=== PATIENT | male | born 1965 | race Hispanic/Latino ===

== ENCOUNTER 2017-08-16 12:53 | Outpatient (CLI) | payer MEDICARE | END 2017-08-16 12:54 | disposition home or self-care (01) | LOC: DTY/OP 12:53 | PROVIDERS: ATTEND Surgery | DX: E66.01 Morbid (severe) obesity due to excess calories (principal) | CPT/HCPCS: 97802 ==

== ENCOUNTER 2018-02-24 22:02 | Inpatient (IN) | payer MEDICARE ==
[2018-02-24 22:57] LABS: #Eosinphils 0.2 thou/uL (0.0-0.7); #Lymphocytes 1.3 thou/uL (1.20-3.40); #Monocytes 0.4 thou/uL (0.11-0.59); #Neutrophils 4.4 thou/uL (1.40-6.50); %Basophils 0.1 % (0.0-1.0); %Eosinophils 2.5 % (0.0-10.0); %Lymphocytes 20.5 % (21.0-51.0); %Monocytes 6.8 % (0.0-10.0); Hemoglobin 10.1 g/dL (14.0-18.0); Mean Corpuscular HGB CONC 32.7 g/dL (32.0-36.0); Mean Corpuscular Hemoglobin 29.2 pg (27.0-31.0); Mean Corpuscular Volume 89.3 fl (80.0-94.0); Mean Platelet Volume 8.5 fL (7.4-10.4); Platelet Count 141 thou/uL (130-400); RBC Distribution Width 14.4 % (11.5-14.5); Red Blood Cell (RBC) Count 3.45 mill/uL (4.70-6.10); White Blood Cell (WBC) Count 6.3 thou/uL (4.8-10.8)
--- NOTE | 2018-02-24 23:15 | RAD ---
CHEST ONE VIEW: 02/24/18 HISTORY: 52-year-old male with history of chest pain and bilateral leg swelling, status post coronary artery b ypass graft. Minimal cardiomegaly. Status post midline sternotomy. No confluent pneumonia, overt edema, or pleural effusion. IMPRESSION: Mild cardiomegaly. Postop midline sternotomy. No acute intrathoracic disease. POS: GLADIS
[2018-02-24 23:24] LABS: ALT (SGPT) 25 U/L (8-55); AST (SGOT) 24 U/L (5-34); Albumin 2.8 g/dL (3.5-5.0); Alkaline Phosphatase 149 U/L (40-150); Anion Gap 10 mmol/L (10-20); BUN (Urea Nitrogen) 40 mg/dL (8.4-25.7); Bilirubin, Total 0.2 mg/dL (0.2-1.2); Calc. Creatinine Clearance 0 mL/min (70-130); Calcium 8.3 mg/dL (7.8-10.44); Carbon Dioxide 27 mmol/L (22-29); Chloride 112 mmol/L (98-107); Estimated GFR-MDRD 25; Glucose 195 mg/dL (70-105); Potassium 4.6 mmol/L (3.5-5.1); Protein, Total 5.8 g/dL (6.0-8.3); Sodium 144 mmol/L (136-145)
[2018-02-24] MEDS ORDERED: Morphine 4 MG/ML VIAL ONE (23:25)
[2018-02-24 23:30] LABS: CKMB 5.1 ng/mL (0-6.6); Troponin I 0.015 ng/mL (< 0.028)
[2018-02-25] MEDS ORDERED: Furosemide 40 MG/4 ML VIAL ONE (00:23)
[2018-02-25] MEDS ORDERED: HumaLOG 300 UNITS/3 ML VIAL SC PRN (01:35)
[2018-02-25] MEDS ORDERED: Dextrose 5% in Water 1,000 ML IV PRN (01:35)
[2018-02-25] MEDS ORDERED: Dextrose 50% Abboject 50 ML SYRINGE SLOW IVP PRN (01:35)
[2018-02-25] MEDS ORDERED: Ondansetron HCl/PF 4 MG/2 ML Vial IVP PRN (01:36)
[2018-02-25] MEDS ORDERED: Ondansetron ODT 4 MG TAB PO PRN (01:36)
[2018-02-25] MEDS ORDERED: Milk Of Magnesia 30 ML UDCUP PO PRN (01:36)
[2018-02-25] MEDS ORDERED: hydrALAZINE 20 MG/ML VIAL SLOW IVP PRN (01:51)
[2018-02-25 02:04] VITALS: BMI 42.5
--- NOTE | 2018-02-25 02:25 | HP ---
PRIMARY CARE PHYSICIAN: Dr. Lazaro Beebe. PRESENTING COMPLAINT: Lower extremity swelling. HISTORY OF PRESENT ILLNESS: Mr. Venkata Sierra is a 52-year-old male, who has a past medical history o f CAD, status post CABG; diabetes mellitus; hypertension; CKD; and is legally blind; who presented to the emergency room with progressively worsening lower extremity edema for the past 3 weeks associate d with weakness. He denies chest pain, shortness of breath, palpitations, PND, orthopnea. He sleeps with 2 pillows and this has not changed. He had no fevers, no chills. There is no nausea, vomiting , diarrhea, or constipation. He has no urinary or abdominal symptoms. He was admitted at an outside hospital in January for? CHF. He reports that after his CABG, which was done on 12/07/2017, he starte d having worse lower extremity edema and then he was admitted in January, and about 40 pounds was taken off him from fluid removal, but he reports not getting an echocardiogram while in the hospital. He also states he was discharged on furosemide 80 mg daily, but this is not on his home medications. PAST MEDICAL HISTORY: As stated above in the HPI. PAST SURGICAL HISTORY: CABG, eye surgery. FAMILY HISTORY: Reviewed and noncontributory. SOCIAL HISTORY: Does not drink alcohol, smoke cigarettes, or use illicit drugs. ALLERGIES: None. HOME MEDICATIONS: Aspirin 325 mg daily, carvedilol 3.125 mg b.i.d., insulin glargine 32 units at bed time subcutaneously, insulin lispro 15 units a.c., levothyroxine sodium 25 mcg daily. REVIEW OF SYSTEMS: A 12-point review of systems conducted, but negative except as stated in HPI. PHYSICAL EXAMINATION: VITAL SIGNS: Blood pressure 188/77, oxygen saturation 95% on room air, heart rate 60, respiratory ra te 20. GENERAL: Not in acute distress, lying comfortably in bed. HEENT: Normocephalic, atraumatic. Not pale, anicteric. Moist mucous membranes. NECK: Supple. Positive JVD. Full range of movement. RESPIRATORY: Reduced breath sounds bilaterally, but no marked crackles, rales, or rhonchi. CARDIOVASCULAR: S1 and S2, only regular rate and rhythm. No murmurs, rubs, or gallops. Positive lo wer extremity edema up to the knees bilaterally and JVD. ABDOMEN: Soft, nontender, nondistended. Bowel sounds are normoactive. No hepatosplenomegaly. NEUROLOGIC: Alert and well oriented to time, place, and person. No focal deficits. SKIN: Warm, dry, well perfused. No rashes or lesions. MUSCULOSKELETAL: Full range of movement bilaterally. PSYCHIATRIC: Normal mood and affect. PSYCHIATRIC: Alert and well oriented to time, place, and person. No focal deficits. LABORATORY DATA: CMP significant for elevated BUN and creatinine of 40/2.74, glucose was 195. BNP w as about 1100. Initial troponin 0.015. Chest x-ray showed mild cardiomegaly with postop midline ryanne rnotomy and no intrathoracic disease found acutely. EKG, no signs of acute ischemia. ASSESSMENT AND PLAN: 1. Acute congestive heart failure exacerbation: The patient has anasarca with elevated BNP and he w ill be admitted to telemetry, started on IV furosemide 40 mg q.12 hours, daily weights, and his ins a nd outs to be monitored. Cardiology will be consulted and an echocardiogram will be ordered. Unclea r if this is a new onset heart failure, so we will get a TSH and obtain A1c as well. 2. Heart failure, type cannot be specified now until we get results of his echocardiogram. 3. Acute kidney injury on chronic kidney disease: This is likely from cardiorenal syndrome. His cr eatinine has trended up slightly from past admission. We will avoid nephrotoxic medications. Renal function should improve with diuresis. 3. Coronary artery disease, status post coronary artery bypass grafting. Patient is chest pain free . We will resume home medications once confirmed. 4. Diabetes mellitus: The patient is clinically uncontrolled. We will start on sliding scale insul in, fingerstick glucose before meals and at bedtime. Hypoglycemia protocol and also obtain hemoglobi n A1c. 5. Hypertension: Blood pressure is above goal. We will start on home regimen and place on IV hydra lazine p.r.n. The patient will need to be discharged on a beta chad. He will also require spironolactone and AC E inhibitor if he has systolic dysfunction. Deep venous thrombosis prophylaxis, subcutaneous heparin . CODE STATUS: FULL CODE. Levothyroxine: Patient takes 25 mcg daily. We will restart and check TSH.
[2018-02-25 05:04] LABS: #Eosinphils 0.2 thou/uL (0.0-0.7); #Lymphocytes 1.5 thou/uL (1.20-3.40); #Monocytes 0.5 thou/uL (0.11-0.59); #Neutrophils 4.9 thou/uL (1.40-6.50); %Basophils 0.2 % (0.0-1.0); %Eosinophils 2.2 % (0.0-10.0); %Lymphocytes 20.8 % (21.0-51.0); %Monocytes 7.1 % (0.0-10.0); %Neutrophils 69.7 % (42.0-75.0); Hemoglobin 9.5 g/dL (14.0-18.0); Mean Corpuscular HGB CONC 32.9 g/dL (32.0-36.0); Mean Corpuscular Hemoglobin 29.5 pg (27.0-31.0); Mean Corpuscular Volume 89.7 fl (80.0-94.0); Mean Platelet Volume 8.5 fL (7.4-10.4); Platelet Count 135 thou/uL (130-400); RBC Distribution Width 14.6 % (11.5-14.5); Red Blood Cell (RBC) Count 3.22 mill/uL (4.70-6.10)
[2018-02-25 05:13] LABS: Hemoglobin A1c 6.3 % (4.0-6.0)
[2018-02-25 05:18] LABS: Anion Gap 8 mmol/L (10-20); BUN (Urea Nitrogen) 41 mg/dL (8.4-25.7); Calc. Creatinine Clearance 65 mL/min (70-130); Calcium 8.2 mg/dL (7.8-10.44); Carbon Dioxide 27 mmol/L (22-29); Chloride 110 mmol/L (98-107); Estimated GFR-MDRD 27; Glucose 135 mg/dL (70-105); Potassium 4.3 mmol/L (3.5-5.1); Sodium 141 mmol/L (136-145)
[2018-02-25 05:31] LABS: Troponin I 0.048 ng/mL (< 0.028)
[2018-02-25] MEDS: Furosemide 40 MG/4 ML VIAL SLOW IVP SCH ×2 (05:50→13:26)
[2018-02-25] MEDS: Levothyroxine Sodium 125 MCG TAB PO SCH (06:05)
[2018-02-25] MEDS: traMADol HCl 50 MG TAB PO PRN ×3 (06:06→22:13)
[2018-02-25] MEDS: Heparin 5,000 UNITS/ML VIAL SC SCH ×3 (08:43→22:03)
[2018-02-25] MEDS: glipiZIDE 10 MG TAB PO SCH (08:44)
[2018-02-25] MEDS: Losartan 25 MG TAB PO SCH (08:45)
[2018-02-25] MEDS: Carvedilol 3.125 MG TAB PO SCH ×2 (08:45→23:23)
[2018-02-25] MEDS: Ferrous Sulfate 325 MG TAB PO SCH ×2 (08:45→22:03)
[2018-02-25] MEDS: Docusate 100 MG CAP PO SCH ×2 (08:45→22:02)
[2018-02-25] MEDS ORDERED: Amlodipine 5 MG TAB PO SCH (09:00)
[2018-02-25 10:44] LABS: Troponin I 0.013 ng/mL (< 0.028)
[2018-02-25] MEDS: HumaLOG 300 UNITS/3 ML VIAL SC PRN (11:47)
--- NOTE | 2018-02-25 13:14 | PDOC.PN ---
- Subjective Encounter Start Date: 02/25/18 Encounter Start Time: 13:12 Subjective: feels better.denies any CP/SOB.still has significant swelling all over - Objective Resuscitation Status: Resuscitation Status FULL:Full Resuscitation MAR Reviewed: Yes Vital Signs & Weight: Vital Signs (12 hours) Temp Pulse Resp BP Pulse Ox 02/25/18 11:45 97.9 F 58 L 16 145/70 H 97 02/25/18 07:30 97.9 F 60 16 151/72 H 97 02/25/18 05:46 98.1 F 59 L 16 173/80 H 96 02/25/18 01:50 97.9 F 61 18 180/81 H 97 Weight Weight 296 lb 1 oz I&O: 02/24/18 02/25/18 02/26/18 06:59 06:59 06:59 Intake Total 150 Output Total 1250 Balance -1100 Result Diagrams: 02/25/18 04:32 02/25/18 04:32 Additional Labs: Accuchecks 02/25/18 02/25/18 02/25/18 10:31 05:50 02:16 POC Glucose 243 H 158 H 138 H Laboratory Tests 11/03/17 12/30/17 01/13/18 10:25 14:31 14:03 Creatinine 1.74 H 2.06 H 2.36 H Troponin I B-Natriuretic Peptide [facility] 3rd Generation 02/24/18 02/24/18 02/24/18 22:45 22:45 22:45 Creatinine 2.74 H Troponin I 0.015 B-Natriuretic Peptide 1127.[address] [facility] 3rd Generation 02/25/18 02/25/18 02/25/18 01:08 04:32 04:32 Creatinine 2.54 H Troponin I 0.020 0.048 H B-Natriuretic Peptide [facility] 3rd Generation 02/25/18 04:32 Creatinine Troponin I B-Natriuretic Peptide [facility] 3rd Generation 4.2347 Phys Exam - Physical Examination Constitutional: NAD legally blind HEENT: PERRLA, moist MMs, sclera anicteric, 2+ tonsils Neck: no nodes, no JVD, supple, full ROM Respiratory: no wheezing, no rales, no rhonchi, clear to auscultation bilateral Cardiovascular: RRR, no significant murmur Gastrointestinal: soft, non-tender, no distention, positive bowel sounds Musculoskeletal: pulses present, edema present (anasarca) Neurological: non-focal, normal sensation, moves all 4 limbs Psychiatric: normal affect, A&O x 3 Deviation from normal: scatching dodson legs and abdomen Dx/Plan (1) Anasarca Code(s): R60.1 - GENERALIZED EDEMA Status: Acute (2) Acute CHF Code(s): I50.9 - HEART FAILURE, UNSPECIFIED Status: Acute Qualifiers: Heart failure type: unspecified Qualified Code(s): I50.9 - Heart failure, unspecified (3) CKD (chronic kidney disease) Code(s): N18.9 - CHRONIC KIDNEY DISEASE, UNSPECIFIED Status: Chronic Qualifiers: Chronic kidney disease stage: stage 3 (moderate) Qualified Code(s): N18.3 - Chronic kidney disease, stage 3 (moderate) (4) CAD (coronary artery disease), autologous vein bypass graft Code(s): I25.810 - ATHEROSCLEROSIS OF CABG W/O ANGINA PECTORIS Status: Chronic Comment: Cont ASA, BB, ARB,statin (5) DM2 (diabetes mellitus, type 2) Status: Chronic Plan: on Glipizide (6) Hypertension Code(s): I10 - ESSENTIAL (PRIMARY) HYPERTENSION Status: Chronic (7) Chronic disease anemia Code(s): D63.8 - ANEMIA IN OTHER CHRONIC DISEASES CLASSIFIED ELSEWHERE Status : Chronic - Plan PT/OT, out of bed/ambulate, DVT proph w/SCDs cont diuresis .monitor strict I/os.fluid restriction. -: unspecified cardiac status.will check ECHO.[facility] will obtain records.Pt wants to change cardiology to [facility].will consult -: restart home meds.BP higher .cont prn as well & monitor -: cont ISS,Accuchecks. AM labs * .consult nephrology per Pt request. no NATANAEL on CKD at this time.monitor with diuresis Review of Systems - Review of Systems Constitutional: weakness. negative: fever, chills, sweats, malaise, other ENT: negative: Ear Pain, Ear Discharge, Nose Pain, Nose Discharge, Nose Congestion, Mouth Pain, Mouth Swelling, Throat Pain, Throat Swelling, Other Respiratory: negative: Cough, Dry, Shortness of Breath, Hemoptysis, SOB with Excertion, Pleuritic Pain, Sputum, Wheezing Cardiovascular: edema. negative: chest pain, palpitations, orthopnea, paroxysmal nocturnal dyspnea, light headedness, other Gastrointestinal: negative: Nausea, Vomiting, Abdominal Pain, Diarrhea, Constipation, Melena, Hematochezia, Other Genitourinary: negative: Dysuria, Frequency, Incontinence, Hematuria, Retention , Other Musculoskeletal: negative: Neck Pain, Shoulder Pain, Arm Pain, Back Pain, Hand Pain, Leg Pain, Foot Pain, Other Skin: negative: Rash, Lesions, Steve, Bruising, Other Neurological: negative: Weakness, Numbness, Incoordination, Change in Speech, Confusion, Seizures, Other - Medications/Allergies Allergies/Adverse Reactions: Allergies Allergy/AdvReac Type Severity Reaction Status Date / Time No Known Drug Allergies Allergy Verified 05/04/14 02:40 Medications: Current Medications Acetaminophen (Tylenol) 650 mg PO Q4H PRN PRN Reason: Headache/Fever or Pain Amlodipine Besylate (Norvasc) 5 mg PO DAILY [facility] Last Admin: 02/25/18 08:44 Dose: 5 mg Aspirin (Aspirin Chewable) 81 mg PO DAILY [facility] Last Admin: 02/25/18 08:45 Dose: 81 mg Atorvastatin Calcium (Lipitor) 40 mg PO [facility] Carvedilol (Coreg) 6.25 mg PO BID [facility] Last Admin: 02/25/18 08:45 Dose: 6.25 mg Dextrose/Water (Dextrose 50%) 25 gm SLOW IVP PRN PRN PRN Reason: Hypoglycemia Docusate Sodium (Colace) 100 mg PO BID [facility] Last Admin: 02/25/18 08:45 Dose: 100 mg Ferrous Sulfate (Feosol) 325 mg PO BID [facility] Last Admin: 02/25/18 08:45 Dose: 325 mg Furosemide (Lasix) 40 mg SLOW IVP 0600,1400 [facility] Last Admin: 02/25/18 05:50 Dose: 40 mg Glipizide (Glucotrol) 10 mg PO DAILY-AC [facility] Last Admin: 02/25/18 08:44 Dose: 10 mg Glucagon (Glucagon) 1 mg IM PRN PRN PRN Reason: Hypoglycemia Heparin Sodium (Porcine) (Heparin) 5,000 units SC TID [facility] Last Admin: 02/25/18 08:43 Dose: 5,000 units Hydralazine HCl (Apresoline) 10 mg SLOW IVP Q4H PRN PRN Reason: Blood Pressure Dextrose/Water (D5w) 1,000 mls @ 0 mls/hr IV .Q0M PRN; As Directed PRN Reason: Hypoglycemia Insulin Human Lispro (Humalog) 0 units SC .MODERATE SLIDING SC PRN PRN Reason: Moderate Correctional Scale Last Admin: 02/25/18 11:47 Dose: 4 unit Insulin Human Lispro (Humalog) 0 units SC .BEDTIME SLIDING SC PRN PRN Reason: Bedtime Correctional Scale Lactulose (Lactulose) 20 gm PO DAILYPRN PRN PRN Reason: Constipation Levothyroxine Sodium (Synthroid) 250 mcg PO 0600 [facility] Last Admin: 02/25/18 06:05 Dose: 250 mcg Losartan Potassium (Cozaar) 25 mg PO DAILY [facility] Last Admin: 02/25/18 08:45 Dose: 25 mg Magnesium Hydroxide (Milk Of Magnesium) 30 ml PO DAILYPRN PRN PRN Reason: Constipation Ondansetron HCl (Zofran Odt) 4 mg PO Q6H PRN PRN Reason: Nausea/Vomiting Ondansetron HCl (Zofran) 4 mg IVP Q6H PRN PRN Reason: Nausea/Vomiting Sodium Chloride (Flush - Normal Saline) 10 ml IVF Q12HR [facility] Last Admin: 02/25/18 08:46 Dose: 10 ml Sodium Chloride (Flush - Normal Saline) 10 ml IVF PRN PRN PRN Reason: Saline Flush Tramadol HCl (Ultram) 50 mg PO Q4H PRN PRN Reason: Pain Last Admin: 02/25/18 06:06 Dose: 50 mg
[2018-02-25] MEDS: Acetaminophen 325 MG TAB PO PRN (15:41)
--- NOTE | 2018-02-25 17:43 | CON ---
DATE OF CONSULTATION: 02/25/2018 REASON FOR CONSULTATION: Lower extremity edema. HISTORY OF PRESENT ILLNESS: Mr. Sierra is a very pleasant 52-year-old gentleman who comes to the hospital for lower extremity edema. He was recently in November of this year had a bypass surger y done at [facility] by Dr. Mcdaniel. He had noticed that since then he has had increased lower extremity edema. He had to be readmitted to the hospital sometime in January secondary to this. He was diuresed and took about 40 pounds off. Since discharge, he continued to regain the fluid back slowly to the point where he decided to come in again for evaluation. He denies any chest pain, tightness, pressur e, no shortness of breath. There is lower extremity edema as well as abdominal swelling. PAST MEDICAL HISTORY: 1. Type 2 diabetes. 2. Hypertension. 3. Chronic kidney disease. 4. Multivessel coronary artery disease status post bypass surgery in 12/07/2017. PAST SURGICAL HISTORY: 1. CABG x3. 2. Eye surgery. FAMILY HISTORY: Noncontributory. SOCIAL HISTORY: No alcohol, tobacco or drugs. OUTPATIENT MEDICATIONS: Include: 1. Tramadol p.r.n. 2. Glipizide 10 mg a day. 3. Losartan 25 mg a day. 4. Levothyroxine 250 mcg a day. 5. Insulin Lantus. 6. Lasix 80 mg a day. 7. Ferrous sulfate 325 mg b.i.d. 8. Carvedilol 6.25 mg b.i.d. 9. Atorvastatin 40 mg at bedtime. 10. Aspirin 81 daily. 11. Amlodipine 5 mg b.i.d. 12. Acarbose 25 mg p.o. t.i.d. ALLERGIES: No known drug allergies. REVIEW OF SYSTEMS: A 12 point review of systems was done and it is negative unless stated in history of present illness. PHYSICAL EXAMINATION: VITAL SIGNS: Temperature 97.8, pulse 55, respiratory rate 16, satting 99% on room air, blood pressur e 138/63. GENERAL: Awake, alert, oriented x3, in no distress. HEENT: Normocephalic, atraumatic. NECK: Supple. LUNGS: Clear. CARDIOVASCULAR: S1, S2, no S3 or S4, no murmurs. ABDOMEN: Soft, positive bowel sounds. EXTREMITIES: 3+ edema. SKIN: Warm. LABORATORY DATA AND IMAGING DATA: Laboratory work was reviewed. CBC with white count of 6.3, hemogl obin 10.1 down to 9.5, hematocrit 28, and platelet count 135. Chemistries were reviewed. Sodium 141 , potassium 4.3, chloride of 110, anion gap of 8, BUN 41, creatinine 2.54. His baseline in October this year was 1.7, GFR of 27, glucose of 135, hemoglobin A1c of 6.3. Troponin has been 0.01, 0.02, 0.04 and 0.01. TSH was on the high end of normal at 4.2. He has been as high as 10.5 just two litzy hs ago. Albumin is low at 2.8. BNP was 1127, trending up albumin has been low, it is normal back in 2011, bu t late as 2013 it was 3.2, last year was 3.0 and has been less than 2 in 2018. EKG was reviewed. Chest x-ray was reviewed, showed mild cardiomegaly, midline sternotomy. No acute intrathoracic disea se. ASSESSMENT AND PLAN: 1. Bilateral lower extremity edema. 2. Coronary artery disease, status post bypass. 3. Hypertension. 4. Hyperlipidemia. 5. Type 2 diabetes. PLAN: 1. Differential diagnosis as far as lower extremity edema includes edema related to amlodipine, so w magen will plan on stopping amlodipine today. 2. Other differential includes congestive heart failure. We will get an echocardiogram to assess LV function and valvular structures. 3. Other considerations would include haptoglobin anemia. He does have low albumin. Consider hepat ic dysfunction, although this could be related to cardiac cirrhosis just or cardiac congestion. He h ad a CT of the abdomen back in May of last year and his liver was not mentioned to be nodular or a nything. 4. Continue IV Lasix for now, try to diurese him better. 5. We will follow. Thank you for letting us to participate in the care of your patient. We will follow.
[2018-02-25] MEDS: Atorvastatin Calcium 40 MG TAB PO SCH (22:02)
[2018-02-25] MEDS: Insulin Detemir 100 UNITS/ML 10 UNITS in Pre-Filled Syringe SC SCH (22:17)
[2018-02-25] MEDS: diphenhydrAMINE 25 MG CAP PO PRN (23:49)
[2018-02-26] MEDS: Levothyroxine Sodium 125 MCG TAB PO SCH (06:33)
[2018-02-26] MEDS: Furosemide 40 MG/4 ML VIAL SLOW IVP SCH ×2 (06:33→14:17)
[2018-02-26] MEDS: Ferrous Sulfate 325 MG TAB PO SCH ×2 (08:46→21:25)
[2018-02-26] MEDS: Docusate 100 MG CAP PO SCH ×2 (08:46→21:26)
[2018-02-26] MEDS: Losartan 25 MG TAB PO SCH (08:47)
[2018-02-26] MEDS: Heparin 5,000 UNITS/ML VIAL SC SCH ×3 (08:47→21:26)
[2018-02-26] MEDS: glipiZIDE 10 MG TAB PO SCH (08:47)
[2018-02-26] MEDS: Carvedilol 3.125 MG TAB PO SCH ×2 (08:47→21:24)
[2018-02-26 09:54] LABS: Anion Gap 8 mmol/L (10-20); BUN (Urea Nitrogen) 39 mg/dL (8.4-25.7); Calc. Creatinine Clearance 79 mL/min (70-130); Calcium 8.2 mg/dL (7.8-10.44); Carbon Dioxide 28 mmol/L (22-29); Chloride 109 mmol/L (98-107); Estimated GFR-MDRD 35; Glucose 176 mg/dL (70-105); Potassium 4.1 mmol/L (3.5-5.1); Sodium 141 mmol/L (136-145)
[2018-02-26] MEDS: traMADol HCl 50 MG TAB PO PRN ×2 (10:31→21:25)
[2018-02-26] MEDS: diphenhydrAMINE 25 MG CAP PO PRN ×2 (10:32→21:25)
--- NOTE | 2018-02-26 14:01 | PDOC.PN ---
- Subjective Encounter Start Date: 02/26/18 Encounter Start Time: 14:00 Subjective: still has LE swelling but little better than yesterday -: care discussed with at bedside -: no new complaints - Objective Resuscitation Status: Resuscitation Status FULL:Full Resuscitation MAR Reviewed: Yes Vital Signs & Weight: Vital Signs (12 hours) Temp Pulse Resp BP BP Pulse Ox 02/26/18 12:05 98.6 F 57 L 16 173/79 H 98 02/26/18 08:50 59 L 179/77 H 02/26/18 07:18 97.6 F 60 16 182/78 H 98 02/26/18 04:00 98.2 F 57 L 18 162/70 H Weight Weight 291 lb 1.6 oz I&O: 02/25/18 02/26/18 02/27/18 06:59 06:59 06:59 Intake Total 150 934 Output Total 1250 4150 Balance -1100 3216 Result Diagrams: 02/25/18 04:32 02/26/18 09:23 Additional Labs: Accuchecks 02/26/18 02/26/18 02/25/18 10:59 06:04 21:32 POC Glucose 157 H 132 H 191 H 02/25/18 16:39 POC Glucose 136 H Laboratory Tests 02/24/18 02/25/18 02/25/18 22:45 01:08 04:32 Hemoglobin A1c Troponin I 0.015 0.020 0.048 H 02/25/18 02/25/18 04:32 10:03 Hemoglobin A1c 6.3 H Troponin I 0.013 Radiology Reviewed by me: Yes (ECHO-3/3 diastolic dysfunction.EF NL.TR) Phys Exam - Physical Examination Constitutional: NAD legally blind HEENT: PERRLA, moist MMs, sclera anicteric, oral pharynx no lesions Neck: no nodes, no JVD, supple, full ROM Respiratory: no wheezing, no rales, no rhonchi, clear to auscultation bilateral Cardiovascular: RRR, no significant murmur, no rub, gallop Gastrointestinal: soft, non-tender, no distention, positive bowel sounds Musculoskeletal: pulses present, edema present Neurological: non-focal, normal sensation, moves all 4 limbs Psychiatric: normal affect, A&O x 3 Skin: no rash Dx/Plan (1) Anasarca Code(s): R60.1 - GENERALIZED EDEMA Status: Acute Comment: due to CHF (2) Acute CHF Code(s): I50.9 - HEART FAILURE, UNSPECIFIED Status: Acute Qualifiers: Heart failure type: diastolic Qualified Code(s): I50.31 - Acute diastolic ( congestive) heart failure (3) CKD (chronic kidney disease) Code(s): N18.9 - CHRONIC KIDNEY DISEASE, UNSPECIFIED Status: Chronic Qualifiers: Chronic kidney disease stage: stage 3 (moderate) Qualified Code(s): N18.3 - Chronic kidney disease, stage 3 (moderate) Comment: Stable.avoid any nephrotoxic meds.Nephrology consulted (4) CAD (coronary artery disease), autologous vein bypass graft Code(s): I25.810 - ATHEROSCLEROSIS OF CABG W/O ANGINA PECTORIS Status: Chronic Comment: Cont ASA, BB, ARB,statin.Multivessel CABG in 11/2017 (5) DM2 (diabetes mellitus, type 2) Status: Chronic (6) Hypertension Code(s): I10 - ESSENTIAL (PRIMARY) HYPERTENSION Status: Chronic (7) Chronic disease anemia Code(s): D63.8 - ANEMIA IN OTHER CHRONIC DISEASES CLASSIFIED ELSEWHERE Status : Chronic - Plan out of bed/ambulate, DVT proph w/SCDs cont diuresis.monitor I/os.Lost 5 lbs i 24 hours.monitor renal function -: cardiology following-appreciate input.Amlodipine stopped d/t anasarca -: pt & family educated about HF clinic referral on DC -: they want to establish cardiology care w [facility].will refer as an OP too -: home meds as below. Accuchecks achs.am labs * .BP higher. will increase ARB.avoid increasing BB as HR on lower side Review of Systems - Review of Systems Constitutional: negative: fever, chills, sweats, weakness, malaise, other ENT: negative: Ear Pain, Ear Discharge, Nose Pain, Nose Discharge, Nose Congestion, Mouth Pain, Mouth Swelling, Throat Pain, Throat Swelling, Other Respiratory: SOB with Excertion. negative: Cough, Dry, Shortness of Breath, Hemoptysis, Pleuritic Pain, Sputum, Wheezing Cardiovascular: edema. negative: chest pain, palpitations, orthopnea, paroxysmal nocturnal dyspnea, light headedness, other Gastrointestinal: negative: Nausea, Vomiting, Abdominal Pain, Diarrhea, Constipation, Melena, Hematochezia, Other Genitourinary: negative: Dysuria, Frequency, Incontinence, Hematuria, Retention , Other Musculoskeletal: negative: Neck Pain, Shoulder Pain, Arm Pain, Back Pain, Hand Pain, Leg Pain, Foot Pain, Other Skin: negative: Rash, Lesions, Steve, Bruising, Other Neurological: negative: Weakness, Numbness, Incoordination, Change in Speech, Confusion, Seizures, Other - Medications/Allergies Allergies/Adverse Reactions: Allergies Allergy/AdvReac Type Severity Reaction Status Date / Time No Known Drug Allergies Allergy Verified 05/04/14 02:40 Medications: Current Medications Acetaminophen (Tylenol) 650 mg PO Q4H PRN PRN Reason: Headache/Fever or Pain Last Admin: 02/25/18 15:41 Dose: 650 mg Aspirin (Aspirin Chewable) 81 mg PO DAILY [facility] 234 BEDS AT [facility] Last Admin: 02/26/18 08:47 Dose: 81 mg Atorvastatin Calcium (Lipitor) 40 mg PO HS [facility]S INCLUDE 234 BEDS AT [facility] Last Admin: 02/25/18 22:02 Dose: 40 mg Carvedilol (Coreg) 6.25 mg PO BID [facility]CLUDE 234 BEDS AT [facility] Last Admin: 02/26/18 08:47 Dose: 6.25 mg Dextrose/Water (Dextrose 50%) 25 gm SLOW IVP PRN PRN PRN Reason: Hypoglycemia Diphenhydramine HCl (Benadryl) 25 mg PO Q6H PRN PRN Reason: Itching Last Admin: 02/26/18 10:32 Dose: 25 mg Docusate Sodium (Colace) 100 mg PO BID [facility] 234 BEDS AT [facility] Last Admin: 02/26/18 08:46 Dose: 100 mg Ferrous Sulfate (Feosol) 325 mg PO BID [facility]CLUDE 234 BEDS AT [facility] Last Admin: 02/26/18 08:46 Dose: 325 mg Furosemide (Lasix) 40 mg SLOW IVP 0600,1400 [facility]S [facility]CLUDE 234 BEDS AT [facility] Last Admin: 02/26/18 06:33 Dose: 40 mg Glipizide (Glucotrol) 10 mg PO DAILY-AC [facility]CLUDE 234 BEDS AT [facility] Last Admin: 02/26/18 08:47 Dose: 10 mg Glucagon (Glucagon) 1 mg IM PRN PRN PRN Reason: Hypoglycemia Heparin Sodium (Porcine) (Heparin) 5,000 units SC TID [facility] 234 BEDS AT [facility] Last Admin: 02/26/18 08:47 Dose: 5,000 units Hydralazine HCl (Apresoline) 10 mg SLOW IVP Q4H PRN PRN Reason: Blood Pressure Dextrose/Water (D5w) 1,000 mls @ 0 mls/hr IV .Q0M PRN; As Directed PRN Reason: Hypoglycemia Insulin Detemir 10 units/ (Miscellaneous Medication) 0.1 mls @ 0 mls/hr SC [facility] Last Admin: 02/25/18 22:17 Dose: 0.1 mls Insulin Human Lispro (Humalog) 0 units SC .MODERATE SLIDING SC PRN PRN Reason: Moderate Correctional Scale Last Admin: 02/25/18 11:47 Dose: 4 unit Insulin Human Lispro (Humalog) 0 units SC .BEDTIME SLIDING SC PRN PRN Reason: Bedtime Correctional Scale Lactulose (Lactulose) 20 gm PO DAILYPRN PRN PRN Reason: Constipation Levothyroxine Sodium (Synthroid) 250 mcg PO 0600 [facility] 234 BEDS AT [facility] Last Admin: 02/26/18 06:33 Dose: 250 mcg Losartan Potassium (Cozaar) 25 mg PO DAILY [facility]CLUDE 234 BEDS AT [facility] Last Admin: 02/26/18 08:47 Dose: 25 mg Magnesium Hydroxide (Milk Of Magnesium) 30 ml PO DAILYPRN PRN PRN Reason: Constipation Ondansetron HCl (Zofran Odt) 4 mg PO Q6H PRN PRN Reason: Nausea/Vomiting Ondansetron HCl (Zofran) 4 mg IVP Q6H PRN PRN Reason: Nausea/Vomiting Sodium Chloride (Flush - Normal Saline) 10 ml IVF Q12HR [facility]S INCLUDE 234 BEDS AT [facility] Last Admin: 02/26/18 08:47 Dose: 10 ml Sodium Chloride (Flush - Normal Saline) 10 ml IVF PRN PRN PRN Reason: Saline Flush Tramadol HCl (Ultram) 50 mg PO Q4H PRN PRN Reason: Pain Last Admin: 02/25/18 15:41 Dose: 50 mg Tramadol HCl (Ultram) 100 mg PO Q4H PRN PRN Reason: Pain 2ND LINE Last Admin: 02/26/18 10:31 Dose: 100 mg
[2018-02-26] MEDS ORDERED: Losartan 25 MG TAB PO SCH ×2 (14:06→14:15)
--- NOTE | 2018-02-26 16:32 | PDOC.CTH ---
Cardiology Progress Note - Subjective He is doing better. He continues to diurese well and swelling improving. - Objective Vital Signs Temp Pulse Resp BP BP Pulse Ox 02/26/18 14:28 55 L 170/77 H 02/26/18 12:05 98.6 F 57 L 16 173/79 H 98 02/26/18 08:50 59 L 179/77 H 02/26/18 07:18 97.6 F 60 16 182/78 H 98 Weight 291 lb 1.6 oz 02/25/18 02/26/18 02/27/18 06:59 06:59 06:59 Intake Total 150 934 Output Total 1250 4150 Balance -1100 -3216 - Physical Examination General/Neuro: alert & oriented x3, NAD Neck: no JVD present Lungs: CTA, unlabored respirations Heart: RRR Abdomen: NT/ND Extremities: + edema B (2+) - Telemetry Telemetry Rhythm: S delores - Labs Result Diagrams: 02/25/18 04:32 02/26/18 09:23 Troponin/CKMB CK-MB (CK-2) 5.1 ng/mL (0-6.6) 02/24/18 22:45 Troponin I 0.013 ng/mL (< 0.028) 02/25/18 10:03 - Assessment/Plan 1. Acute on chronic diastolic heart failure 2. Grade 3/3 Diastolic dysfunction. 3. Hypoalbuminemia 4. CAD s/p CABG in Nov 2017 5. Legally blind 6. NATANAEL on CKD improving with diuresis. 7. HTN 8. DMT2 PLAN: - Continue IV diuresis. - Will get liver US to start assessment for low albumin - Likely edema from severe diastolic dysfunction. - Continue to be off amlodipine due to concern for LE edema. - Will follow.
[2018-02-26] MEDS: HumaLOG 300 UNITS/3 ML VIAL SC PRN (16:38)
[2018-02-26] MEDS: Atorvastatin Calcium 40 MG TAB PO SCH (21:25)
[2018-02-26] MEDS: Insulin Detemir 100 UNITS/ML 10 UNITS in Pre-Filled Syringe SC SCH (21:27)
[2018-02-27 05:23] LABS: Anion Gap 9 mmol/L (10-20); BUN (Urea Nitrogen) 39 mg/dL (8.4-25.7); Calc. Creatinine Clearance 81 mL/min (70-130); Calcium 8.2 mg/dL (7.8-10.44); Carbon Dioxide 26 mmol/L (22-29); Chloride 110 mmol/L (98-107); Estimated GFR-MDRD 35; Glucose 145 mg/dL (70-105); Potassium 4.2 mmol/L (3.5-5.1); Sodium 141 mmol/L (136-145)
[2018-02-27] MEDS: Levothyroxine Sodium 125 MCG TAB PO SCH (06:11)
[2018-02-27] MEDS: Furosemide 40 MG/4 ML VIAL SLOW IVP SCH ×2 (06:11→16:04)
[2018-02-27] MEDS ORDERED: Losartan 25 MG TAB PO SCH (09:00)
[2018-02-27] MEDS: Docusate 100 MG CAP PO SCH ×2 (09:58→20:59)
[2018-02-27] MEDS: diphenhydrAMINE 25 MG CAP PO PRN ×2 (09:58→21:08)
[2018-02-27] MEDS: traMADol HCl 50 MG TAB PO PRN ×2 (09:58→21:07)
[2018-02-27] MEDS: glipiZIDE 10 MG TAB PO SCH (09:59)
[2018-02-27] MEDS: Ferrous Sulfate 325 MG TAB PO SCH ×2 (09:59→20:59)
[2018-02-27] MEDS: Carvedilol 3.125 MG TAB PO SCH ×2 (09:59→20:58)
[2018-02-27] MEDS: Acetaminophen 325 MG TAB PO PRN (10:00)
[2018-02-27] MEDS: Heparin 5,000 UNITS/ML VIAL SC SCH ×3 (10:04→20:59)
--- NOTE | 2018-02-27 10:31 | ULT ---
RIGHT UPPER QUADRANT HEPATIC ULTRASOUND: Date: 02/27/18 COMPARISON: None. HISTORY: Low albumin. TECHNIQUE: Multiplanar Tolentino scale and color Doppler images were obtained in a right upper quadrant abdominal ult rasound. Spectral analysis of the Doppler waveforms of the hepatic and splenic muscles performed. FINDINGS: The liver demonstrates increased echogenicity without focal lesions or intrahepatic ductal dilatation . The gallbladder is normal, without stones, sludge, gallbladder wall thickening, or pericholecystic fluid. The common bile duct is normal measuring 4.0 mm. Normal directional flow is seen within the hepatic and splenic vessels, which also have normal wavefo wilber. The spleen is normal in echogenicity, without focal lesions, and is enlarged measuring 14.3 cm i n length. The pancreas cannot be visualized. The kidneys were not visualized on this exam. IMPRESSION: 1. Fatty liver. 2. Splenomegaly. POS: [facility]
--- NOTE | 2018-02-27 12:42 | PDOC.PN ---
- Subjective Encounter Start Date: 02/27/18 Encounter Start Time: 12:40 Subjective: feels better. feels that swelling is going down but slowly -: no chest pain/SOB .walked all around & outside the hospital w/o difficulty - Objective Resuscitation Status: Resuscitation Status FULL:Full Resuscitation MAR Reviewed: Yes Vital Signs & Weight: Vital Signs (12 hours) Temp Pulse Pulse Pulse Resp BP BP 02/27/18 12:00 96.6 F L 57 L 16 02/27/18 10:16 55 L 66 174/84 H 164/68 H 02/27/18 08:45 96.3 F L 57 L 16 02/27/18 08:00 98.6 F 58 L 17 02/27/18 04:00 98.6 F 58 L 17 BP Pulse Ox Pulse Ox Pulse Ox 02/27/18 12:00 160/76 H 98 02/27/18 10:16 97 98 02/27/18 08:45 188/67 H 97 02/27/18 08:00 02/27/18 04:00 161/72 H 94 L Weight Weight 282 lb 8 oz I&O: 02/26/18 02/27/18 02/28/18 06:59 06:59 06:59 Intake Total 934 1094 Output Total 4159 3578 1757 [facility] -3216 -3281 -1750 Result Diagrams: 02/25/18 04:32 02/27/18 04:57 Additional Labs: Accuchecks 02/27/18 02/27/18 02/26/18 11:20 05:46 21:04 POC Glucose 168 H 143 H 157 H 02/26/18 16:36 POC Glucose 165 H Laboratory Tests 02/24/18 02/25/18 02/26/18 22:45 04:32 09:23 Creatinine 2.74 H 2.54 H 2.03 H 02/27/18 04:57 Creatinine 2.00 H Radiology Reviewed by me: Yes Phys Exam - Physical Examination Constitutional: NAD HEENT: PERRLA, moist MMs, sclera anicteric, oral pharynx no lesions Neck: no nodes, no JVD, supple, full ROM Respiratory: no wheezing, no rales, no rhonchi, clear to auscultation bilateral Cardiovascular: RRR, no significant murmur, no rub Gastrointestinal: soft, non-tender, no distention, positive bowel sounds mild abd walll edema Musculoskeletal: pulses present, edema present (improving) Neurological: non-focal, normal sensation, moves all 4 limbs Psychiatric: normal affect, A&O x 3 Skin: no rash Dx/Plan (1) Anasarca Code(s): R60.1 - GENERALIZED EDEMA Status: Acute Comment: due to CHF (2) Acute CHF Code(s): I50.9 - HEART FAILURE, UNSPECIFIED Status: Acute Qualifiers: Heart failure type: diastolic Qualified Code(s): I50.31 - Acute diastolic ( congestive) heart failure (3) CKD (chronic kidney disease) Code(s): N18.9 - CHRONIC KIDNEY DISEASE, UNSPECIFIED Status: Chronic Qualifiers: Chronic kidney disease stage: stage 3 (moderate) Qualified Code(s): N18.3 - Chronic kidney disease, stage 3 (moderate) Comment: Stable.avoid any nephrotoxic meds.Nephrology consulted (4) CAD (coronary artery disease), autologous vein bypass graft Code(s): I25.810 - ATHEROSCLEROSIS OF CABG W/O ANGINA PECTORIS Status: Chronic Comment: Cont ASA, BB, ARB,statin.Multivessel CABG in 11/2017 (5) DM2 (diabetes mellitus, type 2) Status: Chronic (6) Hypertension Code(s): I10 - ESSENTIAL (PRIMARY) HYPERTENSION Status: Chronic (7) Chronic disease anemia Code(s): D63.8 - ANEMIA IN OTHER CHRONIC DISEASES CLASSIFIED ELSEWHERE Status : Chronic - Plan PT/OT, respiratory therapy, out of bed/ambulate, DVT proph w/SCDs consult HF clinic. -: cont diuresis w strict I/O monitoring .14 lbs fluid weight loss -: change to PO lasix from tomorrow. -: cardiology recs appreciated -: Outpt cardiac rehab.juan david DOMINGUEZ in next 24-48 hrs. * . Review of Systems - Review of Systems Constitutional: negative: fever, chills, sweats, weakness, malaise, other ENT: negative: Ear Pain, Ear Discharge, Nose Pain, Nose Discharge, Nose Congestion, Mouth Pain, Mouth Swelling, Throat Pain, Throat Swelling, Other Respiratory: negative: Cough, Dry, Shortness of Breath, Hemoptysis, SOB with Excertion, Pleuritic Pain, Sputum, Wheezing Cardiovascular: edema. negative: chest pain, palpitations, orthopnea, paroxysmal nocturnal dyspnea, light headedness, other Gastrointestinal: negative: Nausea, Vomiting, Abdominal Pain, Diarrhea, Constipation, Melena, Hematochezia, Other Genitourinary: negative: Dysuria, Frequency, Incontinence, Hematuria, Retention , Other Musculoskeletal: negative: Neck Pain, Shoulder Pain, Arm Pain, Back Pain, Hand Pain, Leg Pain, Foot Pain, Other Skin: negative: Rash, Lesions, Steve, Bruising, Other Neurological: negative: Weakness, Numbness, Incoordination, Change in Speech, Confusion, Seizures, Other - Medications/Allergies Allergies/Adverse Reactions: Allergies Allergy/AdvReac Type Severity Reaction Status Date / Time No Known Drug Allergies Allergy Verified 05/04/14 02:40 Medications: Current Medications Acetaminophen (Tylenol) 650 mg PO Q4H PRN PRN Reason: Headache/Fever or Pain Last Admin: 02/27/18 10:00 Dose: 650 mg Aspirin (Aspirin Chewable) 81 mg PO DAILY [facility] Last Admin: 02/27/18 09:59 Dose: 81 mg Atorvastatin Calcium (Lipitor) 40 mg PO HS [facility] Last Admin: 02/26/18 21:25 Dose: 40 mg Carvedilol (Coreg) 6.25 mg PO BID [facility] Last Admin: 02/27/18 09:59 Dose: 6.25 mg Dextrose/Water (Dextrose 50%) 25 gm SLOW IVP PRN PRN PRN Reason: Hypoglycemia Diphenhydramine HCl (Benadryl) 25 mg PO Q6H PRN PRN Reason: Itching Last Admin: 02/27/18 09:58 Dose: 25 mg Docusate Sodium (Colace) 100 mg PO BID [facility] Last Admin: 02/27/18 09:58 Dose: Not Given Ferrous Sulfate (Feosol) 325 mg PO BID [facility] Last Admin: 02/27/18 09:59 Dose: 325 mg Furosemide (Lasix) 40 mg SLOW IVP 0600,1400 [facility] Last Admin: 02/27/18 06:11 Dose: 40 mg Glipizide (Glucotrol) 10 mg PO DAILY-AC [facility] Last Admin: 02/27/18 09:59 Dose: 10 mg Glucagon (Glucagon) 1 mg IM PRN PRN PRN Reason: Hypoglycemia Heparin Sodium (Porcine) (Heparin) 5,000 units SC TID [facility] Last Admin: 02/27/18 10:04 Dose: 5,000 units Hydralazine HCl (Apresoline) 10 mg SLOW IVP Q4H PRN PRN Reason: Blood Pressure Dextrose/Water (D5w) 1,000 mls @ 0 mls/hr IV .Q0M PRN; As Directed PRN Reason: Hypoglycemia Insulin Detemir 10 units/ (Miscellaneous Medication) 0.1 mls @ 0 mls/hr SC [facility] Last Admin: 02/26/18 21:27 Dose: 0.1 mls Insulin Human Lispro (Humalog) 0 units SC .MODERATE SLIDING SC PRN PRN Reason: Moderate Correctional Scale Last Admin: 02/26/18 16:38 Dose: 2 unit Insulin Human Lispro (Humalog) 0 units SC .BEDTIME SLIDING SC PRN PRN Reason: Bedtime Correctional Scale Lactulose (Lactulose) 20 gm PO DAILYPRN PRN PRN Reason: Constipation Levothyroxine Sodium (Synthroid) 250 mcg PO 0600 [facility] Last Admin: 02/27/18 06:11 Dose: 250 mcg Losartan Potassium (Cozaar) 50 mg PO DAILY [facility] Last Admin: 02/27/18 09:59 Dose: 50 mg Magnesium Hydroxide (Milk Of Magnesium) 30 ml PO DAILYPRN PRN PRN Reason: Constipation Ondansetron HCl (Zofran Odt) 4 mg PO Q6H PRN PRN Reason: Nausea/Vomiting Ondansetron HCl (Zofran) 4 mg IVP Q6H PRN PRN Reason: Nausea/Vomiting Sodium Chloride (Flush - Normal Saline) 10 ml IVF Q12HR [facility] Last Admin: 02/26/18 21:27 Dose: 10 ml Sodium Chloride (Flush - Normal Saline) 10 ml IVF PRN PRN PRN Reason: Saline Flush Tramadol HCl (Ultram) 50 mg PO Q4H PRN PRN Reason: Pain Last Admin: 02/25/18 15:41 Dose: 50 mg Tramadol HCl (Ultram) 100 mg PO Q4H PRN PRN Reason: Pain 2ND LINE Last Admin: 02/27/18 09:58 Dose: 100 mg
--- NOTE | 2018-02-27 14:31 | PDOC.CTH ---
Cardiology Progress Note - Subjective He is continues to diurese. - Objective Vital Signs Temp Pulse Pulse Pulse Resp BP BP 02/27/18 12:00 96.6 F L 57 L 16 02/27/18 10:16 55 L 66 174/84 H 164/68 H 02/27/18 08:45 96.3 F L 57 L 16 02/27/18 08:00 98.6 F 58 L 17 02/27/18 04:00 98.6 F 58 L 17 BP Pulse Ox Pulse Ox Pulse Ox 02/27/18 12:00 160/76 H 98 02/27/18 10:16 97 98 02/27/18 08:45 188/67 H 97 02/27/18 08:00 02/27/18 04:00 161/72 H 94 L Weight 282 lb 8 oz 02/26/18 02/27/18 02/28/18 06:59 06:59 06:59 Intake Total 934 1094 Output Total 4150 8100 3669 Balance -9690 -9774 -1747 - Physical Examination General/Neuro: alert & oriented x3, NAD Neck: no JVD present Lungs: CTA, unlabored respirations Heart: RRR Abdomen: NT/ND Extremities: + edema B (1+) - Telemetry Telemetry Rhythm: NSR - Labs Result Diagrams: 02/25/18 04:32 02/27/18 04:57 Troponin/CKMB CK-MB (CK-2) 5.1 ng/mL (0-6.6) 02/24/18 22:45 Troponin I 0.013 ng/mL (< 0.028) 02/25/18 10:03 - Assessment/Plan 1. Acute on chronic diastolic heart failure 2. Grade 3/3 Diastolic dysfunction. 3. Hypoalbuminemia 4. CAD s/p CABG in Nov 2017 5. Legally blind 6. NATANAEL on CKD improving with diuresis. 7. HTN 8. DMT2 9. Fatty liver PLAN: - Continue IV diuresis. - Likely edema from severe diastolic dysfunction. - Continue to be off amlodipine due to concern for LE edema. - BP control needs to be strict. Will add Hydralazine and will increase his Losartan to 100 mg daily. - Continue to stay away from Amlodipine due to leg edema. - Will follow.
[2018-02-27] MEDS: hydrALAZINE 25 MG TAB PO SCH ×2 (16:04→20:59)
[2018-02-27] MEDS: Atorvastatin Calcium 40 MG TAB PO SCH (20:57)
[2018-02-27] MEDS: Insulin Detemir 100 UNITS/ML 10 UNITS in Pre-Filled Syringe SC SCH (21:00)
[2018-02-28 05:16] LABS: Anion Gap 9 mmol/L (10-20); BUN (Urea Nitrogen) 41 mg/dL (8.4-25.7); Calc. Creatinine Clearance 74 mL/min (70-130); Calcium 8.2 mg/dL (7.8-10.44); Carbon Dioxide 27 mmol/L (22-29); Chloride 110 mmol/L (98-107); Estimated GFR-MDRD 33; Glucose 184 mg/dL (70-105); Potassium 4.1 mmol/L (3.5-5.1); Sodium 142 mmol/L (136-145)
[2018-02-28] MEDS: Levothyroxine Sodium 125 MCG TAB PO SCH (06:09)
[2018-02-28] MEDS: Furosemide 40 MG/4 ML VIAL SLOW IVP SCH (06:10)
[2018-02-28] MEDS: glipiZIDE 10 MG TAB PO SCH (08:27)
[2018-02-28] MEDS: Ferrous Sulfate 325 MG TAB PO SCH ×2 (08:28→21:56)
[2018-02-28] MEDS: hydrALAZINE 25 MG TAB PO SCH ×3 (08:28→21:54)
[2018-02-28] MEDS: Losartan 25 MG TAB PO SCH (08:28)
[2018-02-28] MEDS: Carvedilol 3.125 MG TAB PO SCH ×2 (08:29→21:56)
[2018-02-28] MEDS: Heparin 5,000 UNITS/ML VIAL SC SCH ×3 (08:29→21:56)
[2018-02-28] MEDS: Docusate 100 MG CAP PO SCH ×2 (08:30→21:55)
[2018-02-28] MEDS: traMADol HCl 50 MG TAB PO PRN ×2 (08:37→21:54)
[2018-02-28] MEDS: diphenhydrAMINE 25 MG CAP PO PRN ×2 (08:37→21:55)
[2018-02-28] MEDS ORDERED: Metolazone 5 MG TAB PO SCH (11:30)
[2018-02-28] MEDS: HumaLOG 300 UNITS/3 ML VIAL SC PRN (11:37)
--- NOTE | 2018-02-28 14:02 | PDOC.PN ---
- Subjective Encounter Start Date: 02/28/18 Encounter Start Time: 13:55 Subjective: feels that fluid is coming off but c/o swelling behing knees b/l -: c/o swelling to the side of abdomen -: c/o difficulty urinating - Objective Resuscitation Status: Resuscitation Status FULL:Full Resuscitation MAR Reviewed: Yes Vital Signs & Weight: Vital Signs (12 hours) Temp Pulse Resp BP BP BP Pulse Ox 02/28/18 11:53 97.0 F L 65 18 144/70 H 97 02/28/18 08:28 65 140/82 02/28/18 08:00 98.1 F 65 20 140/82 98 02/28/18 04:00 98.1 F 59 L 20 151/70 H 95 Weight Weight 270 lb 3.2 oz I&O: 02/27/18 02/28/18 03/01/18 06:59 06:59 06:59 Intake Total 1094 100 Output Total 4375 3725 Balance -0944 -6410 Result Diagrams: 02/25/18 04:32 02/28/18 04:29 Additional Labs: Accuchecks 02/28/18 02/28/18 02/27/18 10:55 05:59 20:33 POC Glucose 192 H 183 H 160 H 02/27/18 16:23 POC Glucose 172 H labs reviewed Phys Exam - Physical Examination Constitutional: NAD HEENT: PERRLA, moist MMs, sclera anicteric, oral pharynx no lesions Neck: no nodes, no JVD, supple, full ROM Respiratory: no wheezing, no rales, no rhonchi, clear to auscultation bilateral Cardiovascular: RRR, no significant murmur, no rub Gastrointestinal: soft, non-tender, no distention, positive bowel sounds Musculoskeletal: pulses present, edema present (improved ) cystic swelling behing both knees w scar tissue Neurological: non-focal, normal sensation, moves all 4 limbs Psychiatric: normal affect, A&O x 3 Skin: no rash Dx/Plan (1) Acute CHF Code(s): I50.9 - HEART FAILURE, UNSPECIFIED Status: Acute Qualifiers: Heart failure type: diastolic Qualified Code(s): I50.31 - Acute diastolic ( congestive) heart failure (2) Anasarca Code(s): R60.1 - GENERALIZED EDEMA Status: Acute Comment: due to CHF (3) CKD (chronic kidney disease) Code(s): N18.9 - CHRONIC KIDNEY DISEASE, UNSPECIFIED Status: Chronic Qualifiers: Chronic kidney disease stage: stage 3 (moderate) Qualified Code(s): N18.3 - Chronic kidney disease, stage 3 (moderate) Comment: Stable.avoid any nephrotoxic meds.Nephrology consulted (4) CAD (coronary artery disease), autologous vein bypass graft Code(s): I25.810 - ATHEROSCLEROSIS OF CABG W/O ANGINA PECTORIS Status: Chronic Comment: Cont ASA, BB, ARB,statin.Multivessel CABG in 11/2017 (5) DM2 (diabetes mellitus, type 2) Status: Chronic (6) Hypertension Code(s): I10 - ESSENTIAL (PRIMARY) HYPERTENSION Status: Chronic (7) Chronic disease anemia Code(s): D63.8 - ANEMIA IN OTHER CHRONIC DISEASES CLASSIFIED ELSEWHERE Status : Chronic - Plan PT/OT, DVT proph w/SCDs will check soft tissue US to check for popliteal fossa swelling -: cont lasix.reduce dose.1 dose zaroxolyn per pt request -: 28 lbs weight loss so far.monitor renal fx.worse today -: cardiology following -: cont home meds as below. * .add Flomax for symptoms of urinary hesitancy * BP better control with adding hydralazine and increase of Losartan * Review of Systems - Review of Systems Constitutional: negative: fever, chills, sweats, weakness, malaise, other Respiratory: negative: Cough, Dry, Shortness of Breath, Hemoptysis, SOB with Excertion, Pleuritic Pain, Sputum, Wheezing Cardiovascular: negative: chest pain, palpitations, orthopnea, paroxysmal nocturnal dyspnea, edema, light headedness, other Gastrointestinal: negative: Nausea, Vomiting, Abdominal Pain, Diarrhea, Constipation, Melena, Hematochezia, Other Genitourinary: negative: Dysuria, Frequency, Incontinence, Hematuria, Retention , Other Musculoskeletal: negative: Neck Pain, Shoulder Pain, Arm Pain, Back Pain, Hand Pain, Leg Pain, Foot Pain, Other Skin: negative: Rash, Lesions, Steve, Bruising, Other Neurological: negative: Weakness, Numbness, Incoordination, Change in Speech, Confusion, Seizures, Other - Medications/Allergies Allergies/Adverse Reactions: Allergies Allergy/AdvReac Type Severity Reaction Status Date / Time No Known Drug Allergies Allergy Verified 05/04/14 02:40 Medications: Current Medications Acetaminophen (Tylenol) 650 mg PO Q4H PRN PRN Reason: Headache/Fever or Pain Last Admin: 02/27/18 10:00 Dose: 650 mg Aspirin (Aspirin Chewable) 81 mg PO DAILY [facility] Last Admin: 02/28/18 08:30 Dose: 81 mg Atorvastatin Calcium (Lipitor) 40 mg PO [facility] Last Admin: 02/27/18 20:57 Dose: 40 mg Carvedilol (Coreg) 6.25 mg PO BID [facility] Last Admin: 02/28/18 08:29 Dose: 6.25 mg Dextrose/Water (Dextrose 50%) 25 gm SLOW IVP PRN PRN PRN Reason: Hypoglycemia Diphenhydramine HCl (Benadryl) 25 mg PO Q6H PRN PRN Reason: Itching Last Admin: 02/28/18 08:37 Dose: 25 mg Docusate Sodium (Colace) 100 mg PO BID [facility] Last Admin: 02/28/18 08:30 Dose: 100 mg Ferrous Sulfate (Feosol) 325 mg PO BID [facility] Last Admin: 02/28/18 08:28 Dose: 325 mg Furosemide (Lasix) 80 mg PO DAILY [facility] Glipizide (Glucotrol) 10 mg PO DAILY[facility] Last Admin: 02/28/18 08:27 Dose: 10 mg Glucagon (Glucagon) 1 mg IM PRN PRN PRN Reason: Hypoglycemia Heparin Sodium (Porcine) (Heparin) 5,000 units SC TID [facility] Last Admin: 02/28/18 08:29 Dose: 5,000 units Hydralazine HCl (Apresoline) 10 mg SLOW IVP Q4H PRN PRN Reason: Blood Pressure Hydralazine HCl (Apresoline) 25 mg PO TID [facility] Last Admin: 02/28/18 08:28 Dose: 25 mg Dextrose/Water (D5w) 1,000 mls @ 0 mls/hr IV .Q0M PRN; As Directed PRN Reason: Hypoglycemia Insulin Detemir 10 units/ (Miscellaneous Medication) 0.1 mls @ 0 mls/hr SC [facility] Last Admin: 02/27/18 21:00 Dose: 0.1 mls Insulin Human Lispro (Humalog) 0 units SC .MODERATE SLIDING SC PRN PRN Reason: Moderate Correctional Scale Last Admin: 02/28/18 11:37 Dose: 2 unit Insulin Human Lispro (Humalog) 0 units SC .BEDTIME SLIDING SC PRN PRN Reason: Bedtime Correctional Scale Lactulose (Lactulose) 20 gm PO DAILYPRN PRN PRN Reason: Constipation Levothyroxine Sodium (Synthroid) 250 mcg PO 0600 [facility] Last Admin: 02/28/18 06:09 Dose: 250 mcg Losartan Potassium (Cozaar) 100 mg PO DAILY [facility] Last Admin: 02/28/18 08:28 Dose: 100 mg Magnesium Hydroxide (Milk Of Magnesium) 30 ml PO DAILYPRN PRN PRN Reason: Constipation Ondansetron HCl (Zofran Odt) 4 mg PO Q6H PRN PRN Reason: Nausea/Vomiting Ondansetron HCl (Zofran) 4 mg IVP Q6H PRN PRN Reason: Nausea/Vomiting Sodium Chloride (Flush - Normal Saline) 10 ml IVF Q12HR [facility] Last Admin: 02/28/18 08:42 Dose: 10 ml Sodium Chloride (Flush - Normal Saline) 10 ml IVF PRN PRN PRN Reason: Saline Flush Tramadol HCl (Ultram) 50 mg PO Q4H PRN PRN Reason: Pain Last Admin: 02/25/18 15:41 Dose: 50 mg Tramadol HCl (Ultram) 100 mg PO Q4H PRN PRN Reason: Pain 2ND LINE Last Admin: 02/28/18 08:37 Dose: 100 mg
--- NOTE | 2018-02-28 14:39 | ULT ---
BILATERAL LOWER EXTREMITY SOFT TISSUE ULTRASOUND: COMPARISON: None. HISTORY: Feeling lumps in the hamstring regions bilaterally after fluid overload. TECHNIQUE: Multiplanar, bustos scale and color Doppler images were obtained in the bilateral lower extremity soft tissue ultrasound. FINDINGS: There are edematous soft tissues in both thighs. Posterior to the knees, there is no fluid collectio n or Singleton's cyst identified. A normal-appearing lymph node is seen in the right thigh measuring 1.7 cm in greatest dimension. IMPRESSION: Soft tissue edema without focal mass or Singleton's cyst. POS: [facility]
--- NOTE | 2018-02-28 18:23 | PDOC.CTH ---
Cardiology Progress Note - Subjective He is doing well. Swelling continues to improve. - Objective Vital Signs Temp Pulse Pulse Pulse Resp BP BP 02/28/18 14:41 154/62 H 02/28/18 14:18 61 61 154/62 H 02/28/18 11:53 97.0 F L 65 18 02/28/18 08:28 65 140/82 02/28/18 08:00 98.1 F 65 20 BP BP Pulse Ox Pulse Ox Pulse Ox 02/28/18 14:41 02/28/18 14:18 164/62 H 98 95 02/28/18 11:53 144/70 H 97 02/28/18 08:28 02/28/18 08:00 140/82 98 Weight 270 lb 3.2 oz 02/27/18 02/28/18 03/01/18 06:59 06:59 06:59 Intake Total 1094 100 Output Total 4375 3725 Balance -2807 -3101 - Physical Examination General/Neuro: alert & oriented x3, NAD Neck: no JVD present Lungs: CTA, unlabored respirations Heart: RRR Abdomen: NT/ND Extremities: + edema B (1+) - Telemetry Telemetry Rhythm: NSR - Labs Result Diagrams: 02/25/18 04:32 02/28/18 04:29 Troponin/CKMB CK-MB (CK-2) 5.1 ng/mL (0-6.6) 02/24/18 22:45 Troponin I 0.013 ng/mL (< 0.028) 02/25/18 10:03 - Assessment/Plan 1. Acute on chronic diastolic heart failure 2. Grade 3/3 Diastolic dysfunction. 3. Hypoalbuminemia 4. CAD s/p CABG in Nov 2017 5. Legally blind 6. NATANAEL on CKD, creatinine starting to creep up now. 7. HTN 8. DMT2 9. Fatty liver PLAN: - Will switch to PO lasix. - Likely edema from severe diastolic dysfunction. - BP control. Will increase Hydralazine. - Continue to stay away from Amlodipine due to leg edema. - Will follow
[2018-02-28] MEDS ORDERED: Tamsulosin HCl 0.4 MG CAP PO SCH (21:00)
[2018-02-28] MEDS ORDERED: Insulin Glargine 10 UNITS in Pre-Filled Syringe 1 EACH SC SCH (21:00)
[2018-02-28] MEDS: Atorvastatin Calcium 40 MG TAB PO SCH (21:55)
[2018-03-01] MEDS: Levothyroxine Sodium 125 MCG TAB PO SCH (05:40)
[2018-03-01 05:46] LABS: Anion Gap 9 mmol/L (10-20); BUN (Urea Nitrogen) 42 mg/dL (8.4-25.7); Calc. Creatinine Clearance 67 mL/min (70-130); Calcium 8.1 mg/dL (7.8-10.44); Carbon Dioxide 26 mmol/L (22-29); Chloride 109 mmol/L (98-107); Estimated GFR-MDRD 31; Glucose 170 mg/dL (70-105); Potassium 4.1 mmol/L (3.5-5.1); Sodium 140 mmol/L (136-145)
[2018-03-01] MEDS: Heparin 5,000 UNITS/ML VIAL SC SCH (08:39)
[2018-03-01] MEDS: Ferrous Sulfate 325 MG TAB PO SCH (08:40)
[2018-03-01] MEDS: Docusate 100 MG CAP PO SCH (08:40)
[2018-03-01] MEDS: Losartan 25 MG TAB PO SCH (08:40)
[2018-03-01] MEDS: glipiZIDE 10 MG TAB PO SCH (08:41)
[2018-03-01] MEDS: Carvedilol 3.125 MG TAB PO SCH (08:41)
[2018-03-01] MEDS: hydrALAZINE 25 MG TAB PO SCH (08:41)
[2018-03-01] MEDS ORDERED: Furosemide 80 MG TAB PO SCH ×2 (09:00)
[2018-03-01] MEDS: traMADol HCl 50 MG TAB PO PRN (10:10)
[2018-03-01] MEDS: diphenhydrAMINE 25 MG CAP PO PRN (10:11)
[2018-03-01] MEDS: HumaLOG 300 UNITS/3 ML VIAL SC PRN (11:45)
--- NOTE | 2018-03-01 12:41 | PDOC.CTH ---
Cardiology Progress Note - Subjective he is doing well. - Objective Vital Signs Temp Pulse Resp BP BP Pulse Ox 03/01/18 08:41 62 144/66 H 03/01/18 04:00 98.0 F 57 L 20 137/65 95 Weight 269 lb 02/28/18 03/01/18 03/02/18 06:59 06:59 06:59 Intake Total 100 480 Output Total 3725 1250 Balance -3625 -770 - Physical Examination General/Neuro: alert & oriented x3, NAD Neck: no JVD present Lungs: CTA, unlabored respirations Heart: RRR Abdomen: NT/ND Extremities: + edema B (1+) - Telemetry Telemetry Rhythm: NSR - Labs Result Diagrams: 02/25/18 04:32 03/01/18 04:32 Troponin/CKMB CK-MB (CK-2) 5.1 ng/mL (0-6.6) 02/24/18 22:45 Troponin I 0.013 ng/mL (< 0.028) 02/25/18 10:03 - Assessment/Plan 1. Acute on chronic diastolic heart failure 2. Grade 3/3 Diastolic dysfunction. 3. Hypoalbuminemia 4. CAD s/p CABG in Nov 2017 5. Legally blind 6. NATANAEL on CKD, creatinine starting to creep up now. 7. HTN 8. DMT2 9. Fatty liver PLAN: - Creatinine bumped a little, will cut back on lasix to 80 mg in AM and 40 mg in PM. - Likely edema from severe diastolic dysfunction. - BP better controlled. - Continue to stay away from Amlodipine due to leg edema. - May discharge home. Will follow up in 2 weeks.
[2018-03-01 12:49] VITALS: BP 123/60; TEMP 98.3
--- NOTE | 2018-03-01 17:58 | DIS ---
DATE OF ADMISSION: 02/25/2018 DATE OF DISCHARGE: 03/01/2018 PRIMARY CARE PHYSICIAN: Lazaro Beebe MD. DISCHARGE DIAGNOSES: 1. Acute on chronic diastolic congestive heart failure. 2. Anasarca secondary to acute on chronic diastolic congestive heart failure. 3. Chronic kidney disease stage 3. 4. Coronary artery disease, status post coronary artery bypass graft in 11/2017. 5. Diabetes mellitus 2 with hyperglycemia. 6. Hypertension. 7. Anemia of chronic kidney disease. 8. Morbid obesity with a BMI of 38.6. 9. Chronic kidney disease. He follows up with Dr. Olea. DISCHARGE MEDICATIONS: Lasix dose has been changed from 80 mg in the morning to 80 mg in the morning along with 40 mg in the evening, Cozaar has been increased from 50 mg daily to 100 mg daily, hydrala zine has been added at 50 mg p.o. t.i.d., Flomax has been added at 0.4 mg at bedtime. DISCONTINUED MEDICATIONS: Amlodipine. Resume home medications as follows: Glipizide 10 mg daily, levothyroxine 250 mcg daily, Lantus 32 un its at bedtime, ferrous sulfate 325 mg p.o. b.i.d., Coreg 6.25 mg p.o. b.i.d., Lipitor 40 mg daily, a spirin 81 mg a day, acarbose 25 mg p.o. t.i.d. INHOUSE CONSULTATIONS: Cardiology, Dr. Graf. PROCEDURES DONE IN THE HOSPITAL: Include, 1. Transthoracic echocardiogram, which shows grade III/III diastolic dysfunction and EF of 55%-60%. 2. Abdominal ultrasound, which shows evidence of fatty infiltration of liver and some splenomegaly. 3. Soft tissue ultrasound of the hamstring muscles, which showed soft tissue edema without focal mas s or Singleton's cyst. HISTORY OF PRESENTING ILLNESS: Mr. Sierra is a very pleasant 52-year-old male with past medical histor y of coronary artery disease and with recent CABG in 11/2017 who presented to the ER with complaints of worsening swelling all over his body. His surgery was done over at the [facility] by Dr. Mcdaniel. Since then, he was admitted over at [facility] in January because of the similar symptoms and was diure sed and about 40 pounds of water weight was taken off. He came back to our emergency room when he no ticed that the fluid has started to come back again. Upon presentation, he was otherwise hemodynamically stable, albeit a little bit hypertensive with a b lood pressure of 188/77. He was found to have diffuse anasarca. Chest x-ray did not show any acute changes and EKG was negative for any acute ischemia. BNP was about 1100. He was admitted with a pre sumptive diagnosis of acute CHF exacerbation. He was started on IV diuretics and Cardiology was cons ulted and echo was ordered. Please see admission history and physical for further details. HOSPITAL COURSE: The patient underwent evaluation with echocardiogram and was found to have diastoli c dysfunction. Cardiology saw the patient and Dr. Graf followed him along. He was diuresed with v nina good response of about 28-pound weight loss. He was found to be hypertensive, so his Coreg dose was increased and hydralazine was added, which was later increased as well. It was thought that some of his swelling can be secondary to amlodipine, which was discontinued. By the time of discharge, the patient is back to himself and is eager to go home. He is on room air and his blood pressure is under much better control. He is desirous to follow up with Dr. Graf in the Cardiology Clinic for his further cardiology followups. Referral was made for him. He reported some difficulty with urination and reported that he has seen Urology in the past, but was not sure which urologist. He was started on Flomax given his history of some sort of urethral stric ture as per him. He is instructed to follow up with Urology in the outpatient setting with regards t o this as well. He was set up with Heart Failure Clinic and cardiac rehabilitation. He was seen and examined prior to discharge. Because of the patient's chronic kidney disease and him being on the diuretics, his renal function di d somewhat worsen. It was 2.74 on presentation and improved to 2.00 and then jumped up to 2.23. His delphi programmer, Dr. Olea was consulted, but unfortunately he did not see the patient during this hos pitalization for some reason. The patient complained of some sort of swelling in the back of his thigh, near his popliteal fossa an d an ultrasound was obtained, which showed just the soft tissue with edema. He does have some sort o f scar tissue there from his childhood and seems like all the fluid from his congestive heart failure and the swelling seems to be like a cyst because of the scar tissue. Otherwise, nothing is acute. This did improve with diuresis. PHYSICAL EXAMINATION: VITAL SIGNS: This morning, temperature 98.3, heart rate 58-62, respirations 16, saturating 98% on ro om air, blood pressure 123/60. GENERAL: No acute distress, awake, alert, oriented x3. CHEST: Clear to auscultation without any wheezing, rales or rhonchi. Rate and rhythm are regular wi thout any murmur, rubs or gallops. ABDOMEN: Mild edema in the anterior abdominal vein still remains. EXTREMITIES: Lower extremities, still some trace pitting edema bilaterally, but much better since hi s presentation. LABORATORY DATA: His creatinine is 2.23, BUN is 42. Total time spent in the discharge of this patient is 35 minutes including [id number] interaction an d discussion with the specialists involved. He has been cleared for discharge by Dr. Lesia sumner who has also seen and evaluated the patient.
== END 2018-03-01 14:35 | disposition home or self-care (01) | DRG 291 ==
LOC: ERS 22:02 → 2NO 02-25 00:46
PROVIDERS: ADMIT Internal Medicine; ATTEND Internal Medicine
DX: I13.0 Hypertensive heart and chronic kidney disease with heart failure and stage 1 through stage 4 chronic kidney disease, or unspecified chronic kidney disease (principal); I50.33 Acute on chronic diastolic (congestive) heart failure; N17.9 Acute kidney failure, unspecified; I25.10 Atherosclerotic heart disease of native coronary artery without angina pectoris; H54.8 Legal blindness, as defined in USA; E11.22 Type 2 diabetes mellitus with diabetic chronic kidney disease; R60.1 Generalized edema; N18.3 Chronic kidney disease, stage 3 (moderate); E11.65 Type 2 diabetes mellitus with hyperglycemia; D63.1 Anemia in chronic kidney disease; E66.01 Morbid (severe) obesity due to excess calories; Z68.38 Body mass index [BMI] 38.0-38.9, adult; E87.5 Hyperkalemia; K76.0 Fatty (change of) liver, not elsewhere classified; E88.09 Other disorders of plasma-protein metabolism, not elsewhere classified; Z95.1 Presence of aortocoronary bypass graft; Z79.82 Long term (current) use of aspirin; Z79.899 Other long term (current) drug therapy
CPT/HCPCS: 36415; 36416; 71045; 76705; 76999; 80048; 80053; 82553; 83036; 83735; 83880; 84443; 84484; 85025; 93306; 93798; 96374; 96375; A4216; J1644; J1815; J1940; J2270

== ENCOUNTER 2018-09-28 09:31 | Inpatient (IN) | payer MEDICARE ==
[2018-09-28 10:16] LABS: #Eosinphils 0.1 thou/uL (0.0-0.7); #Monocytes 0.5 thou/uL (0.11-0.59); #Neutrophils 6.5 thou/uL (1.40-6.50); %Basophils 0.2 % (0.0-1.0); %Eosinophils 1.3 % (0.0-10.0); %Lymphocytes 12.3 % (21.0-51.0); %Monocytes 6.2 % (0.0-10.0); %Neutrophils 80.1 % (42.0-75.0); Hemoglobin 11.6 g/dL (14.0-18.0); Mean Corpuscular HGB CONC 33.7 g/dL (32.0-36.0); Mean Corpuscular Volume 91.9 fL (78.0-98.0); Mean Platelet Volume 8.8 fL (7.4-10.4); Platelet Count 149 thou/uL (130-400); RBC Distribution Width 12.1 % (11.5-14.5); Red Blood Cell (RBC) Count 3.75 mill/uL (4.70-6.10); White Blood Cell (WBC) Count 8.1 thou/uL (4.8-10.8)
[2018-09-28] MEDS ORDERED: Morphine 2 MG/ML SYRINGE ONE ×2 (10:31→15:53)
[2018-09-28] MEDS ORDERED: Furosemide 40 MG/4 ML VIAL ONE (10:31)
[2018-09-28 10:44] LABS: ALT (SGPT) 18 U/L (8-55); AST (SGOT) 23 U/L (5-34); Albumin 2.4 g/dL (3.5-5.0); Alkaline Phosphatase 122 U/L (40-150); Anion Gap 13 mmol/L (10-20); BUN (Urea Nitrogen) 47 mg/dL (8.4-25.7); Bilirubin, Total 0.2 mg/dL (0.2-1.2); Calc. Creatinine Clearance 0 mL/min (70-130); Calcium 8.3 mg/dL (7.8-10.44); Carbon Dioxide 21 mmol/L (22-29); Chloride 109 mmol/L (98-107); Estimated GFR-MDRD 19; Glucose 223 mg/dL (70-105); Potassium 3.9 mmol/L (3.5-5.1); Protein, Total 5.4 g/dL (6.0-8.3); Sodium 139 mmol/L (136-145)
--- NOTE | 2018-09-28 11:07 | RAD ---
FRONTAL VIEW CHEST: Comparison: 02-24-18 Indication: Shortness of breath. FINDINGS: Cardiac silhouette is accentuated. There is no lobar consolidation, effusion, or discrete pneumothora x. Mild perihilar vascular prominence is seen. Evidence of prior sternotomy. Leads overlie the chest limiting detail. IMPRESSION: Mild perihilar vasculature prominence. This could relate to accentuation by hypoinflated lungs versus a mild degree of edema. Correlate clinically. As necessary, imaging follow up may be obtained with a two view chest. POS: [facility]
[2018-09-28 11:12] LABS: CKMB 7.1 ng/mL (0-6.6)
[2018-09-28] MEDS ORDERED: Acetaminophen 325 MG TAB ONE (15:35)
[2018-09-28] MEDS ORDERED: Ondansetron PF 4 MG/2 ML Vial IVP PRN ×2 (19:06→19:14)
[2018-09-28] MEDS ORDERED: Ondansetron ODT 4 MG TAB SL PRN (19:06)
[2018-09-28] MEDS ORDERED: Acetaminophen 325 MG TAB PO PRN (19:06)
[2018-09-28] MEDS ORDERED: Dextrose 5% in Water 1,000 ML IV PRN (19:14)
[2018-09-28] MEDS ORDERED: Acetaminophen 500 MG TAB PO PRN (19:14)
[2018-09-28] MEDS ORDERED: hydrALAZINE 20 MG/ML VIAL SLOW IVP PRN (19:14)
[2018-09-28] MEDS ORDERED: HumaLOG 300 UNITS/3 ML VIAL SC PRN ×2 (19:14)
[2018-09-28] MEDS ORDERED: Ondansetron ODT 4 MG TAB PO PRN (19:14)
[2018-09-28] MEDS ORDERED: Dextrose 50% Abboject 50 ML SYRINGE SLOW IVP PRN (19:14)
--- NOTE | 2018-09-28 19:38 | CON ---
DATE OF CONSULTATION: 09/28/2018 TYPE OF CONSULTATION: Cardiology. REASON FOR CONSULTATION: Heart failure. HISTORY OF PRESENT ILLNESS: Mr. Sierra is a pleasant 53-year-old gentleman who comes to the hospital for increased swelling and shortness of breath. He is very well known to myself. He has a history of an ischemic cardiomyopathy. His last EF recorded here in the hospital was in February of this year, EF was about 55% to 60%. He underwent CABG in November of 2017 at the [facility] by Dr. Mcdaniel. He was admitted here in February for increased lower extremity edema, had gained about 40 pounds worth of fluid. He had IV diuresis with Lasix and actually did very well. He was sent home and had stayed at home all this time. He had been going to the heart failure clinic as well as my office. He stopped going to the heart failure clinic a few months ago as he was having problems with his eye. He had a lot of pain on the back of his eyes secondary to neovascularization due to the diabetes to the point where he had to have the eye removed. He had this done a few days back and has been dealing with lot pain from this. He eyelids are shut and he is scheduled to go back to see the winder tender in the next few weeks to put a prosthetic eye. He came to see me 2 days ago as he was having continued severe pain and noticed worsening of his lower extremity edema. He was doubled up on his Lasix and given a prescription for metolazone which he never got. Eventually, worsening of his shortness of breath and his edema, so he decided to come in. PAST MEDICAL HISTORY: 1. Type 2 diabetes. 2. Hypertension. 3. Chronic kidney disease. 4. Multivessel coronary artery disease, status post bypass in November of 2017. PAST SURGICAL HISTORY: 1. CABG x3. 2. Eye surgery and removal more recently. FAMILY HISTORY: Noncontributory. SOCIAL HISTORY: No alcohol, tobacco, or drugs. OUTPATIENT MEDICATIONS: 1. Torsemide 200 mg 2 tablets twice a day. 2. Hydralazine 50 mg 3 times a day. 3. Carvedilol 6.25 b.i.d. 4. Glipizide 10 mg a day. 5. Metolazone 5 mg a day, which he never took. 6. Losartan 100 mg a day. 7. Levothyroxine 137 mcg a day. 8. Atorvastatin 40 mg at bedtime. 9. Aspirin 81 mg a day. 10. Tamsulosin. 11. Vitamin C. 12. Multivitamins. 13. [place]-3 fish oil. 14. Iron pills. ALLERGIES: NO KNOWN DRUGS ALLERGIES. REVIEW OF SYSTEMS: A 12-point review of systems was done and was found to be negative other than stated in the history of present illness. PHYSICAL EXAMINATION: VITAL SIGNS: Temperature 98.2, pulse 78, respiratory rate 16, saturating 98% on 2 L nasal cannula, blood pressure 138/62. GENERAL: Awake, alert, and oriented x3, in no distress. HEENT: Normocephalic and atraumatic. His left eye is sutured shut. NECK: Supple. LUNGS: Have very mild crackles at the bilateral bases. CARDIOVASCULAR: S1 and S2. No S3 or S4. No murmur. ABDOMEN: Soft. Positive bowel sounds. EXTREMITIES: 3+ edema. SKIN: Warm and dry. LABORATORY DATA: Reviewed. CBC and chemistries were reviewed. Troponin 0.03 and CK-MB was 7.1. BNP was 670. Creatinine was up to 3.4 with a BUN of 47. Creatine as above has baseline of about 2.0 to 2.5. Chest x-ray was reviewed. ASSESSMENT AND PLAN: 1. [id number] diastolic heart failure. 2. Right ventricle dysfunction. 3. Coronary artery disease, stable. PLAN: 1. IV diuresis for now. 2. We will do IV Lasix, add 80 mg twice a day for the next few days. 3. We will repeat echocardiogram and make sure his LV function is unchanged. 4. Continue to trend troponin. 5. He will probably be in the hospital about a total of 4 to 5 days, which is how long it took to get him diuresed last time. Thank you for letting me to participate in the care of your patient. We will follow. Job ID: [id number]
[2018-09-28] MEDS: Ferrous Sulfate 325 MG TAB PO SCH (20:15)
[2018-09-28] MEDS: hydrALAZINE 25 MG TAB PO SCH (20:15)
[2018-09-28] MEDS: Famotidine 20 MG TAB PO SCH (20:16)
[2018-09-28] MEDS: Tamsulosin HCl 0.4 MG CAP PO SCH (20:16)
[2018-09-28] MEDS: Morphine 2 MG/ML SYRINGE SLOW IVP PRN (20:16)
[2018-09-28] MEDS: Carvedilol 6.25 MG TAB PO SCH (20:16)
[2018-09-28] MEDS: Heparin 5,000 UNITS/ML VIAL SC SCH (20:16)
[2018-09-28] MEDS: Atorvastatin Calcium 40 MG TAB PO SCH (20:16)
[2018-09-28] MEDS: Insulin Glargine 32 UNITS in Pre-Filled Syringe 1 EACH SC SCH (21:41)
[2018-09-28 23:30] VITALS: BMI 43.2
[2018-09-29] MEDS: Morphine 2 MG/ML SYRINGE SLOW IVP PRN (00:35)
--- NOTE | 2018-09-29 03:38 | HP ---
PRIMARY CARE PROVIDER: Lazaro Beebe MD PRIMARY EMPLOYEE DEVELOPMENT DIRECTOR: José Graf MD PRIMARY EXPEDITIONARY FORCE COMBAT SKILLS: Christian Olea MD CHIEF COMPLAINT: Shortness of breath and swelling. HISTORY OF PRESENT ILLNESS: This is a 53-year-old male, who presents to [facility] Emergency Department complaining of persistent swelling of the lower extremities into the abdomen over the last several weeks with associated increased shortness of breath. The patient's history is significant for diastolic congestive heart failure with last 2D transthoracic echocardiogram in February 2018 showing an ejection fraction of 55% to 60%, however, was noted with grade 3/3 diastolic dysfunction. The patient states he was recently transitioned from furosemide to torsemide and metolazone, but had not picked up his prescription for the metolazone. The patient also relates a recent eye surgery, at which point, the patient's left eye was removed due to hemorrhage and sudden loss of vision in the eye. The patient states he has had difficulty with pain issues after the surgery as well as difficulty ambulating due to decreased vision in the right eye and states he is legally blind. The patient denies any fevers, chills, or productive cough. The patient denies any sick contact exposure. The patient does admit that he has been followed in the past by Dr. Olea for his chronic kidney disease, but is unaware of the worsening nature of his kidney function currently. In the emergency room, the patient underwent general evaluation with chest imaging showing a mild prominent vasculature and degree of edema. The patient was noted on exam with anasarca and received Lasix 40 mg x1 dose intravenously in addition to morphine sulfate and Tylenol. PAST MEDICAL HISTORY: 1. Chronic kidney disease, stage 3 to 4. 2. Diabetes mellitus type 2, insulin requiring, with retinopathy and chronic kidney disease. 3. Right eye blindness. 4. Hypothyroidism. 5. Morbid obesity. 6. Hypertension. 7. Diastolic congestive heart failure with ejection fraction of 50% to 55%. PAST SURGICAL HISTORY: 1. Status post coronary artery bypass grafting x4 vessels. 2. Status post multiple laser therapy to the bilateral eyes. 3. Status post left eye removal in 09/2018. CURRENT MEDICATIONS: 1. Acarbose 25 mg p.o. t.i.d. 2. Aspirin 81 mg p.o. daily. 3. Lipitor 40 mg p.o. at bedtime. 4. Coreg 6.25 mg p.o. b.i.d. 5. Ferrous sulfate 325 mg p.o. b.i.d. 6. Glipizide 10 mg p.o. daily. 7. Levothyroxine 250 mcg p.o. daily. 8. Hydralazine 50 mg p.o. t.i.d. 9. Lantus 32 units subcutaneously at bedtime. 10. Losartan 100 mg p.o. daily. 11. Flomax 0.4 mg p.o. at bedtime. ALLERGIES: NO KNOWN DRUG ALLERGIES. FAMILY HISTORY: Positive for hypertension and diabetes mellitus. SOCIAL HISTORY: The patient resides in [place], [place]. . No current alcohol, tobacco, or illicit drug use. REVIEW OF SYSTEMS: CONSTITUTIONAL: Negative for weight loss or gain, ability to conduct usual activities. SKIN: Negative for rash, itching. EYES: Negative for double vision, pain. ENT/MOUTH: Negative for nose bleeding, neck stiffness, pain, tenderness. CARDIOVASCULAR: Negative for palpitations, dyspnea on exertion, orthopnea. RESPIRATORY: Negative for shortness of breath, wheezing, cough, hemoptysis, fever or night sweats. GASTROINTESTINAL: Negative for poor appetite, abdominal pain, heartburn, nausea, vomiting, constipation, or diarrhea. GENITOURINARY: Negative for urgency, frequency, dysuria, nocturia. MUSCULOSKELETAL: Negative for pain, swelling. NEUROLOGIC/PSYCHIATRIC: Negative for anxiety, depression. ALLERGY/IMMUNOLOGIC: Negative for skin rash, bleeding tendency. Otherwise, negative except as stated per HPI. PHYSICAL EXAMINATION: VITAL SIGNS: On admission, blood pressure 182/79, pulse 67, respiratory rate 24, temperature 98.1 degrees Fahrenheit, O2 saturation 100% on room air. GENERAL APPEARANCE: This is a 53-year-old male, alert and oriented x3, pleasant, responsive, in no acute distress. HEENT: Right eye tracks to finger, pupillary response intact. Left globe surgically removed with left eyelids approximated and sutured close. Mild periorbital edema noted. Nares patent. OP is clear. Teeth in fair repair. NECK: Supple. No cervical adenopathy. No thyromegaly. No carotid bruits. No JVD appreciated. Cervical spine with full active and passive range of motion. No meningeal signs appreciated. CHEST: Diminished breath sounds in the bases bilaterally. CARDIOVASCULAR: S1 and S2 with 1 to 2 over 6 systolic ejection murmur at the apex. ABDOMEN: Obese. Pitting edema noted in the mid abdomen. No palpable mass. Landmarks are difficult to palpate due to the patient's body habitus. No rebound or guarding noted. EXTREMITIES: Pitting edema of the entire extremity. Pulses are palpable distally at the dorsalis pedis, posterior tibial, and popliteal arteries bilaterally. Capillary refill less than 2 seconds. NEUROLOGIC: Cranial nerves 2 through 12 are grossly intact. No focal or lateralizing signs appreciated other than blindness of bilateral eyes. PERTINENT LABORATORY AND X-RAY FINDINGS: Sodium 139, potassium 3.9, chloride 109, CO2 of 21, BUN 47, creatinine 3.46, estimated GFR of 19, glucose 223. LFTs within normal limits. Troponin I 0.033. BNP 670, previously noted 1127 on 02/24/2018. CBC showed a white blood cell count 8.1, hemoglobin 12, hematocrit 35, platelet count 149 with 80% neutrophils. Portable chest x-ray dated 09/28/2018 showed mild perihilar vascular prominence and mild edema. EKG dated 09/28/2018 by my interpretation shows sinus mechanism with heart rates in the 70s. Normal R-wave progression noted in the precordial leads. Normal axis. No acute ST-T wave changes appreciated. ASSESSMENT AND PLAN: 1. Acute kidney injury on chronic kidney disease stage 3 to 4. The patient with anasarca as stated previously under history. We will consult nephrology service for further recommendations. Avoid nephrotoxic agents and limit contrast exposure. Hold oral hypoglycemics. Hold losartan. Monitor renal function closely given the need for diuretic therapy. Repeat creatinine in the a.m. 2. Anasarca. See #1 above. We will initiate diuretic therapy and monitor clinical response. 3. Acute on chronic diastolic heart failure. We will continue Lasix 40 mg IV b.i.d. Monitor daily weight. Consult cardiology service for further recommendations. Check 2D transthoracic echocardiogram. Last ejection fraction 50% to 55% in February 2018. 4. Diabetes mellitus type 2, insulin requiring. Resume home insulin regimen and add additional insulin sliding scale for reflexive coverage. Accu-Cheks before meals and at bedtime. ADA diet. 5. Status post left eye removal. We will continue pain control with morphine sulfate 2 mg IV q.4 hours p.r.n. [place] 5/325 mg p.o. q.6 hours p.r.n. 6. Hypothyroidism. Continue levothyroxine 250 mcg p.o. daily. Check TSH level. 7. Prophylaxis. Hold SCDs due to marked lower extremity edema. Heparin 5000 units subcutaneously t.i.d. Pepcid 20 mg p.o. b.i.d. 8. Code status is full. Surrogate medical decision maker is the patient's spouse. Job ID: [id number]
[2018-09-29] MEDS: Furosemide 40 MG/4 ML VIAL SLOW IVP SCH ×2 (04:44→13:35)
[2018-09-29] MEDS: Morphine 4 MG/ML VIAL SLOW IVP PRN ×4 (04:44→20:47)
[2018-09-29] MEDS: Loratadine 10 MG TAB PO PRN (04:44)
[2018-09-29] MEDS: Levothyroxine Sodium 125 MCG TAB PO SCH (04:45)
[2018-09-29] MEDS ORDERED: Furosemide 100 MG/10 ML VIAL SLOW IVP SCH (06:00)
[2018-09-29 06:15] LABS: Anion Gap 11 mmol/L (10-20); BUN (Urea Nitrogen) 41 mg/dL (8.4-25.7); Calc. Creatinine Clearance 54 mL/min (70-130); Carbon Dioxide 21 mmol/L (22-29); Chloride 111 mmol/L (98-107); Estimated GFR-MDRD 22; Glucose 152 mg/dL (70-105); Magnesium 1.6 mg/dL (1.6-2.6); Potassium 3.7 mmol/L (3.5-5.1); Sodium 139 mmol/L (136-145)
[2018-09-29 06:26] LABS: Band 3 % (5-11); Eosinophils 2 % (0-10); Hemoglobin 11.1 g/dL (14.0-18.0); Lymphocytes 16 % (21-51); MDiff Complete? YES; Mean Corpuscular HGB CONC 32.6 g/dL (32.0-36.0); Mean Corpuscular Hemoglobin 30.1 pg (27.0-31.0); Mean Corpuscular Volume 92.3 fL (78.0-98.0); Mean Platelet Volume 9.3 fL (7.4-10.4); Monocytes 7 % (0-10); Neutrophil 72 % (42-75); Platelet Count 129 thou/uL (130-400); Red Blood Cell (RBC) Count 3.69 mill/uL (4.70-6.10); White Blood Cell (WBC) Count 7.4 thou/uL (4.8-10.8)
[2018-09-29] MEDS: hydrALAZINE 25 MG TAB PO SCH ×3 (08:30→20:52)
[2018-09-29] MEDS: Famotidine 20 MG TAB PO SCH ×2 (08:30→20:52)
[2018-09-29] MEDS: Carvedilol 6.25 MG TAB PO SCH ×2 (08:31→20:52)
[2018-09-29] MEDS: Ferrous Sulfate 325 MG TAB PO SCH ×2 (08:31→20:52)
[2018-09-29] MEDS: Heparin 5,000 UNITS/ML VIAL SC SCH ×3 (08:31→20:53)
--- NOTE | 2018-09-29 15:38 | PDOC.CTH ---
Cardiology Progress Note - Subjective Doing better. His fluid status is still elevated with significant LE edema. - Objective Vital Signs Temp Pulse Resp BP BP Pulse Ox 09/29/18 15:02 57 L 180/79 H 09/29/18 15:01 98.2 F 57 L 16 180/79 H 96 09/29/18 11:23 98.5 F 60 16 141/69 H 96 09/29/18 08:31 180/79 H 09/29/18 08:30 61 97 09/29/18 08:24 98.2 F 61 16 180/79 H 97 09/29/18 04:51 171/79 H 09/29/18 04:00 99.9 F H 58 L 16 190/81 H 98 Weight 300 lb 1.6 oz 09/28/18 09/29/18 09/30/18 06:59 06:59 06:59 Intake Total 480 Output Total 1775 Balance -1295 - Physical Examination General/Neuro: alert & oriented x3, NAD Neck: no JVD present Lungs: CTA, unlabored respirations Heart: RRR Abdomen: NT/ND Extremities: + edema B (3+) - Telemetry Telemetry Rhythm: NSR - Labs Result Diagrams: 09/29/18 05:25 09/29/18 05:25 Troponin/CKMB CK-MB (CK-2) 7.1 ng/mL (0-6.6) H* 09/28/18 10:04 Troponin I 0.033 ng/mL (< 0.028) H 09/28/18 10:04 - Assessment/Plan 1. Acute on chronic diastolic heart failure. 2. RV dysfunction likely, not well seen on echo. 3. Fluid overload. 4. CAD, stable 5. S/P CABG earlier this year 6. Legally blind 7. Recent removal of left eye. 8. Acute on chronic kidney injury, likely cardiorenal. PLAN: - Continue IV lasix. - Continue home meds. - No ACEI/ARB due to renal dysfunction.
--- NOTE | 2018-09-29 15:41 | PDOC.PN ---
- Subjective Encounter Start Date: 09/29/18 Encounter Start Time: 15:40 Subjective: f/u for acute/chronic diastolic CHF and volume overload. States breathing -: improved. No new complaints. - Objective Resuscitation Status - Order Detail: 09/28/18 19:07 Resuscitation Status Routine Resuscitation Status: FULL: Full Resuscitation MAR Reviewed: Yes Vital Signs & Weight: Vital Signs (12 hours) Temp Pulse Resp BP BP Pulse Ox 09/29/18 15:02 57 L 180/79 H 09/29/18 15:01 98.2 F 57 L 16 180/79 H 96 09/29/18 11:23 98.5 F 60 16 141/69 H 96 09/29/18 08:31 180/79 H 09/29/18 08:30 61 97 09/29/18 08:24 98.2 F 61 16 180/79 H 97 09/29/18 04:51 171/79 H 09/29/18 04:00 99.9 F H 58 L 16 190/81 H 98 Weight Weight 300 lb 1.6 oz I&O: 09/28/18 09/29/18 09/30/18 06:59 06:59 06:59 Intake Total 480 Output Total 1775 Balance -1295 Result Diagrams: 09/29/18 05:25 09/29/18 05:25 Additional Labs: Accuchecks 09/29/18 09/28/18 05:26 19:46 POC Glucose 163 H 257 H Laboratory Tests 02/24/18 09/28/18 09/28/18 22:45 10:02 10:04 Hgb 11.6 L BUN Creatinine B-Natriuretic Peptide 1127.3 H 670.3 H 09/28/18 09/29/18 10:04 05:25 Hgb BUN 47 H Creatinine 3.46 H B-Natriuretic Peptide 592.7 H Radiology Reviewed by me: Yes (2D echo - pending) EKG Reviewed by me: Yes (Tele - SR) Phys Exam - Physical Examination Constitutional: NAD L eyelid edema, sutures in place HEENT: oral pharynx no lesions Neck: no nodes, no JVD, supple, full ROM diminished in bases Respiratory: no wheezing, no rales S1, S2 Cardiovascular: RRR, no significant murmur, no rub, gallop obese Gastrointestinal: soft, non-tender, no distention, positive bowel sounds Musculoskeletal: pulses present, edema present Neurological: normal sensation, moves all 4 limbs Psychiatric: A&O x 3 Skin: normal turgor, cap refill <2 seconds Dx/Plan (1) Acute on chronic diastolic (congestive) heart failure Code(s): I50.33 - ACUTE ON CHRONIC DIASTOLIC (CONGESTIVE) HEART FAILURE Status : Acute Comment: Continue Lasix 60mg IV BID, serial weights, I/O's, 2D echo pending (2) Acute kidney injury Code(s): N17.9 - ACUTE KIDNEY FAILURE, UNSPECIFIED Status: Acute Comment: Avoid nephrotoxic meds and limit contrast exposure, serial monitoring (3) Anasarca Code(s): R60.1 - GENERALIZED EDEMA Status: Acute Comment: Likely multifactorial given diastolic CHF and [place]/CKD (4) Hypothyroidism Code(s): E03.9 - HYPOTHYROIDISM, UNSPECIFIED Status: Chronic Comment: Continue Levothyroxine 250mcg daily (5) DM2 (diabetes mellitus, type 2) Status: Chronic Comment: Continue Lantus 32u HS, ISS, ADA (6) Hypertension Code(s): I10 - ESSENTIAL (PRIMARY) HYPERTENSION Status: Chronic Qualifiers: Hypertension type: essential hypertension Qualified Code(s): I10 - Essential (primary) hypertension Comment: Labile, continue current BP regimen, anticipate improvement with volume removal - Plan 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
[2018-09-29] MEDS ORDERED: Furosemide 40 MG/4 ML VIAL SLOW IVP SCH (16:00)
[2018-09-29] MEDS: HYDROcodone/Acetaminophen 5/325 mg Tablet PO PRN (16:45)
[2018-09-29] MEDS ORDERED: Cortisporin 1% Opth Oint 3.5 GM TUBE L EYE PRN (17:12)
[2018-09-29] MEDS: Atorvastatin Calcium 40 MG TAB PO SCH (20:51)
[2018-09-29] MEDS: Insulin Glargine 32 UNITS in Pre-Filled Syringe 1 EACH SC SCH (20:51)
[2018-09-29] MEDS: Tamsulosin HCl 0.4 MG CAP PO SCH (20:52)
[2018-09-29] MEDS: Maxitrol 0.1% Opth Oint 3.5 GM TUBE L EYE SCH (20:53)
[2018-09-30] MEDS: HYDROcodone/Acetaminophen 5/325 mg Tablet PO PRN ×2 (00:06→08:27)
[2018-09-30] MEDS: Maxitrol 0.1% Opth Oint 3.5 GM TUBE L EYE SCH ×7 (00:11→23:13)
[2018-09-30] MEDS: Morphine 4 MG/ML VIAL SLOW IVP PRN ×3 (01:12→11:38)
[2018-09-30] MEDS: Levothyroxine Sodium 125 MCG TAB PO SCH (05:46)
[2018-09-30] MEDS: Furosemide 40 MG/4 ML VIAL SLOW IVP SCH ×2 (05:47→13:22)
[2018-09-30] MEDS: Loratadine 10 MG TAB PO PRN ×2 (05:58→21:45)
[2018-09-30 06:39] LABS: Anion Gap 10 mmol/L (10-20); BUN (Urea Nitrogen) 38 mg/dL (8.4-25.7); Calc. Creatinine Clearance 54 mL/min (70-130); Carbon Dioxide 24 mmol/L (22-29); Chloride 111 mmol/L (98-107); Estimated GFR-MDRD 22; Glucose 96 mg/dL (70-105); Potassium 3.5 mmol/L (3.5-5.1); Sodium 141 mmol/L (136-145)
[2018-09-30] MEDS: hydrALAZINE 25 MG TAB PO SCH ×3 (08:27→21:36)
[2018-09-30] MEDS: Ferrous Sulfate 325 MG TAB PO SCH ×2 (08:27→21:36)
[2018-09-30] MEDS: Heparin 5,000 UNITS/ML VIAL SC SCH ×3 (08:27→21:37)
[2018-09-30] MEDS: Carvedilol 6.25 MG TAB PO SCH ×2 (08:28→21:36)
[2018-09-30] MEDS: Famotidine 20 MG TAB PO SCH ×2 (08:28→21:36)
--- NOTE | 2018-09-30 11:04 | PDOC.PN ---
- Subjective Encounter Start Date: 09/30/18 Encounter Start Time: 10:45 Subjective: f/u for acute/chronic diastolic CHF tx with IV Lasix. Feels better and -: less SOB. Weight down 5lbs since admit. - Objective Resuscitation Status - Order Detail: 09/28/18 19:07 Resuscitation Status Routine Resuscitation Status: FULL: Full Resuscitation MAR Reviewed: Yes Vital Signs & Weight: Vital Signs (12 hours) Temp Pulse Resp BP BP Pulse Ox 09/30/18 08:30 96 09/30/18 08:28 184/86 H 09/30/18 08:27 67 186/84 H 09/30/18 08:22 98.3 F 67 16 186/84 H 96 09/30/18 04:00 99.2 F 63 18 159/74 H 95 09/30/18 00:06 57 L 184/86 H 09/30/18 00:00 98.9 F 76 19 180/77 H 97 Weight Weight 296 lb 6 oz I&O: 09/29/18 09/30/18 10/01/18 06:59 06:59 06:59 Intake Total 480 1460 Output Total 1775 3150 Balance -1295 -1690 Result Diagrams: 09/29/18 05:25 09/30/18 05:34 Additional Labs: Accuchecks 09/30/18 09/29/18 05:54 16:28 POC Glucose 95 177 H Laboratory Tests 02/24/18 09/28/18 09/28/18 22:45 10:02 10:04 Hgb 11.6 L BUN Creatinine B-Natriuretic Peptide 1127.3 H 670.3 H 09/28/18 09/29/18 10:04 05:25 Hgb BUN 47 H Creatinine 3.46 H B-Natriuretic Peptide 592.7 H Radiology Reviewed by me: Yes (2D echo - EF 55-60%, mod LAE, mod TR) EKG Reviewed by me: Yes (Tele - SR) Phys Exam - Physical Examination Constitutional: NAD HEENT: sclera anicteric, oral pharynx no lesions Neck: no nodes, no JVD, supple, full ROM Respiratory: no wheezing, no rales, no rhonchi, clear to auscultation bilateral S1, S2 Cardiovascular: RRR, no significant murmur, no rub, gallop Gastrointestinal: soft, non-tender, no distention, positive bowel sounds decreased edema in LE's Musculoskeletal: pulses present, edema present Neurological: normal sensation, moves all 4 limbs Psychiatric: A&O x 3 Skin: normal turgor, cap refill <2 seconds Dx/Plan (1) Acute on chronic diastolic (congestive) heart failure Code(s): I50.33 - ACUTE ON CHRONIC DIASTOLIC (CONGESTIVE) HEART FAILURE Status : Acute Comment: Continue Lasix 60mg IV BID, serial weights, I/O's, EF 55-60% , mod TR (2) Acute kidney injury Code(s): N17.9 - ACUTE KIDNEY FAILURE, UNSPECIFIED Status: Acute Comment: Avoid nephrotoxic meds and limit contrast exposure, serial monitoring (3) Anasarca Code(s): R60.1 - GENERALIZED EDEMA Status: Acute Comment: Likely multifactorial given diastolic CHF and NATANAEL/CKD, improved, continue IV Lasix (4) Hypothyroidism Code(s): E03.9 - HYPOTHYROIDISM, UNSPECIFIED Status: Chronic Comment: Continue Levothyroxine 250mcg daily (5) DM2 (diabetes mellitus, type 2) Status: Chronic Comment: Continue Lantus 32u HS, ISS, ADA (6) Hypertension Code(s): I10 - ESSENTIAL (PRIMARY) HYPERTENSION Status: Chronic Qualifiers: Hypertension type: essential hypertension Qualified Code(s): I10 - Essential (primary) hypertension Comment: Labile, continue current BP regimen, anticipate improvement with volume removal, resume home Norvasc 10mg daily - Plan out of bed/ambulate Stable currently -: Continue Lasix 60mg IV BID -: OOB/ambulate -: Continue ASA/Coreg -: Resume Norvasc 10mg daily * AM lab: BMP
[2018-09-30] MEDS: HYDROcodone/Acetaminophen 7.5/325 mg Tablet PO PRN ×3 (13:28→21:35)
--- NOTE | 2018-09-30 14:34 | PDOC.CTH ---
<Jonelle Bustamante - Last Filed: 09/30/18 14:34> Cardiology Progress Note - Subjective The pt seen and examined. No overnight events. No cardiac complaints. He walked with PT today with no cardiac complaints. - Objective Vital Signs Temp Pulse Pulse Pulse Resp BP BP 09/30/18 12:10 69 65 152/65 H 09/30/18 11:11 98.2 F 63 16 09/30/18 08:30 09/30/18 08:28 184/86 H 09/30/18 08:27 67 186/84 H 09/30/18 08:22 98.3 F 67 16 09/30/18 04:00 99.2 F 63 18 BP BP Pulse Ox Pulse Ox 09/30/18 12:10 141/65 H 97 09/30/18 11:11 152/65 H 97 09/30/18 08:30 96 09/30/18 08:28 09/30/18 08:27 09/30/18 08:22 186/84 H 96 09/30/18 04:00 159/74 H 95 Weight 296 lb 6 oz 09/29/18 09/30/18 10/01/18 06:59 06:59 06:59 Intake Total 480 1460 Output Total 1775 3150 Balance -1295 -1690 - Physical Examination General/Neuro: alert & oriented x3 Neck: no JVD present Lungs: other: (diminished at bases) Heart: RRR Abdomen: soft Extremities: other: (2-3+pitting BLE edema) - Telemetry Telemetry Rhythm: SR 80s - Labs Result Diagrams: 09/29/18 05:25 09/30/18 05:34 Troponin/CKMB CK-MB (CK-2) 7.1 ng/mL (0-6.6) H* 09/28/18 10:04 Troponin I 0.033 ng/mL (< 0.028) H 09/28/18 10:04 - Assessment/Plan 1. Acute on chronic diastolic HF - stable with Lasix 60mg IV BID and Bblocker; not on RASHI/ARB 2/2 hx of CKD 2. CAD with s/p CABG in 2018 - stable; on BBlocker, ASA, and Statin. 3. NATANAEL on CKD - no changed. 4. HTN - Norvasc 10mg qd was resumed from this AM. 5. DM type 2 - managed by PCP 6. Hypothyroidism - managed by PCP 7. 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 MAR reviewed Review of Systems - Review of Systems Constitutional: reports: no symptoms reported EENTM: reports: no symptoms reported Respiratory: reports: no symptoms reported Cardiac (ROS): reports: no symptoms reported ABD/GI: reports: no symptoms reported : reports: no symptoms reported <Wendy Herndon - Last Filed: 09/30/18 17:52> Cardiology Progress Note - Objective Vital Signs Temp Pulse Pulse Pulse Resp BP BP 09/30/18 15:07 59 L 169/78 H 09/30/18 15:03 98.4 F 59 L 16 09/30/18 12:10 69 65 152/65 H 09/30/18 11:11 98.2 F 63 16 09/30/18 08:30 09/30/18 08:28 184/86 H 09/30/18 08:27 67 186/84 H 09/30/18 08:22 98.3 F 67 16 BP BP Pulse Ox Pulse Ox 09/30/18 15:07 09/30/18 15:03 169/78 H 97 09/30/18 12:10 141/65 H 97 09/30/18 11:11 152/65 H 97 09/30/18 08:30 96 09/30/18 08:28 09/30/18 08:27 09/30/18 08:22 186/84 H 96 Weight 296 lb 6 oz 09/29/18 09/30/18 10/01/18 06:59 06:59 06:59 Intake Total 480 1460 1040 Output Total 2475 3150 2024 Balance -1295 -1690 -985 - Labs Result Diagrams: 09/29/18 05:25 09/30/18 05:34 Troponin/CKMB CK-MB (CK-2) 7.1 ng/mL (0-6.6) H* 09/28/18 10:04 Troponin I 0.033 ng/mL (< 0.028) H 09/28/18 10:04 - Assessment/Plan Pt. seen and eval. by me. I agree with the A/P by the DATA ENTRY ASSOCIATE. We have discussed the pt as well as the A/PO. Chest clear. RRR
--- NOTE | 2018-09-30 14:38 | EKG ---
Test Reason : SOB Blood Pressure : / mmHG Vent. Rate : 071 BPM Atrial Rate : 071 BPM P-R Int : 204 ms QRS Dur : 088 ms QT Int : 412 ms P-R-T Axes : 030 -11 070 degrees QTc Int : 447 ms Normal sinus rhythm Normal ECG Confirmed by ARACELI GOMEZ D.O. ([id number]), clinical editor CYNDY EVANGELISTA ([id number]) on 09/30/2018 2:37:54 PM Referred By: Confirmed By:ARACELI GOMEZ D.O.
[2018-09-30] MEDS: Insulin Glargine 32 UNITS in Pre-Filled Syringe 1 EACH SC SCH (21:35)
[2018-09-30] MEDS: Tamsulosin HCl 0.4 MG CAP PO SCH (21:36)
[2018-09-30] MEDS: Atorvastatin Calcium 40 MG TAB PO SCH (21:36)
[2018-10-01] MEDS: HYDROcodone/Acetaminophen 7.5/325 mg Tablet PO PRN ×5 (01:33→20:37)
[2018-10-01] MEDS: Maxitrol 0.1% Opth Oint 3.5 GM TUBE L EYE SCH ×6 (02:53→22:34)
[2018-10-01] MEDS: Levothyroxine Sodium 125 MCG TAB PO SCH (05:26)
[2018-10-01] MEDS: Furosemide 40 MG/4 ML VIAL SLOW IVP SCH (05:27)
[2018-10-01 06:18] LABS: Anion Gap 8 mmol/L (10-20); BUN (Urea Nitrogen) 43 mg/dL (8.4-25.7); Calc. Creatinine Clearance 49 mL/min (70-130); Calcium 7.8 mg/dL (7.8-10.44); Carbon Dioxide 25 mmol/L (22-29); Chloride 110 mmol/L (98-107); Estimated GFR-MDRD 20; Glucose 127 mg/dL (70-105); Potassium 3.6 mmol/L (3.5-5.1); Sodium 139 mmol/L (136-145)
[2018-10-01] MEDS: Heparin 5,000 UNITS/ML VIAL SC SCH ×3 (08:05→20:38)
[2018-10-01] MEDS: hydrALAZINE 25 MG TAB PO SCH ×3 (08:05→20:38)
[2018-10-01] MEDS: Famotidine 20 MG TAB PO SCH ×2 (08:05→20:38)
[2018-10-01] MEDS: Docusate 100 MG CAP PO PRN ×2 (08:06→20:56)
[2018-10-01] MEDS: Carvedilol 6.25 MG TAB PO SCH ×2 (08:06→17:36)
[2018-10-01] MEDS: Ferrous Sulfate 325 MG TAB PO SCH ×2 (08:06→20:38)
[2018-10-01] MEDS: Amlodipine 5 MG TAB PO SCH (08:06)
--- NOTE | 2018-10-01 13:05 | PDOC.CTH ---
<Jonelle Bustamante - Last Filed: 10/01/18 13:06> Cardiology Progress Note - Subjective The pt seen and examined. No overnight events. No cardiac complaints. The pt stated he can breath better today. - Objective Vital Signs Temp Pulse Pulse Pulse Resp BP BP 10/01/18 12:51 63 60 146/65 H 10/01/18 10:53 98.4 F 60 16 10/01/18 08:06 60 186/83 H 10/01/18 08:05 60 186/83 H 10/01/18 08:00 98.2 F 60 16 10/01/18 04:00 97.0 F L 60 20 BP BP Pulse Ox 10/01/18 12:51 123/64 10/01/18 10:53 137/71 97 10/01/18 08:06 10/01/18 08:05 10/01/18 08:00 186/83 H 97 10/01/18 04:00 130/62 96 Weight 190 lb 9 oz 09/30/18 10/01/18 10/02/18 06:59 06:59 06:59 Intake Total 1460 1540 Output Total 3150 3850 Balance -1690 -2310 - Physical Examination General/Neuro: alert & oriented x3 Neck: no JVD present Lungs: CTA Heart: RRR Abdomen: soft Extremities: other: (2+ pitting BLE edema) - Telemetry Telemetry Rhythm: [id number] - Labs Result Diagrams: 09/29/18 05:25 10/01/18 05:07 Troponin/CKMB CK-MB (CK-2) 7.1 ng/mL (0-6.6) H* 09/28/18 10:04 Troponin I 0.033 ng/mL (< 0.028) H 09/28/18 10:04 - Assessment/Plan 1. Acute on chronic diastolic HF - stable with Bblocker and Lasix 60mg IV BID, which changed to 40mg BID; not on RASHI/ARB 2/2 hx of CKD 2. CAD with s/p CABG in 2018 - stable; on BBlocker, ASA, and Statin. 3. NATANAEL on CKD - no changed. 4. HTN - Increase Coreg to 12.5mg from this PM. 5. DM type 2 - managed by PCP 6. Hypothyroidism - managed by PCP 7. 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 MAR reviewed Review of Systems - Review of Systems Constitutional: reports: no symptoms reported EENTM: reports: no symptoms reported Respiratory: reports: no symptoms reported Cardiac (ROS): reports: no symptoms reported ABD/GI: reports: no symptoms reported : reports: no symptoms reported Musculoskeletal: reports: no symptoms reported <Wendy Herndon - Last Filed: 10/01/18 22:05> Cardiology Progress Note - Objective Vital Signs Temp Pulse Pulse Pulse Resp BP BP 10/01/18 20:38 174/81 H 10/01/18 17:36 174/81 H 10/01/18 17:34 60 10/01/18 15:09 57 L 10/01/18 15:00 98 F 57 L 20 10/01/18 12:51 63 60 146/65 H 10/01/18 10:53 98.4 F 60 16 BP BP Pulse Ox 10/01/18 20:38 10/01/18 17:36 10/01/18 17:34 174/81 H 10/01/18 15:09 10/01/18 15:00 180/80 H 94 L 10/01/18 12:51 123/64 10/01/18 10:53 137/71 97 Weight 190 lb 9 oz 09/30/18 10/01/18 10/02/18 06:59 06:59 06:59 Intake Total 1460 1540 800 Output Total 3150 3850 1575 Balance -0890 -2310 -775 - Labs Result Diagrams: 09/29/18 05:25 10/01/18 05:07 Troponin/CKMB CK-MB (CK-2) 7.1 ng/mL (0-6.6) H* 09/28/18 10:04 Troponin I 0.033 ng/mL (< 0.028) H 09/28/18 10:04 - Assessment/Plan Pt. seen and eval. by me. I agree with the A/P by the ELECTRICAL SOLDERER. No new complaints. Still diuresing. Chest clear. RRR.
[2018-10-01] MEDS: Furosemide 40 MG TAB PO SCH (15:09)
--- NOTE | 2018-10-01 15:11 | PDOC.PN ---
- Subjective Encounter Start Date: 10/01/18 Encounter Start Time: 15:05 Subjective: f/u for acute/chronic diast CHF with approx 11lb weight loss since admit. -: Feels better overall with decreased swelling of LE's and resolution -: of dyspnea. - Objective Resuscitation Status - Order Detail: 09/28/18 19:07 Resuscitation Status Routine Resuscitation Status: FULL: Full Resuscitation MAR Reviewed: Yes Vital Signs & Weight: Vital Signs (12 hours) Temp Pulse Pulse Pulse Resp BP BP 10/01/18 12:51 63 60 146/65 H 10/01/18 10:53 98.4 F 60 16 10/01/18 08:06 60 186/83 H 10/01/18 08:05 60 186/83 H 10/01/18 08:00 98.2 F 60 16 10/01/18 04:00 97.0 F L 60 20 BP BP Pulse Ox 10/01/18 12:51 123/64 10/01/18 10:53 137/71 97 10/01/18 08:06 10/01/18 08:05 10/01/18 08:00 186/83 H 97 10/01/18 04:00 130/62 96 Weight Weight 190 lb 9 oz I&O: 09/30/18 10/01/18 10/02/18 06:59 06:59 06:59 Intake Total 1460 1540 Output Total 3150 3850 Balance -1690 -2310 Result Diagrams: 09/29/18 05:25 10/01/18 05:07 Additional Labs: Accuchecks 10/01/18 10/01/18 09/30/18 11:07 05:36 20:06 POC Glucose 90 124 H 176 H 09/30/18 16:51 POC Glucose 114 H Laboratory Tests 02/24/18 09/28/18 09/28/18 22:45 10:02 10:04 Hgb 11.6 L BUN Creatinine B-Natriuretic Peptide 1127.3 H 670.3 H 09/28/18 09/29/18 10:04 05:25 Hgb BUN 47 H Creatinine 3.46 H B-Natriuretic Peptide 592.7 H EKG Reviewed by me: Yes (Tele - SR) Phys Exam - Physical Examination Constitutional: NAD HEENT: sclera anicteric, oral pharynx no lesions Neck: no nodes, no JVD, supple, full ROM Respiratory: no wheezing, no rales, no rhonchi, clear to auscultation bilateral S1, S2 Cardiovascular: RRR, no significant murmur, no rub, gallop Gastrointestinal: soft, non-tender, no distention, positive bowel sounds decreased edema of LE's Musculoskeletal: pulses present Neurological: normal sensation, moves all 4 limbs Psychiatric: A&O x 3 Skin: normal turgor, cap refill <2 seconds Dx/Plan (1) Acute on chronic diastolic (congestive) heart failure Code(s): I50.33 - ACUTE ON CHRONIC DIASTOLIC (CONGESTIVE) HEART FAILURE Status : Acute Comment: Continue Lasix 40mg po BID, serial weights, I/O's, EF 55-60% , mod TR (2) Acute kidney injury Code(s): N17.9 - ACUTE KIDNEY FAILURE, UNSPECIFIED Status: Acute Comment: Avoid nephrotoxic meds and limit contrast exposure, serial monitoring (3) Anasarca Code(s): R60.1 - GENERALIZED EDEMA Status: Acute Comment: Likely multifactorial given diastolic CHF and NATANAEL/CKD, improved, continue Lasix, weight down approx 11lbs since admit (4) Hypothyroidism Code(s): E03.9 - HYPOTHYROIDISM, UNSPECIFIED Status: Chronic Comment: Continue Levothyroxine 250mcg daily (5) DM2 (diabetes mellitus, type 2) Status: Chronic Comment: Continue Lantus 32u HS, ISS, ADA (6) Hypertension Code(s): I10 - ESSENTIAL (PRIMARY) HYPERTENSION Status: Chronic Qualifiers: Hypertension type: essential hypertension Qualified Code(s): I10 - Essential (primary) hypertension Comment: Labile, continue current BP regimen, anticipate improvement with volume removal, resume home Norvasc 10mg daily - Plan plan discussed w/ family, out of bed/ambulate Stable currently -: Continue Lasix 40mg po BID -: Watch renal function closely -: Continue ASA/Coreg/Amlodipine -: AM lab: BMP * Likely home in am
[2018-10-01] MEDS: Insulin Glargine 32 UNITS in Pre-Filled Syringe 1 EACH SC SCH (20:36)
[2018-10-01] MEDS: Tamsulosin HCl 0.4 MG CAP PO SCH (20:38)
[2018-10-01] MEDS: Atorvastatin Calcium 40 MG TAB PO SCH (20:39)
[2018-10-02] MEDS: HYDROcodone/Acetaminophen 7.5/325 mg Tablet PO PRN ×3 (00:28→08:20)
[2018-10-02] MEDS: Maxitrol 0.1% Opth Oint 3.5 GM TUBE L EYE SCH ×3 (03:09→10:18)
[2018-10-02] MEDS: Levothyroxine Sodium 125 MCG TAB PO SCH (04:27)
[2018-10-02 06:17] LABS: Anion Gap 9 mmol/L (10-20); BUN (Urea Nitrogen) 46 mg/dL (8.4-25.7); Calc. Creatinine Clearance 48 mL/min (70-130); Calcium 7.9 mg/dL (7.8-10.44); Carbon Dioxide 25 mmol/L (22-29); Chloride 109 mmol/L (98-107); Estimated GFR-MDRD 20; Glucose 69 mg/dL (70-105); Potassium 3.7 mmol/L (3.5-5.1); Sodium 139 mmol/L (136-145)
[2018-10-02 07:49] VITALS: TEMP 98.1
[2018-10-02] MEDS: Famotidine 20 MG TAB PO SCH (08:18)
[2018-10-02] MEDS: Docusate 100 MG CAP PO PRN (08:18)
[2018-10-02] MEDS: Ferrous Sulfate 325 MG TAB PO SCH (08:19)
[2018-10-02] MEDS: Amlodipine 5 MG TAB PO SCH (08:20)
[2018-10-02] MEDS: Carvedilol 6.25 MG TAB PO SCH (08:20)
[2018-10-02] MEDS: hydrALAZINE 25 MG TAB PO SCH (08:21)
[2018-10-02] MEDS: Furosemide 40 MG TAB PO SCH (08:21)
[2018-10-02] MEDS: Heparin 5,000 UNITS/ML VIAL SC SCH (08:21)
[2018-10-02 11:46] VITALS: BP 149/69
--- NOTE | 2018-10-02 13:20 | DIS ---
DATE OF ADMISSION: 09/28/2018 DATE OF DISCHARGE: 10/02/2018 DISCHARGE DIAGNOSES: 1. Acute on chronic diastolic congestive heart failure with preserved ejection fraction of 55% to 60%. 2. Acute kidney injury on chronic kidney disease, stage 3 to 4. 3. Anasarca, multifactorial, improved. 4. Hypothyroidism. 5. Morbid obesity. 6. Diabetes mellitus type 2, insulin requiring. 7. Hypertension, labile. CONSULTATIONS: 1. Dr. Herndon with Cardiology Service. 2. Dr. Christian Olea with Nephrology Service. PERTINENT LAB AND X-RAY FINDINGS: Creatinine ranged between 3.04 to 3.46. Estimated GFR ranged between 19 to 22. BNP ranged between 593 to 670. Magnesium level 1.6. CBC showed a hemoglobin ranging between 11.1 to 11.6. Portable chest x-ray, dated 09/28/2018, showed mild perihilar vascular prominence. 2D transthoracic echocardiogram, dated 09/29/2018, showed ejection fraction of 55% to 60%. Moderate left atrial enlargement. Moderate tricuspid valve regurgitation. HOSPITAL COURSE: The patient was initially admitted to the telemetry unit after presenting with increased shortness of breath and generalized edema. The patient with known history of chronic kidney disease stage 3 to 4, presenting with worsening renal function in addition to volume overload and anasarca. The patient underwent general evaluation with chest imaging showing evidence of central pulmonary edema. The patient was placed on IV Lasix with excellent diuresis during the hospital course. The patient's weight decreased approximately 13 pounds during the hospital course, and overall, anasarca had improved by the time of discharge. The patient's renal function remained clinically stable overall given increased diuretic therapy. The patient was monitored by the Nephrology Service without recommendations for any further intervention or dialysis. Telemetry monitoring showed sinus mechanism without evidence of acute arrhythmia or dysrhythmia. The patient overall remained clinically stable, tolerating regular oral intake with stable vital signs. I have examined the patient at the time of discharge and discussed followup instructions. The patient verbalized understanding and in agreement, and ready for discharge on 10/02/2018. DISCHARGE MEDICATIONS: 1. Norvasc 10 mg p.o. daily. 2. Aspirin 81 mg p.o. daily. 3. Lipitor 40 mg p.o. at bedtime. 4. Bacitracin/polymyxin B one application to the left eye q.i.d. p.r.n. 5. Coreg 6.25 mg p.o. b.i.d. 6. Ferrous sulfate 325 mg p.o. b.i.d. 7. Lasix 40 mg p.o. b.i.d. 8. Glipizide 10 mg p.o. b.i.d. 9. Caro 7.5/325 mg 1 tablet p.o. q.4 to 6 hours p.r.n. 10. Levothyroxine 150 mcg p.o. daily. 11. Hydralazine 50 mg p.o. t.i.d. 12. Lantus 32 units subcutaneously at bedtime. 13. Flomax 0.4 mg p.o. at bedtime. FOLLOWUP: The patient may follow up with his primary care provider, Dr. Lazaro Beebe within 7 days of discharge. The patient may follow up with Dr. Graf with [facility] and to call his office for appointment time and date. The patient may follow up with Dr. Christian Olea with Nephrology Service. CONDITION ON DISCHARGE: Stable. ACTIVITY: Ad willow. DIET: Heart healthy/ADA. CODE STATUS: Full. DISPOSITION: Home on 10/02/2018. TIME SPENT: Total time preparing and coordinating discharge is 35 minutes. Job ID: [id number]
== END 2018-10-02 11:20 | disposition home or self-care (01) | DRG 291 ==
LOC: ERS 09:31 → ERHOLD 13:10 → 2NO 18:55
PROVIDERS: ADMIT Family Medicine; ATTEND Family Medicine
DX: I13.0 Hypertensive heart and chronic kidney disease with heart failure and stage 1 through stage 4 chronic kidney disease, or unspecified chronic kidney disease (principal); I50.33 Acute on chronic diastolic (congestive) heart failure; N18.4 Chronic kidney disease, stage 4 (severe); N17.9 Acute kidney failure, unspecified; Z68.41 Body mass index [BMI] 40.0-44.9, adult; E11.22 Type 2 diabetes mellitus with diabetic chronic kidney disease; E11.319 Type 2 diabetes mellitus with unspecified diabetic retinopathy without macular edema; E03.9 Hypothyroidism, unspecified; E66.01 Morbid (severe) obesity due to excess calories; I25.10 Atherosclerotic heart disease of native coronary artery without angina pectoris; H54.8 Legal blindness, as defined in USA; Z79.82 Long term (current) use of aspirin; Z79.4 Long term (current) use of insulin; Z79.899 Other long term (current) drug therapy; Z95.1 Presence of aortocoronary bypass graft; Z90.01 Acquired absence of eye
CPT/HCPCS: 36415; 36416; 71045; 80048; 80053; 82553; 83735; 83880; 84484; 85007; 85025; 85027; 93005; 93306; 93798; 96374; 96375; 96376; 99214; G0463; J0360; J1644; J1940; J2270

== ENCOUNTER 2019-01-25 07:34 | Inpatient (IN) | payer MEDICARE ==
[2019-01-25] MEDS ORDERED: Ondansetron PF 4 MG/2 ML Vial ONE ×2 (07:51→08:19)
[2019-01-25 08:06] LABS: #Lymphocytes 1.2 thou/uL (1.20-3.40); #Monocytes 0.4 thou/uL (0.11-0.59); #Neutrophils 8.6 thou/uL (1.40-6.50); %Basophils 0.4 % (0.0-1.0); %Eosinophils 0.1 % (0.0-10.0); %Lymphocytes 11.8 % (21.0-51.0); %Monocytes 3.7 % (0.0-10.0); %Neutrophils 84.1 % (42.0-75.0); Hemoglobin 13.1 g/dL (14.0-18.0); Mean Corpuscular HGB CONC 33.8 g/dL (32.0-36.0); Mean Corpuscular Hemoglobin 29.4 pg (27.0-31.0); Mean Corpuscular Volume 86.8 fL (78.0-98.0); Mean Platelet Volume 9.6 fL (7.4-10.4); Platelet Count 143 thou/uL (130-400); RBC Distribution Width 12.4 % (11.5-14.5); Red Blood Cell (RBC) Count 4.46 mill/uL (4.70-6.10); White Blood Cell (WBC) Count 10.2 thou/uL (4.8-10.8)
--- NOTE | 2019-01-25 08:12 | RAD ---
FExam: Chest one view HISTORY:Vomiting x2 days Comparison: 09/28/2018 FINDINGS: Cardiac silhouette:Normal Calcified AP window lymph node sternotomy wires are noted Pulmonary vessels: Normal Costophrenic angles: Clear LUNGS: No masses or consolidation. Pneumothorax: None Osseous abnormalities: None IMPRESSION: No acute cardiopulmonary process.
[2019-01-25 08:27] LABS: ALT (SGPT) 27 U/L (8-55); AST (SGOT) 31 U/L (5-34); Albumin 3.2 g/dL (3.5-5.0); Alkaline Phosphatase 168 U/L (40-150); Anion Gap 17 mmol/L (10-20); BUN (Urea Nitrogen) 58 mg/dL (8.4-25.7); Bilirubin, Total 0.5 mg/dL (0.2-1.2); Calc. Creatinine Clearance 0 mL/min (70-130); Calcium 8.6 mg/dL (7.8-10.44); Carbon Dioxide 22 mmol/L (22-29); Chloride 102 mmol/L (98-107); Estimated GFR-MDRD 17; Glucose 249 mg/dL (70-105); Lipase 249 U/L (8-78); Potassium 3.3 mmol/L (3.5-5.1); Protein, Total 6.2 g/dL (6.0-8.3); Sodium 138 mmol/L (136-145)
[2019-01-25] MEDS ORDERED: Promethazine HCl 25 MG/ML VIAL ONE ×2 (09:18→11:50)
[2019-01-25 09:32] LABS: CKMB 9.8 ng/mL (0-6.6)
[2019-01-25] MEDS ORDERED: Aspirin Chewable 81 MG TAB ONE (09:55)
[2019-01-25] MEDS ORDERED: Lidocaine Viscous Sol 2% 15 ml UD Cup ONE (09:57)
[2019-01-25] MEDS ORDERED: Mag-Al 1200 mg/1200 mg/30 ML UDCUP ONE (09:57)
[2019-01-25] MEDS ORDERED: HumaLOG 300 UNITS/3 ML VIAL SC PRN (11:03)
[2019-01-25] MEDS ORDERED: Dextrose 50% Abboject 50 ML SYRINGE SLOW IVP PRN ×2 (11:03→12:06)
[2019-01-25] MEDS ORDERED: Dextrose 5% in Water 1,000 ML IV PRN ×2 (11:03→12:06)
[2019-01-25] MEDS ORDERED: hydrALAZINE 20 MG/ML VIAL SLOW IVP PRN (11:31)
[2019-01-25] MEDS ORDERED: Ondansetron PF 4 MG/2 ML Vial IVP PRN (11:34)
[2019-01-25] MEDS ORDERED: Promethazine HCl 25 MG/ML VIAL IM/IV PRN (11:34)
[2019-01-25] MEDS ORDERED: Morphine 4 MG/ML VIAL SLOW IVP PRN (11:34)
[2019-01-25] MEDS ORDERED: Sodium Chloride 0.9% 500 ML IV SCH ×2 (11:45)
[2019-01-25] MEDS ORDERED: Sodium Chloride 0.9% 1,000 ML IV SCH ×2 (11:45)
--- NOTE | 2019-01-25 11:56 | CT ---
FEXAM:CT of abdomen and pelvis performed without contrast HISTORY: Abdominal pain nausea and vomiting. COMPARISON: 06/17/2017 exam. FINDINGS:The lung bases are clear of any infiltrative process. The liver, spleen, pancreas and gallbladder regions appear unremarkable. Right and left adrenal glands and right and left kidneys are normal in size. There are vascular calci fications noted. There is no significant periaortic or mesenteric adenopathy. No signs of obstruction . 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 CT of pelvis performed without contrast enhancement: The appendix is unremarkable. No pelvic lymphade nopathy or mass. The wall of the rectosigmoid colon is slightly prominent but similar to the previous exam. Vascular calcifications raise the possibility of diabetes. A small fat-containing paraumbilica l hernia is seen. Prostate calcifications are noted. There are arthritic changes of the spine and hips. IMPRESSION:No acute abnormalities the abdomen or pelvis. Vascular calcifications. Other incidental findings as noted above.
[2019-01-25 11:58] LABS: Bilirubin Negative (Negative); Blood, Urine Moderate (Negative); Clarity CLEAR (Clear); Glucose, Urine (Dipstick) 500 mg/dL (Negative); Leukocyte Negative (Negative); Nitrite Negative (Negative); Protein, Urine (Dipstick) > or equal to 300 mg/dL (Neg-Trace); Urobilinogen 0.2 mg/dL (0.2-1.0); pH, Urine 6.5 (5.0-9.0)
[2019-01-25 12:01] LABS: Bacteria/HPF None Seen HPF (None Seen); Hyaline Casts/LPF 4-6 HYALINE CAST LPF (0-3 Hyaline); Squamous Epithelial 0-3 HPF (0-3); WBC/HPF 0-3 HPF (0-3)
[2019-01-25 12:11] VITALS: BMI 38.7
[2019-01-25 12:17] LABS: CKMB 8.6 ng/mL (0-6.6); Critical Call CKMB DECREASED
[2019-01-25] MEDS: Heparin 5,000 UNITS/ML VIAL SC SCH ×2 (13:42→22:33)
[2019-01-25] MEDS: Ondansetron PF 4 MG/2 ML Vial IVP PRN ×2 (13:42→20:45)
[2019-01-25] MEDS: Morphine 4 MG/ML VIAL SLOW IVP PRN ×3 (13:43→22:41)
[2019-01-25] MEDS ORDERED: hydrALAZINE 25 MG TAB PO SCH (15:00)
[2019-01-25] MEDS ORDERED: Heparin 5,000 UNITS/ML VIAL SC SCH (15:00)
--- NOTE | 2019-01-25 16:05 | HP ---
CHIEF COMPLAINT: Nausea, vomiting, and abdominal pain. HISTORY OF PRESENT ILLNESS: The patient is a 53-year-old male with history of CAD status post CABG, diabetes, hypertension, hyperlipidemia, and diastolic heart failure currently compensated, who presents to the hospital with abdominal pain, nausea and vomiting going on for the past 2 or 3 days. The patient stated that he initially had bought a burger from [employer] for his , however, his did not end up eating it. The patient stated that she brought the burger back home, where he then ate the burger. The patient stated that a few hours after he ate the burger, he started having abdominal pain followed by nausea and vomiting. The patient stated that he has been throwing up nonstop for the past 2 or 3 days. He has been unable to keep anything down. He stated that he did have some chills, however, no fevers and also stated that he has had diarrhea x2. The patient currently complains of abdominal pain, epigastric in the left upper quadrant, so he presented to the ER for further evaluation. PAST MEDICAL HISTORY: 1. Hypothyroidism. 2. Hypertension. 3. Hyperlipidemia. 4. Diastolic heart failure. 5. Coronary artery disease. PAST SURGICAL HISTORY: He has had CABG and eye surgery. FAMILY HISTORY: History of diabetes and heart disease. SOCIAL HISTORY: He does not smoke, drink, or use any illicit drugs. He is a full code. Lives with his . ALLERGIES: HE HAS NO KNOWN DRUG ALLERGIES. MEDICATIONS: 1. Aspirin 81 mg daily. 2. Carvedilol 3.125 mg b.i.d. 3. Insulin 32 units at bedtime. 4. Levothyroxine 25 mcg daily. REVIEW OF SYSTEMS: All negative except for the ones mentioned above in the HPI. PHYSICAL EXAMINATION: VITAL SIGNS: Are as of the following; temperature 98.5, 20, 191/85, 67, pulse rate 100% on room air. GENERAL: He is awake, alert, and oriented x3, appears dehydrated, appears to be in no distress. Complains of abdominal pain. CV: S1 and S2 present. No murmurs, rubs or gallops. HEENT: Normocephalic, atraumatic. Patient does have very dry mucous membranes. Pupils are equal and reactive to light. LUNGS: Clear to auscultation. No rhonchi or wheezes noted. ABDOMEN: Obese. Bowel sounds are present x2. Significant pain upon palpation to epigastric area and left upper quadrant. However, he does have generalized abdominal pain on palpation. NEUROVASCULAR: No focal deficits noted. The patient is able to move all 4 extremities. SKIN: No cuts, lesions, or bruises noted. LABORATORY RESULTS: As of the following; WBCs of 10.2, hemoglobin of 13.1, hematocrit of 38.7, platelets of 143. Chemistry; sodium of 137, potassium of 3.3, BUN of 65, creatinine of 3.83, his glucose is 249. His lipase is mildly elevated at 249. BNP of 781. Troponin is mildly elevated at 0.129. Chest x-ray did not indicate any acute abnormalities. CT abdomen and pelvis ordered is pending. ASSESSMENT AND PLAN: The patient is a very pleasant 53-year-old male, who presents to the hospital with complaints of nausea, vomiting, and abdominal pain. 1. Abdominal pain/nausea and vomiting, most likely secondary to either food poisoning or viral gastroenteritis versus gastroparesis versus possible pancreatitis. We will start the patient on some gentle hydration. We will have to be careful given his history of chronic kidney disease. We will keep the patient n.p.o. We will start the patient on some IV pain medications and antiemetics. The patient does have a gallbladder, however, his previous ultrasound did not indicate any gallstones. We will see what the CT of abdomen and pelvis indicates. I believe this is just gastroenteritis from eating bad food. 2. Dehydration. We will start the patient on some gentle fluids. 3. Hypokalemia. We will replace his electrolytes. 4. History of chronic kidney disease. We will continue to monitor. 5. Diabetes. We will continue his insulin and Accu-Cheks before meals and at bedtime. 6. History of coronary artery disease. We will continue his home medications. 7. Mild elevated troponins. He did not indicate any acute abnormalities. We will continue to trend the troponins. The patient denies any chest pain, unlikely to be cardiac in nature. This could just be from his underlying nausea, vomiting, and abdominal pain. 8. Deep venous thrombosis prophylaxis. We will put the patient on SCDs or heparin. 9. Hypertension, uncontrolled. Since he has not taken his medications for the past couple of days, I will start him on some IV hydralazine. Job ID: [id number]
[2019-01-25] MEDS: Promethazine HCl 25 MG/ML VIAL IM/IV PRN ×2 (16:10→23:12)
[2019-01-25] MEDS: hydrALAZINE 20 MG/ML VIAL SLOW IVP PRN (20:46)
[2019-01-25] MEDS ORDERED: Carvedilol 3.125 MG TAB PO SCH (21:00)
[2019-01-25] MEDS ORDERED: Tamsulosin HCl 0.4 MG CAP PO SCH (21:00)
[2019-01-25] MEDS: Carvedilol 6.25 MG TAB PO SCH (22:38)
[2019-01-25] MEDS: Tamsulosin HCl 0.4 MG CAP PO SCH (22:39)
[2019-01-25] MEDS: Insulin Glargine 8 UNITS in Pre-Filled Syringe SC SCH (22:39)
[2019-01-25 23:20] LABS: CKMB 7.6 ng/mL (0-6.6); Critical Call CKMB RESULT DECREASING
[2019-01-26] MEDS: Morphine 4 MG/ML VIAL SLOW IVP PRN ×4 (02:46→19:58)
[2019-01-26] MEDS: Ondansetron PF 4 MG/2 ML Vial IVP PRN ×4 (02:47→20:50)
[2019-01-26] MEDS: Promethazine HCl 25 MG/ML VIAL IM/IV PRN ×3 (05:00→17:02)
[2019-01-26] MEDS: Levothyroxine 150 MCG TAB PO SCH (05:01)
[2019-01-26] MEDS: hydrALAZINE 20 MG/ML VIAL SLOW IVP PRN (05:12)
[2019-01-26] MEDS: Famotidine/PF 20 mg/2ml Vial SLOW IVP SCH (08:48)
[2019-01-26] MEDS: Carvedilol 6.25 MG TAB PO SCH ×2 (08:48→20:04)
[2019-01-26] MEDS: Heparin 5,000 UNITS/ML VIAL SC SCH ×3 (08:49→20:04)
[2019-01-26] MEDS ORDERED: Famotidine/PF 20 mg/2ml Vial SLOW IVP SCH (09:00)
[2019-01-26] MEDS ORDERED: Levothyroxine Sodium 125 MCG TAB PO SCH (09:00)
[2019-01-26] MEDS: HumaLOG 300 UNITS/3 ML VIAL SC PRN ×2 (11:24→17:06)
[2019-01-26] MEDS: Sodium Chloride 0.9% 1,000 ML IV SCH (11:52)
--- NOTE | 2019-01-26 16:29 | ULT ---
US Abdomina CLINICAL HISTORY: Pancreatitis. COMPARISON: None. CORRELATION: Abdomen and pelvic CT 01/25/2019 . FINDINGS: Pancreas: Poorly visualized due to overlying bowel gas. IVC: Poorly visualized due to bowel gas. Aorta: Poorly visualized due to bowel gas. Visualized aorta has a normal caliber. Liver:Diffusely heterogeneous which may be due to hepatocellular disease or technical limitations. Ri ght hepatic lobe measures 19.1 cm. Gallbladder: No sonographic evidence of cholelithiasis, gallbladder wall thickening or pericholecysti c fluid. Negative Deshpande's sign. Main portal vein is patent. Appropriate directional flow. Deshpande's sign:Negative. CBD: 0.4 cm. Right kidney: No hydronephrosis Right kidney measuring 10.55 x 6.0 Centimeters in length. Left kidney: No hydronephrosis, left kidney measuring 4.4 x 4.6x 9.8 cm in length. Spleen: Limited evaluation. Maximum dimension 9.8 cm. IMPRESSION: 1. Markedly limited evaluation the pancreas. 2. Increased echogenicity of liver which may be due to hepatocellular disease. There does not appear to be hepatic steatosis on recent CT. Technical limitations may also result in heterogeneous echogeni city of the liver. 3. No sonographic evidence of cholelithiasis or cholecystitis. Transcribed Date/Time: 01/27/2019 8:03 AM
--- NOTE | 2019-01-26 19:17 | PDOC.PN ---
- Subjective Encounter Start Date: 01/26/19 Encounter Start Time: 07:20 Pt seen for followup re: nausea and vomiting. Has ongoing nausea and vomiting. - Objective Resuscitation Status - Order Detail: 01/25/19 11:02 Resuscitation Status Routine Resuscitation Status: FULL: Full Resuscitation Vital Signs & Weight: Vital Signs (12 hours) Temp Pulse Resp BP BP Pulse Ox 01/26/19 16:00 98.0 F 63 20 175/85 H 98 01/26/19 14:18 97 01/26/19 14:17 98.1 F 77 20 164/88 H 97 01/26/19 11:44 98.2 F 62 16 183/79 H 94 L 01/26/19 08:48 198/78 H 01/26/19 08:00 98.4 F 71 14 199/87 H 95 Weight Weight 269 lb 9 oz I&O: 01/25/19 01/26/19 01/27/19 06:59 06:59 06:59 Intake Total 1002 350 Output Total 2600 1000 Balance -9751 -015 Result Diagrams: 01/25/19 07:50 01/25/19 07:50 Additional Labs: Accuchecks 01/26/19 01/26/19 01/26/19 16:22 10:46 06:08 POC Glucose 173 H 230 H 208 H 01/25/19 21:28 POC Glucose 212 H Labs reviewed by me EKG Reviewed by me: Yes (Tele: NSR) Phys Exam - Physical Examination Obese HEENT: moist MMs, sclera anicteric, oral pharynx no lesions, 2+ tonsils Neck: no nodes, no JVD, supple, full ROM Respiratory: clear to auscultation bilateral Cardiovascular: RRR, no rub S1, S2 Gastrointestinal: soft, positive bowel sounds distended, mild LUQ tenderness, no guarding or rigidity Neurological: moves all 4 limbs Psychiatric: normal affect, A&O x 3 Dx/Plan (1) Nausea and vomiting Code(s): R11.2 - NAUSEA WITH VOMITING, UNSPECIFIED Status: Acute Comment: Likely secondary to gastroenteritis. Continue IV fluids and anti-emetics (2) Chronic diastolic CHF (congestive heart failure), NYHA class 2 Code(s): I50.32 - CHRONIC DIASTOLIC (CONGESTIVE) HEART FAILURE Status: Chronic Comment: stable (3) Hyperlipidemia Code(s): E78.5 - HYPERLIPIDEMIA, UNSPECIFIED Status: Chronic Comment: continue atorvastatin (4) CAD (coronary artery disease), autologous vein bypass graft Code(s): I25.810 - ATHEROSCLEROSIS OF CABG W/O ANGINA PECTORIS Status: Chronic Comment: stable (5) DM2 (diabetes mellitus, type 2) Status: Chronic Comment: continue accuchecks, insulin sliding scale (6) Hypertension Code(s): I10 - ESSENTIAL (PRIMARY) HYPERTENSION Status: Chronic Qualifiers: Hypertension type: essential hypertension Qualified Code(s): I10 - Essential (primary) hypertension Comment: monitor vital signs and titrate antihypertensives as needed (7) Hypothyroidism Code(s): E03.9 - HYPOTHYROIDISM, UNSPECIFIED Status: Chronic Comment: Continue Levothyroxine - Plan plan discussed w/ family, out of bed/ambulate * . Review of Systems - Review of Systems Constitutional: negative: fever, chills, sweats, weakness, malaise Cardiovascular: negative: chest pain, palpitations, orthopnea, paroxysmal nocturnal dyspnea, edema, light headedness Gastrointestinal: Nausea, Vomiting, Abdominal Pain. negative: Diarrhea, Constipation, Melena, Hematochezia Genitourinary: negative: Dysuria, Frequency, Incontinence, Hematuria, Retention Skin: negative: Rash, Lesions, Steve, Bruising - Medications/Allergies Allergies/Adverse Reactions: Allergies Allergy/AdvReac Type Severity Reaction Status Date / Time No Known Drug Allergies Allergy Verified 09/28/18 19:50 Medications: Current Medications Carvedilol (Coreg) 6.25 mg PO BID [facility] Last Admin: 01/26/19 08:48 Dose: 6.25 mg Dextrose/Water (Dextrose 50%) 25 gm SLOW IVP PRN PRN PRN Reason: Hypoglycemia Famotidine (Pepcid) 20 mg SLOW IVP DAILY [facility] Last Admin: 01/26/19 08:48 Dose: 20 mg Glucagon (Glucagon) 1 mg IM PRN PRN PRN Reason: Hypoglycemia Heparin Sodium (Porcine) (Heparin) 5,000 units SC TID [facility] Last Admin: 01/26/19 14:59 Dose: 5,000 units Hydralazine HCl (Apresoline) 5 mg SLOW IVP Q4H PRN PRN Reason: SBP Greater Than 180 Last Admin: 01/26/19 05:12 Dose: 5 mg Dextrose/Water (D5w) 1,000 mls @ 0 mls/hr IV .Q0M PRN PRN Reason: Hypoglycemia Insulin Glargine 8 units/ (Miscellaneous Medication) 0.08 mls @ 0 mls/hr SC [facility] Last Admin: 01/25/19 22:39 Dose: Not Given Sodium Chloride (Normal Saline 0.9%) 1,000 mls @ 50 mls/hr IV .Q20H [facility] Last Admin: 01/26/19 11:52 Dose: 1,000 mls Insulin Human Lispro (Humalog) 0 units SC .MILD SLIDING SCALE PRN PRN Reason: Mild Correctional Scale Last Admin: 01/26/19 17:06 Dose: 2 unit Levothyroxine Sodium (Synthroid) 150 mcg PO 0600 [facility] Last Admin: 01/26/19 05:01 Dose: Not Given Morphine Sulfate (Morphine) 4 mg SLOW IVP Q4H PRN PRN Reason: Moderate Pain (4-6) Last Admin: 01/26/19 14:55 Dose: 4 mg Ondansetron HCl (Zofran) 4 mg IVP Q6H PRN PRN Reason: Nausea/Vomiting Last Admin: 01/26/19 15:01 Dose: 4 mg Promethazine HCl (Phenergan) 12.5 mg IM/IV Q6H PRN PRN Reason: Nausea/Vomiting Last Admin: 01/26/19 17:02 Dose: 12.5 mg Tamsulosin HCl (Flomax) 0.4 mg PO [facility] Last Admin: 01/25/19 22:39 Dose: Not Given
[2019-01-26] MEDS: Insulin Glargine 8 UNITS in Pre-Filled Syringe SC SCH (20:00)
[2019-01-26] MEDS: Tamsulosin HCl 0.4 MG CAP PO SCH (20:04)
--- NOTE | 2019-01-26 21:17 | CON ---
DATE OF CONSULTATION: 01/26/2019 REASON FOR CONSULTATION: Nausea, vomiting, and abdominal pain. HISTORY OF PRESENT ILLNESS: Venkata Sierra is a 53-year-old man with a history of obesity and coronary artery disease, status post CABG. He also has diabetes and diastolic heart failure. Interestingly, he reports that he had an episode of pancreatitis about 20 years ago, none since. He does not have any chronic gastrointestinal symptoms. About 3 days ago, he ate an old burger that had been sitting on the floorboard of his car for a while. Pretty soon afterward, he started having significant nausea and episodes of vomiting. He has developed a burning pain in the epigastrium/left upper quadrant. This is a fairly constant pain. He has been unable to really tolerate any food or liquid over the past 3 days and this prompted his presentation. Laboratory studies are essentially benign, but he does have some evidence of dehydration with some worsening of his chronic kidney disease with creatinine up to 3.83. Also labs are significant for a lipase elevation to 249, which is just over 3 times the upper limit of normal. LFTs are essentially normal with alkaline phosphatase 168. He had a CT of the abdomen and pelvis, which was essentially negative. Note that an ultrasound last February 2018 was normal. No evidence of gallbladder sludge or common bile duct dilation. As far as bowel movements, he had one loose stool yesterday, but had no bowel movements today. REVIEW OF SYSTEMS: Full review of systems including constitutional, head, eyes, ears, nose, throat, GI, , cardiovascular, respiratory, musculoskeletal, neurologic systems is negative except as noted in the HPI. PAST MEDICAL HISTORY: Coronary artery disease, status post CABG; diabetes; hypertension; hyperlipidemia; diastolic CHF; hypothyroidism; pancreatitis 20 years ago. ALLERGIES: NO KNOWN DRUG ALLERGIES. OUTPATIENT MEDICATIONS: 1. Aspirin 81 mg daily. 2. Coreg. 3. Insulin. 4. Synthroid. SOCIAL HISTORY: No smoking, alcohol, or drug use. FAMILY HISTORY: Noncontributory. PHYSICAL EXAMINATION: VITAL SIGNS: Temperature 98.2, pulse 62, blood pressure 183/79, and 94% oxygen saturation on room air. GENERAL: Obese 53-year-old man, lying in bed, in mild distress from abdominal pain and nausea. MENTAL: Alert, fully oriented, pleasant, conversational. SKIN: No jaundice. No rashes were palpable. HEENT: Eyes; no scleral icterus. Extraocular movements intact. ENT; mucous membranes moist. No oral lesions. LYMPH: No submandibular or supraclavicular lymphadenopathy. THYROID: Nontender to palpation. HEART: Regular rate and rhythm. LUNGS: Clear to auscultation bilaterally. ABDOMEN: Obese. Bowel sounds are present. Soft. Tender to palpation in the epigastrium and left upper quadrant with no guarding, but some mild rebound tenderness. No masses or organomegaly appreciated. EXTREMITIES: No peripheral edema. VESSELS: Radial pulses 2+ bilaterally. NEUROLOGIC: Cranial nerves 2 through 12 intact bilaterally. No focal deficits. LABORATORY STUDIES: WBC 10.2, hemoglobin 13.1, platelets 143. Sodium 138, potassium 3.3, BUN 58, creatinine 3.83, alkaline phosphatase 168, AST 31, ALT 27, total bilirubin 0.5, albumin 3.2, lipase is elevated to 249. BNP elevated at 781. Troponin 0.14. IMAGING STUDIES: Chest x-ray showed no acute processes. CT of the abdomen and pelvis demonstrated normal appearing liver, spleen, pancreas, and gallbladder area. There is slight prominence of the rectosigmoid wall, but this is stable from a CT two years ago. There is a small fat containing paraumbilical hernia. Abdominal ultrasound from February 2018 was reviewed and demonstrated normal appearing gallbladder and common bile duct with some fatty changes to the liver. ASSESSMENT AND PLAN: 1. Nausea and vomiting. 2. Epigastric/left upper quadrant abdominal pain for the past 3 days. The patient's presentation is all acute over the past 3 days. I do note the lipase elevation greater than 3 times the upper limit of normal and so pancreatitis is certainly a possibility. Note he did have a remote episode of pancreatitis many years ago. The biliary system appears normal on CT imaging, but I would like to go ahead and get an abdominal ultrasound just to rule out current common bile duct dilation or any biliary sludge that may have developed. The other possibility would be an acute viral gastroenteritis or food poisoning. I discussed these possibilities with the patient. Regardless, treatment is supportive at this time. I would keep him n.p.o. except for ice chips, continue with IV fluids and analgesics and antiemetics as needed. Expect symptomatic improvement within the next couple of days. Trend LFTs and lipase. No plan for any endoscopic investigation at this time, but if there is no good symptomatic improvement over the next couple of days, we could consider this. Thank you for the consultation. Please call anytime with questions or concerns. Job ID: [id number]
[2019-01-27] MEDS: Morphine 4 MG/ML VIAL SLOW IVP PRN ×6 (00:03→21:21)
[2019-01-27] MEDS: Promethazine HCl 25 MG/ML VIAL IM/IV PRN ×2 (00:04→05:58)
[2019-01-27] MEDS: Ondansetron PF 4 MG/2 ML Vial IVP PRN ×3 (02:54→21:25)
[2019-01-27] MEDS: Sodium Chloride 0.9% 1,000 ML IV SCH (05:58)
[2019-01-27] MEDS: Levothyroxine 150 MCG TAB PO SCH (05:59)
[2019-01-27 07:36] LABS: ALT (SGPT) 26 U/L (8-55); AST (SGOT) 32 U/L (5-34); Albumin 2.4 g/dL (3.5-5.0); Alkaline Phosphatase 131 U/L (40-150); Anion Gap 12 mmol/L (10-20); BUN (Urea Nitrogen) 53 mg/dL (8.4-25.7); Bilirubin, Total 0.5 mg/dL (0.2-1.2); Calc. Creatinine Clearance 42 mL/min (70-130); Calcium 7.8 mg/dL (7.8-10.44); Carbon Dioxide 22 mmol/L (22-29); Chloride 105 mmol/L (98-107); Estimated GFR-MDRD 18; Globulin 2.3 g/dL (2.4-3.5); Glucose 164 mg/dL (70-105); Lipase 18 U/L (8-78); Potassium 3.4 mmol/L (3.5-5.1); Protein, Total 4.7 g/dL (6.0-8.3); Sodium 136 mmol/L (136-145)
[2019-01-27] MEDS: Heparin 5,000 UNITS/ML VIAL SC SCH ×3 (09:11→20:05)
[2019-01-27] MEDS: Famotidine/PF 20 mg/2ml Vial SLOW IVP SCH (09:11)
[2019-01-27] MEDS: Carvedilol 6.25 MG TAB PO SCH ×2 (09:12→20:05)
[2019-01-27 09:16] LABS: #Lymphocytes 0.8 thou/uL (1.20-3.40); #Monocytes 0.4 thou/uL (0.11-0.59); #Neutrophils 4.8 thou/uL (1.40-6.50); %Basophils 0.2 % (0.0-1.0); %Eosinophils 0.7 % (0.0-10.0); %Lymphocytes 13.1 % (21.0-51.0); %Monocytes 6.3 % (0.0-10.0); %Neutrophils 79.7 % (42.0-75.0); Hemoglobin 11.9 g/dL (14.0-18.0); Mean Corpuscular HGB CONC 32.4 g/dL (32.0-36.0); Mean Corpuscular Hemoglobin 29.2 pg (27.0-31.0); Mean Corpuscular Volume 90.1 fL (78.0-98.0); Mean Platelet Volume 10.3 fL (7.4-10.4); Platelet Count 101 thou/uL (130-400); Platelet Morphology Comment Appears Decreased; RBC Distribution Width 12.2 % (11.5-14.5); Red Blood Cell (RBC) Count 4.07 mill/uL (4.70-6.10); White Blood Cell (WBC) Count 6.1 thou/uL (4.8-10.8)
--- NOTE | 2019-01-27 11:44 | PRG ---
DATE OF SERVICE: 01/27/2019 SUBJECTIVE: Mr. Sierra is feeling a little bit better today. Still requiring nausea medication. He is feeling thirsty and would like to try advance into a clear liquid diet. Abdominal discomfort persists, but has also improved. Lipase normalized. OBJECTIVE: VITAL SIGNS: Temperature 98.4, pulse 72, blood pressure 150/77, 97% oxygen saturation on room air. GENERAL: No acute distress. HEART: Regular rate and rhythm. LUNGS: Clear to auscultation bilaterally. ABDOMEN: Bowel sounds are present throughout. Soft. Mild tenderness to palpation in the epigastrium, but no guarding, rebound, tenderness. EXTREMITIES: No peripheral edema. LABORATORY STUDIES: WBC 6.1, hemoglobin 11.9, platelets 101. Sodium 136, potassium 3.4, BUN 53, and creatinine 3.51. LFTs all normal with total bilirubin 0.5, alkaline phosphatase 131, AST 32, ALT 26, albumin is 2.4. Lipase normalized to 18. IMAGING STUDIES: Abdominal ultrasound was performed yesterday. Liver was heterogeneous. Gallbladder and bile ducts appeared normal with common bile duct, measuring only 4 mm. ASSESSMENT/PLAN: 1. Nausea and vomiting, improved. 2. Upper abdominal pain, improving. The patient's lipase has normalized and he has good bowel sounds. If this all represented mild recurrent pancreatitis, it appears to be resolving. May just also be evolving viral gastroenteritis. Regardless, I think we can advance his diet to clear liquids today and see how he does. Continue with other supportive cares. Job ID: [id number]
[2019-01-27] MEDS: hydrALAZINE 20 MG/ML VIAL SLOW IVP PRN (13:00)
--- NOTE | 2019-01-27 13:55 | PDOC.PN ---
- Subjective Encounter Start Date: 01/27/19 Encounter Start Time: 09:00 Pt seen for followup re: nausea and vomiting. feels better. - Objective Resuscitation Status - Order Detail: 01/25/19 11:02 Resuscitation Status Routine Resuscitation Status: FULL: Full Resuscitation Vital Signs & Weight: Vital Signs (12 hours) Temp Pulse Resp BP Pulse Ox 01/27/19 13:00 67 01/27/19 11:00 98.2 F 67 18 190/100 H 97 01/27/19 08:00 98.4 F 72 18 150/77 H 97 01/27/19 07:40 98.0 F 64 18 165/83 H 97 01/27/19 04:00 98.6 F 65 20 154/69 H 97 Weight Weight 269 lb 9 oz I&O: 01/26/19 01/27/19 01/28/19 06:59 06:59 06:59 Intake Total 1002 1176 Output Total 2600 2425 Balance -1323 -0467 Result Diagrams: 01/27/19 06:30 01/27/19 06:30 Additional Labs: Accuchecks 01/27/19 01/27/19 01/26/19 11:16 05:14 19:41 POC Glucose 189 H 166 H 140 H 01/26/19 16:22 POC Glucose 173 H Phys Exam - Physical Examination Constitutional: NAD HEENT: moist MMs Neck: supple Respiratory: clear to auscultation bilateral Cardiovascular: RRR Gastrointestinal: soft, positive bowel sounds mild epigastric tenderness Neurological: moves all 4 limbs Psychiatric: normal affect Dx/Plan (1) Nausea and vomiting Code(s): R11.2 - NAUSEA WITH VOMITING, UNSPECIFIED Status: Acute Comment: Likely secondary to gastroenteritis and mild pancreatitis. Improving. (2) Hypokalemia Code(s): E87.6 - HYPOKALEMIA Status: Acute Comment: replace potassium (3) Chronic diastolic CHF (congestive heart failure), NYHA class 2 Code(s): I50.32 - CHRONIC DIASTOLIC (CONGESTIVE) HEART FAILURE Status: Chronic Comment: stable (4) Hyperlipidemia Code(s): E78.5 - HYPERLIPIDEMIA, UNSPECIFIED Status: Chronic Comment: on atorvastatin (5) CAD (coronary artery disease), autologous vein bypass graft Code(s): I25.810 - ATHEROSCLEROSIS OF CABG W/O ANGINA PECTORIS Status: Chronic Comment: stable (6) DM2 (diabetes mellitus, type 2) Status: Chronic Comment: continue accuchecks, insulin sliding scale (7) Hypertension Code(s): I10 - ESSENTIAL (PRIMARY) HYPERTENSION Status: Chronic Qualifiers: Hypertension type: essential hypertension Qualified Code(s): I10 - Essential (primary) hypertension Comment: add scheduled hydralazine (8) Hypothyroidism Code(s): E03.9 - HYPOTHYROIDISM, UNSPECIFIED Status: Chronic Comment: on Levothyroxine - Plan * . Review of Systems - Review of Systems Cardiovascular: negative: chest pain, palpitations, orthopnea, paroxysmal nocturnal dyspnea, edema, light headedness Gastrointestinal: Nausea, Abdominal Pain. negative: Vomiting, Diarrhea, Constipation, Melena, Hematochezia - Medications/Allergies Allergies/Adverse Reactions: Allergies Allergy/AdvReac Type Severity Reaction Status Date / Time No Known Drug Allergies Allergy Verified 09/28/18 19:50 Medications: Current Medications Carvedilol (Coreg) 6.25 mg PO BID [facility] Last Admin: 01/27/19 09:12 Dose: 6.25 mg Dextrose/Water (Dextrose 50%) 25 gm SLOW IVP PRN PRN PRN Reason: Hypoglycemia Famotidine (Pepcid) 20 mg SLOW IVP DAILY [facility] Last Admin: 01/27/19 09:11 Dose: 20 mg Glucagon (Glucagon) 1 mg IM PRN PRN PRN Reason: Hypoglycemia Heparin Sodium (Porcine) (Heparin) 5,000 units SC TID [facility] Last Admin: 01/27/19 09:11 Dose: 5,000 units Hydralazine HCl (Apresoline) 5 mg SLOW IVP Q4H PRN PRN Reason: SBP Greater Than 180 Last Admin: 01/27/19 13:00 Dose: 5 mg Dextrose/Water (D5w) 1,000 mls @ 0 mls/hr IV .Q0M PRN PRN Reason: Hypoglycemia Insulin Glargine 8 units/ (Miscellaneous Medication) 0.08 mls @ 0 mls/hr SC HS [facility] Last Admin: 01/26/19 20:00 Dose: Not Given Sodium Chloride (Normal Saline 0.9%) 1,000 mls @ 50 mls/hr IV .Q20H [facility] Last Admin: 01/27/19 05:58 Dose: 1,000 mls Insulin Human Lispro (Humalog) 0 units SC .MILD SLIDING SCALE PRN PRN Reason: Mild Correctional Scale Last Admin: 01/26/19 17:06 Dose: 2 unit Levothyroxine Sodium (Synthroid) 150 mcg PO 0600 [facility] Last Admin: 01/27/19 05:59 Dose: Not Given Morphine Sulfate (Morphine) 4 mg SLOW IVP Q4H PRN PRN Reason: Moderate Pain (4-6) Last Admin: 01/27/19 13:12 Dose: 4 mg Ondansetron HCl (Zofran) 4 mg IVP Q6H PRN PRN Reason: Nausea/Vomiting Last Admin: 01/27/19 09:02 Dose: 4 mg Promethazine HCl (Phenergan) 12.5 mg IM/IV Q6H PRN PRN Reason: Nausea/Vomiting Last Admin: 01/27/19 05:58 Dose: 12.5 mg Tamsulosin HCl (Flomax) 0.4 mg PO HS [facility] Last Admin: 01/26/19 20:04 Dose: 0.4 mg
[2019-01-27] MEDS ORDERED: Potassium Chloride 20 MEQ TAB PO SCH (14:00)
[2019-01-27] MEDS: hydrALAZINE 25 MG TAB PO SCH ×2 (15:41→20:04)
[2019-01-27] MEDS: HumaLOG 300 UNITS/3 ML VIAL SC PRN (17:14)
[2019-01-27] MEDS: Tamsulosin HCl 0.4 MG CAP PO SCH (20:04)
[2019-01-27] MEDS: Insulin Glargine 8 UNITS in Pre-Filled Syringe SC SCH (20:06)
[2019-01-28] MEDS ORDERED: diphenhydrAMINE 25 MG CAP PO PRN (02:20)
[2019-01-28] MEDS: Morphine 4 MG/ML VIAL SLOW IVP PRN (02:21)
[2019-01-28] MEDS: Sodium Chloride 0.9% 1,000 ML IV SCH (05:31)
[2019-01-28] MEDS: Levothyroxine 150 MCG TAB PO SCH (05:31)
[2019-01-28 07:18] VITALS: TEMP 98.3
[2019-01-28] MEDS: Carvedilol 6.25 MG TAB PO SCH (07:41)
[2019-01-28] MEDS: Famotidine/PF 20 mg/2ml Vial SLOW IVP SCH (07:42)
[2019-01-28] MEDS: hydrALAZINE 25 MG TAB PO SCH (07:42)
[2019-01-28] MEDS: Heparin 5,000 UNITS/ML VIAL SC SCH (07:42)
[2019-01-28 08:22] VITALS: BP 169/79
--- NOTE | 2019-01-28 08:30 | PRG ---
DATE OF SERVICE: 01/28/2019 SUBJECTIVE: Mr. Sierra is feeling a lot better. He got some good sleep. He denies any abdominal pain or nausea this morning. He is hoping to go home later today. He was tolerating clear liquids yesterday. OBJECTIVE: VITAL SIGNS: Temperature 98.3, pulse 68, blood pressure 166/80, and 95% oxygen saturation on room air. GENERAL: No acute distress. HEART: Regular rate and rhythm. LUNGS: Clear to auscultation bilaterally. ABDOMEN: Bowel sounds present. Soft and nontender to palpation. EXTREMITIES: No peripheral edema. LABORATORY STUDIES: Glucose is 138 this morning. ASSESSMENT AND PLAN: 1. Nausea and vomiting, resolved. 2. Upper abdominal pain, resolved. 3. Acute pancreatitis, clinically appears to be resolved. Mr. Sierra has had great clinical improvement with supportive cares. I think his diet can be advanced as tolerated today. I think if he is doing well this afternoon, he could potentially be discharged from the hospital. Job ID: [id number]
--- NOTE | 2019-01-29 04:43 | DIS ---
DATE OF ADMISSION: 01/25/2019 DATE OF DISCHARGE: 01/28/2019 PRIMARY CARE PROVIDER: Dr. Lazaro Beebe. DISCHARGE DIAGNOSES: 1. Acute pancreatitis. 2. Gastroenteritis, likely viral. CONDITION OF PATIENT ON THE DAY OF DISCHARGE: Stable. I assessed Mr. Sierra on the day of discharge. He denies any chest pain or shortness of breath. Vital signs are stable. S1 and S2 are heard, regular. Lungs are clear to auscultation bilaterally. Abdomen is soft, nontender, bowel sounds are heard. CONSULTATIONS DURING THIS HOSPITALIZATION: Gastroenterology, Dr. Gonzalez. HOSPITAL COURSE: Mr. Sierra is a pleasant 53-year-old gentleman, who was admitted to [facility] on January 25, 2019, for abdominal pain secondary to acute pancreatitis and gastroenteritis. CT scan did not show any acute abnormalities in the abdomen or pelvis. He was seen by Gastroenterology Service. He was kept n.p.o. and treated with pain medications and intravenous fluids. His lipase trended down into the normal range. His pain, nausea and vomiting resolved. He is tolerating diet. He is being discharged home in a stable condition. His creatinine was 3.51 on January 27, 2019, decreased from 3.83 on January 25, 2019. Hemoglobin was 11.9 on January 27. Many thanks for allowing me to participate in your patient's care. Please feel free to contact me with any questions or concerns. DISCHARGE DESTINATION: Home. TIME SPENT: Total amount of time spent coordinating this discharge: 31 minutes. Job ID: [id number] MTDD
== END 2019-01-28 11:59 | disposition home or self-care (01) | DRG 391 ==
LOC: ERS 07:34 → 2SW 12:05 → OBSVTOIN 12:05 → T4-B 01-26 13:59
PROVIDERS: ADMIT Internal Medicine; ATTEND Internal Medicine
DX: A08.4 Viral intestinal infection, unspecified (principal); K85.90 Acute pancreatitis without necrosis or infection, unspecified; I50.32 Chronic diastolic (congestive) heart failure; I25.810 Atherosclerosis of coronary artery bypass graft(s) without angina pectoris; E11.9 Type 2 diabetes mellitus without complications; E78.5 Hyperlipidemia, unspecified; E03.9 Hypothyroidism, unspecified; E86.0 Dehydration; E87.6 Hypokalemia; I11.0 Hypertensive heart disease with heart failure; Z95.1 Presence of aortocoronary bypass graft; Z98.890 Other specified postprocedural states; Z79.82 Long term (current) use of aspirin; Z79.4 Long term (current) use of insulin
CPT/HCPCS: 36415; 36416; 71045; 74176; 76700; 80053; 81003; 81015; 82550; 82553; 83690; 83880; 84443; 84484; 85025; 93005; 96365; 96375; 96376; J0360; J1644; J1825; J2270; J2405; J2550; Q0163; S0028

== ENCOUNTER 2019-11-04 20:26 | Inpatient (IN) | payer MEDICARE ==
[2019-11-04 20:53] LABS: #Eosinphils 0.2 thou/uL (0.0-0.7); #Lymphocytes 0.9 thou/uL (1.20-3.40); #Monocytes 0.4 thou/uL (0.11-0.59); #Neutrophils 3.4 thou/uL (1.40-6.50); %Basophils 0.4 % (0.0-1.0); %Lymphocytes 18.5 % (21.0-51.0); %Monocytes 7.3 % (0.0-10.0); %Neutrophils 69.8 % (42.0-75.0); Hemoglobin 10.1 g/dL (14.0-18.0); Mean Corpuscular HGB CONC 33.4 g/dL (32.0-36.0); Mean Corpuscular Hemoglobin 30.3 pg (27.0-31.0); Mean Corpuscular Volume 90.6 fL (78.0-98.0); Mean Platelet Volume 10.2 fL (7.4-10.4); Platelet Count 87 thou/uL (130-400); RBC Distribution Width 11.9 % (11.5-14.5); Red Blood Cell (RBC) Count 3.32 mill/uL (4.70-6.10); White Blood Cell (WBC) Count 4.8 thou/uL (4.8-10.8)
--- NOTE | 2019-11-04 21:01 | RAD ---
Chest AP view INDICATION: Cough and congestion COMPARISON: January 25, 2019 FINDINGS: Lungs:The lungs are clear Cardiac silhouette:Stable cardiomegaly and post-CABG change Pulmonary vasculature:Normal Pleural spaces:No pleural effusion or pneumothorax is demonstrated. Upper abdomen:No abnormality seen. Osseous structures: No acute osseous abnormality. Additional findings:Stable eventration of the left hemidiaphragm IMPRESSION: No acute cardiopulmonary abnormality.
[2019-11-04] MEDS ORDERED: methylPREDNISolone Sod Succ/PF 125 MG/2 ML VIAL ONE (21:05)
[2019-11-04] MEDS ORDERED: cefTRIAXone\\ROCEPHIN 2 GM VIAL ONE (21:05)
[2019-11-04] MEDS ORDERED: Azithromycin 500 MG VIAL ONE (21:15)
[2019-11-04 21:16] LABS: ALT (SGPT) 27 U/L (8-55); AST (SGOT) 25 U/L (5-34); Albumin 3.2 g/dL (3.5-5.0); Alkaline Phosphatase 146 U/L (40-110); Anion Gap 15 mmol/L (10-20); BUN (Urea Nitrogen) 89 mg/dL (8.4-25.7); Bilirubin, Total 0.3 mg/dL (0.2-1.2); Calc. Creatinine Clearance 0 mL/min (70-130); Calcium 7.5 mg/dL (7.8-10.44); Carbon Dioxide 22 mmol/L (22-29); Chloride 104 mmol/L (98-107); Estimated GFR-MDRD 11; Globulin 2.8 g/dL (2.4-3.5); Glucose 248 mg/dL (70-105); Potassium 3.9 mmol/L (3.5-5.1); Sodium 137 mmol/L (136-145)
--- NOTE | 2019-11-04 21:35 | PDOC.FPRHP ---
- History of Present Illness Chief Complaint: Cough, Congestion, SOB History of Present Illness: 54 yo M with hypothyroidism, diabetes, hypertension, HFpEF, CAD who present with cough and runny nose for 1 week with worsening SOB. He says he has been dealing with cough and SOB for 1 week. He has not taken any medications for it. He went to the [place] ED a couple of days ago, but was sent home. He endorses nausea, vomiting, diarrhea, chills, night sweats, productive cough, PND , and orthopnea. He says he has had to increase the amount of pillows he sleeps on at night recently. ED Course: In the ED, he was found to have a CXR concern for GEORGIE infiltrate and perihilar bronchial cuffing. He was started on Azithro and Rocephin and given a dose of solumedrol. He became anxious an nauseous after that so Ativan was given to calm him down and Zofran was given to help with the nausea. He was tachypneic in the ED, so Bipap was started, but he was sating well on room air. - Allergies/Adverse Reactions Allergies Allergy/AdvReac Type Severity Reaction Status Date / Time No Known Drug Allergies Allergy Verified 11/05/19 00:12 - Home Medications Medication Instructions Recorded Confirmed Type Aspirin 81 mg PO DAILY 05/04/14 01/25/19 History Carvedilol [Coreg] 6.25 mg PO BID 05/04/14 01/25/19 History Insulin Glargine [Lantus Vial] 32 units SC HS #0 05/08/14 01/25/19 Rx Atorvastatin Calcium [Lipitor] 40 mg PO HS 02/25/18 01/25/19 History Ferrous Sulfate 325 mg PO BID 02/25/18 01/25/19 History Levothyroxine Sodium [Levo-T] 150 mcg PO DAILY 02/25/18 01/25/19 History glipiZIDE [Glipizide] 10 mg PO BID 02/25/18 01/25/19 History Tamsulosin HCl [Flomax] 0.4 mg PO HS #30 cap 03/01/18 01/25/19 Rx hydrALAZINE [Apresoline] 50 mg PO TID #90 tab 03/01/18 01/25/19 Rx Amlodipine [Norvasc] 10 mg PO DAILY 09/28/18 01/25/19 History Furosemide 40 mg PO BID 09/28/18 01/25/19 History Comments: the above med list is not correct. the medication list was reviewed from patients clinic chart. The below are the updated medications Metoclopramide 5mg 3x a day Insulin Lantus 30 u daily ASA 81 mg Torsemide 20 mg Glipizide 10 mg 2x daily Metolazone 5 mg daily Tramadol 50 mg 1-2 tabs q6 hours for pain Hydralazine 50 mg BID Tamsulosin .4 mg daily Levothyroxine 125 mcg 2tabs daily Atorvastatin 40 mg daily carvedilol 6.25 mg BID - History PMHx: Hypothyroidism, HTN, HFpEF, CAD, DM, Legally blind PSHx: CABG (12/11), R eye surgery, L eye prosthesis FHx: DM in family Social: He smokes Marijuana once per day, but stopped a week ago when he developed these symptoms. He does not smoke tobacco, drink alcohol, or use any other recreational drugs. - Review of Systems General: reports: fever/chills, night sweats. denies: weight/appetite/sleep changes ENT: reports: rhinorrhea. denies: nasal congestion Respiratory: reports: cough, congestion, shortness of breath, other (PND, orthopnea) Cardiovascular: reports: paroxysmal nocturnal dyspnea, orthopnea. denies: chest pain, edema Gastrointestinal: reports: nausea, vomiting, diarrhea. denies: constipation, abdominal pain Genitourinary: denies: dysuria Skin: denies: rashes, lesions Musculoskeletal: denies: pain, swelling Neurological: denies: numbness, weakness - Vital signs BP: 130/58 HR: 73 RR: 34 Tmax: 98.6 Pox: 100% on BiPAP Wt: 117.9 kg - Physical Exam -Constitutional: Very SOB, Very anxious, in visible distress, cannot stop moving HEENT: normocephalic and atraumatic, normal nasal mucosa, MMM, oropharynx clear Neck: supple, trachea midline Heart: RRR, normal S1/S2, no murmurs/rubs/gallops, pulses present, no edema Lungs: CTAB, no wheezing Abdomen: soft, non-tender, bowel sounds present Musculoskeletal: normal structure, normal tone, ROM grossly normal Neurological: normal sensation Skin: no rash/lesions Heme/Lymphatic: no unusual bruising or bleeding -Psychiatric: Agitated mood, Anxious affect FMR H&P: Results - Labs Result Diagrams: 11/05/19 03:03 11/05/19 03:03 Lab results: WBC 4.8 thou/uL (4.8-10.8) 11/04/19 20:39 Hgb 10.1 g/dL (14.0-18.0) L 11/04/19 20:39 Hct 30.1 % (42.0-52.0) L 11/04/19 20:39 MCV 90.6 fL (78.0-98.0) 11/04/19 20:39 Plt Count 87 thou/uL (130-400) L 11/04/19 20:39 Neutrophils % 69.8 % (42.0-75.0) 11/04/19 20:39 Sodium 137 mmol/L (136-145) 11/04/19 20:39 Potassium 3.9 mmol/L (3.5-5.1) 11/04/19 20:39 Chloride 104 mmol/L (98-107) 11/04/19 20:39 Carbon Dioxide 22 mmol/L (22-29) 11/04/19 20:39 BUN 89 mg/dL (8.4-25.7) H 11/04/19 20:39 Creatinine 5.32 mg/dL (0.7-1.3) H 11/04/19 20:39 Glucose 248 mg/dL (70-105) H 11/04/19 20:39 Lactic Acid 0.7 mmol/L (0.5-2.2) 11/04/19 20:39 Calcium 7.5 mg/dL (7.8-10.44) L 11/04/19 20:39 Total Bilirubin 0.3 mg/dL (0.2-1.2) 11/04/19 20:39 AST 25 U/L (5-34) 11/04/19 20:39 ALT 27 U/L (8-55) 11/04/19 20:39 Alkaline Phosphatase 146 U/L (40-110) H 11/04/19 20:39 B-Natriuretic Peptide 205.3 pg/mL (0-100) H 11/04/19 20:39 Serum Total Protein 6.0 g/dL (6.0-8.3) 11/04/19 20:39 Albumin 3.2 g/dL (3.5-5.0) L 11/04/19 20:39 FMR H&P: A/P - Problem List (1) Acute kidney injury Current Visit: No Status: Acute Code(s): N17.9 - ACUTE KIDNEY FAILURE, UNSPECIFIED Comment: Avoid nephrotoxic meds and limit contrast exposure, serial monitoring (2) Diabetes mellitus Current Visit: No Status: Acute Code(s): E11.9 - TYPE 2 DIABETES MELLITUS WITHOUT COMPLICATIONS (3) CKD (chronic kidney disease) Current Visit: No Status: Chronic Code(s): N18.9 - CHRONIC KIDNEY DISEASE, UNSPECIFIED Qualifiers: Chronic kidney disease stage: stage 3 (moderate) Qualified Code(s): N18.3 - Chronic kidney disease, stage 3 (moderate) Comment: Stable.avoid any nephrotoxic meds.Nephrology consulted (4) Chronic diastolic CHF (congestive heart failure), NYHA class 2 Current Visit: No Status: Chronic Code(s): I50.32 - CHRONIC DIASTOLIC ( CONGESTIVE) HEART FAILURE Comment: stable (5) Hypertension Current Visit: No Status: Chronic Code(s): I10 - ESSENTIAL (PRIMARY) HYPERTENSION Qualifiers: Hypertension type: essential hypertension Qualified Code(s): I10 - Essential (primary) hypertension Comment: add scheduled hydralazine (6) Hypothyroidism Current Visit: No Status: Chronic Code(s): E03.9 - HYPOTHYROIDISM, UNSPECIFIED Comment: on Levothyroxine - Plan 54 yo M with hypothyroidism, diabetes, hypertension, HFpEF, CAD who present with cough and runny nose for 1 week with worsening SOB. 1. Acute Respiratory Distress Tachypnea * Currently on Bipap and sating well * Will continue for now and wean down as tolerated * Pulm Consulted * ABG ordered to asses 2. PNA vs. TB CXR read as normal. Reviewed Previous XR and shows new GEORGIE infiltrate with ryan- hilar bronchial cuffing, which is more prominent than last XR * ED Started Azithro and Rocephin, will continue * Given Solumedrol in the ED, changed to prednisone 40 mg PO * Ordered Urine Legionella and Strep * BCx obtained * Ordered Sputum Culture x3 with AFB and Quant Gold * Put on Isolation precautions 3. Non-Gap Metabolic Acidosis A, Corrected Bicarb: 15, PH: 7.3, CO2: 39 * ABG ordered, findings as listed * Differential:Hyperalimentation, Acetazolamide, Renal Tubular acidosis, Diarrhea, Uretero-enteric Diversions, Post-Hypocapnia, Spironolactone or Saline- infusion, Early renal failure * Most likely Diarrhea, renal tubular acidosis, or Hypocapnia * Will monitor 4. NATANAEL on CKD Stage 3 Cre: 5.3, baseline 3s * Nephrology consulted * Pt has had Cre in 5 during past admission * IVF NS @ 100 * Will monitor I&O 5. Elevated Alk Phos * Ordered GGT- GI cause vs bone * AST & ALT wnl 6. CAD/Hx of CABG/HFpEF ECHO 09/29/18 EF 55-60% * Will continue home Carvedilol, ASA * Will hold Torsemide, Metolazone, and Candesartan due to NATANAEL 6. DMII * Will continue home Glyburide and Lantus * Mild SSI 7. HLD * Will continue home Atorvastatin 8. Gastroparesis * Will continue home Metoclopramide 9. Hypothyroidism * Will continue home Levothyroxine Code Status: Full Diet: HHLSo, CC DVT PPx: SCD, Plt: 87 GI PPx: Pepcid PCP: Dino Dipo: CCU inpt, LOS > 48H. FMR H&P: Upper Level - Pertinent history I was present with the learning and development intern. I scribed the above HPI. I made edits above as needed. I have reviewed pts clinic records and added pertinents above. It should be noted it was hard to obtain the most accurate history from the patient has he was in some distress and did not fully answer questions. - Pertinent findings General: Pt somewhat tired at times and seems to be dozing off to sleep. Resp: Crackles noted bilaterally. Some wheezes noted. Pt in respitory distress. RR increased to mid 20s. Cardio: RRR, no murmurs or gallops. Abdomen: NTTP, mildly distended. No masses noted - Plan Date/Time: 11/04/192134 I, Teodoro Bustillos MD, have evaluated this patient and agree with findings/plan as outlined by learning and development intern resident. Pertinent changes/additions are listed here. I have read the above plan and made edits above as needed. Please see above for full details. At this time we are admitting pt with concern for sepsis 2/2 PNA. Will tx with rocephin and azithromycin. Pt chest x-ray was read as negative but there are concerns for infiltrates and comparing to past x-rays shows new UL infiltrates. There is some concern for possible active TB with reported night sweats and fevers. Pt blind so could not report sputum color. Will check quant gold and AFB sputum. Pt O2 in low 90's when not on BIPAP but seems to have some resp distress. Will continue BIPAP for resp distress. Will check urine strep and legionella. Will check ABG. Will continue home meds for HTN, HLD, DMII. Mild SSI.
[2019-11-04 21:44] LABS: CKMB 8.2 ng/mL (0-6.6)
[2019-11-04] MEDS ORDERED: Ondansetron PF 4 MG/2 ML Vial ONE ×2 (21:54)
[2019-11-04] MEDS ORDERED: Promethazine HCl 25 MG/ML VIAL ONE (21:55)
[2019-11-04] MEDS ORDERED: Lorazepam 2 MG/ML VIAL ONE (21:55)
[2019-11-04] MEDS ORDERED: Sodium Chloride 0.9% 100 ML ONE (21:56)
[2019-11-04 23:21] LABS: Actual Bicarbonate (HCO3a) 19.1 mEq/L (22-28); Analyzer IN Cardio ER; Base Excess (BEa) -6.7 mEq/L (-2.0 to +3.0); CO2 Tension 39.3 mmHg (35.0-45.0); Hemoglobin (Hb) 9.8 g/dL (14.0-18.0); Potassium - ABG Lab 4.01 mmol/L (3.70-5.30)
[2019-11-04] MEDS ORDERED: Senokot S 8.6-50 MG TAB PO PRN (23:37)
[2019-11-04] MEDS ORDERED: Acetaminophen 650 MG Suppository PR PRN (23:37)
[2019-11-04] MEDS ORDERED: Acetaminophen 325 MG TAB PO PRN (23:37)
[2019-11-04] MEDS ORDERED: Ondansetron ODT 4 MG TAB PO PRN (23:37)
[2019-11-04] MEDS ORDERED: Ondansetron PF 4 MG/2 ML Vial IVP PRN (23:37)
[2019-11-04 23:38] LABS: O2 Tension (PaO2) 58.9 mmHg (80.0-100.0)
[2019-11-04 23:39] LABS: ALV-art Gradient 41.705 (0-20); Puncture Site LBA
[2019-11-04] MEDS ORDERED: Sodium Chloride 0.9% 1,000 ML IV SCH (23:45)
[2019-11-05] MEDS ORDERED: Dextrose 5% in Water 1,000 ML IV PRN (00:12)
[2019-11-05] MEDS ORDERED: Dextrose 50% Abboject 50 ML SYRINGE SLOW IVP PRN (00:12)
[2019-11-05] MEDS: Sodium Chloride 0.9% 1,000 ML IV SCH ×3 (00:25→20:14)
[2019-11-05 00:51] LABS: Troponin I 0.054 ng/mL (< 0.028)
[2019-11-05 03:11] LABS: #Lymphocytes 0.3 thou/uL (1.20-3.40); #Monocytes 0.1 thou/uL (0.11-0.59); %Basophils 0.2 % (0.0-1.0); %Eosinophils 0.3 % (0.0-10.0); %Monocytes 1.4 % (0.0-10.0); %Neutrophils 91.1 % (42.0-75.0); Hemoglobin 9.7 g/dL (14.0-18.0); Mean Corpuscular Hemoglobin 30.2 pg (27.0-31.0); Mean Corpuscular Volume 91.6 fL (78.0-98.0); Mean Platelet Volume 9.9 fL (7.4-10.4); Platelet Count 88 thou/uL (130-400); Red Blood Cell (RBC) Count 3.22 mill/uL (4.70-6.10); White Blood Cell (WBC) Count 4.4 thou/uL (4.8-10.8)
[2019-11-05 03:36] LABS: Troponin I 0.032 ng/mL (< 0.028)
[2019-11-05 03:37] LABS: ALT (SGPT) 25 U/L (8-55); AST (SGOT) 23 U/L (5-34); Albumin 3.1 g/dL (3.5-5.0); Alkaline Phosphatase 133 U/L (40-110); Anion Gap 15 mmol/L (10-20); BUN (Urea Nitrogen) 87 mg/dL (8.4-25.7); Bilirubin, Total 0.2 mg/dL (0.2-1.2); Calc. Creatinine Clearance 28 mL/min (70-130); Calcium 7.3 mg/dL (7.8-10.44); Carbon Dioxide 17 mmol/L (22-29); Chloride 109 mmol/L (98-107); Estimated GFR-MDRD 12; Globulin 2.8 g/dL (2.4-3.5); Glucose 253 mg/dL (70-105); Potassium 4.3 mmol/L (3.5-5.1); Protein, Total 5.9 g/dL (6.0-8.3); Sodium 137 mmol/L (136-145)
[2019-11-05 05:14] LABS: Legionella Urinary Ag Negative (Negative)
[2019-11-05 05:15] LABS: Strep pneumo Urine Ag NEGATIVE (NEGATIVE)
[2019-11-05 05:20] LABS: Amphetamine Not Detected (NotDetected); Barbiturates Screen Not Detected (NotDetected); Benzodiazepine Screen Not Detected (NotDetected); Cocaine Metabolite Screen Not Detected (NotDetected); Medtox Control Line Valid? VALID (VALID); Medtox Reader # READER 4; Methadone Not Detected (NotDetected); Methamphetamine Not Detected (NotDetected); Opiate Screen Not Detected (NotDetected); Oxycodone Screen Not Detected (NotDetected); Phencyclidine (PCP) Not Detected (NotDetected); THC/Cannabinoid Screen Detected (NotDetected); Tricyclic Screen Not Detected (NotDetected)
[2019-11-05] MEDS: Levothyroxine 150 MCG TAB PO SCH (05:54)
[2019-11-05] MEDS: HumaLOG 300 UNITS/3 ML VIAL SC PRN ×4 (06:18→20:23)
[2019-11-05] MEDS ORDERED: predniSONE 20 MG TAB PO SCH (08:00)
[2019-11-05] MEDS: hydrALAZINE 25 MG TAB PO SCH ×3 (08:10→20:10)
[2019-11-05] MEDS: Famotidine 20 MG TAB PO SCH (08:10)
[2019-11-05] MEDS: Aspirin Chewable 81 MG TAB PO SCH (08:11)
[2019-11-05] MEDS: Carvedilol 6.25 MG TAB PO SCH ×2 (08:11→20:12)
--- NOTE | 2019-11-05 08:58 | PDOC.FM ---
- Subjective Subjective: Patient on Bipap currently. Reports feeling well. Sleepy this morning but a&o x3. No problms breathing - Objective MAR Reviewed: Yes Vital Signs & Weight: Vital Signs (12 hours) Temp Pulse Resp BP Pulse Ox 11/05/19 08:11 124/39 L 11/05/19 08:00 98.6 F 26 H 95 11/05/19 04:55 97.9 F 11/05/19 02:00 97.8 F 11/05/19 01:53 74 11/05/19 00:35 100 11/05/19 00:28 68 11/04/19 23:45 98.5 F 11/04/19 23:40 94 L Weight Weight 115.3 kg Most Recent Monitor Data Heart Rate from ECG 67 NIBP 124/39 NIBP BP-Mean 67 Respiration from ECG 34 SpO2 96 I&O: 11/04/19 11/05/19 11/06/19 06:59 06:59 06:59 Intake Total 884 120 Output Total 450 0 Balance 434 120 Result Diagrams: 11/05/19 03:03 11/05/19 03:03 Phys Exam - Physical Examination Constitutional: NAD bipap HEENT: PERRLA, moist MMs sleepy Respiratory: no wheezing, no rales Cardiovascular: RRR, no significant murmur Gastrointestinal: soft, non-tender Musculoskeletal: no edema Neurological: non-focal, moves all 4 limbs Psychiatric: normal affect, A&O x 3 Dx/Plan (1) Pneumonia Code(s): J18.9 - PNEUMONIA, UNSPECIFIED ORGANISM Status: Acute (2) Acute kidney injury Code(s): N17.9 - ACUTE KIDNEY FAILURE, UNSPECIFIED Status: Acute (3) DM2 (diabetes mellitus, type 2) Status: Chronic (4) Hyperlipidemia Code(s): E78.5 - HYPERLIPIDEMIA, UNSPECIFIED Status: Chronic (5) Hypertension Code(s): I10 - ESSENTIAL (PRIMARY) HYPERTENSION Status: Chronic Qualifiers: Hypertension type: essential hypertension Qualified Code(s): I10 - Essential (primary) hypertension - Plan Plan: 54 yo M with hypothyroidism, diabetes, hypertension, HFpEF, CAD who present with cough and runny nose for 1 week with worsening SOB. #. Acute hypoxic respiratory failure requiring Bipap -ABG with O2 58, on Bipap, repeat this AM -likely 2/2 PNA vs. CHF component (BNP 200s) -Continue bipap, try weaning trial today -Monitor RR, concern for tiring out #. Mixed metabolic and respiratory acidosis -pH 7.3, fluids at 100 -On Bipap -Will repeat ABG this AM #. CAP, TB r/o -Azithro and Rocephin, will continue -Ordered Sputum Culture x3 with AFB and Quant Gold and PPD -Put on Isolation precautions -Will repeat CXR, no RF for PNA, will discuss CXR read with pulmonlogist #. NATANAEL on CKD Stage 3 -Cr: 5.3 -> 5.0, continue gentle fluids with LR 100 -AM BMP -Electrolyte stable, producing urine, nephro on board, recs appreciated #. BPH -Continue home flomax -PVR with next void, consider uro consult if significantly elevated #. Elevated Alk Phos -Ordered GGT- GI cause vs bone #. CAD/Hx of CABG/HFpEF ECHO 09/29/18 EF 55-60% -Hold coreg & ASA, pending cardiolgy recs, much apprecaited -Will hold Torsemide, Metolazone, and Candesartan due to NATANAEL #. DMII -Will continue home Glyburide and Lantus -Mild SSI #. HLD -Will continue home Atorvastatin #. Gastroparesis -Will continue home Metoclopramide #. Hypothyroidism -Will continue home Levothyroxine Code Status: Full Diet: HHLSo, CC DVT PPx: SCD, Plt: 87 GI PPx: Pepcid PCP: Dino Dipo: CCU inpt, LOS > 48H. Addendum - Attending - Attending Attestation Date/Time: 11/05/19 2324 I personally evaluated the patient and discussed the management with Dr. Stearns. I agree with the History, Examination, Assessment and Plan documented above with any addition or exceptions noted below.
[2019-11-05] MEDS ORDERED: Tuberculin PPD 0.1 ML VIAL I-DERMAL SCH (09:45)
[2019-11-05 11:41] LABS: Base Excess (BEa) -6.3 mEq/L (-2.0 to +3.0); CO2 Tension 36.8 mmHg (35.0-45.0); Calcium, Ionized 1.04 mmol/L (1.12-1.30); Carboxyhemoglobin (COHb) 1.1 gm% (0.0-3.0); Hemoglobin (Hb) 9.5 g/dL (14.0-18.0); Potassium - ABG Lab 4.16 mmol/L (3.70-5.30); pH, Arterial 7.33 (7.35-7.45)
[2019-11-05 11:44] LABS: Puncture Site RRAD
[2019-11-05 12:22] LABS: Creatinine, Urine 68.18 mg/dL (63-166)
--- NOTE | 2019-11-05 12:47 | RAD ---
RADIOGRAPH CHEST 1 VIEW: DATE: 11/05/2019 HISTORY: 54-year-old male with acute hypoxic respiratory failure and pneumonia. FINDINGS: There are no air space densities, pulmonary edema, pneumothorax, or cardiomegaly. The lateral costop hrenic angles are sharp. There are sternotomy wires. IMPRESSION: No acute cardiopulmonary findings. jn [] POS: OFF
[2019-11-05] MEDS: hydrALAZINE 20 MG/ML VIAL SLOW IVP PRN ×2 (13:15→15:16)
[2019-11-05] MEDS ORDERED: Lorazepam 2 MG/ML VIAL SLOW IVP SCH (13:45)
[2019-11-05] MEDS ORDERED: guaiFENesin 100 MG/5 ML UDCUP PO PRN (14:14)
[2019-11-05] MEDS: Diabetic Tussin 200 MG/10 ML UDCUP PO PRN ×2 (17:06→22:55)
[2019-11-05] MEDS: Atorvastatin Calcium 40 MG TAB PO SCH (20:10)
[2019-11-05] MEDS: Tamsulosin HCl 0.4 MG CAP PO SCH (20:12)
[2019-11-05] MEDS: cefTRIAXone\\ROCEPHIN 1 GM in Sodium Chloride 0.9% 100 ML IVPB SCH (20:14)
[2019-11-05] MEDS ORDERED: Calcium Carbonate 500 MG ChewTAB PO PRN (20:42)
[2019-11-05] MEDS ORDERED: hydrOXYzine 25 MG TAB PO SCH ×2 (21:00)
[2019-11-05] MEDS ORDERED: Insulin Glargine 30 UNITS in Pre-Filled Syringe 1 EACH SC SCH (21:00)
[2019-11-05] MEDS: Azithromycin 500 MG in Sodium Chloride 0.9% 250 ML 250 ML IVPB SCH (21:22)
--- NOTE | 2019-11-06 02:19 | CON ---
DATE OF CONSULTATION: 11/05/2019 HISTORY OF PRESENT ILLNESS: Mr. Sierra is a pleasant 54-year-old male. He is a marginal historian. He has been complaining of cough and shortness of breath for about a week. He was seen in the emergency department, sent home and came back with the addition of nausea, vomiting, and diarrhea. He subsequently was admitted. PAST MEDICAL HISTORY: Remarkable for; 1. Hypothyroidism. 2. Hypertension. 3. Diabetes. 4. Lipid disorder. 5. Diastolic heart dysfunction. 6. History of coronary artery disease with coronary artery bypass grafting in the past. FAMILY HISTORY: Remarkable for diabetes and heart disease. SOCIAL HISTORY: He is a nonsmoker and nondrinker. ALLERGIES: HE HAS NO REPORTED ALLERGIES. MEDICATIONS: Have been reviewed. REVIEW OF SYSTEMS: Ten point review of systems completd, otherwise negative. He feels somewhat better, but not much. PHYSICAL EXAMINATION: GENERAL: He is in no distress. VITAL SIGNS: Heart rate in the 70s, blood pressure 169/71 this afternoon, respiratory rate in the 20s, oximetry is 99% to 100%. HEENT: Pupils are equal. Sclerae are anicteric. NECK: Supple. LUNGS: Clear. HEART: Regular rhythm. S1, S2 are normal. ABDOMEN: Soft and nontender. EXTREMITIES: Without clubbing, cyanosis, or edema. NEUROLOGIC: Grossly nonfocal. LABORATORY DATA: White count 4.4, hemoglobin 9.7, platelets 88. Electrolytes; sodium 137, potassium 4.3, chloride 109, bicarb 17, BUN 87, creatinine 5.00, tells me Dr. Christian Olea, his pack worker, says his renal function has been stable. The last creatinine in [facility] is 3.5. In October of 2018, it was 5.0. Chest x-ray reviewed by me. I do not see any infiltrates. Compared to old films, the film is basically unchanged. Chest x-ray done today 10 hours after the last film is unchanged. IMPRESSION: 1. Bronchitis, likely viral. 2. Intravascular volume depletion, most likely accounting for his increase in creatinine. 3. Respiratory isolation can be discontinued. 4. He could be transferred out of the Critical Care Unit. This is a 70 minute consult, with greater than 50% of time spent on unit coordinating care. Job ID: [id number] [facility]
[2019-11-06] MEDS: Diabetic Tussin 200 MG/10 ML UDCUP PO PRN ×2 (03:46→22:03)
[2019-11-06 05:33] VITALS: BMI 42.0
[2019-11-06] MEDS: HumaLOG 300 UNITS/3 ML VIAL SC PRN ×4 (05:52→20:21)
[2019-11-06] MEDS: Levothyroxine 150 MCG TAB PO SCH (06:29)
--- NOTE | 2019-11-06 06:35 | PDOC.FM ---
- Subjective Subjective: Breathing improved but still tachypneic. Patient with no complaints acutely. Feels better from yesterday. - Objective MAR Reviewed: Yes Vital Signs & Weight: Vital Signs (12 hours) Temp Pulse BP Pulse Ox 11/06/19 04:00 98.1 F 11/06/19 00:00 98.5 F 11/05/19 20:12 185/61 H 11/05/19 20:10 78 180/75 H 11/05/19 20:00 98.3 F 11/05/19 19:47 100 Weight Weight 118.5 kg Most Recent Monitor Data Heart Rate from ECG 65 NIBP 170/85 NIBP BP-Mean 113 Respiration from ECG 29 SpO2 100 I&O: 11/04/19 11/05/19 11/06/19 06:59 06:59 06:59 Intake Total 884 4033 Output Total 450 2635 Balance 434 1398 Result Diagrams: 11/06/19 06:40 11/06/19 06:40 Phys Exam - Physical Examination Constitutional: NAD HEENT: moist MMs, sclera anicteric Neck: no JVD, full ROM b/l wheezing on auxcultation tachypneic Cardiovascular: RRR, no significant murmur Gastrointestinal: soft, non-tender Musculoskeletal: no edema Neurological: non-focal, moves all 4 limbs Dx/Plan (1) Pneumonia Code(s): J18.9 - PNEUMONIA, UNSPECIFIED ORGANISM Status: Acute (2) Acute kidney injury Code(s): N17.9 - ACUTE KIDNEY FAILURE, UNSPECIFIED Status: Acute (3) DM2 (diabetes mellitus, type 2) Status: Chronic (4) Hyperlipidemia Code(s): E78.5 - HYPERLIPIDEMIA, UNSPECIFIED Status: Chronic (5) Hypertension Code(s): I10 - ESSENTIAL (PRIMARY) HYPERTENSION Status: Chronic Qualifiers: Hypertension type: essential hypertension Qualified Code(s): I10 - Essential (primary) hypertension - Plan Plan: 54 yo M with hypothyroidism, diabetes, hypertension, HFpEF, CAD who present with cough and runny nose for 1 week with worsening SOB. #. Acute hypoxic respiratory failure 2/2 PNA vs. viral bronchitis -Non hypoxic on room air currently but still tachypneic -add steroids & scheduled duonebs #. Metabolic acidosis 2/2 renal failure -Improved -pH 7.3, fluids at 100 -pending AM BMP #. CAP, TB r/o -Continue Azithro and Rocephin, will continue empirically, pending blood cx -Direct AFB test negative, pending quant gold -Repeat CXR with no infiltates, isolation precuations off #. NATANAEL on CKD Stage 3 -Cr: 5.3 -> 5.0-> r.5 , continue gentle fluids with LR 100 -AM BMP -Electrolyte stable, producing urine, nephro on board, recs appreciated #. Iatrogenic hyperthyroidism -elevated t4, low TSH -dec synthroid dose 150-> 125, titrat eoutpt #. Thrombocytoepnia -improving -hold anticoagulation -order peripheral blood smear #. DMII with hyperglycemia -Not at goal -Will continue home Glyburide and Lantus, inc lantus -Mild SSI #. BPH -Continue home flomax #. Elevated Alk Phos -Ordered GGT- GI cause vs bone #. CAD/Hx of CABG/HFpEF ECHO 09/29/18 EF 55-60% -Hold coreg & ASA, pending cardiolgy recs, much apprecaited -Will hold Torsemide, Metolazone, and Candesartan due to NATANAEL #. HLD -Will continue home Atorvastatin #. Gastroparesis -Will continue home Metoclopramide Code Status: Full Diet: HHLSo, CC DVT PPx: SCD, Plt: 105 GI PPx: Pepcid PCP: Dino Nevarez: CCU inpt, LOS > 48H. Addendum - Attending - Attending Attestation Date/Time: 11/06/19 [id number] I personally evaluated the patient and discussed the management with Dr. Stearns. I agree with the History, Examination, Assessment and Plan documented above with any addition or exceptions noted below. More wheezing today on exam. Appreciate Dr Burton. I agree that viral bronchitis is present, but I remain concerned that there is a viral or bacterial component as well.
[2019-11-06 07:20] LABS: #Monocytes 0.5 thou/uL (0.11-0.59); #Neutrophils 5.8 thou/uL (1.40-6.50); %Eosinophils 0.2 % (0.0-10.0); %Lymphocytes 13.6 % (21.0-51.0); %Monocytes 6.8 % (0.0-10.0); %Neutrophils 79.5 % (42.0-75.0); Hemoglobin 9.1 g/dL (14.0-18.0); Mean Corpuscular HGB CONC 33.4 g/dL (32.0-36.0); Mean Corpuscular Hemoglobin 30.7 pg (27.0-31.0); Mean Corpuscular Volume 92.1 fL (78.0-98.0); Mean Platelet Volume 9.7 fL (7.4-10.4); Platelet Count 102 thou/uL (130-400); Red Blood Cell (RBC) Count 2.95 mill/uL (4.70-6.10); White Blood Cell (WBC) Count 7.2 thou/uL (4.8-10.8)
[2019-11-06 07:36] LABS: Anion Gap 12 mmol/L (10-20); BUN (Urea Nitrogen) 91 mg/dL (8.4-25.7); Calc. Creatinine Clearance 31 mL/min (70-130); Calcium 7.5 mg/dL (7.8-10.44); Carbon Dioxide 21 mmol/L (22-29); Chloride 113 mmol/L (98-107); Estimated GFR-MDRD 14; Glucose 135 mg/dL (70-105); Potassium 4.4 mmol/L (3.5-5.1); Sodium 142 mmol/L (136-145)
[2019-11-06] MEDS ORDERED: predniSONE 20 MG TAB PO SCH ×2 (08:00→11:45)
[2019-11-06] MEDS: Famotidine 20 MG TAB PO SCH (08:51)
[2019-11-06] MEDS: hydrALAZINE 25 MG TAB PO SCH ×3 (08:52→20:19)
[2019-11-06] MEDS: Aspirin Chewable 81 MG TAB PO SCH (08:52)
[2019-11-06] MEDS: Docusate 100 MG CAP PO SCH ×2 (08:52→20:19)
[2019-11-06] MEDS: Carvedilol 6.25 MG TAB PO SCH ×2 (08:52→20:18)
[2019-11-06] MEDS: Lactated Ringer's 1,000 ML IV SCH ×2 (08:53→20:15)
[2019-11-06 09:21] LABS: Eosinophils 1 % (0-10); Lymphocytes 12 % (21-51); Monocytes 3 % (0-10); Reactive Lymphocytes 2 % (0-10)
[2019-11-06 09:22] LABS: Ovalocytes SLIGHT = 2-5 cells (100X) (0-1/hpf); Platelet Morphology Comment Appears Decreased; Polychromasia SLIGHT = 2-3 cells (100X) (0-2/hpf)
[2019-11-06 09:26] LABS: Band 1 % (5-11); Neutrophil 81 % (42-75)
[2019-11-06] MEDS: hydrALAZINE 20 MG/ML VIAL SLOW IVP PRN (10:13)
[2019-11-06] MEDS: Sodium Chloride 0.9% 1,000 ML IV SCH (10:31)
[2019-11-06 13:38] LABS: Actual Bicarbonate (HCO3a) 21.5 mEq/L (22-28); Base Excess (BEa) -2.5 mEq/L (-2.0 to +3.0); CO2 Tension 33.7 mmHg (35.0-45.0); Calcium, Ionized 1.05 mmol/L (1.12-1.30); Carboxyhemoglobin (COHb) 1.4 gm% (0.0-3.0); O2 Tension (PaO2) 77.7 mmHg (80.0-100.0); Potassium - ABG Lab 4.33 mmol/L (3.70-5.30); pH, Arterial 7.42 (7.35-7.45)
--- NOTE | 2019-11-06 13:38 | CON ---
DATE OF CONSULTATION: 11/05/2019 REASON FOR CONSULTATION: Shortness of breath. HISTORY OF PRESENT ILLNESS: Mr. Sierra is a pleasant 54-year-old gentleman, who comes to the hospital for shortness of breath. I am being called for concern of this being heart failure. I have seen him in the past while he was volume overloaded and usually he gets severe lower extremity edema. His LV function has always been normal and this is mostly diastolic heart failure. He has been having a flu-like illness in the past few days. He was at home, suffered some nausea, vomiting, diarrhea, and eventually was admitted for further evaluation and care. He was found to have elevated creatinine. He continues to feel similar right now. PAST MEDICAL HISTORY: 1. Hypothyroidism. 2. Hypertension. 3. Type 2 diabetes. 4. Hyperlipidemia. 5. Diastolic dysfunction. 6. Coronary artery disease, status post bypass grafting at [facility] a year ago. FAMILY HISTORY: Noncontributory. SOCIAL HISTORY: No alcohol, tobacco, or drugs. OUTPATIENT MEDICATIONS: 1. Ferrous sulfate. 2. Coreg 6.25 b.i.d. 3. Atorvastatin 40 at bedtime. 4. Aspirin 81 a day. 5. Hydralazine 50 mg t.i.d. 6. Glipizide 10 mg b.i.d. 7. Tamsulosin 0.4 at bedtime. 8. Levothyroxine 150 a day. 9. Insulin glargine Lantus 32 units subcu at bedtime. ALLERGIES: NO KNOWN DRUG ALLERGIES. REVIEW OF SYSTEMS: A 12-point review of systems was done and was all negative unless stated in the history of present illness. PHYSICAL EXAMINATION: VITAL SIGNS: Temperature 97.2, pulse 77, respiratory rate 35, saturating 100% on room air, and blood pressure 137/78. GENERAL: Awake, alert, and oriented x3, in no distress. HEENT: Normocephalic and atraumatic. NECK: Supple. LUNGS: Clear to auscultation. CARDIOVASCULAR: S1 and S2. No S3 or S4. No murmurs. ABDOMEN: Soft. Positive bowel sounds. EXTREMITIES: Trace edema. SKIN: Warm and dry. LABORATORY DATA: Laboratory work was reviewed. CBC; white count of 4, hemoglobin 9.7, hematocrit 29, and platelet count of 88. Chemistries were reviewed. His BUN 89, creatinine 5.3, and GFR of 11. This is new for him. Troponins are indeterminate range. BNP was 200. CK-MB is mildly elevated. UA to toxicology only positive for cannabis. ASSESSMENT: 1. Acute kidney injury. 2. Upper respiratory infection, most likely some type of bronchitis. 3. Diastolic heart failure. Stable at this time. He actually seems volume down. 4. Coronary artery disease, stable. No acute coronary syndrome. PLAN: 1. Agree with IV fluids. 2. No diuresis at this time. He seems to be volume down. Thank you for letting us to participate in the care of your patient. We will follow. Job ID: [id number]
--- NOTE | 2019-11-06 14:20 | RAD ---
EXAM: Single view of the chest HISTORY: Dyspnea COMPARISON: 11/05/2009 FINDINGS: Single view of the chest shows an enlarged but stable cardiomediastinal silhouette. The pa tient is status post sternotomy. There is no evidence of consolidation, mass, or pleural effusion. The bones are unremarkable. IMPRESSION: Cardiomegaly without evidence of acute cardiopulmonary disease
[2019-11-06 15:07] LABS: Iron 65 ug/dL (65-175); Iron Binding Capacity, Total 170 mcg/dL (261-462)
[2019-11-06 15:46] LABS: ALV-art Gradient 29.905 (0-20); Puncture Site RRA
[2019-11-06] MEDS: niCARdipine 25 MG in Sodium Chloride 0.9% 250 ML 240 ML IVPB SCH (18:07)
[2019-11-06] MEDS: methylPREDNISolone Sod Succ 40 MG VIAL IVP SCH ×2 (18:07→23:04)
--- NOTE | 2019-11-06 18:29 | PDOC.CPN ---
- Subjective Date: 11/06/19 Time: 18:29 Interval history: He is more somnolent. SOB slightly worse today. - Review of Systems General: denies: fever/chills, weight/appetite/sleep changes, night sweats, fatigue Respiratory: denies: cough, congestion, shortness of breath, exercise intolerance Cardiovascular: denies: chest pain, palpitation, edema, paroxysmal nocturnal dyspnea, orthopnea Gastrointestinal: denies: nausea, vomiting, diarrhea, constipation, abd pain, GI bleeding Musculoskeletal: denies: pain, tenderness, stiffness, swelling, arthritis/ arthralgias Neurological: denies: numbness, syncope, seizure, weakness - Objective Allergies/Adverse Reactions: Allergies Allergy/AdvReac Type Severity Reaction Status Date / Time No Known Drug Allergies Allergy Verified 11/05/19 00:12 Visit Medications: Current Medications Acetaminophen (Tylenol) 650 mg PO Q4H PRN PRN Reason: Headache/Fever/Mild Pain (1-3) Acetaminophen (Tylenol) 650 mg VA Q4H PRN PRN Reason: Headache/Fever/Mild Pain (1-3) Albuterol/Ipratropium (Duoneb) 3 ml NEB Q6H PRN PRN Reason: SOB &/or Wheezing Last Admin: 11/05/19 16:28 Dose: 3 ml Albuterol/Ipratropium (Duoneb) 3 ml NEB [id number] [facility] Last Admin: 11/06/19 18:21 Dose: 3 ml Aspirin (Aspirin Chewable) 81 mg PO DAILY [facility] Last Admin: 11/06/19 08:52 Dose: 81 mg Atorvastatin Calcium (Lipitor) 40 mg PO HS [facility] Last Admin: 11/05/19 20:10 Dose: 40 mg Calcium Carbonate (Tums) 1,000 mg PO Q4H PRN PRN Reason: Heartburn or Indigestion Carvedilol (Coreg) 6.25 mg PO BID [facility] Last Admin: 11/06/19 08:52 Dose: 6.25 mg Dextrose/Water (Dextrose 50%) 25 gm SLOW IVP PRN PRN PRN Reason: Hypoglycemia Docusate Sodium (Colace) 100 mg PO BID [facility] Last Admin: 11/06/19 08:52 Dose: 100 mg Famotidine (Pepcid) 20 mg PO DAILY [facility] Last Admin: 11/06/19 08:51 Dose: 20 mg Glucagon (Glucagon) 1 mg IM PRN PRN PRN Reason: Hypoglycemia Guaifenesin (Robitussin Sf) 100 mg PO Q4H PRN PRN Reason: Cough Last Admin: 11/06/19 03:46 Dose: 100 mg Hydralazine HCl (Apresoline) 5 mg SLOW IVP Q15MIN PRN PRN Reason: SBP Greater Than 180 Last Admin: 11/06/19 10:13 Dose: 5 mg Hydralazine HCl (Apresoline) 50 mg PO TID [facility] Last Admin: 11/06/19 15:41 Dose: 50 mg Azithromycin 500 mg/ Sodium (Chloride) 250 mls @ 250 mls/hr IVPB Q24HR [facility] Stop: 11/08/19 22:01 Last Admin: 11/05/19 21:22 Dose: 250 mls Ceftriaxone Sodium 1 gm/ (Sodium Chloride) 100 mls @ 200 mls/hr IVPB Q24HR [facility] Stop: 11/10/19 21:01 Last Admin: 11/05/19 20:14 Dose: 100 mls Dextrose/Water (D5w) 1,000 mls @ 0 mls/hr IV .Q0M PRN PRN Reason: Hypoglycemia Insulin Glargine 45 units/ (Miscellaneous Medication) 0.45 mls @ 0 mls/hr SC HS [facility] Lactated Ringer's (Lactated Ringer's) 1,000 mls @ 100 mls/hr IV .Q10H [facility] Last Admin: 11/06/19 08:53 Dose: 1,000 mls Nicardipine HCl 25 mg/ Sodium (Chloride) 250 mls @ 0 mls/hr IVPB INF [facility]; Protocol Last Admin: 11/06/19 18:07 Dose: 250 mls Insulin Human Lispro (Humalog) 0 units SC .MILD SLIDING SCALE PRN PRN Reason: Mild Correctional Scale Last Admin: 11/06/19 18:06 Dose: 246 unit Insulin Human Lispro (Humalog) 0 units SC .BEDTIME SLIDING SC PRN PRN Reason: Bedtime Correctional Scale Levothyroxine Sodium (Synthroid) 125 mcg PO 0600 [facility] Methylprednisolone Sodium Succinate (Solu-Medrol) 20 mg IVP Q6HR [facility] Last Admin: 11/06/19 18:07 Dose: 20 mg Read Ppd Test Site 0 each PO ONE [facility] Stop: 11/07/19 09:01 Ondansetron HCl (Zofran Odt) 4 mg PO Q6H PRN PRN Reason: Nausea/Vomiting Ondansetron HCl (Zofran) 4 mg IVP Q6H PRN PRN Reason: Nausea/Vomiting Last Admin: 11/05/19 21:49 Dose: 4 mg Senna/Docusate Sodium (Senokot S) 2 tab PO BID PRN PRN Reason: Constipation Sodium Chloride (Flush - Normal Saline) 10 ml IVF Q12HR PRN PRN Reason: Saline Flush Sodium Chloride (Flush - Normal Saline) 10 ml IVF PRN PRN PRN Reason: Saline Flush Tamsulosin HCl (Flomax) 0.4 mg PO HS [facility] Last Admin: 11/05/19 20:12 Dose: 0.4 mg Vital Signs & Weight: Vital Signs Temp Pulse Resp BP Pulse Ox 11/06/19 18:21 71 27 H 100 11/06/19 16:00 98.5 F 11/06/19 15:41 64 185/82 H 11/06/19 13:36 64 11/06/19 12:00 98.8 F 11/06/19 11:56 71 20 100 11/06/19 11:28 100 11/06/19 10:13 78 201/110 H 11/06/19 08:52 78 187/78 H 11/06/19 08:00 98.5 F 100 Weight 261 lb 3.964 oz - Physical Exam General: no apparent distress HEENT: normocephaly Neck: midline trachea Cardiac: regular rate and rhythm Lungs: normal breath sounds Neuro: grossly intact Abdomen: active bowel sounds Extremities: no edema Skin: clear Musculoskeletal: normal range of motion - Labs Result Diagrams: 11/06/19 06:40 11/06/19 06:40 Troponin/CKMB CK-MB (CK-2) 8.2 ng/mL (0-6.6) H* 11/04/19 20:39 Troponin I 0.032 ng/mL (< 0.028) H 11/05/19 03:03 - Telemetry Sinus rhythms and dysrhythmias: sinus rhythm - Assessment/Plan Assessment/Plan: 1. Acute kidney injury 2. Volume down 3. URI 4. Diastolic heart failure, stable. 5. CAD, no ACS. PLAN: - CV stable. - Creatinine slowly improving. - Will follow.
[2019-11-06] MEDS: Atorvastatin Calcium 40 MG TAB PO SCH (20:18)
[2019-11-06] MEDS: cefTRIAXone\\ROCEPHIN 1 GM in Sodium Chloride 0.9% 100 ML IVPB SCH (20:18)
[2019-11-06] MEDS: Tamsulosin HCl 0.4 MG CAP PO SCH (20:20)
[2019-11-06] MEDS ORDERED: Insulin Glargine 45 UNITS in Pre-Filled Syringe 1 EACH SC SCH (21:00)
[2019-11-06] MEDS ORDERED: hydrOXYzine 25 MG TAB PO SCH (21:30)
[2019-11-06] MEDS: Azithromycin 500 MG in Sodium Chloride 0.9% 250 ML 250 ML IVPB SCH (21:32)
--- NOTE | 2019-11-06 23:59 | PRG ---
DATE OF SERVICE: 11/06/2019 SUBJECTIVE: Mr. Sierra is complaining of more shortness of breath today. When I saw him today after lunch, his diastolic was 120. I suspect some of his dyspnea is related to that. His chest radiograph done stat earlier today when he was complaining shortness of breath is unchanged. His pH of 7.42, CO2 33, and PO2 of 77. He is much more comfortable on BiPAP and actually talks in complete sentences with that and wants to stay on it. He does have a slightly prolonged expiratory phase. Some of this may be asthmatic bronchitis leading to his dyspnea. Some of this may be a low-grade elevated pulmonary artery pressures completing his sensation of dyspnea. His heart rate is in the 70s. I doubt he is having thromboembolic disease. OBJECTIVE: VITAL SIGNS: This evening, his blood pressure is 174/88 on a Cardene drip. His FiO2 is only 25%. LUNGS: Clear. HEART: Regular rhythm. ABDOMEN: Soft. EXTREMITIES: Without edema. LABORATORY DATA: 7.42, CO2 of 33, PO2 of 77. Electrolytes; sodium 142, potassium 4.4, chloride 113, bicarb 21, BUN 91, creatinine 4.5. IMPRESSION: Multifactorial dyspnea. He may have some reactive airways with this. He has a very mild hyperchloremic metabolic acidosis, it may be contributing to his dyspnea. He has an obesity that aggravates his dyspnea. His renal function appears to be stable, but is quite poor with very low GFR. I have recommended continuing supportive care in the critical care unit. I do not feel he should transfer out. I met with him and answered all of his questions and he appears comfortable with our plan. Job ID: [id number]
[2019-11-07] MEDS ORDERED: traMADol HCl 50 MG TAB PO SCH (02:00)
[2019-11-07] MEDS: hydrALAZINE 20 MG/ML VIAL SLOW IVP PRN ×2 (02:18→09:33)
[2019-11-07 04:10] LABS: #Basophils 0.1 thou/uL (0.0-0.2); #Lymphocytes 0.3 thou/uL (1.20-3.40); #Monocytes 0.1 thou/uL (0.11-0.59); #Neutrophils 5.4 thou/uL (1.40-6.50); %Basophils 0.9 % (0.0-1.0); %Eosinophils 0.2 % (0.0-10.0); %Lymphocytes 4.7 % (21.0-51.0); %Neutrophils 93.3 % (42.0-75.0); Hemoglobin 9.3 g/dL (14.0-18.0); Mean Corpuscular HGB CONC 33.2 g/dL (32.0-36.0); Mean Corpuscular Hemoglobin 30.2 pg (27.0-31.0); Mean Platelet Volume 9.9 fL (7.4-10.4); Platelet Count 100 thou/uL (130-400); RBC Distribution Width 11.9 % (11.5-14.5); Red Blood Cell (RBC) Count 3.09 mill/uL (4.70-6.10); White Blood Cell (WBC) Count 5.8 thou/uL (4.8-10.8)
[2019-11-07 04:31] LABS: Anion Gap 15 mmol/L (10-20); BUN (Urea Nitrogen) 86 mg/dL (8.4-25.7); Calc. Creatinine Clearance 34 mL/min (70-130); Calcium 7.5 mg/dL (7.8-10.44); Carbon Dioxide 17 mmol/L (22-29); Chloride 109 mmol/L (98-107); Estimated GFR-MDRD 15; Glucose 351 mg/dL (70-105); Potassium 4.7 mmol/L (3.5-5.1); Sodium 136 mmol/L (136-145)
[2019-11-07] MEDS: Levothyroxine Sodium 125 MCG TAB PO SCH (06:15)
[2019-11-07] MEDS: methylPREDNISolone Sod Succ 40 MG VIAL IVP SCH ×3 (06:15→17:41)
[2019-11-07] MEDS: Lactated Ringer's 1,000 ML IV SCH ×3 (06:16→17:41)
[2019-11-07] MEDS: HumaLOG 300 UNITS/3 ML VIAL SC PRN ×4 (06:16→20:45)
--- NOTE | 2019-11-07 06:48 | PDOC.FM ---
- Subjective Subjective: Breathing much improved per patient. Resting on room air. Intermittently tachypneic. Denies chest pain, headache. - Objective MAR Reviewed: Yes Vital Signs & Weight: Vital Signs (12 hours) Temp Pulse Resp BP Pulse Ox 11/07/19 03:00 98.8 F 11/07/19 02:18 73 174/83 H 11/07/19 02:02 73 26 H 100 11/06/19 23:00 98.6 F 11/06/19 22:09 79 11/06/19 20:19 71 165/89 H 11/06/19 20:18 165/89 H 11/06/19 20:00 100 11/06/19 19:00 98.6 F Weight Weight 118.8 kg Most Recent Monitor Data Heart Rate from ECG 68 NIBP 148/70 NIBP BP-Mean 96 Respiration from ECG 24 SpO2 100 I&O: 11/05/19 11/06/19 11/07/19 06:59 06:59 06:59 Intake Total 884 4033 5783 Output Total 450 2635 2850 Balance 434 1398 2933 Result Diagrams: 11/07/19 03:11 11/07/19 03:11 Phys Exam - Physical Examination Constitutional: NAD HEENT: moist MMs, sclera anicteric b/l wheezing, good air movement Cardiovascular: RRR, no significant murmur Gastrointestinal: soft, non-tender Musculoskeletal: no edema Neurological: non-focal, moves all 4 limbs Psychiatric: normal affect, A&O x 3 Dx/Plan (1) Pneumonia Code(s): J18.9 - PNEUMONIA, UNSPECIFIED ORGANISM Status: Acute (2) Acute kidney injury Code(s): N17.9 - ACUTE KIDNEY FAILURE, UNSPECIFIED Status: Acute (3) DM2 (diabetes mellitus, type 2) Status: Chronic (4) Hyperlipidemia Code(s): E78.5 - HYPERLIPIDEMIA, UNSPECIFIED Status: Chronic (5) Hypertension Code(s): I10 - ESSENTIAL (PRIMARY) HYPERTENSION Status: Chronic Qualifiers: Hypertension type: essential hypertension Qualified Code(s): I10 - Essential (primary) hypertension - Plan Plan: 54 yo M with hypothyroidism, diabetes, hypertension, HFpEF, CAD who present with cough and runny nose for 1 week with worsening SOB. #. Acute hypoxic respiratory failure 2/2 vs. viral bronchitis -Non hypoxic on room air currently with tachypnea improved -continue steroids & scheduled duonebs-switch to IV steroids #. HTN -BP not at goal -max out PO home hydralazine -check if on ARB at home, add -Inc coreg -Cardene gtt for BP <160/<110 while oral meds titrating #. CAP -Continue Azithro and Rocephin, will continue empirically -Direct AFB test negative, pending quant gold -Repeat CXR with no infiltates, isolation precuations off #. NATANAEL on CKD Stage 3-improving -Cr: 5.3 -> 5.0-> 4.16, continue gentle fluids with LR 100 -AM BMPs #. Metabolic acidosis 2/2 renal failure-resolved -Improved -pH 7.3, fluids at 100 -pending AM BMP #CAD w/o ACS #. Iatrogenic hyperthyroidism -elevated t4, low TSH -dec synthroid dose 150-> 125, titrat eoutpt #. Thrombocytoepnia-stable -hold anticoagulation #. DMII with hyperglycemia -Not at goal -Will continue home Glyburide and Lantus, inc lantus -Mild SSI #. Diastolic heart failure-stable -monitor fluid status #. BPH -Continue home flomax #. Elevated Alk Phos -Ordered GGT- GI cause vs bone #. CAD/Hx of CABG/HFpEF ECHO 09/29/18 EF 55-60% -Hold coreg & ASA, pending cardiolgy recs, much apprecaited -Will hold Torsemide, Metolazone, and Candesartan due to NATANAEL #. HLD -Will continue home Atorvastatin #. Gastroparesis -Will continue home Metoclopramide Code Status: Full Diet: HHLSo, CC DVT PPx: SCD, Plt: 105 GI PPx: Pepcid PCP: Dino Dipo: CCU inpt, LOS > 48H. . Addendum - Attending - Attending Attestation Date/Time: 11/08/19 0748 I personally evaluated the patient and discussed the management with Dr. Stearns yesterday morning. I agree with the History, Examination, Assessment and Plan documented above with any addition or exceptions noted below. He is making improvement, but still has wheezing and SOB and tachypnea. High BP has required intervention.
[2019-11-07] MEDS ORDERED: Insulin Glargine 55 UNITS in Pre-Filled Syringe 1 EACH SC SCH (06:51)
[2019-11-07] MEDS: Aspirin Chewable 81 MG TAB PO SCH (08:13)
[2019-11-07] MEDS: Famotidine 20 MG TAB PO SCH (08:13)
[2019-11-07] MEDS: Carvedilol 6.25 MG TAB PO SCH ×2 (08:13→17:41)
[2019-11-07] MEDS: Docusate 100 MG CAP PO SCH ×2 (08:14→20:46)
[2019-11-07] MEDS: hydrALAZINE 25 MG TAB PO SCH ×3 (08:14→20:46)
[2019-11-07] MEDS ORDERED: READ PPD TEST SITE PO SCH (09:00)
[2019-11-07] MEDS ORDERED: HumaLOG 300 UNITS/3 ML VIAL SC PRN (10:39)
[2019-11-07] MEDS ORDERED: traMADol HCl 50 MG TAB PO PRN (10:40)
[2019-11-07] MEDS: traMADol HCl 50 MG TAB PO PRN ×3 (11:14→22:00)
[2019-11-07] MEDS ORDERED: hydrOXYzine 10 MG TAB PO PRN (11:27)
[2019-11-07] MEDS ORDERED: Melatonin 3 MG TAB PO PRN (11:28)
--- NOTE | 2019-11-07 17:51 | PDOC.CPN ---
- Subjective Date: 11/07/19 Time: 17:49 Interval history: Remains somnolent. BP better controlled with drip. - Review of Systems ROS unobtainable: due to mental status - Objective Allergies/Adverse Reactions: Allergies Allergy/AdvReac Type Severity Reaction Status Date / Time No Known Drug Allergies Allergy Verified 11/05/19 00:12 Visit Medications: Current Medications Acetaminophen (Tylenol) 650 mg PO Q4H PRN PRN Reason: Headache/Fever/Mild Pain (1-3) Last Admin: 11/07/19 00:44 Dose: 650 mg Acetaminophen (Tylenol) 650 mg NC Q4H PRN PRN Reason: Headache/Fever/Mild Pain (1-3) Albuterol/Ipratropium (Duoneb) 3 ml NEB Q6H PRN PRN Reason: SOB &/or Wheezing Last Admin: 11/05/19 16:28 Dose: 3 ml Albuterol/Ipratropium (Duoneb) 3 ml NEB [id number] [facility] Last Admin: 11/07/19 14:31 Dose: 3 ml Aspirin (Aspirin Chewable) 81 mg PO DAILY [facility] Last Admin: 11/07/19 08:13 Dose: 81 mg Atorvastatin Calcium (Lipitor) 40 mg PO HS [facility] Last Admin: 11/06/19 20:18 Dose: 40 mg Calcium Carbonate (Tums) 1,000 mg PO Q4H PRN PRN Reason: Heartburn or Indigestion Carvedilol (Coreg) 12.5 mg PO BID[facility] Last Admin: 11/07/19 17:41 Dose: 12.5 mg Dextrose/Water (Dextrose 50%) 25 gm SLOW IVP PRN PRN PRN Reason: Hypoglycemia Docusate Sodium (Colace) 100 mg PO BID [facility] Last Admin: 11/07/19 08:14 Dose: 100 mg Famotidine (Pepcid) 20 mg PO DAILY [facility] Last Admin: 11/07/19 08:13 Dose: 20 mg Glucagon (Glucagon) 1 mg IM PRN PRN PRN Reason: Hypoglycemia Guaifenesin (Robitussin Sf) 100 mg PO Q4H PRN PRN Reason: Cough Last Admin: 11/06/19 22:03 Dose: 100 mg Hydralazine HCl (Apresoline) 5 mg SLOW IVP Q15MIN PRN PRN Reason: SBP Greater Than 180 Last Admin: 11/07/19 09:33 Dose: 5 mg Hydralazine HCl (Apresoline) 100 mg PO TID [facility] Last Admin: 11/07/19 15:36 Dose: 100 mg Hydroxyzine HCl (Atarax) 25 mg PO Q4H PRN PRN Reason: Anxiety Last Admin: 11/07/19 12:14 Dose: 25 mg Ceftriaxone Sodium 1 gm/ (Sodium Chloride) 100 mls @ 200 mls/hr IVPB Q24HR [facility] Stop: 11/10/19 21:01 Last Admin: 11/06/19 20:18 Dose: 100 mls Dextrose/Water (D5w) 1,000 mls @ 0 mls/hr IV .Q0M PRN PRN Reason: Hypoglycemia Lactated Ringer's (Lactated Ringer's) 1,000 mls @ 100 mls/hr IV .Q10H [facility] Last Admin: 11/07/19 17:41 Dose: 1,000 mls Nicardipine HCl 25 mg/ Sodium (Chloride) 250 mls @ 0 mls/hr IVPB INF [facility]; Protocol Last Admin: 11/06/19 18:07 Dose: 250 mls Insulin Glargine 55 units/ (Miscellaneous Medication) 0.55 mls @ 0 mls/hr SC HS [facility] Insulin Human Lispro (Humalog) 0 units SC .BEDTIME SLIDING SC PRN PRN Reason: Bedtime Correctional Scale Last Admin: 11/07/19 17:42 Dose: 4 unit Insulin Human Lispro (Humalog) 0 units SC .MODERATE SLIDING SC PRN PRN Reason: Moderate Correctional Scale Levothyroxine Sodium (Synthroid) 125 mcg PO 0600 [facility] Last Admin: 11/07/19 06:15 Dose: 125 mcg Melatonin (Melatonin) 3 mg PO HS PRN PRN Reason: Insomnia Methylprednisolone Sodium Succinate (Solu-Medrol) 20 mg IVP Q6HR [facility] Last Admin: 11/07/19 17:41 Dose: 20 mg Ondansetron HCl (Zofran Odt) 4 mg PO Q6H PRN PRN Reason: Nausea/Vomiting Ondansetron HCl (Zofran) 4 mg IVP Q6H PRN PRN Reason: Nausea/Vomiting Last Admin: 11/05/19 21:49 Dose: 4 mg Senna/Docusate Sodium (Senokot S) 2 tab PO BID PRN PRN Reason: Constipation Sodium Chloride (Flush - Normal Saline) 10 ml IVF Q12HR PRN PRN Reason: Saline Flush Sodium Chloride (Flush - Normal Saline) 10 ml IVF PRN PRN PRN Reason: Saline Flush Tamsulosin HCl (Flomax) 0.4 mg PO HS [facility] Last Admin: 11/06/19 20:20 Dose: 0.4 mg Tramadol HCl (Ultram) 50 mg PO TIDPRN PRN PRN Reason: Pain Last Admin: 11/07/19 15:35 Dose: 50 mg Vital Signs & Weight: Vital Signs Temp Pulse Resp BP Pulse Ox 11/07/19 17:41 164/75 H 11/07/19 16:00 100 11/07/19 15:36 74 164/75 H 11/07/19 15:00 98.9 F 11/07/19 14:31 74 19 100 11/07/19 11:28 82 11/07/19 11:26 82 19 100 11/07/19 11:00 98.8 F 11/07/19 09:33 74 181/76 H 11/07/19 08:14 74 181/76 H 11/07/19 08:13 181/76 H 11/07/19 08:00 100 11/07/19 07:00 98.1 F 100 11/07/19 06:58 74 14 100 Weight 261 lb 14.546 oz - Physical Exam General: other (On CPAP, somnolent.) HEENT: normocephaly Neck: supple neck Cardiac: regular rate and rhythm Lungs: normal breath sounds Neuro: no lateralizing findings Abdomen: active bowel sounds Extremities: no edema Skin: clear Musculoskeletal: no pain - Labs Result Diagrams: 11/07/19 03:11 11/07/19 03:11 Troponin/CKMB CK-MB (CK-2) 8.2 ng/mL (0-6.6) H* 11/04/19 20:39 Troponin I 0.032 ng/mL (< 0.028) H 11/05/19 03:03 - Telemetry Sinus rhythms and dysrhythmias: sinus rhythm - Assessment/Plan Assessment/Plan: 1. Acute kidney injury 2. Volume down 3. URI 4. Diastolic heart failure, stable. 5. CAD, no ACS. 6. HTN PLAN: - CV stable. - Creatinine slowly improving. - BP better controlled with increased doses of home meds and nicardipine dirp. - He is starting to get some LE edema but minimal . - Critical Care Time Critical care time (mins): 30
[2019-11-07] MEDS: niCARdipine 25 MG in Sodium Chloride 0.9% 250 ML 240 ML IVPB SCH (18:47)
[2019-11-07] MEDS: Tamsulosin HCl 0.4 MG CAP PO SCH (20:45)
[2019-11-07] MEDS: cefTRIAXone\\ROCEPHIN 1 GM in Sodium Chloride 0.9% 100 ML IVPB SCH (20:45)
[2019-11-07] MEDS: Atorvastatin Calcium 40 MG TAB PO SCH (20:46)
[2019-11-07] MEDS ORDERED: hydrOXYzine 25 MG TAB PO PRN (22:23)
[2019-11-07 23:07] LABS: QuantiFERON-TB Gold Plus Negative (Negative)
[2019-11-08] MEDS: Lactated Ringer's 1,000 ML IV SCH ×2 (00:48→09:19)
[2019-11-08] MEDS: methylPREDNISolone Sod Succ 40 MG VIAL IVP SCH ×3 (00:49→13:27)
[2019-11-08] MEDS: Levothyroxine Sodium 125 MCG TAB PO SCH (05:42)
--- NOTE | 2019-11-08 07:10 | PDOC.FM ---
- Subjective Subjective: Patient doing well, says breathing back to baseline. Eating and sitting comfortably in chair on room air, no longer tachypneic or working to breathe. No other complaitns or concerns at this time - Objective Vital Signs & Weight: Vital Signs (12 hours) Temp Pulse Resp Pulse Ox 11/08/19 06:33 71 19 100 11/08/19 04:00 98.1 F 11/08/19 02:37 73 11/08/19 00:00 98.3 F 11/07/19 22:37 74 11/07/19 20:46 82 11/07/19 20:00 98.1 F Weight Weight 121.3 kg Most Recent Monitor Data Heart Rate from ECG 67 NIBP 172/79 NIBP BP-Mean 110 Respiration from ECG 17 SpO2 100 I&O: 11/07/19 11/08/19 11/09/19 06:59 06:59 06:59 Intake Total 5783 5027 Output Total 2850 1700 0 Balance 2933 3327 0 Result Diagrams: 11/08/19 07:35 11/08/19 07:35 Phys Exam - Physical Examination Constitutional: NAD HEENT: PERRLA, moist MMs Respiratory: no wheezing, clear to auscultation bilateral Cardiovascular: RRR, no significant murmur Gastrointestinal: soft, non-tender Musculoskeletal: no edema Neurological: non-focal, moves all 4 limbs Psychiatric: normal affect, A&O x 3 Dx/Plan (1) Pneumonia Code(s): J18.9 - PNEUMONIA, UNSPECIFIED ORGANISM Status: Acute (2) Acute kidney injury Code(s): N17.9 - ACUTE KIDNEY FAILURE, UNSPECIFIED Status: Acute (3) DM2 (diabetes mellitus, type 2) Status: Chronic (4) Hyperlipidemia Code(s): E78.5 - HYPERLIPIDEMIA, UNSPECIFIED Status: Chronic (5) Hypertension Code(s): I10 - ESSENTIAL (PRIMARY) HYPERTENSION Status: Chronic Qualifiers: Hypertension type: essential hypertension Qualified Code(s): I10 - Essential (primary) hypertension - Plan Plan: 54 yo M with hypothyroidism, diabetes, hypertension, HFpEF, CAD who present with cough and runny nose for 1 week with worsening SOB. #. Acute hypoxic respiratory failure 2/2 vs. viral bronchitis -Non hypoxic on room air, resting comfortably -continue steroids & duonebs #. HTN -BP improved but not at goal -max out PO home hydralazine -Inc coreg as needed -Cardene gtt for BP <160/<110 while oral meds titrating-wean cardene drip #. Anxiety -Start lexparo -atarax PRN #. CAP -Continue Azithro and Rocephin, will continue and transition to oral -Direct AFB test negative, pending quant gold -Repeat CXR with no infiltates, isolation precuations off #. DMII with hyperglycemia -Not at goal -Inc to aggressive sliding scale to cover while on steroids #. NATANAEL on CKD Stage 3-stable -Cr: 5.3 -> 5.0-> 4.16 -> 4.44 continue gentle fluids with LR 100 -AM BMPs #. Metabolic acidosis 2/2 renal failure-resolved -Improved -pH 7.3, fluids at 100 -pending AM BMP #CAD w/o ACS #. Iatrogenic hyperthyroidism -elevated t4, low TSH -dec synthroid dose 150-> 125, titrat eoutpt #. Thrombocytoepnia-stable -hold anticoagulation #. Diastolic heart failure-stable -monitor fluid status #. BPH -Continue home flomax #. Elevated Alk Phos -Ordered GGT- GI cause vs bone #. CAD/Hx of CABG/HFpEF ECHO 09/29/18 EF 55-60% -Hold coreg & ASA, pending cardiolgy recs, much apprecaited -Will hold Torsemide, Metolazone, and Candesartan due to NATANAEL #. HLD -Will continue home Atorvastatin #. Gastroparesis -Will continue home Metoclopramide Code Status: Full Diet: HHLSo, CC DVT PPx: SCD, Plt: 105 GI PPx: Pepcid PCP: Dino Dipo: CCU inpt, LOS > 48H. . Addendum - Attending - Attending Attestation Date/Time: 11/09/19 4686 I personally evaluated the patient and discussed the management with Dr. Stearns yesterday. I agree with the History, Examination, Assessment and Plan documented above with any addition or exceptions noted below.
[2019-11-08] MEDS: Carvedilol 6.25 MG TAB PO SCH (07:46)
[2019-11-08] MEDS: hydrALAZINE 25 MG TAB PO SCH ×2 (07:46→14:40)
[2019-11-08 08:04] LABS: #Basophils 0.1 thou/uL (0.0-0.2); #Lymphocytes 0.3 thou/uL (1.20-3.40); #Monocytes 0.2 thou/uL (0.11-0.59); #Neutrophils 8.3 thou/uL (1.40-6.50); %Basophils 0.7 % (0.0-1.0); %Eosinophils 0.2 % (0.0-10.0); %Lymphocytes 3.7 % (21.0-51.0); %Monocytes 2.2 % (0.0-10.0); %Neutrophils 93.3 % (42.0-75.0); Hemoglobin 10.1 g/dL (14.0-18.0); Mean Corpuscular HGB CONC 33.2 g/dL (32.0-36.0); Mean Corpuscular Hemoglobin 30.5 pg (27.0-31.0); Mean Corpuscular Volume 91.8 fL (78.0-98.0); Mean Platelet Volume 9.2 fL (7.4-10.4); Platelet Count 134 thou/uL (130-400); RBC Distribution Width 12.1 % (11.5-14.5); Red Blood Cell (RBC) Count 3.32 mill/uL (4.70-6.10); White Blood Cell (WBC) Count 8.9 thou/uL (4.8-10.8)
[2019-11-08 08:10] LABS: Anion Gap 14 mmol/L (10-20); BUN (Urea Nitrogen) 94 mg/dL (8.4-25.7); Calc. Creatinine Clearance 33 mL/min (70-130); Carbon Dioxide 19 mmol/L (22-29); Chloride 109 mmol/L (98-107); Estimated GFR-MDRD 14; Glucose 285 mg/dL (70-105); Potassium 4.8 mmol/L (3.5-5.1); Sodium 137 mmol/L (136-145)
[2019-11-08] MEDS ORDERED: HumaLOG 300 UNITS/3 ML VIAL SC PRN (08:55)
[2019-11-08] MEDS ORDERED: Escitalopram Oxalate 10 mg Tablet PO SCH (09:00)
[2019-11-08] MEDS: Docusate 100 MG CAP PO SCH (09:18)
[2019-11-08] MEDS: Famotidine 20 MG TAB PO SCH (09:18)
[2019-11-08] MEDS: Aspirin Chewable 81 MG TAB PO SCH (09:19)
[2019-11-08] MEDS ORDERED: Milk Of Magnesia 30 ML UDCUP PO PRN (10:43)
[2019-11-08 11:24] VITALS: TEMP 98
[2019-11-08] MEDS ORDERED: predniSONE 20 MG TAB PO SCH (13:15)
[2019-11-08 14:41] VITALS: BP 154/78
[2019-11-08] MEDS ORDERED: glipiZIDE 10 MG TAB PO SCH (16:30)
[2019-11-08] MEDS ORDERED: Carvedilol 25 MG TAB PO SCH (17:00)
[2019-11-08] MEDS ORDERED: Azithromycin 250 MG TAB PO SCH (21:00)
[2019-11-08] MEDS ORDERED: Polyethylene Glycol 3350 17 GM Packet PO SCH (21:00)
[2019-11-08] MEDS ORDERED: Cefdinir 300 MG CAP PO SCH (21:00)
--- NOTE | 2019-11-09 08:49 | DIS ---
DATE OF ADMISSION: 11/04/2019 DATE OF DISCHARGE: 11/08/2019 ADMITTING ATTENDING: John Cordon MD DISCHARGE ATTENDING: Ashu Kay MD RESIDENT: Aggie Stearns, PGY-2 CONSULTS: 1. Nephrology, Dr. Christian Olea. 2. Cardiology, Dr. Hayden Rosario. 3. Pulmonology, Dr. Marcelo Burton. 5. Occupational Therapy. 6. Physical Therapy. PRIMARY DIAGNOSES: 1. Acute hypoxic respiratory failure secondary to community-acquired pneumonia versus viral bronchitis. 2. Community-acquired pneumonia. 3. Viral bronchitis. 4. Hypertension. 5. Anxiety. 6. Diabetes type 2 with hyperglycemia. 7. Acute kidney injury on chronic kidney disease. 8. Metabolic acidosis secondary to acute kidney injury, resolved. 9. Iatrogenic hyperthyroidism. 10. Thrombocytopenia; stable. 11. Diastolic heart failure. SECONDARY DIAGNOSES: 1. Benign prostatic hyperplasia. 2. Elevated alkaline phosphatase. 3. Coronary artery disease with history of coronary artery bypass graft. 4. Heart failure with preserved ejection fraction. 5. Hyperlipidemia. 6. Gastroparesis. DISCHARGE MEDICATIONS: New medications include; 1. Omnicef 300 mg p.o. q.12 hours for 5 days. 2. Prednisone 40 mg p.o. q.a.m. with meal for 5 days. 3. Azithromycin 250mg po daily for 3 days 4. Humalog aggressive sliding scale. 5. Lexapro 10 mg p.o. daily. 6. Hydralazine 100 mg p.o. t.i.d. 7. Synthroid 125 mcg p.o. daily. 8. Lantus 55 units subcu at bedtime for next 2 days, then drop down to 32 units. 9. Melatonin. 10. Coreg 12.5 p.o. b.i.d. RESUMED HOME MEDICATIONS: 1. Lipitor 40 mg p.o. at bedtime. 2. Ferrous sulfate 325 mg p.o. b.i.d. 3. Aspirin 81 mg p.o. daily. 4. Flomax 0.4 mg p.o. at bedtime. 5. Tramadol 50 mg 1 to 2 tabs p.o. t.i.d. p.r.n. for pain. 6. Glipizide 10 mg p.o. b.i.d. DISCONTINUED MEDICATIONS: 1. Hydralazine 50 mg p.o. t.i.d. 2. Candesartan. 3. Synthroid 150 mcg p.o. daily. 4. Coreg 6.25 mg p.o. b.i.d. PROCEDURES AND IMAGIN. Chest x-ray; no acute cardiopulmonary abnormality. 2. Transthoracic echo; ejection fraction 55% to 60%. Grade 1-3 diastolic dysfunction. Moderately dilated left atrium. Mitral annular calcification. Mild mitral regurgitation. Aortic valve sclerosis, but opens well. Mild tricuspid regurgitation. Right ventricular systolic pressure at 25 mmHg. HISTORY OF PRESENT ILLNESS/HOSPITAL COURSE: Mr. Venkata Sierra Jr is a 54-year- old male with PMH ofhypothyroidism, diabetes, hypertension, and heart failure with preserved ejection fraction, who presented to the ER with URI symptoms and worsening short of breath. He was found to be hypoxic and was started on BiPAP. Chest x-ray did show concern for left upper lobe infiltrate with perihilar bronchial cuffing. He was started on empiric antibiotics to treat both community-acquired pneumonia in addition to TB testing due to findings on the chest x-ray. TB testing was negative. Steroids were added as well due to concern for viral component and the patient improved clinically over the course of the next couple of days, being able to be weaned off the BiPAP. It is likely there also may be an underlying HUAN component. HTN: He also experienced a worsening of his blood pressure and needed to be started on a Cardene drip. This is likely due to discontinuation of his candesartan because of his renal function and the patient did have an NATANAEL ion CKD. Blood pressure remained stable with increasing dosages of his home medications. Overall, patient improved and was able to walk around without requiring any further respiratory support and was ready to go home on day of discharge. There were several medication adjustments made to his blood pressure and his diabetic medications that will be important for review upon returning to specialists and with PCP. DISPOSITION: Stable. DISCHARGE INSTRUCTIONS: 1. Location: Home. 2. Diet: Heart healthy, diabetic diet. 3. Activity: Ad willow as tolerated. 4. Followup: a. Please follow up with Dr. Sun. Discussing whether to continue Lexapro. b. Please follow up for sleep study. c. Please follow up with Dr. Graf. d. Please follow up with Dr. Olea; please discuss continued use of candesartan. 5. Please continue taking antibiotics to completion. 6. Please take higher dose of night insulin with aggressive sliding scale during the rest of the steroid course and titrate down as discussed. Job ID: [id number] [facility]
--- NOTE | 2019-11-10 04:43 | PQF ---
RYAN JUSTIN JR, GABRIEL MD [id number] CLINICAL DOCUMENTATION CLARIFICATION FORM: POST DISCHARGE Addendum to original discharge summary date: ____ Late entry note date: __ DATE: 11/10/2019 ATTN:JUANCHO DAVIS MD Please exercise your independent, professional judgment in responding to the clarification form. Clinical indicators are provided on the bottom of this form for your review Please check appropriate box(s) to clarify if the following diagnosis has been ruled in or ruled out: SEPSIS [ ] Ruled in diagnosis [ ] Continue to treat [ ] Resolved [ ] Ruled out diagnosis [ ] Cannot rule out diagnosis [ ] Other diagnosis [ ] Unable to determine For continuity of documentation, please document condition throughout progress notes and discharge summary. Thank You. CLINICAL INDICATORS - SIGNS / SYMPTOMS / LABS - concern for sepsis 2 PNA- H&P, 11/05, Francesco Burnham MD - Tachypnea-H&P, 11/05, Francesco Burnham MD - Non-Gap metabolic acidosis-H&P, 11/05, Francesco Burnham MD - Temp: 98.2, RR: 28, Pulse:93- ED record, 11/05, Mildred HOOKER - WBC: 4.8 on 11/04, 4.4L on 4.4L-Laboratory report - Community acquired pneumonia- DS, 11/08, Aggie Stearns MD RISK FACTORS - Acute kidney injury-H&P, 11/05, Francesco Burnham MD - Acute hypoxic respiratory failure-DS, 11/08, Aggie Stearns MD TREATMENTS -Rocephin.IV- DEC, 11/04 to 11/08 -Zithromax.IV-DEC, 11/04 to 11/06 (This form is maintained as a part of the permanent medical record) 2014 [employer]. All Rights Reserved Justine Atwood [not provided] [not provided] reassign to resident physician. KADY
--- NOTE | 2019-11-10 10:57 | EKG ---
Test Reason : SOB Blood Pressure : / mmHG Vent. Rate : 079 BPM Atrial Rate : 079 BPM P-R Int : 206 ms QRS Dur : 096 ms QT Int : 412 ms P-R-T Axes : 009 -16 070 degrees QTc Int : 472 ms Normal sinus rhythm Incomplete right bundle branch block Nonspecific ST abnormality Abnormal ECG Confirmed by ISSAC CRUZ, KENDRA Lazo ([id number]), medical transcription editor CYNDY EVANGELISTA ([id number]) on 11/10/2019 10:56:56 AM Referred By: ISSAC Confirmed By:KENDRA DAVENPORT MD
== END 2019-11-08 15:15 | disposition home or self-care (01) | DRG 193 ==
LOC: ERS 20:26 → IMCU/EMU 23:51 → CCU 11-05 00:59 → IMCU/EMU 11-08 07:56
PROVIDERS: ADMIT Family Medicine; ATTEND Family Medicine
PROC: 5A09357 Assistance with Respiratory Ventilation, Less than 24 Consecutive Hours, Continuous Positive Airway Pressure (ICD-10-PCS; principal; 2019-11-05)
DX: J18.9 Pneumonia, unspecified organism (principal); J96.01 Acute respiratory failure with hypoxia; N17.9 Acute kidney failure, unspecified; E87.2 Acidosis; I50.32 Chronic diastolic (congestive) heart failure; I13.0 Hypertensive heart and chronic kidney disease with heart failure and stage 1 through stage 4 chronic kidney disease, or unspecified chronic kidney disease; E11.22 Type 2 diabetes mellitus with diabetic chronic kidney disease; J20.8 Acute bronchitis due to other specified organisms; E05.80 Other thyrotoxicosis without thyrotoxic crisis or storm; N40.0 Benign prostatic hyperplasia without lower urinary tract symptoms; I25.10 Atherosclerotic heart disease of native coronary artery without angina pectoris; E78.5 Hyperlipidemia, unspecified; E11.43 Type 2 diabetes mellitus with diabetic autonomic (poly)neuropathy; K31.84 Gastroparesis; F41.9 Anxiety disorder, unspecified; H54.8 Legal blindness, as defined in USA; N18.3 Chronic kidney disease, stage 3 (moderate); D69.6 Thrombocytopenia, unspecified; E11.65 Type 2 diabetes mellitus with hyperglycemia; Z79.4 Long term (current) use of insulin; Z95.1 Presence of aortocoronary bypass graft
CPT/HCPCS: 36415; 36416; 71045; 80048; 80053; 80306; 82553; 82570; 82728; 82805; 82977; 83540; 83550; 83605; 83880; 84145; 84300; 84439; 84443; 84484; 85025; 85060; 86480; 86580; 87040; 87116; 87206; 87449; 87804; 87899; 89220; 93005; 93306; 94640; 94660; 94760; 96365; 96367; 96375; J0360; J0456; J0696; J1815; J2060; J2405; J2550; J2920; J2930; J3490; J7050; J7512; J7620

== ENCOUNTER 2019-11-27 20:20 | Outpatient (CLI) | payer MEDICARE | END 2019-11-27 20:21 | disposition home or self-care (01) | LOC: SLEEPLAB 20:20 | PROVIDERS: ATTEND Family Medicine | DX: G47.33 Obstructive sleep apnea (adult) (pediatric) (principal); R53.83 Other fatigue; R09.89 Other specified symptoms and signs involving the circulatory and respiratory systems; I48.0 Paroxysmal atrial fibrillation | CPT/HCPCS: 95811 ==

== ENCOUNTER 2019-12-26 04:58 | Inpatient (IN) | payer MEDICARE ==
[2019-12-26 05:52] LABS: Hemoglobin 9.1 g/dL (14.0-18.0); Mean Corpuscular Hemoglobin 31.4 pg (27.0-31.0); Mean Corpuscular Volume 95.1 fL (78.0-98.0); RBC Distribution Width 14.2 % (11.5-14.5); Red Blood Cell (RBC) Count 2.91 mill/uL (4.70-6.10); White Blood Cell (WBC) Count 5.3 thou/uL (4.8-10.8)
[2019-12-26 06:09] LABS: ALT (SGPT) 34 U/L (8-55); AST (SGOT) 25 U/L (5-34); Albumin 3.3 g/dL (3.5-5.0); Alkaline Phosphatase 142 U/L (40-110); Anion Gap 13 mmol/L (10-20); BUN (Urea Nitrogen) 57 mg/dL (8.4-25.7); Bilirubin, Total 0.3 mg/dL (0.2-1.2); Calc. Creatinine Clearance 0 mL/min (70-130); Carbon Dioxide 22 mmol/L (22-29); Chloride 112 mmol/L (98-107); Estimated GFR-MDRD 14; Globulin 1.8 g/dL (2.4-3.5); Glucose 189 mg/dL (70-105); Potassium 4.2 mmol/L (3.5-5.1); Protein, Total 5.1 g/dL (6.0-8.3); Sodium 143 mmol/L (136-145)
[2019-12-26 06:32] LABS: CKMB 7.4 ng/mL (0-6.6); Critical Call CKMB RESULT DECREASING
[2019-12-26 06:33] LABS: #Eosinphils 0.5 thou/uL (0.0-0.7); #Lymphocytes 0.9 thou/uL (1.20-3.40); #Monocytes 0.5 thou/uL (0.11-0.59); #Neutrophils 3.4 thou/uL (1.40-6.50); %Basophils 0.4 % (0.0-1.0); %Eosinophils 8.9 % (0.0-10.0); %Lymphocytes 17.7 % (21.0-51.0); %Monocytes 8.5 % (0.0-10.0); %Neutrophils 64.4 % (42.0-75.0); MDiff Complete? YES; Mean Platelet Volume 10.1 fL (7.4-10.4); Ovalocytes SLIGHT = 2-5 cells (100X) (0-1/hpf); Platelet Count 87 thou/uL (130-400); Platelet Morphology Comment Appears Decreased
[2019-12-26] MEDS ORDERED: Nitroglycerin 2% Ointment 1 INCH/1 GM Packet ONE (06:34)
[2019-12-26] MEDS ORDERED: Furosemide 40 MG/4 ML VIAL ONE (06:34)
--- NOTE | 2019-12-26 07:56 | RAD ---
SINGLE VIEW CHEST: Date: 12/26/2019 COMPARISON: 11/06/2019. HISTORY: Leg swelling for 2 weeks and shortness of breath. FINDINGS: Single view of the chest shows an enlarged but stable cardiomediastinal silhouette. The patient is st atus post sternotomy. Increased interstitial lung markings are present. No pleural effusion or nella consolidation is seen. IMPRESSION: Cardiomegaly and increased interstitial lung markings. This may represent interstitial edema. POS: C
[2019-12-26 08:41] VITALS: BMI 40.1
[2019-12-26] MEDS ORDERED: FATTY ACIDS PO SCH (09:00)
[2019-12-26] MEDS ORDERED: [UNRECOGNIZED DRUG - OTHER] PO SCH (09:00)
[2019-12-26] MEDS ORDERED: FISH OIL PO SCH (09:00)
[2019-12-26] MEDS ORDERED: OMEGA PO SCH (09:00)
[2019-12-26 10:31] LABS: Troponin I 0.056 ng/mL (< 0.028)
[2019-12-26] MEDS ORDERED: Acetaminophen 325 MG TAB PO PRN (10:57)
[2019-12-26] MEDS ORDERED: Ondansetron ODT 4 MG TAB PO PRN (10:57)
[2019-12-26] MEDS ORDERED: Docusate 100 MG CAP PO PRN (11:06)
[2019-12-26] MEDS ORDERED: Melatonin 3 MG TAB PO PRN (11:06)
--- NOTE | 2019-12-26 11:06 | PDOC.FPRHP ---
- History of Present Illness Chief Complaint: SOB History of Present Illness: Patient is a 54M with PMHx of diastolic CHF, CKD, CAD, hypothyroidism, IDDM, HTN , HUAN that presented for SOB. Patient reports that symptoms have been slowly worsening since he was discharged in October for pneumonia. He reports feeling acutely short of breath yesterday, accompanied by fluid overload in his legs and abdomen. He endorses a chronic productive cough. Denies fever, chest pain. Reports that he continues to urinate, is not on HD. Theatre Arts Professor: Lefty Quitline Counselor: Lesia ED Course: 40mg IV lasix, 1inch nitropaste - Allergies/Adverse Reactions Allergies Allergy/AdvReac Type Severity Reaction Status Date / Time No Known Drug Allergies Allergy Verified 12/26/19 09:23 - Home Medications Medication Instructions Recorded Confirmed Type Aspirin 81 mg PO DAILY 05/04/14 12/26/19 History Atorvastatin Calcium [Lipitor] 40 mg PO HS 02/25/18 12/26/19 History glipiZIDE [Glipizide] 10 mg PO BID 02/25/18 12/26/19 History Tamsulosin HCl [Flomax] 0.4 mg PO HS #30 cap 03/01/18 12/26/19 Rx traMADol HCl [Tramadol HCl] 1 - 2 tab PO Q6HR 11/07/19 12/26/19 History Acetaminophen [Tylenol Regular 650 mg PO Q4H PRN tab 11/08/19 12/26/19 Rx Strength] Famotidine [Pepcid] 20 mg PO DAILY tab 11/08/19 12/26/19 Rx Levothyroxine Sodium [Synthroid] 125 mcg PO 0600 #30 tab 11/08/19 12/26/19 Rx Melatonin 3 mg PO HS PRN tab 11/08/19 12/26/19 Rx hydrALAZINE [Apresoline] 100 mg PO TID #90 tab 11/08/19 12/26/19 Rx Candesartan Cilexetil 4 mg PO DAILY 12/26/19 12/26/19 History Carvedilol [Coreg] 6.25 mg PO BID-WM 12/26/19 12/26/19 History Docusate [Colace] 100 mg PO BID PRN 12/26/19 12/26/19 History HumaLOG [HumaLOG Vial] 0 units SC ACHS PRN 12/26/19 12/26/19 History Insulin Glargine [Lantus] 30 units SC DAILY 12/26/19 12/26/19 History Krill/[place]-3/Dha/Epa/Lipids 300 mg PO DAILY 12/26/19 12/26/19 History [Krill Oil 300 mg Softgel] Metoclopramide HCl 5 mg PO TID 12/26/19 12/26/19 History Multivit-Min/FA/Lycopen/Lutein 1 tab PO DAILY 12/26/19 12/26/19 History [Centrum Silver Tablet] - History PMHx: diastolic CHF, hypothyroidism, IDDM, HTN, HUAN, CKD, CAD PSHx: CABG (3 vessel), R eye sx, L prosthetic eye FHx: mother and father had CAD Social: 20 pack year smoking hx, not current smoker; no drug use, no etoh use - Review of Systems General: denies: fever/chills, weight/appetite/sleep changes Eyes: denies: eye pain, vision changes ENT: denies: nasal congestion, rhinorrhea Respiratory: reports: cough, shortness of breath Cardiovascular: reports: edema. denies: chest pain Gastrointestinal: denies: nausea, vomiting, diarrhea Genitourinary: denies: incontinence, dysuria Skin: denies: rashes, jaundice Musculoskeletal: reports: swelling. denies: pain Neurological: denies: syncope, seizure Psychological: denies: anxiety, depression - Vital signs BP: [191/70] HR: [70] RR: [16] Tmax: [98.4F] Pox: [96]% on [RA] Wt: [127.26kg ] - Physical Exam Constitutional: awake, alert and oriented, well developed HEENT: normocephalic and atraumatic, MMM Neck: supple, FROM Chest: no-tender to palpation, no lesions Heart: RRR, other (1+ pitting edema BLE up to knees) Lungs: CTAB, no respiratory distress Abdomen: soft, bowel sounds present Musculoskeletal: normal structure, ROM grossly normal Neurological: no focal deficit, normal sensation Skin: no rash/lesions, good turgor, other (tattoos throughout) Heme/Lymphatic: no unusual bruising or bleeding, no purpura Psychiatric: normal mood and affect, good judgment and insight FMR H&P: Results - Labs Result Diagrams: 12/26/19 05:20 12/26/19 05:20 Lab results: WBC 5.3 thou/uL (4.8-10.8) 12/26/19 05:20 Hgb 9.1 g/dL (14.0-18.0) L 12/26/19 05:20 Hct 27.6 % (42.0-52.0) L 12/26/19 05:20 MCV 95.1 fL (78.0-98.0) 12/26/19 05:20 Plt Count 87 thou/uL (130-400) L 12/26/19 05:20 Neutrophils % 64.4 % (42.0-75.0) 12/26/19 05:20 Sodium 143 mmol/L (136-145) 12/26/19 05:20 Potassium 4.2 mmol/L (3.5-5.1) 12/26/19 05:20 Chloride 112 mmol/L (98-107) H 12/26/19 05:20 Carbon Dioxide 22 mmol/L (22-29) 12/26/19 05:20 BUN 57 mg/dL (8.4-25.7) H 12/26/19 05:20 Creatinine 4.51 mg/dL (0.7-1.3) H 12/26/19 05:20 Glucose 189 mg/dL (70-105) H 12/26/19 05:20 Calcium 8.0 mg/dL (7.8-10.44) 12/26/19 05:20 Total Bilirubin 0.3 mg/dL (0.2-1.2) 12/26/19 05:20 AST 25 U/L (5-34) 12/26/19 05:20 ALT 34 U/L (8-55) 12/26/19 05:20 Alkaline Phosphatase 142 U/L (40-110) H 12/26/19 05:20 CK-MB (CK-2) 7.4 ng/mL (0-6.6) H* 12/26/19 05:20 B-Natriuretic Peptide 1571.2 pg/mL (0-100) H 12/26/19 05:20 Serum Total Protein 5.1 g/dL (6.0-8.3) L 12/26/19 05:20 Albumin 3.3 g/dL (3.5-5.0) L 12/26/19 05:20 - EKG Interpretation EKG: sinus, 1st degree - Radiology Interpretation Chest x-ray Status: report reviewed by me (cardiomegaly. increased interstitial lung markings) FMR H&P: A/P - Problem List (1) Acute on chronic diastolic (congestive) heart failure Current Visit: No Status: Acute Code(s): I50.33 - ACUTE ON CHRONIC DIASTOLIC (CONGESTIVE) HEART FAILURE Comment: Continue Lasix 40mg po BID, serial weights, I/O's, EF 55-60%, mod TR (2) Diabetes mellitus Current Visit: No Status: Chronic Code(s): E11.9 - TYPE 2 DIABETES MELLITUS WITHOUT COMPLICATIONS (3) CKD (chronic kidney disease) Current Visit: No Status: Chronic Code(s): N18.9 - CHRONIC KIDNEY DISEASE, UNSPECIFIED Qualifiers: Chronic kidney disease stage: stage 3 (moderate) Qualified Code(s): N18.3 - Chronic kidney disease, stage 3 (moderate) Comment: Stable.avoid any nephrotoxic meds.Nephrology consulted (4) DM2 (diabetes mellitus, type 2) Current Visit: No Status: Chronic Comment: continue accuchecks, insulin sliding scale (5) Hyperlipidemia Current Visit: No Status: Chronic Code(s): E78.5 - HYPERLIPIDEMIA, UNSPECIFIED Comment: on atorvastatin (6) Hypertension Current Visit: No Status: Chronic Code(s): I10 - ESSENTIAL (PRIMARY) HYPERTENSION Qualifiers: Hypertension type: essential hypertension Qualified Code(s): I10 - Essential (primary) hypertension Comment: add scheduled hydralazine (7) Hypothyroidism Current Visit: No Status: Chronic Code(s): E03.9 - HYPOTHYROIDISM, UNSPECIFIED Comment: on Levothyroxine - Plan Patient is a 54M with diastolic CHF, hypothyroidism, CKD, IDDM, HTN, CAD, HUAN admitted for acute on chronic diastolic CHF exacerbation #acute on chronic diastolic CHF exacerbation -patient presented SOB with 1+ pitting edema BLE up to knees, not requiring oxygen -echo 10/2019: EF 55-60% with stage 1/3 diastolic dysfunction; Right ventricle systolic pressure ~25mmHg -BNP 1571, previous ~200 -CXR: cardiomegaly, increased interstitial lung markings -received 40mg lasix IV in ED, will give another tonight with home metolazone -if lasix unsuccessful, may consider dialysis -nephrology, Dr. Olea, consulted, appreciate recs -strict I/O -daily weights #Hypothyroidism -continue home meds #IDDM -reports he takes 30u lantus sc qd, will continue -aggressive ISS -ACHS accuchecks -diabetes protocol #HTN -stopped candesartan due to low GFR -continue home hydralazine, will add imdur and prn labetalol #CAD -continue home asa and statin #CKD -GFR at baseline -patient is fluid overloaded with pitting edema BLE up to knees -patient reports that he continues to make some urine -will consult electrical parts reconditioner, Dr. Olea, appreciate recs -will avoid renally toxic meds Diet: HH, DM, Renal-low protein DVT ppx: Heparin SCDs Dispo: obs for CHF exacerbation; nephrology consulted, appreciate recs; will continue to diurese, monitor strict I/O and daily weights Code: full PCP: Dino MAGUIRE H&P: Upper Level - Plan Date/Time: 12/26/19 1106 I, David Bonner, , have evaluated this patient and agree with findings/ plan as outlined by international editorial producer resident. Pertinent changes/additions are listed here. Pt seen and examined with Dr Guerrero. Agree with the above history and physical exam as documented. 54 yo M with CAD, HFpEF and ESRD not on dialysis presents with worsening dyspnea and s/s of volume overload. Pt Reports worsening edema over last 2 weeks. He reports decent UOP with lasix, unknown volume. Will touch base with pts electrical parts reconditioner and trend troponins. May need dialysis for fluid removal. Strict IsOs, daily weights and cont lasix. If diuresis in adequate, consider intitation of dialysis.
[2019-12-26] MEDS ORDERED: Dextrose 50% Abboject 50 ML SYRINGE SLOW IVP PRN (11:10)
[2019-12-26] MEDS ORDERED: Dextrose 5% in Water 1,000 ML IV PRN (11:10)
[2019-12-26] MEDS ORDERED: HumaLOG 300 UNITS/3 ML VIAL SC PRN ×4 (11:10→11:33)
[2019-12-26] MEDS ORDERED: Labetalol HCl 100 MG/20 ML VIAL SLOW IVP PRN (11:16)
[2019-12-26] MEDS ORDERED: traMADol HCl 50 MG TAB PO PRN (11:21)
[2019-12-26] MEDS ORDERED: hydrOXYzine 10 MG/5 ML UDCUP PO PRN (11:35)
[2019-12-26 11:56] LABS: Troponin I 0.065 ng/mL (< 0.028)
[2019-12-26] MEDS ORDERED: Carvedilol 6.25 MG TAB PO SCH (12:00)
[2019-12-26] MEDS ORDERED: Lorazepam 1 MG TAB PO PRN (12:01)
[2019-12-26] MEDS: Isosorbide Mononitrate (ER) 30 MG TAB PO SCH (13:04)
[2019-12-26] MEDS: Famotidine 20 MG TAB PO SCH (13:04)
[2019-12-26] MEDS: Levothyroxine Sodium 125 MCG TAB PO SCH (13:04)
[2019-12-26] MEDS: hydrALAZINE 25 MG TAB PO SCH ×2 (15:13→20:30)
[2019-12-26] MEDS: Heparin 5,000 UNITS/ML VIAL SC SCH ×2 (15:13→20:37)
[2019-12-26] MEDS: Metoclopramide HCl 10 MG TAB PO SCH ×2 (15:14→20:29)
[2019-12-26 15:34] LABS: Troponin I 0.089 ng/mL (< 0.028)
--- NOTE | 2019-12-26 16:23 | HP ---
I have examined the patient. I have discussed the case with Dr. Edith Guerrero and agree with her assessment and plan. HISTORY OF PRESENT ILLNESS: Briefly, Mr. Sierra is a 54-year-old man with a history of coronary artery disease and heart failure as well as many other problems including type 2 diabetes and CKD 5 nearing end-stage and need for dialysis. He for the last several days has had increased shortness of breath to the point that he presented to our ER for admission. PHYSICAL EXAMINATION: VITAL SIGNS: Blood pressure is 166/85, his pulse rate is 74, respirations 26, temperature 98, O2 saturation on room air was 92%. GENERAL: He is a slightly lethargic, obese man who, however, is awake, alert, when talked to, and complaining of some mild shortness of breath. He appears to be in no acute distress. EAR, NOSE, AND THROAT: No erythema or exudate. NECK: Thick, supple. Throat, no erythema. CARDIAC: Heart rhythm is regular. S4 gallop. No murmur or rub noted. LUNGS: Clear. I hear no rales, no wheezes. He is not using accessory muscles. ABDOMEN: Flat, soft, obese without guarding, rebound, or rigidity. EXTREMITIES: He has 2 to 3+ pretibial edema. LABORATORY DATA: Chemistry: Sodium 143, potassium 4.2, chloride 112, bicarb 22, BUN 57, creatinine is 4.51 with a GFR of 14. Liver transaminases are normal. Troponin level at 0.054 and 0.056. His BNP is 1571. Chest x-ray shows cardiomegaly and some increased interstitial lung markings representing interstitial edema. ASSESSMENT: 1. Mild pulmonary edema. 2. History of heart failure. 3. Chronic kidney disease, nearing end-stage renal disease. 4. Sleep apnea, not currently treated. PLAN: Admit. Adjust medications given his CKD. Consult Cardiology. The patient normally sees Dr. Graf on Cardiology. Job ID: [id number]
[2019-12-26] MEDS ORDERED: Carvedilol 25 MG TAB PO SCH (17:00)
[2019-12-26] MEDS ORDERED: Metolazone 5 MG TAB PO SCH (17:30)
[2019-12-26] MEDS: Carvedilol 6.25 MG TAB PO SCH (17:57)
[2019-12-26] MEDS ORDERED: Furosemide 40 MG/4 ML VIAL SLOW IVP SCH (18:00)
[2019-12-26 18:54] LABS: CKMB 6.5 ng/mL (0-6.6)
[2019-12-26] MEDS: glipiZIDE 10 MG TAB PO SCH (20:28)
[2019-12-26] MEDS: Tamsulosin HCl 0.4 MG CAP PO SCH (20:29)
[2019-12-26] MEDS: Atorvastatin Calcium 40 MG TAB PO SCH (20:30)
[2019-12-27] MEDS: Levothyroxine Sodium 125 MCG TAB PO SCH (04:32)
--- NOTE | 2019-12-27 05:15 | PDOC.FM ---
- Subjective Subjective: Patient reports that he feels better this morning. His breathing has improved and he feels that his legs and abdomen are less swollen. Used a CPAP last night , he reports that it helped. Discussed plans to work with Dr. Olea to continue to try to diurese him, patient agreeable with plan of care. - Objective Vital Signs & Weight: Vital Signs (12 hours) Temp Pulse Resp BP BP Pulse Ox 12/27/19 04:30 99.0 F 65 14 156/69 H 99 12/27/19 03:56 62 20 98 12/27/19 00:18 73 21 H 163/68 H 12/26/19 22:05 48 L 134/64 12/26/19 21:24 189/90 H 12/26/19 20:30 61 190/80 H 12/26/19 19:24 97.8 F 62 20 185/85 H 99 12/26/19 18:23 60 19 99 12/26/19 17:29 54 L 185/73 H 99 Weight Weight 126.008 kg I&O: 12/25/19 12/26/19 12/27/19 06:59 06:59 06:59 Intake Total 500 Output Total 400 Balance 100 Result Diagrams: 12/27/19 04:33 12/27/19 04:33 EKG Reviewed by me: Yes (sinus, 1st degree) Phys Exam - Physical Examination Constitutional: NAD HEENT: moist MMs, sclera anicteric Neck: supple, full ROM Respiratory: no wheezing, clear to auscultation bilateral Cardiovascular: RRR, no significant murmur Gastrointestinal: soft, non-tender 1+ pitting edema BLE up to knees Neurological: non-focal, moves all 4 limbs Psychiatric: normal affect, A&O x 3 Skin: no rash, normal turgor Dx/Plan (1) Acute on chronic diastolic (congestive) heart failure Code(s): I50.33 - ACUTE ON CHRONIC DIASTOLIC (CONGESTIVE) HEART FAILURE Status : Acute (2) Diabetes mellitus Code(s): E11.9 - TYPE 2 DIABETES MELLITUS WITHOUT COMPLICATIONS Status: Chronic (3) CKD (chronic kidney disease) Code(s): N18.9 - CHRONIC KIDNEY DISEASE, UNSPECIFIED Status: Chronic Qualifiers: Chronic kidney disease stage: stage 3 (moderate) Qualified Code(s): N18.3 - Chronic kidney disease, stage 3 (moderate) (4) DM2 (diabetes mellitus, type 2) Status: Chronic (5) Hyperlipidemia Code(s): E78.5 - HYPERLIPIDEMIA, UNSPECIFIED Status: Chronic (6) Hypertension Code(s): I10 - ESSENTIAL (PRIMARY) HYPERTENSION Status: Chronic Qualifiers: Hypertension type: essential hypertension Qualified Code(s): I10 - Essential (primary) hypertension (7) Hypothyroidism Code(s): E03.9 - HYPOTHYROIDISM, UNSPECIFIED Status: Chronic - Plan Plan: Patient is a 54M with diastolic CHF, hypothyroidism, CKD, IDDM, HTN, CAD, HUAN admitted for acute on chronic diastolic CHF exacerbation #acute on chronic diastolic CHF exacerbation -patient presented SOB with 1+ pitting edema BLE up to knees, not requiring oxygen -echo 10/2019: EF 55-60% with stage 1/3 diastolic dysfunction; Right ventricle systolic pressure ~25mmHg -BNP 1571, previous ~200 -CXR: cardiomegaly, increased interstitial lung markings -if lasix unsuccessful, may consider dialysis -nephrology, Dr. Olea, consulted, appreciate recs -start 80mg lasix qd -5mg metolazone po qd -urine spot protein/creatinine -strict I/O -daily weights #Elevated Troponins -trop 0.056>0.065>0.089>0.063 -likely due to fluid overload; patient denies chest pain #Hypothyroidism -continue home meds #IDDM -unsure of home lantus dosing; patient has been wavering with dosing; will start with 15u lantus -aggressive ISS -ACHS accuchecks -diabetes protocol #HTN -stopped candesartan due to low GFR -continue home hydralazine, added imdur and prn labetalol #CAD -continue home asa and statin #CKD -GFR at baseline -patient is fluid overloaded with pitting edema BLE up to knees -patient reports that he continues to make some urine -will consult appeals reviewer veteran, Dr. Olea, appreciate recs; see above -will avoid renally toxic meds Diet: HH, DM, Renal-low protein DVT ppx: Heparin SCDs Dispo: obs for CHF exacerbation; nephrology consulted, appreciate recs; will continue to diurese, monitor strict I/O and daily weights Code: full PCP: Dino
[2019-12-27 05:19] LABS: Anion Gap 11 mmol/L (10-20); BUN (Urea Nitrogen) 58 mg/dL (8.4-25.7); Calc. Creatinine Clearance 32 mL/min (70-130); Carbon Dioxide 22 mmol/L (22-29); Chloride 112 mmol/L (98-107); Estimated GFR-MDRD 13; Glucose 110 mg/dL (70-105); Magnesium 2.1 mg/dL (1.6-2.6); Potassium 3.9 mmol/L (3.5-5.1); Sodium 141 mmol/L (136-145)
[2019-12-27 05:20] LABS: Phosphorus 4.1 mg/dL (2.3-4.7)
[2019-12-27 05:58] LABS: #Eosinphils 0.4 thou/uL (0.0-0.7); #Monocytes 0.5 thou/uL (0.11-0.59); #Neutrophils 2.9 thou/uL (1.40-6.50); %Basophils 0.6 % (0.0-1.0); %Eosinophils 8.5 % (0.0-10.0); %Lymphocytes 20.3 % (21.0-51.0); %Monocytes 9.5 % (0.0-10.0); %Neutrophils 61.1 % (42.0-75.0); Hemoglobin 8.2 g/dL (14.0-18.0); Mean Corpuscular Hemoglobin 30.5 pg (27.0-31.0); Mean Corpuscular Volume 95.3 fL (78.0-98.0); Mean Platelet Volume 9.9 fL (7.4-10.4); Platelet Count 91 thou/uL (130-400); RBC Distribution Width 14.1 % (11.5-14.5); Red Blood Cell (RBC) Count 2.69 mill/uL (4.70-6.10); White Blood Cell (WBC) Count 4.7 thou/uL (4.8-10.8)
[2019-12-27] MEDS ORDERED: Insulin Glargine 30 UNITS in Pre-Filled Syringe 1 EACH SC SCH (09:00)
[2019-12-27] MEDS: Furosemide 80 MG TAB PO SCH (09:18)
[2019-12-27] MEDS: Famotidine 20 MG TAB PO SCH (09:18)
[2019-12-27] MEDS: Metolazone 5 MG TAB PO SCH (09:18)
[2019-12-27] MEDS: glipiZIDE 10 MG TAB PO SCH ×2 (09:18→20:22)
[2019-12-27] MEDS: Isosorbide Mononitrate (ER) 30 MG TAB PO SCH (09:19)
[2019-12-27] MEDS: Aspirin 81 mg Enteric Coated Tablet PO SCH (09:19)
[2019-12-27] MEDS: Multivitamin W/ Minerals 1 TAB PO SCH (09:19)
[2019-12-27] MEDS: hydrALAZINE 25 MG TAB PO SCH ×3 (09:19→20:23)
[2019-12-27] MEDS: Metoclopramide HCl 10 MG TAB PO SCH ×3 (09:19→20:22)
[2019-12-27] MEDS: Carvedilol 6.25 MG TAB PO SCH ×2 (09:19→16:40)
[2019-12-27] MEDS: Heparin 5,000 UNITS/ML VIAL SC SCH ×3 (09:20→20:24)
[2019-12-27] MEDS: Insulin Glargine 15 UNITS in Pre-Filled Syringe 1 EACH SC SCH (09:20)
[2019-12-27 14:40] LABS: Creatinine, Urine 65.26 mg/dL (63-166)
[2019-12-27 15:20] LABS: Creatinine, Urine 64.55 mg/dL (63-166)
--- NOTE | 2019-12-27 15:23 | PRG ---
DATE OF SERVICE: 12/27/2019 ADDENDUM: Please add this as an addendum to the note of Dr. Edith Guerrero. Mr. Sierra looks and feels better this morning. He is getting good response from the Lasix. He still has a degree of peripheral edema, but no pulmonary edema. He was seen in consultation by Dr. Olea who feels there is no need for dialysis at this point. We will continue to follow with him in the cardiology service with likely discharge in a day or 2. Job ID: [id number]
[2019-12-27 15:36] LABS: Microalbumin Urine Greater than 200.0 mg/dL (0.5-50.0)
[2019-12-27] MEDS ORDERED: EPA PO SCH (17:00)
[2019-12-27] MEDS ORDERED: OMEGA PO SCH (17:00)
[2019-12-27] MEDS ORDERED: KRILL PO SCH (17:00)
[2019-12-27] MEDS ORDERED: LIPIDS PO SCH (17:00)
[2019-12-27] MEDS ORDERED: DHA PO SCH (17:00)
[2019-12-27] MEDS ORDERED: diphenhydrAMINE 25 MG CAP PO SCH (17:45)
[2019-12-27] MEDS ORDERED: traMADol HCl 50 MG TAB PO SCH (20:15)
[2019-12-27] MEDS: Tamsulosin HCl 0.4 MG CAP PO SCH (20:22)
[2019-12-27] MEDS: Atorvastatin Calcium 40 MG TAB PO SCH (20:22)
--- NOTE | 2019-12-28 06:07 | PDOC.FM ---
- Subjective Subjective: Patient doing well this morning. Used his CPAP overnight, reports that it helps him. Reports improved breathing and states that the swelling in his legs and abdomen have noticeably gone down. - Objective Vital Signs & Weight: Vital Signs (12 hours) Temp Pulse Resp BP BP Pulse Ox 12/28/19 05:00 97.6 F 61 20 178/70 H 98 12/28/19 03:00 98 12/28/19 00:22 66 19 157/72 H 99 12/27/19 20:23 64 134/64 12/27/19 19:34 98.2 F 64 18 132/62 97 Weight Weight 124.284 kg I&O: 12/26/19 12/27/19 12/28/19 06:59 06:59 06:59 Intake Total 740 1630 Output Total 1300 2275 Balance -560 -645 Result Diagrams: 12/27/19 04:33 12/28/19 06:28 EKG Reviewed by me: Yes (sinus 60s-70s, 1st degree) Phys Exam - Physical Examination Constitutional: NAD HEENT: moist MMs, sclera anicteric Neck: supple, full ROM scant wheezing upper lobes Cardiovascular: RRR, no significant murmur Gastrointestinal: soft, non-tender Musculoskeletal: pulses present 1+ pitting edema BLE Neurological: non-focal, moves all 4 limbs Psychiatric: normal affect, A&O x 3 Skin: no rash, normal turgor Dx/Plan (1) Acute on chronic diastolic (congestive) heart failure Code(s): I50.33 - ACUTE ON CHRONIC DIASTOLIC (CONGESTIVE) HEART FAILURE Status : Acute (2) Diabetes mellitus Code(s): E11.9 - TYPE 2 DIABETES MELLITUS WITHOUT COMPLICATIONS Status: Chronic (3) CKD (chronic kidney disease) Code(s): N18.9 - CHRONIC KIDNEY DISEASE, UNSPECIFIED Status: Chronic Qualifiers: Chronic kidney disease stage: stage 3 (moderate) Qualified Code(s): N18.3 - Chronic kidney disease, stage 3 (moderate) (4) DM2 (diabetes mellitus, type 2) Status: Chronic (5) Hyperlipidemia Code(s): E78.5 - HYPERLIPIDEMIA, UNSPECIFIED Status: Chronic (6) Hypertension Code(s): I10 - ESSENTIAL (PRIMARY) HYPERTENSION Status: Chronic Qualifiers: Hypertension type: essential hypertension Qualified Code(s): I10 - Essential (primary) hypertension (7) Hypothyroidism Code(s): E03.9 - HYPOTHYROIDISM, UNSPECIFIED Status: Chronic - Plan Plan: Patient is a 54M with diastolic CHF, hypothyroidism, CKD, IDDM, HTN, CAD, HUAN admitted for acute on chronic diastolic CHF exacerbation #acute on chronic diastolic CHF exacerbation -patient presented SOB with 1+ pitting edema BLE up to knees, not requiring oxygen -echo 10/2019: EF 55-60% with stage 1/3 diastolic dysfunction; Right ventricle systolic pressure ~25mmHg -BNP 1571, previous ~200 -CXR: cardiomegaly, increased interstitial lung markings -if lasix unsuccessful, may consider dialysis -nephrology, Dr. Olea, consulted, appreciate recs -start 80mg lasix qd 3/5 -5mg metolazone po qd -urine spot protein/creatinine -strict I/O: down 645ml this am -daily weights #Elevated Troponins -trop 0.056>0.065>0.089>0.063 -likely due to fluid overload; patient denies chest pain #Hypothyroidism -continue home meds #IDDM -unsure of home lantus dosing; patient has been wavering with dosing; started on 15u lantus, controlled his glucose well; will continue -ACHS accuchecks -diabetes protocol #HTN -stopped candesartan due to low GFR -continue home hydralazine, added imdur and prn labetalol #CAD -continue home asa and statin #CKD -GFR at baseline -patient is fluid overloaded with pitting edema BLE up to knees -patient reports that he continues to make some urine -will consult party plan sales consultant, Dr. Olea, appreciate recs; see above -will avoid renally toxic meds Diet: HH, DM, Renal-low protein DVT ppx: Heparin SCDs Dispo: inpatient for CHF exacerbation; nephrology consulted, appreciate recs; will continue to diurese, likely d/c today with prn lasix and to follow up with Dr. Olea outpatient Code: full PCP: Dino
[2019-12-28] MEDS: Levothyroxine Sodium 125 MCG TAB PO SCH (06:36)
[2019-12-28 07:02] LABS: Anion Gap 10 mmol/L (10-20); BUN (Urea Nitrogen) 58 mg/dL (8.4-25.7); Calc. Creatinine Clearance 31 mL/min (70-130); Calcium 7.9 mg/dL (7.8-10.44); Carbon Dioxide 23 mmol/L (22-29); Chloride 111 mmol/L (98-107); Estimated GFR-MDRD 13; Glucose 124 mg/dL (70-105); Potassium 3.9 mmol/L (3.5-5.1); Sodium 140 mmol/L (136-145)
[2019-12-28] MEDS ORDERED: diphenhydrAMINE 25 MG CAP PO SCH (07:45)
[2019-12-28] MEDS: hydrALAZINE 25 MG TAB PO SCH (07:53)
[2019-12-28] MEDS: Aspirin 81 mg Enteric Coated Tablet PO SCH (07:53)
[2019-12-28] MEDS: Isosorbide Mononitrate (ER) 30 MG TAB PO SCH (07:53)
[2019-12-28] MEDS: glipiZIDE 10 MG TAB PO SCH (07:53)
[2019-12-28] MEDS: Metolazone 5 MG TAB PO SCH (07:53)
[2019-12-28] MEDS: Furosemide 80 MG TAB PO SCH (07:54)
[2019-12-28] MEDS: Multivitamin W/ Minerals 1 TAB PO SCH (07:54)
[2019-12-28] MEDS: Famotidine 20 MG TAB PO SCH (07:54)
[2019-12-28] MEDS: Metoclopramide HCl 10 MG TAB PO SCH (07:54)
[2019-12-28] MEDS: Carvedilol 6.25 MG TAB PO SCH (07:54)
[2019-12-28] MEDS: Insulin Glargine 15 UNITS in Pre-Filled Syringe 1 EACH SC SCH (07:55)
[2019-12-28] MEDS: Heparin 5,000 UNITS/ML VIAL SC SCH (08:00)
[2019-12-28 08:26] VITALS: BP 141/98; TEMP 98.2
--- NOTE | 2019-12-28 12:01 | PRG ---
DATE OF SERVICE: 12/28/2019 Mr. Sierra looks and feels much better this morning. He is now .. Job ID: [id number]
--- NOTE | 2019-12-29 12:23 | EKG ---
Test Reason : SOB Blood Pressure : / mmHG Vent. Rate : 068 BPM Atrial Rate : 068 BPM P-R Int : 224 ms QRS Dur : 096 ms QT Int : 430 ms P-R-T Axes : -02 -16 041 degrees QTc Int : 457 ms Sinus rhythm with 1st degree A-V block Incomplete right bundle branch block Borderline ECG Confirmed by TONIO RAYMUNDO ([id number]), multimedia editor CYNDY EVANGELISTA ([id number]) on 12/29/2019 12:22:50 PM Referred By: Confirmed By:TONIO RAYMUNDO
== END 2019-12-28 12:11 | disposition home or self-care (01) | DRG 291 ==
LOC: ERS 04:58 → 2SW 06:51 → OBSVTOIN 06:51
PROVIDERS: ADMIT Emergency Medicine; ATTEND Emergency Medicine
DX: I13.0 Hypertensive heart and chronic kidney disease with heart failure and stage 1 through stage 4 chronic kidney disease, or unspecified chronic kidney disease (principal); I50.33 Acute on chronic diastolic (congestive) heart failure; I25.10 Atherosclerotic heart disease of native coronary artery without angina pectoris; E11.22 Type 2 diabetes mellitus with diabetic chronic kidney disease; E78.5 Hyperlipidemia, unspecified; E03.9 Hypothyroidism, unspecified; N18.3 Chronic kidney disease, stage 3 (moderate); G47.33 Obstructive sleep apnea (adult) (pediatric); Z79.82 Long term (current) use of aspirin; Z79.4 Long term (current) use of insulin; Z79.899 Other long term (current) drug therapy; Z95.1 Presence of aortocoronary bypass graft; Z79.890 Hormone replacement therapy; Z88.8 Allergy status to other drugs, medicaments and biological substances
CPT/HCPCS: 36415; 36416; 71045; 80048; 80053; 82043; 82553; 82570; 83735; 83880; 84100; 84156; 84484; 85025; 93005; 94660; 94760; 96374; J1644; J1815; J1940; Q0163

== ENCOUNTER 2019-12-29 20:30 | Outpatient (CLI) | payer MEDICARE | END 2019-12-29 20:31 | disposition home or self-care (01) | LOC: SLEEPLAB 20:30 | PROVIDERS: ATTEND Family Medicine | DX: G47.33 Obstructive sleep apnea (adult) (pediatric) (principal); I50.9 Heart failure, unspecified; R53.83 Other fatigue; R09.89 Other specified symptoms and signs involving the circulatory and respiratory systems; G47.31 Primary central sleep apnea; Z68.39 Body mass index [BMI] 39.0-39.9, adult | CPT/HCPCS: 95811 ==

== ENCOUNTER 2020-01-08 19:30 | Outpatient (CLI) | payer MEDICARE | END 2020-01-08 19:31 | disposition home or self-care (01) | LOC: SLEEPLAB 19:30 | PROVIDERS: ATTEND Family Medicine | DX: G47.33 Obstructive sleep apnea (adult) (pediatric) (principal); R53.83 Other fatigue; R09.89 Other specified symptoms and signs involving the circulatory and respiratory systems; R06.83 Snoring; G47.10 Hypersomnia, unspecified; G47.31 Primary central sleep apnea; E66.9 Obesity, unspecified; Z68.39 Body mass index [BMI] 39.0-39.9, adult | CPT/HCPCS: 95811 ==

== ENCOUNTER 2020-04-14 07:28 | Inpatient (IN) | payer MEDICARE, OTHER ==
[2020-04-14] MEDS ORDERED: Heparin 10,000 UNITS/ 10 ML VIAL FS PRN ×2 (13:17→13:30)
[2020-04-14] MEDS ORDERED: Tuberculin PPD 0.1 ML VIAL I-DERMAL SCH (13:30)
--- NOTE | 2020-04-14 14:13 | ULT ---
ULTRASOUND VENOUS MAPPING UPPER EXTREMITIES BILATERAL: DATE: 04/14/2020 HISTORY: 54-year-old male with End-stage renal disease. Surgical planning study for creation of arteriovenous fistula for hemodialysis. FINDINGS: RIGHT: Brachial artery:4.5 mm Radial artery:2 mm Ulnar artery:2 mm Cephalic vein: Proximal arm: 5 mm Mid arm: 4.5 mm Distal arm: 4 mm Antecubital: 7 Proximal forearm: 1 Mid forearm: 1.5 Distal forearm: 1 Basilic vein: Proximal arm: 4.5 mm Mid arm: 5 mm Distal arm: 4.5 mm Antecubital: 4 Proximal forearm: 1.5 Mid forearm: 1.5 Distal forearm: 1 LEFT: Cephalic vein: Proximal arm: 3 mm Mid arm: 3 mm Distal arm: 4 mm Antecubital: 4.5 Proximal forearm: 3 Mid forearm: 4 Distal forearm: 3 Basilic vein: Proximal arm: 9.5 mm Mid arm: 6.5 mm Distal arm: 7.5 mm Antecubital: 4.5 Proximal forearm: 1.5 Mid forearm: 1 Distal forearm: 1 IMPRESSION: Basilic veins in the bilateral arms and cephalic vein in the bilateral arms, are consistently 3 mm or larger in caliber.
[2020-04-14 14:25] LABS: Bacteria/HPF None Seen HPF (None Seen); Bilirubin Negative (Negative); Blood, Urine Trace (Negative); Clarity Clear (Clear); Glucose, Urine (Dipstick) 50 mg/dL (Negative); Leukocyte Negative Leu/uL (Negative); Nitrite Negative (Negative); Protein, Urine (Dipstick) 100 mg/dL (Neg-Trace); RBC/HPF 0-3 HPF (0-3); Squamous Epithelial 0-3 HPF (0-3); Urobilinogen Normal mg/dL (Less than 2); WBC/HPF 0-3 HPF (0-3)
[2020-04-14 14:34] LABS: Urine Culture Reflex No No
[2020-04-14 14:42] LABS: #Eosinphils 0.3 thou/uL (0.0-0.7); #Lymphocytes 0.9 thou/uL (1.20-3.40); #Monocytes 0.5 thou/uL (0.11-0.59); #Neutrophils 5.7 thou/uL (1.40-6.50); %Basophils 0.3 % (0.0-1.0); %Lymphocytes 12.6 % (21.0-51.0); %Monocytes 6.9 % (0.0-10.0); %Neutrophils 76.2 % (42.0-75.0); Hemoglobin 9.4 g/dL (14.0-18.0); Mean Corpuscular HGB CONC 32.3 g/dL (32.0-36.0); Mean Corpuscular Volume 92.9 fL (78.0-98.0); Mean Platelet Volume 11.1 fL (7.4-10.4); Platelet Count 93 thou/uL (130-400); RBC Distribution Width 13.4 % (11.5-14.5); Red Blood Cell (RBC) Count 3.12 mill/uL (4.70-6.10); White Blood Cell (WBC) Count 7.5 thou/uL (4.8-10.8)
[2020-04-14 15:04] LABS: ALT (SGPT) 28 U/L (8-55); AST (SGOT) 21 U/L (5-34); Albumin 3.3 g/dL (3.5-5.0); Alkaline Phosphatase 108 U/L (40-110); Anion Gap 16 mmol/L (10-20); BUN (Urea Nitrogen) 105 mg/dL (8.4-25.7); Bilirubin, Total 0.3 mg/dL (0.2-1.2); Calc. Creatinine Clearance 0 mL/min (70-130); Calcium 7.8 mg/dL (7.8-10.44); Carbon Dioxide 22 mmol/L (22-29); Chloride 108 mmol/L (98-107); Estimated GFR-MDRD 11; Globulin 2.5 g/dL (2.4-3.5); Glucose 152 mg/dL (70-105); Phosphorus 5.7 mg/dL (2.3-4.7); Potassium 4.5 mmol/L (3.5-5.1); Protein, Total 5.8 g/dL (6.0-8.3); Sodium 141 mmol/L (136-145)
[2020-04-14 15:39] LABS: HIV (1/2) Antibody/Antigen Non-Reactive (NonReactive); HIV 1/2 INDEX 0.08 S/CO (<1.00); Hep C IgG Ab Non-Reactive (NonReactive); Hep C Index 0.04 S/CO (0-0.79)
[2020-04-14 15:40] VITALS: BMI 40.4
--- NOTE | 2020-04-14 23:06 | PDOC.FPRHP ---
- History of Present Illness Chief Complaint: HD access History of Present Illness: 54yo M with h/o CKD now progressed to ESRD, IDDMII, HTN, HFpEF, CAD, Hypothyroidism, HUAN who presents as direct admit by nephrology for HD access and initiation of HD. Patient states he was notified by Dr. Olea today to present to the hospital to obtain HD access due to worsening renal function on recent labwork. Patient denies any acute illness, respiratory sxs, or concerns. He is eager for HD access placement and wants to be discharged as soon as possible. ED Course: N/A - direct admit - Allergies/Adverse Reactions Allergies Allergy/AdvReac Type Severity Reaction Status Date / Time insulin lispro Allergy Severe Anaphylaxis Verified 04/14/20 12:34 [From Humalog U-100 Insulin] - Home Medications Medication Instructions Recorded Confirmed Type Aspirin 81 mg PO DAILY 05/04/14 04/14/20 History Atorvastatin Calcium [Lipitor] 40 mg PO HS 02/25/18 04/14/20 History glipiZIDE [Glipizide] 10 mg PO BID 02/25/18 04/14/20 History Tamsulosin HCl [Flomax] 0.4 mg PO HS #30 cap 03/01/18 04/14/20 Rx traMADol HCl [Tramadol HCl] 1 - 2 tab PO Q6HR 11/07/19 04/14/20 History Famotidine [Pepcid] 20 mg PO DAILY tab 11/08/19 04/14/20 Rx Levothyroxine Sodium [Synthroid] 125 mcg PO 0600 #30 tab 11/08/19 04/14/20 Rx hydrALAZINE [Apresoline] 100 mg PO TID #90 tab 11/08/19 04/14/20 Rx Docusate [Colace] 100 mg PO BID PRN 12/26/19 04/14/20 History Ferrous Sulfate [Iron] 325 mg PO BID 12/26/19 04/14/20 History Krill/[place]-3/Dha/Epa/Lipids 300 mg PO DAILY 12/26/19 04/14/20 History [Krill Oil 300 mg Softgel] Metoclopramide HCl 5 mg PO TID 12/26/19 04/14/20 History Carvedilol [Coreg] 12.5 mg PO BID-WM 04/14/20 04/14/20 History Furosemide [Lasix] 40 mg PO QAM PRN 04/14/20 04/14/20 History Insulin Glargine [Lantus Vial] 20 units SC QAM 04/14/20 04/14/20 History Isosorbide Mononitrate [Isosorbide 30 mg PO DAILY 04/14/20 04/14/20 History Mononitrate ER] Metolazone [Zaroxolyn] 5 mg PO PRN PRN 04/14/20 04/14/20 History Sertraline HCl 50 mg PO DAILY 04/14/20 04/14/20 History - History PMHx: CAD, HFpEF, ESRD, IDDMII, HLD, Gastroparesis, GERD, BPD, HUAN, Hypothyroidism PSHx: CABG 3v, Pacemaker, L eye enucleation, R eye surgery FHx: Mother and father with CAD Social: previous 20py smoking history, current nonsmoker, denies EtOH or illicits. - Review of Systems General: denies: fever/chills, weight/appetite/sleep changes, night sweats, fatigue Eyes: reports: vision changes (chronic, no acute changes) ENT: denies: nasal congestion, rhinorrhea Respiratory: denies: cough, congestion, shortness of breath Cardiovascular: reports: edema (mild LE). denies: chest pain, palpitation Gastrointestinal: reports: nausea (mild after eating dinner). denies: vomiting , diarrhea, constipation, abdominal pain, GI bleeding Genitourinary: denies: incontinence, dysuria, discharge Skin: denies: rashes, lesions Musculoskeletal: denies: pain Neurological: denies: numbness, syncope, weakness - Vital signs wt 127kg Selected Entries 04/14/20 20:00 Temperature 98 F Pulse Rate 63 Blood Pressure 217/88 H [Sitting] Respiratory 20 Rate O2 Sat by Pulse 99 Oximetry Oxygen Delivery Room Air Method - Physical Exam Constitutional: NAD, awake, alert and oriented, well developed HEENT: normocephalic and atraumatic, conjunctiva clear, grossly normal hearing, MMM, oropharynx clear, other (Prostetic eye on Left) Neck: supple, trachea midline Heart: RRR, normal S1/S2, pulses present, other (1+ pitting edema to mid-cunningham BL LE. 2/6 LELIA best heard at right upper sternal border) Lungs: CTAB, no respiratory distress, good air movement, no rales/rhonchi, no wheezing Abdomen: soft, non-tender, bowel sounds present Musculoskeletal: normal structure, normal tone Neurological: no focal deficit Skin: good turgor Psychiatric: normal mood and affect, good judgment and insight, intact recent and remote memory FMR H&P: Results - Labs Result Diagrams: 04/15/20 04:15 04/15/20 04:15 Lab results: WBC 7.5 thou/uL (4.8-10.8) 04/14/20 14:31 Hgb 9.4 g/dL (14.0-18.0) L 04/14/20 14:31 Hct 29.0 % (42.0-52.0) L 04/14/20 14:31 MCV 92.9 fL (78.0-98.0) 04/14/20 14:31 Plt Count 93 thou/uL (130-400) L 04/14/20 14:31 Neutrophils % 76.2 % (42.0-75.0) H 04/14/20 14:31 Sodium 141 mmol/L (136-145) 04/14/20 14:31 Potassium 4.5 mmol/L (3.5-5.1) 04/14/20 14:31 Chloride 108 mmol/L (98-107) H 04/14/20 14:31 Carbon Dioxide 22 mmol/L (22-29) 04/14/20 14:31 BUN 105 mg/dL (8.4-25.7) H 04/14/20 14:31 Creatinine 5.31 mg/dL (0.7-1.3) H 04/14/20 14:31 Glucose 152 mg/dL (70-105) H 04/14/20 14:31 Calcium 7.8 mg/dL (7.8-10.44) 04/14/20 14:31 Total Bilirubin 0.3 mg/dL (0.2-1.2) 04/14/20 14:31 AST 21 U/L (5-34) 04/14/20 14:31 ALT 28 U/L (8-55) 04/14/20 14:31 Alkaline Phosphatase 108 U/L (40-110) 04/14/20 14:31 Serum Total Protein 5.8 g/dL (6.0-8.3) L 04/14/20 14:31 Albumin 3.3 g/dL (3.5-5.0) L 04/14/20 14:31 Urine Ketones Negative mg/dL (Negative) 04/14/20 13:40 Urine Blood Trace (Negative) A 04/14/20 13:40 Urine Nitrite Negative (Negative) 04/14/20 13:40 Ur Leukocyte Esterase Negative Anurag/uL (Negative) 04/14/20 13:40 Urine RBC 0-3 HPF (0-3) 04/14/20 13:40 Urine WBC 0-3 HPF (0-3) 04/14/20 13:40 Ur Squamous Epith Cells 0-3 HPF (0-3) 04/14/20 13:40 Urine Bacteria None Seen HPF (None Seen) 04/14/20 13:40 FMR H&P: A/P - Problem List (1) ESRD (end stage renal disease) Current Visit: Yes Status: Acute Code(s): N18.6 - END STAGE RENAL DISEASE (2) Chronic diastolic CHF (congestive heart failure), NYHA class 2 Current Visit: Yes Status: Chronic Code(s): I50.32 - CHRONIC DIASTOLIC ( CONGESTIVE) HEART FAILURE Comment: stable (3) DM2 (diabetes mellitus, type 2) Current Visit: Yes Status: Chronic Qualifiers: Diabetes mellitus 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 bug exterminator insulin use: with fdc use Diabetes mellitus complication status: with kidney complications Diabetes mellitus complication detail: with chronic kidney disease Chronic kidney disease stage : stage 5, not on chronic dialysis Qualified Code(s): E11.22 - Type 2 diabetes mellitus with diabetic chronic kidney disease; N18.5 - Chronic kidney disease, stage 5; Z79.4 - terminal gauger (current) use of insulin Comment: continue accuchecks, insulin sliding scale (4) Hyperlipidemia Current Visit: Yes Status: Chronic Code(s): E78.5 - HYPERLIPIDEMIA, UNSPECIFIED Comment: on atorvastatin (5) Hypertension Current Visit: Yes Status: Chronic Code(s): I10 - ESSENTIAL (PRIMARY) HYPERTENSION Qualifiers: Hypertension type: essential hypertension Qualified Code(s): I10 - Essential (primary) hypertension (6) Hypothyroidism Current Visit: Yes Status: Chronic Code(s): E03.9 - HYPOTHYROIDISM, UNSPECIFIED - Plan 54yo M with h/o CKD now progressed to ESRD, IDDMII, HTN, HFpEF, CAD, Hypothyroidism, HUAN who presents as direct admit by nephrology for HD access and initiation of HD. #ESRD, newly diagnosed - Secondary to diabetic nephropathy and chronic, resistant HTN - still produces urine - Direct admit by Dr. Olea, Nephrology, for HD access and fistula - Gen surg consult - clarify in AM for timing of surgery - Pre-Op COVID swab collected, no sx or known positive contacts - Venous mapping US completed - CM to assist with dialysis chair - Hep C and HIV negative, Hep B and PPD pending for dialysis chair - BUN/Cr 105/5.31 #IDDMII - 27+ year history - Lantus 20u qDaily - Allergy to Humalog documented, will clarify with pt in AM and consider addition of SS - Hyperglycemic protocol with ACHS accuchecks - Holding home glipizide #HUAN - No CPAPs available in hospital for HUAN use - rec pt bringing from home #Resistant HTN - cont home meds, monitor - will likely need adjustment of meds after initiating HD #Chronic HFpEF - cont home meds and diuretics - no acute exacerbation on exam - strict I's and O's and daily weights - will monitor volume status closely - will likely need adjustment of meds after initiating HD #CAD s/p 3v CABG - cont home meds #Hypothyroidism - cont home meds #Anemia of chronic kidney disease - Hb 9.4, appears at baseline - cont home iron - will likely benefit from EPO in future #Thrombocytopenia - Plt 93 - hold pharm VTE at this time - chronic, cont to monitor #Depression - cont home zoloft PCP: Dino Code: Full Diet: Renal high protein, NPO at RI for fistula in AM VTE: SCDs - held pharm VTE for surgery and 2/2 plt IVF: SL Disposition/LOS: Direct admit for HD access due to newly diagnosed ESRD and initiation of HD. Anticipate LOS >48hrs. FMR H&P: Upper Level - Plan Date/Time: 04/14/202305 I, [Aggie Stearns], have evaluated this patient and agree with findings/plan as outlined by design engineering intern resident. Pertinent changes/additions are listed here. 54 yo M with ERSD directly admitted by captain waiter/waitress to for new HD access placement. Patient was called today by Dr. Olea after he had labs done today. Patient feels well, still producing urine. No other concerns at this time. Discussed with Dr. Olea and upon reviewing H&P looks as if patient has had longstanding IDDM2 and HTN with worsening renal function. Today after labs were done it was decided that maintenance HD was the best option at this point. VS: BP 217/88, OVSS PE: Gen- NAD CV- RRR, systolic murmur Resp- CTAB Extrem- 1+ edema in lower extremities Labs: Plts 93 Cr 5.31 GFR 11 Hb 9.4 #ERSD, establish access -Likely secondary to longstanding IDDM2 and HTN -Dr. Olea captain waiter/waitress, directly admitted to start on HD -gfr 11, Cr 5.31 -Marking US completed -Gen surg consulted-reach out to clarify timeline of fistula access -CM consulted to aid in placement -Electrolytes stable but with elevated BUN, still producing urine #Thrombocytopenia -Plt 93K, no signs of active bleeding -Stable, repeat AM labs Anemia of ESRD -stable #IDDM2 -Accuchecks with sliding scale -home lantus -hold glipizide while NPO #HTN -home meds #HF -home meds #Hypothyroidism -home meds dvt ppx: hold gi ppx: pepcid pcp: Dino Addendum - Attending - Attending Attestation Date/Time: 04/14/20 3283 I personally evaluated the patient and discussed the management with Dr. Burnham and Daryn I agree with the History, Examination, Assessment and Plan documented above with any addition or exceptions noted below. 54 yo male with multiple chronic conditions directly admitted for HD access due to worsening renal function. Patient recently seen by captain waiter/waitress. Labs from earlier today noted to be significantly worse with GFR of 11. Patient has been trying to put off HD as long as possible. Only complaint is nausea but has improved since admission. - ESRD: Etiology chronic DM and HTN. Gen surg consulted by nephro for HD access in AM. CM consulted for outside HD placement. Trend labs. Adjust home meds. Keep potassium less than 5 if able with medications. Will continue to follow alongside specialist. - Chronic conditions: Multiple. Adjust home meds as needed especially lasix and insulin once HD established. - ppx: Heparin. Hold GI for now. Olman
[2020-04-14] MEDS ORDERED: Metolazone 5 MG TAB PO PRN (23:11)
[2020-04-14] MEDS ORDERED: Furosemide 40 MG TAB PO PRN (23:11)
[2020-04-14] MEDS ORDERED: Ondansetron PF 4 MG/2 ML Vial IVP PRN (23:32)
[2020-04-14] MEDS ORDERED: Dextrose 5% in Water 1,000 ML IV PRN (23:32)
[2020-04-14] MEDS ORDERED: Ondansetron ODT 4 MG TAB PO PRN (23:32)
[2020-04-14] MEDS ORDERED: Acetaminophen 325 MG TAB PO PRN (23:32)
[2020-04-14] MEDS ORDERED: Dextrose 50% Abboject 50 ML SYRINGE SLOW IVP PRN (23:37)
[2020-04-14] MEDS ORDERED: Docusate 100 MG CAP PO PRN (23:38)
[2020-04-14] MEDS ORDERED: Carvedilol 25 MG TAB PO SCH (23:59)
[2020-04-15] MEDS: Melatonin 3 MG TAB PO PRN (00:11)
[2020-04-15 04:28] LABS: #Eosinphils 0.3 thou/uL (0.0-0.7); #Lymphocytes 0.8 thou/uL (1.20-3.40); #Monocytes 0.5 thou/uL (0.11-0.59); #Neutrophils 5.2 thou/uL (1.40-6.50); %Basophils 0.1 % (0.0-1.0); %Eosinophils 4.4 % (0.0-10.0); %Lymphocytes 11.6 % (21.0-51.0); %Monocytes 7.9 % (0.0-10.0); Hemoglobin 8.7 g/dL (14.0-18.0); Mean Corpuscular Hemoglobin 30.8 pg (27.0-31.0); Mean Corpuscular Volume 93.3 fL (78.0-98.0); Mean Platelet Volume 10.9 fL (7.4-10.4); Platelet Count 84 thou/uL (130-400); RBC Distribution Width 13.4 % (11.5-14.5); Red Blood Cell (RBC) Count 2.83 mill/uL (4.70-6.10); White Blood Cell (WBC) Count 6.9 thou/uL (4.8-10.8)
[2020-04-15 05:17] LABS: Anion Gap 13 mmol/L (10-20); BUN (Urea Nitrogen) 99 mg/dL (8.4-25.7); Calc. Creatinine Clearance 31 mL/min (70-130); Calcium 7.6 mg/dL (7.8-10.44); Carbon Dioxide 22 mmol/L (22-29); Chloride 108 mmol/L (98-107); Estimated GFR-MDRD 12; Glucose 109 mg/dL (70-105); Potassium 3.8 mmol/L (3.5-5.1); Sodium 139 mmol/L (136-145)
[2020-04-15] MEDS: Levothyroxine Sodium 125 MCG TAB PO SCH (05:58)
[2020-04-15] MEDS ORDERED: Tuberculin PPD 0.1 ML VIAL I-DERMAL SCH ×2 (06:00→08:00)
--- NOTE | 2020-04-15 06:50 | PDOC.FM ---
Addendum entered and electronically signed by Christy Cerda MD 04/15/20 08:33 : Subjective: No overnight events. Denies Chest pain, SOB. Reports leg cramping overnight. Pt did NOT have a cardiac cath this hospitalization. Original Note: - Subjective Subjective: No overnight events. Denies chest pain, SOB. Cath site with no soreness. Normal Cath yesterday. - Objective MAR Reviewed: Yes Vital Signs & Weight: Vital Signs (12 hours) Temp Pulse Resp BP BP Pulse Ox 04/15/20 03:47 98.2 F 55 L 18 127/60 96 04/15/20 00:03 98.2 F 57 L 20 177/73 H 98 04/14/20 20:00 98 F 63 20 217/88 H 99 Weight Weight 124.284 kg I&O: 04/13/20 04/14/20 04/15/20 06:59 06:59 06:59 Intake Total 360 Balance 360 Result Diagrams: 04/15/20 04:15 04/15/20 04:15 Phys Exam - Physical Examination Constitutional: NAD HEENT: moist MMs Neck: supple Respiratory: no wheezing, clear to auscultation bilateral Cardiovascular: RRR, no significant murmur Gastrointestinal: soft Musculoskeletal: no edema Neurological: non-focal Psychiatric: normal affect, A&O x 3 Deviation from normal: tattoos present Dx/Plan - Plan Plan: 54yo male with pmh CKD now progressed to ESRD, IDDMII, HTN, HFpEF, CAD, Hypothyroidism, HUAN who presents as direct admit by nephrology for HD access and initiation of HD. ESRD, newly diagnosed - 2/2 to diabetic nephropathy and chronic, resistant HTN - still produces urine - Nephrology consulted, Dr. Olea - Gen surg consulted for tunnel cath and fistula - Pre-Op COVID swab collected, no sx or known positive contacts - Venous mapping US completed - CM to assist with dialysis chair - Hep C and HIV negative, Hep B and PPD pending for dialysis chair IDDMII - Continue Lantus 20u qDaily - Allergy to Humalog documented, hold off on SSI - ACHS accuchecks - Holding home glipizide HUAN - No CPAPs available in hospital for HUAN use - Rec pt bringing from home Resistant HTN - Cont home meds Chronic HFpEF - Cont home meds and diuretics - Strict I&O's, daily weights CAD s/p 3v CABG - Cont home meds Hypothyroidism - Cont home meds Anemia of chronic kidney disease - Hb 9.4, appears at baseline - Cont home iron - likely benefit from EPO in future Thrombocytopenia - Plt 93 - Hold pharm VTE at this time - Chronic, cont to monitor Depression - Cont home zoloft PCP: Dino Code Status: Full DVT: SCDs - held pharm VTE for surgery and 2/2 plt Addendum - Attending - Attending Attestation Date/Time: 04/15/20 2857 I personally evaluated the patient and discussed the management with Dr. Cerda. I agree with the History, Examination, Assessment and Plan documented above with any addition or exceptions noted below. Patient here for new onset ESRD needing HD. He continues to have some uremia, but mentation overall clear. Awaiting surgery consult for placement of fistula and catheter to initiate HD. Nephro on board.
[2020-04-15] MEDS ORDERED: glipiZIDE 10 MG TAB PO SCH (08:00)
[2020-04-15] MEDS ORDERED: hydrALAZINE 25 MG TAB PO SCH (09:00)
[2020-04-15] MEDS: hydrALAZINE 25 MG TAB PO SCH ×3 (09:58→20:06)
[2020-04-15] MEDS: Fish Oil 1,000 MG CAP PO SCH (09:58)
[2020-04-15] MEDS: Furosemide 80 MG TAB PO SCH (09:59)
[2020-04-15] MEDS: Aspirin 81 mg Enteric Coated Tablet PO SCH (09:59)
[2020-04-15] MEDS: Ferrous Sulfate 325 MG TAB PO SCH ×2 (09:59→16:29)
[2020-04-15] MEDS: Metoclopramide HCl 10 MG TAB PO SCH ×3 (10:00→16:30)
[2020-04-15] MEDS: Carvedilol 25 MG TAB PO SCH ×2 (10:01→16:29)
[2020-04-15] MEDS: Insulin Glargine 20 UNITS in Pre-Filled Syringe 1 EACH SC SCH (10:03)
[2020-04-15] MEDS: traMADol HCl 50 MG TAB PO PRN ×2 (13:11→20:07)
[2020-04-15 13:50] LABS: SARS-CoV-2 MS2 Positive; SARS-CoV-2 N Gene Negative; SARS-CoV-2 S Gene Negative; SARS-CoV-2 orf1ab Negative
[2020-04-15 17:09] LABS: Hep B Core Total Ab Non-Reactive (NonReactive); Hep B Core Total Index 0.02 S/CO (0-0.79); Hep B Surf Ag Non-Reactive S/CO (NonReactive)
[2020-04-15 17:10] LABS: HBSAg Index 0.17 S/CO (0-0.99)
[2020-04-15 17:11] LABS: Hep B Surf AB Non-Reactive (NonReactive); Hep C IgG Ab Non-Reactive (NonReactive); Hep C Index 0.04 S/CO (0-0.79)
[2020-04-15] MEDS ORDERED: HumaLOG 300 UNITS/3 ML VIAL SC PRN (19:31)
[2020-04-15] MEDS ORDERED: NOVOLOG INSULIN SC PRN (19:32)
[2020-04-15] MEDS: Tamsulosin HCl 0.4 MG CAP PO SCH (20:08)
[2020-04-15] MEDS: Atorvastatin Calcium 40 MG TAB PO SCH (20:09)
--- NOTE | 2020-04-15 20:47 | CON ---
DATE OF CONSULTATION: REASON FOR CONSULTATION: Dialysis access. HISTORY OF PRESENT ILLNESS: Mr. Sierra is a 54-year-old man with chronic renal failure, who has progressed to end-stage renal failure. He has been admitted for initiation of hemodialysis. He has not been dialyzed before and does not have access. He has had some problems with shortness of breath with minimal exertion as well as swelling in his legs. He was admitted for heart failure earlier this year. He has diastolic dysfunction. At rest, he is not having any trouble breathing and he is able to lay flat for short periods of time. PAST MEDICAL HISTORY: End-stage renal failure, diabetes, hypertension, hypothyroidism, heart failure with diastolic dysfunction, obstructive sleep apnea, coronary artery disease and GERD. 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 PAST SURGICAL HISTORY: Bilateral eye surgery with left eye enucleation, pacemaker and coronary artery bypass grafting. FAMILY HISTORY: Diabetes and coronary artery disease. One sister on dialysis. SOCIAL HISTORY: Former smoker. No alcohol or illicit drug use. REVIEW OF SYSTEMS: Ten system review of systems is negative, except per HPI and following. The patient is complaining of fatigue. He woke up in the night with back pain and leg cramps and was unable to get any rest. He denies any fevers or chills or chest pain. PHYSICAL EXAMINATION: VITAL SIGNS: The patient is afebrile with heart rate of 55 and blood pressure of 153/79. GENERAL: Reveals a tired, chronically ill-appearing man, in no acute distress. He is not flushed or toxic in appearance. He is not jaundiced or icteric. HEENT: Unremarkable. NECK: Supple without lymphadenopathy or thyroid nodules. HEART: Regular in its rate and rhythm without murmurs, rubs, or gallops. LUNGS: Clear to auscultation bilaterally. ABDOMEN: Soft, nontender, and nondistended. He does not have any palpable masses or hernias. EXTREMITIES: Warm and well perfused. He has bilateral lower extremity edema with moderate pitting at the ankles and some weeping from the skin of his legs around the ankles. He has normal bilateral filling on Aman testing of both arms. He has a good forearm cephalic vein on the left, which unfortunately has an IV of the wrist. I have asked the nurse to remove this and place an IV in his right hand. He has palpable antecubital veins with stigmata of recent lab draws and left antecubital fossa. Vein mapping shows good caliber left forearm cephalic vein and bilateral good caliber cephalic and basilic veins in the upper arm. LABORATORY DATA: White count is 6.9, hematocrit 26.4, platelets 84, BUN and creatinine are 99 and 4.89, bicarb 22, and potassium 3.8. ASSESSMENT: Chronic renal failure, now progressing to end-stage renal failure. His electrolytes are okay, but he does have fluid overload. Unfortunately, there is no available time on the OR schedule until very late today, so I have added him on to the OR schedule for tomorrow for a left AV fistula and a tunneled dialysis catheter. Both procedures and their inherent risks were discussed with the patient and his . These risks include, but are not limited to, bleeding, infection, risks of anesthesia, hemothorax, pneumothorax, need for other procedures, and deep vein thrombosis through the tunneled catheter, fistula. These risks include, but are not limited to, bleeding, infection, risks of anesthesia, failure of the fistula to develop, need for additional procedures to obtain a functional fistula and arterial steal, which can lead to ischemic damage to the hand. He understands that if he develops pain, numbness, tingling or weakness in his hand, he is to contact us immediately. All of his questions were answered. He will be made n.p.o. after midnight and antibiotics to be ordered on-call to the OR. Job ID: [id number]
[2020-04-16] MEDS: Levothyroxine Sodium 125 MCG TAB PO SCH (04:53)
[2020-04-16] MEDS: Carvedilol 25 MG TAB PO SCH ×2 (04:55→16:26)
[2020-04-16] MEDS ORDERED: Fentanyl 100 MCG/2 ML VIAL ONE ×3 (06:51→10:14)
[2020-04-16] MEDS ORDERED: Bupivacaine 0.25% HCL 30 ML VIAL ONE (06:52)
[2020-04-16] MEDS ORDERED: Protamine Sulfate 50 MG/5 ML VIAL ONE (06:52)
[2020-04-16] MEDS ORDERED: Sodium Chloride 0.9% 10 ML ONE (06:52)
[2020-04-16] MEDS ORDERED: Lidocaine 1% w/Epinephrine 1:100K 20 ML VIAL ONE (06:52)
[2020-04-16] MEDS ORDERED: Heparin 5,000 UNITS/ML VIAL ONE (06:52)
--- NOTE | 2020-04-16 06:58 | PDOC.FM ---
- Subjective Subjective: Had fistula and tunnel cath placed this morning. Plan for daily dialysis for the next 4 days. - Objective MAR Reviewed: Yes Vital Signs & Weight: Vital Signs (12 hours) Temp Pulse Resp BP BP Pulse Ox 04/16/20 05:50 98.6 F 60 20 169/73 H 97 04/15/20 20:06 56 L 152/69 H 04/15/20 20:00 98.6 F 56 L 18 152/69 H 98 Weight Weight 124.738 kg I&O: 04/14/20 04/15/20 04/16/20 06:59 06:59 06:59 Intake Total 360 2240 Balance 360 2240 Result Diagrams: 04/15/20 04:15 04/15/20 04:15 Phys Exam - Physical Examination Constitutional: NAD HEENT: moist MMs Neck: supple No respiratory distress Gastrointestinal: no distention Musculoskeletal: no edema Neurological: moves all 4 limbs Psychiatric: normal affect, A&O x 3 Skin: no rash Dx/Plan - Plan Plan: 54yo male with pmh ESRD, IDDMII, HTN, HFpEF, CAD, Hypothyroidism, HUAN who presents for initiation of HD ESRD, newly diagnosed - Nephrology consulted, Dr. Olea - Gen surg consulted for tunnel cath and fistula. NPO for surgery today - Pre-Op COVID neg - Venous mapping US completed - CM to assist with dialysis chair - PPD pending for dialysis chair IDDMII - Continue Lantus 20U today as he is NPO for sugery. Will need to increase afterwards. - Pt allergic to Humalog. Novolog not available. - ACHS accuchecks - Holding home glipizide HUAN Resistant HTN - Cont home meds Chronic HFpEF - Cont home meds and diuretics - Strict I&O's, daily weights CAD s/p 3v CABG - Cont home meds Hypothyroidism - Cont home meds Anemia of chronic kidney disease - Hb 9.4, appears at baseline - Cont home iron - likely benefit from EPO in future Chronic Thrombocytopenia - Hold pharm VTE at this time Depression - Cont home zoloft PCP: Dino Code Status: Full DVT: SCDs - held pharm VTE for surgery and 2/2 plt Addendum - Attending - Attending Attestation Date/Time: 04/16/20 1029 I personally evaluated the patient and discussed the management with Dr. Cerda. I agree with the History, Examination, Assessment and Plan documented above with any addition or exceptions noted below. Patient to OR today for fistula and HD catheter placement. Suspect initiation of HD after that is complete. Will need outpatient HD bed placement, CM on board to arrange that.
[2020-04-16] MEDS ORDERED: Propofol 1,000 MG/100 ML VIAL IV ONE (07:30)
[2020-04-16] MEDS ORDERED: READ PPD TEST SITE PO SCH (09:00)
--- NOTE | 2020-04-16 10:17 | RAD ---
EXAM: Single view of the chest HISTORY: Line placement COMPARISON: None FINDINGS: Single view of the chest shows an enlarged cardiomediastinal silhouette. A right IJ dialys is catheter seen with its tip in superior vena cava. No pneumothorax is seen. The patient is status post sternotomy. There is a questionable infiltrate in the left lower lobe. The bones are unremarkabl e. IMPRESSION: 1. Status post line placement without evidence of complication 2. Possible left lower lobe infiltrate
[2020-04-16] MEDS: Metoclopramide HCl 10 MG TAB PO SCH ×3 (11:06→16:26)
[2020-04-16] MEDS: Fish Oil 1,000 MG CAP PO SCH (11:06)
[2020-04-16] MEDS: Aspirin 81 mg Enteric Coated Tablet PO SCH (11:07)
[2020-04-16] MEDS: Ferrous Sulfate 325 MG TAB PO SCH ×2 (11:07→16:27)
[2020-04-16] MEDS: hydrALAZINE 25 MG TAB PO SCH ×3 (11:07→20:20)
[2020-04-16] MEDS: Furosemide 80 MG TAB PO SCH (11:08)
[2020-04-16] MEDS: Insulin Glargine 20 UNITS in Pre-Filled Syringe 1 EACH SC SCH (11:09)
[2020-04-16] MEDS: traMADol HCl 50 MG TAB PO PRN ×3 (11:13→22:43)
[2020-04-16] MEDS ORDERED: Bupivacaine HCl 0.5%/Epinephrine 1:200,000/PF 30 ml Vial ONE (12:00)
[2020-04-16 14:10] LABS: Hep B Surface AG-Rflx Sendout Negative (Negative); Hepatitis B Core Total Negative (Negative); Hepatitis B Surface AB-Sendout Non Reactive (.)
[2020-04-16] MEDS: Atorvastatin Calcium 40 MG TAB PO SCH (20:20)
[2020-04-16] MEDS: Tamsulosin HCl 0.4 MG CAP PO SCH (20:20)
[2020-04-16] MEDS: Melatonin 3 MG TAB PO PRN (22:44)
[2020-04-17] MEDS: Levothyroxine Sodium 125 MCG TAB PO SCH (05:10)
[2020-04-17] MEDS: traMADol HCl 50 MG TAB PO PRN ×3 (05:10→18:06)
--- NOTE | 2020-04-17 06:58 | PDOC.FM ---
- Subjective Subjective: Scheduled for dialysis today. No overnight events. No concerns today. - Objective MAR Reviewed: Yes Vital Signs & Weight: Vital Signs (12 hours) Temp Pulse Resp BP Pulse Ox 04/17/20 04:00 97.3 F L 58 L 12 178/79 H 98 04/16/20 23:38 97.9 F 63 12 155/67 H 96 04/16/20 20:20 55 L 04/16/20 19:49 98.4 F 55 L 12 208/84 H 98 Weight Weight 124.874 kg I&O: 04/15/20 04/16/20 04/17/20 06:59 06:59 06:59 Intake Total 360 2240 1380 Output Total 400 Balance 360 2240 980 Result Diagrams: 04/15/20 04:15 04/15/20 04:15 Phys Exam - Physical Examination Constitutional: NAD HEENT: moist MMs Neck: supple Respiratory: no wheezing, clear to auscultation bilateral Cardiovascular: RRR Gastrointestinal: soft Musculoskeletal: no edema Neurological: non-focal, moves all 4 limbs Psychiatric: normal affect, A&O x 3 Skin: no rash Dx/Plan - Plan Plan: 54yo male with pmh ESRD, IDDMII, HTN, HFpEF, CAD, Hypothyroidism, HUAN who presents for initiation of HD ESRD, newly diagnosed - Nephrology consulted, Dr. Olea - Tunnel cath and fistula on 04/16 - CM to assist with dialysis chair IDDMII - Continue Lantus, increased to 22U daily - ACHS accuchecks - Holding home glipizide HUAN Resistant HTN - Cont home meds Chronic HFpEF - Cont home meds and diuretics - Strict I&O's, daily weights CAD s/p 3v CABG - Cont home meds Hypothyroidism - Cont home meds Anemia of chronic kidney disease - Hb 9.4, appears at baseline - Cont home iron - likely benefit from EPO in future Chronic Thrombocytopenia - Hold pharm VTE at this time Depression - Cont home zoloft PCP: Dino Code Status: Full DVT: SCDs - held pharm VTE for surgery and 2/2 plt Addendum - Attending - Attending Attestation Date/Time: 04/17/20 7263 I personally evaluated the patient and discussed the management with Dr. Cerda. I agree with the History, Examination, Assessment and Plan documented above with any addition or exceptions noted below. Patient overall stable. Getting HD today for first time. Continue HD per Nephro recs, then awaiting HD chair assignment in outpatient setting.
--- NOTE | 2020-04-17 07:52 | EKG ---
Test Reason : Blood Pressure : / mmHG Vent. Rate : 052 BPM Atrial Rate : 052 BPM P-R Int : 228 ms QRS Dur : 112 ms QT Int : 488 ms P-R-T Axes : 027 -13 061 degrees QTc Int : 453 ms Sinus bradycardia with 1st degree A-V block Otherwise normal ECG When compared with ECG of 26-DEC-2019 05:11, No significant change was found Confirmed by DR. Olegario CABEZAS ([id number]) on 04/17/2020 7:52:19 AM Referred By: SHAGUFTA SORENSON Confirmed By:DR. Olegario CABEZAS
[2020-04-17] MEDS: hydrALAZINE 25 MG TAB PO SCH ×3 (08:11→20:22)
[2020-04-17] MEDS: Ferrous Sulfate 325 MG TAB PO SCH ×2 (08:11→18:05)
[2020-04-17] MEDS: Aspirin 81 mg Enteric Coated Tablet PO SCH (08:12)
[2020-04-17] MEDS: Furosemide 80 MG TAB PO SCH (08:12)
[2020-04-17] MEDS: Metoclopramide HCl 10 MG TAB PO SCH ×3 (08:12→18:05)
[2020-04-17] MEDS: Carvedilol 25 MG TAB PO SCH ×2 (08:12→18:06)
[2020-04-17] MEDS: Fish Oil 1,000 MG CAP PO SCH (08:12)
[2020-04-17] MEDS ORDERED: Insulin Glargine 22 UNITS in Pre-Filled Syringe 1 EACH SC SCH (09:00)
[2020-04-17] MEDS ORDERED: Heparin 10,000 UNITS/ 10 ML VIAL ONE (10:13)
[2020-04-17] MEDS: Atorvastatin Calcium 40 MG TAB PO SCH (20:22)
[2020-04-17] MEDS: Tamsulosin HCl 0.4 MG CAP PO SCH (20:23)
[2020-04-17] MEDS: Melatonin 3 MG TAB PO PRN (20:26)
[2020-04-18] MEDS: traMADol HCl 50 MG TAB PO PRN ×4 (00:05→18:39)
[2020-04-18 04:48] LABS: Anion Gap 13 mmol/L (10-20); BUN (Urea Nitrogen) 72 mg/dL (8.4-25.7); Calc. Creatinine Clearance 32 mL/min (70-130); Calcium 7.8 mg/dL (7.8-10.44); Carbon Dioxide 22 mmol/L (22-29); Chloride 107 mmol/L (98-107); Estimated GFR-MDRD 13; Glucose 129 mg/dL (70-105); Potassium 3.9 mmol/L (3.5-5.1); Sodium 138 mmol/L (136-145)
[2020-04-18] MEDS ORDERED: hydrALAZINE 25 MG TAB PO SCH (05:00)
[2020-04-18] MEDS: Levothyroxine Sodium 125 MCG TAB PO SCH (05:08)
[2020-04-18] MEDS: Furosemide 80 MG TAB PO SCH (06:35)
--- NOTE | 2020-04-18 07:20 | PDOC.FM ---
- Subjective Subjective: No overnight events. Feeling well this morning. Plan for dialysis today. Case management still working on dialysis chair. - Objective MAR Reviewed: Yes Vital Signs & Weight: Vital Signs (12 hours) Temp Pulse Resp BP BP BP Pulse Ox 04/18/20 06:39 69 189/74 H 04/18/20 06:37 189/74 H 04/18/20 05:09 59 L 194/77 H 04/18/20 04:00 97.7 F 59 L 16 194/77 H 98 04/17/20 23:53 98.1 F 58 L 16 132/61 99 04/17/20 20:22 59 L 195/85 H Weight Weight 118.206 kg I&O: 04/17/20 04/18/20 04/19/20 06:59 06:59 06:59 Intake Total 1380 1480 Output Total 400 Balance 980 1480 Result Diagrams: 04/15/20 04:15 04/18/20 04:11 Phys Exam - Physical Examination Constitutional: NAD HEENT: moist MMs Neck: supple Respiratory: no wheezing, clear to auscultation bilateral Cardiovascular: RRR, no significant murmur Gastrointestinal: soft Musculoskeletal: no edema Neurological: moves all 4 limbs Psychiatric: normal affect, A&O x 3 Dx/Plan - Plan Plan: 54yo male with pmh ESRD, IDDMII, HTN, HFpEF, CAD, Hypothyroidism, HUAN who presents for initiation of HD ESRD, newly diagnosed - Nephrology consulted, Dr. Olea - Tunnel cath and fistula on 04/16 - CM to assist with dialysis chair - Continue daily HD IDDMII - Continue Lantus - ACHS accuchecks HUAN - Continue CPAP Resistant HTN - Cont home meds Chronic HFpEF - Cont home meds and diuretics - Strict I&O's, daily weights CAD s/p 3v CABG - Cont home meds Hypothyroidism - Cont home meds Anemia of chronic kidney disease - Cont home iron - likely benefit from EPO in future Chronic Thrombocytopenia Depression - Cont home zoloft PCP: Dino Code Status: Full DVT ppx: Heparin Addendum - Attending - Attending Attestation Date/Time: 04/18/20 1011 I personally evaluated the patient and discussed the management with Dr. Cerda. I agree with the History, Examination, Assessment and Plan documented above with any addition or exceptions noted below.
[2020-04-18] MEDS ORDERED: Amlodipine 10 MG TAB PO SCH (09:15)
[2020-04-18] MEDS: Carvedilol 25 MG TAB PO SCH ×2 (09:24→18:12)
[2020-04-18] MEDS: Fish Oil 1,000 MG CAP PO SCH (09:24)
[2020-04-18] MEDS: Metoclopramide HCl 10 MG TAB PO SCH ×3 (09:24→18:12)
[2020-04-18] MEDS: Heparin 5,000 UNITS/ML VIAL SC SCH ×2 (09:25→20:05)
[2020-04-18] MEDS: Insulin Glargine 23 UNITS in Pre-Filled Syringe 1 EACH SC SCH (09:25)
[2020-04-18] MEDS: Aspirin 81 mg Enteric Coated Tablet PO SCH (09:25)
[2020-04-18] MEDS: Ferrous Sulfate 325 MG TAB PO SCH ×2 (09:25→18:12)
[2020-04-18] MEDS ORDERED: Amlodipine 5 MG TAB PO SCH (09:45)
[2020-04-18] MEDS ORDERED: NIFEdipine XL 30 MG TAB PO SCH (12:30)
--- NOTE | 2020-04-18 13:37 | PDOC.OP ---
Operative Note - Operative Note Operative Note: DATE OF PROCEDURE: 04/16/2020 PROCEDURE: Placement of tunneled hemodialysis catheter with ultrasound and fluoroscopic guidance. SURGEON: Marlin Mcclure M.D. PREOPERATIVE DIAGNOSIS: End-stage renal failure. POSTOPERATIVE DIAGNOSIS: End-stage renal failure. HISTORY: Patient with renal failure which has progressed to end-stage. A tunneled hemodialysis catheter for initiation of dialysis as well as a fistula for long-term access has been requested by the patients foreign language teacher. PROCEDURE: After informed consent was obtained and appropriate preoperative antibiotics were administered, the patient was taken to the Operating Room, placed in the supine position and monitored anesthesia care was administered. The neck and chest were prepped and draped in a standard sterile fashion and the patient placed in Trendelenburg position. A sterile ultrasound probe was used to identify the patent compressible right IJ vein which was accessed under direct ultrasound guidance. A wire was threaded through the needle and confirmed by ultrasound to be within the patent compressible vessel with the tip in the vena cava by fluoroscopy. Local anesthesia was infused to the skin and subcutaneous tissues of the right neck and chest. An infraclavicular incision was made and a catheter tunneled from the infraclavicular to the right IJ access site. The right IJ was sequentially dilated over the wire following which a dilator and sheath were placed over the wire and the dilator and wire removed leaving the sheath in place. The catheter was tunneled through the sheath which was then split and removed leaving the catheter in place. This was confirmed by fluoroscopy to be in good position in the superior vena cava with no kinking of the course of the catheter. Both ports easily aspirated dark venous nonpulsatile blood and easily flushed without resistance. Heparin was instilled to the quantity specified on the hub, and the hub was secured to the skin with 3-0 nylon sutures. The skin incision at the neck was closed in two layers with 4-0 Monocryl suture and Dermabond dressings were placed. The skin at the exit site was snugged up around the catheter with 4-0 Monocryl suture and Dermabond was placed there as well. Once the Dermabond was dry, a Biopatch and Tegaderm dressing was placed at the exit site. A preoperative block had been placed by anesthesia and adequacy was confirmed. The patient's arm was prepped and draped in standard sterile fashion. The palpable cephalic vein and radial artery were marked on the skin. An incision was made between these 2 structures and dissection carried down to the cephalic vein. This was felt to be of adequate caliber and quality to support an AV fistula. The vein was interrogated with cardiac dilators and easily accepted up to a 3.5 mm dilator. The vein was flushed with heparinized saline and clamped. The radial artery was identified and dissected free and was felt to be of adequate caliber and quality to support a fistula. This was dissected free. Heparin was administered systemically and allowed to circulate for 3 minutes. After the heparin had circulated for 3 minutes, the radial artery was clamped proximally and distally. An anterior arteriotomy was created with an 11 blade and extended with Stover scissors. The vein was spatulated and an end-to-side anastomosis was created with excellent technical result. Prior to tying down the anastomosis, the arterial inflow was released flushing the anastomosis. The anastomosis was then secured and hemostasis was verified. Flow was established first through the fistula following which flow was restored through the artery. The patient had a palpable thrill in the cephalic vein as well as a good Doppler signal to the level of the antecubital fossa. The wound was irrigated and examined for hemostasis was again confirmed to be excellent. The subcutaneous tissues were reapproximated with a running 3-0 Monocryl sutures and the skin was closed with running 4-0 subcuticular Monocryl suture. Dermabond dressings were placed. Prior to leaving the operating room the fistula was again examined by Doppler and a good bruit confirmed. The patient was then taken to recovery in good condition. Estimated blood loss was minimal. There were no complications. There were no specimens.
[2020-04-18] MEDS: hydrALAZINE 25 MG TAB PO SCH ×2 (15:23→20:06)
[2020-04-18] MEDS: Atorvastatin Calcium 40 MG TAB PO SCH (20:07)
[2020-04-18] MEDS: Tamsulosin HCl 0.4 MG CAP PO SCH (20:07)
[2020-04-18] MEDS: Melatonin 3 MG TAB PO PRN (20:11)
[2020-04-19] MEDS: Levothyroxine Sodium 125 MCG TAB PO SCH (06:24)
--- NOTE | 2020-04-19 06:40 | PDOC.FM ---
- Subjective Subjective: No overnight events. Feeling well. Has dialysis scheduled this morning then plan to discharge afterwards. Yesterday was approved for outpt HD chair. - Objective MAR Reviewed: Yes Vital Signs & Weight: Vital Signs (12 hours) Temp Pulse Resp BP BP BP Pulse Ox 04/19/20 00:00 56 L 132/70 04/18/20 20:10 98.6 F 62 18 182/78 H 99 04/18/20 20:06 62 182/78 H Weight Weight 118.206 kg I&O: 04/17/20 04/18/20 04/19/20 06:59 06:59 06:59 Intake Total 1380 1480 1500 Output Total 400 Balance 980 1480 1500 Result Diagrams: 04/15/20 04:15 04/18/20 04:11 Phys Exam - Physical Examination Constitutional: NAD HEENT: moist MMs Neck: supple Respiratory: no wheezing, clear to auscultation bilateral Cardiovascular: RRR Gastrointestinal: soft, non-tender Neurological: moves all 4 limbs Psychiatric: normal affect, A&O x 3 Skin: no rash Dx/Plan - Plan Plan: 54yo male with pmh ESRD, IDDMII, HTN, HFpEF, CAD, Hypothyroidism, HUAN who presents for initiation of HD ESRD, newly diagnosed - Plan for discharge after dialysis today. Has HD chair. IDDMII - Continue Lantus - ACHS accuchecks HUAN - Continue CPAP Resistant HTN - Cont home meds - Tried to add Amlodipine but he reports it causes his legs to swell. Will add Procardia. Chronic HFpEF - Cont home meds and diuretics - Strict I&O's, daily weights CAD s/p 3v CABG - Cont home meds Hypothyroidism - Cont home meds Anemia of chronic kidney disease - Cont home iron - likely benefit from EPO in future Chronic Thrombocytopenia Depression - Cont home zoloft PCP: Dino Code Status: Full DVT ppx: Heparin
[2020-04-19] MEDS: traMADol HCl 50 MG TAB PO PRN (08:37)
[2020-04-19] MEDS: Carvedilol 25 MG TAB PO SCH (08:38)
[2020-04-19] MEDS: Furosemide 80 MG TAB PO SCH (08:38)
[2020-04-19] MEDS: Metoclopramide HCl 10 MG TAB PO SCH (08:39)
[2020-04-19] MEDS: Ferrous Sulfate 325 MG TAB PO SCH (08:39)
[2020-04-19] MEDS: Fish Oil 1,000 MG CAP PO SCH (08:40)
[2020-04-19] MEDS: hydrALAZINE 25 MG TAB PO SCH (08:40)
[2020-04-19] MEDS: Heparin 5,000 UNITS/ML VIAL SC SCH (08:40)
[2020-04-19] MEDS: Aspirin 81 mg Enteric Coated Tablet PO SCH (08:40)
[2020-04-19 08:41] VITALS: BP 180/85; TEMP 98
[2020-04-19] MEDS: Insulin Glargine 23 UNITS in Pre-Filled Syringe 1 EACH SC SCH (08:41)
[2020-04-19] MEDS ORDERED: Amlodipine 5 MG TAB PO SCH (09:00)
[2020-04-19] MEDS ORDERED: NIFEdipine XL 30 MG TAB PO SCH (09:00)
[2020-04-19] MEDS ORDERED: Heparin 10,000 UNITS/ 10 ML VIAL ONE (09:48)
--- NOTE | 2020-04-19 11:31 | PRG ---
DATE OF SERVICE: 04/19/2020 Please see the note from Dr. Christy Cerda, for which I agree. The patient was seen, evaluated, discussed and examined with the residents at bedside while he is getting dialysis today. Main issue of him is he came in for uremia, needed hemodialysis access and got the AV shunt placed. It sounds like he is going to be able to go home today with outpatient dialysis and will follow up with Nephrology for that. Job ID: [id number]
--- NOTE | 2020-04-21 12:56 | DIS ---
DATE OF ADMISSION: 04/14/2020 DATE OF DISCHARGE: 04/19/2020 RESIDENT: Christy Cerda MD, PGY-2. ADMITTING ATTENDING: Ariane Kim MD DISCHARGE ATTENDING: Zi Garcia MD CONSULTS: Surgery, Dr. Mcclure. PROCEDURES: 1. Marking ultrasound on 04/14/2020 for hemodialysis. 2. Chest x-ray on 04/16/2020, stable post line placement without evidence of complication. Possible left lower lobe infiltrate. 3. Tunneled catheter placement. 4. Fistula. PRIMARY DIAGNOSIS: End-stage renal disease, requiring hemodialysis. SECONDARY DIAGNOSES: 1. Insulin-dependent type 2 diabetes. 2. Obstructive sleep apnea. 3. Resistant hypertension. 4. Chronic heart failure with preserved ejection fraction. 5. Coronary artery disease, status post 3-vessel coronary artery bypass graft. 6. Hypothyroidism. 7. Anemia of chronic disease. 8. Chronic thrombocytopenia. 9. Depression. DISCHARGE MEDICATIONS: 1. Amlodipine 5 mg daily. 2. Aspirin 81 mg daily. 3. Lasix 80 mg daily. 4. Nifedipine 30 mg daily. 5. Coreg 12.5 mg b.i.d. 6. Colace 100 mg b.i.d. 7. Pepcid 20 mg daily. 8. Ferrous sulfate 325 mg b.i.d. 9. Hydralazine 100 mg p.o. t.i.d. 10. Insulin glargine 23 units q.a.m. 11. Isosorbide mononitrate extended-release 30 mg daily. 12. Kvbgf-andxg-6-MWO-NYV-ukkyvo 300 mg p.o. daily. 13. Synthroid 125 mcg at 0600 hours. 14. Metoclopramide 5 mg t.i.d. 15. Sertraline 50 mg daily. 16. Tamsulosin 0.4 mg at bedtime. 17. Tramadol 50 mg 1 to 2 tabs p.o. q.6 hours p.r.n. DISCONTINUED MEDICATIONS: None. HISTORY OF PRESENT ILLNESS/HOSPITAL COURSE: Mr. Sierra is a 54-year-old male with past medical history of CKD 5, now progressed to end-stage renal disease, requiring hemodialysis. He was sent over by Dr. Olea, his hat block bench hand, for a fistula and tunneled catheter placement and initiation of dialysis by Dr. Mcclure of General Surgery. He received venous mapping. Hep C, HIV, hep B, and PPD negative. He underwent 3 rounds of dialysis prior to discharge and dialysis chair was established prior to discharge. In regard to his insulin-dependent type 2 diabetes, it was difficult to control during hospitalization, requiring Lantus up to 23 units. His other chronic medical conditions of obstructive sleep apnea, HFpEF, coronary artery disease, hypothyroidism, anemia of chronic disease, chronic thrombocytopenia and depression were controlled with home medications and stable throughout the course of hospitalization. His blood pressure was hard to control despite dialysis. Therefore, we attempted to add amlodipine or Procardia, the patient declined due to leg swelling he has had in the past when taking it. DISPOSITION: Stable. DISCHARGE INSTRUCTIONS: 1. Location: Home. 2. Diet: Renal, high-protein. 3. Activity: No restrictions. 4. Follow up with Dr. Olea in 7 days. Follow up with Dr. Sun within 7 days. Job ID: [id number] MTDD
== END 2020-04-19 12:01 | disposition home or self-care (01) | DRG 264 ==
LOC: ONC 11:26 → EEVIPCON 11:26
PROVIDERS: ADMIT Student in an Organized Health Care Education/Training Program; ATTEND Student in an Organized Health Care Education/Training Program
PROC: 031C0ZF Bypass Left Radial Artery to Lower Arm Vein, Open Approach (ICD-10-PCS; 2020-04-16)
PROC: 0JH63XZ Insertion of Tunneled Vascular Access Device into Chest Subcutaneous Tissue and Fascia, Percutaneous Approach (ICD-10-PCS; 2020-04-16)
PROC: 02HV33Z Insertion of Infusion Device into Superior Vena Cava, Percutaneous Approach (ICD-10-PCS; 2020-04-16)
PROC: B518ZZA Fluoroscopy of Superior Vena Cava, Guidance (ICD-10-PCS; 2020-04-16)
PROC: B548ZZA Ultrasonography of Superior Vena Cava, Guidance (ICD-10-PCS; 2020-04-16)
PROC: 5A1D70Z Performance of Urinary Filtration, Intermittent, Less than 6 Hours Per Day (ICD-10-PCS; principal; 2020-04-17)
DX: I13.2 Hypertensive heart and chronic kidney disease with heart failure and with stage 5 chronic kidney disease, or end stage renal disease (principal); N18.6 End stage renal disease; I50.32 Chronic diastolic (congestive) heart failure; E11.22 Type 2 diabetes mellitus with diabetic chronic kidney disease; I25.10 Atherosclerotic heart disease of native coronary artery without angina pectoris; E03.9 Hypothyroidism, unspecified; G47.33 Obstructive sleep apnea (adult) (pediatric); E11.43 Type 2 diabetes mellitus with diabetic autonomic (poly)neuropathy; K31.84 Gastroparesis; D63.1 Anemia in chronic kidney disease; D69.6 Thrombocytopenia, unspecified; F32.9 Major depressive disorder, single episode, unspecified; Z11.59 Encounter for screening for other viral diseases; Z88.8 Allergy status to other drugs, medicaments and biological substances; Z79.899 Other long term (current) drug therapy; Z79.82 Long term (current) use of aspirin; Z79.84 Long term (current) use of oral hypoglycemic drugs; Z79.890 Hormone replacement therapy; Z79.4 Long term (current) use of insulin; Z95.1 Presence of aortocoronary bypass graft; Z95.0 Presence of cardiac pacemaker; Z87.891 Personal history of nicotine dependence
CPT/HCPCS: 36415; 36416; 71045; 80048; 80053; 81001; 82570; 84100; 85025; 86580; 86704; 86705; 86706; 86707; 86803; 87340; 87350; 87389; 87635; 90935; 93005; 93010; 93970; C1752; G0257; G0365; J0670; J1642; J1644; J1815; J2704; J2720; J3010; Q0162; S0020; U0003

== ENCOUNTER 2020-11-26 05:29 | Inpatient (IN) | payer MEDICARE ==
[2020-11-26] MEDS ORDERED: Atropine Sulfate 1 mg/10 ml Syringe ONE ×4 (05:37→12:42)
[2020-11-26] MEDS ORDERED: Morphine 2 MG/ML VIAL ONE (06:11)
[2020-11-26] MEDS ORDERED: Ondansetron PF 4 MG/2 ML Vial ONE ×2 (06:11→08:20)
[2020-11-26] MEDS ORDERED: Insulin Regular 300 UNITS/3 ML VIAL ONE (07:01)
[2020-11-26] MEDS ORDERED: Sodium Bicarb 50 MEQ/50 ML Abboject 8.4% SYRINGE ONE (07:01)
[2020-11-26] MEDS ORDERED: Dextrose 50% Abboject 50 ML SYRINGE ONE (07:01)
[2020-11-26] MEDS ORDERED: Calcium Chloride 1 GM/10 ML Abboject SYRINGE ONE (07:01)
--- NOTE | 2020-11-26 08:57 | RAD ---
Chest AP view INDICATION: History of dyspnea COMPARISON: October 15, 2020 FINDINGS: Lungs: There is patchy groundglass opacities within the right lower lobe and left midlung Cardiac silhouette: There is moderate cardiomegaly Pulmonary vasculature: Normal Pleural spaces: No pleural effusion or pneumothorax is demonstrated. Upper abdomen: No abnormality seen. Osseous structures: No acute osseous abnormality. Additional findings: None. IMPRESSION: Patchy groundglass opacity within the left midlung and right lower lobe may reflect developing pneumo davion. Recommend correlation. There is stable moderate cardiomegaly and post-CABG change.
[2020-11-26 09:05] LABS: Anion Gap 22 mmol/L (10-20); Carbon Dioxide 18 mmol/L (22-29); Chloride 102 mmol/L (98-107); Potassium 6.2 mmol/L (3.5-5.1); Sodium 136 mmol/L (136-145)
[2020-11-26 09:06] LABS: ALT (SGPT) 111 U/L (8-55); AST (SGOT) 37 U/L (5-34); Albumin 3.7 g/dL (3.5-5.0); Alkaline Phosphatase 183 U/L (40-110); BUN (Urea Nitrogen) 126 mg/dL (8.4-25.7); Bilirubin, Total 0.6 mg/dL (0.2-1.2); Calc. Creatinine Clearance 0 mL/min (70-130); Calcium 8.2 mg/dL (7.8-10.44); Globulin 2.6 g/dL (2.4-3.5); Glucose 201 mg/dL (70-105); Protein, Total 6.3 g/dL (6.0-8.3)
[2020-11-26 09:07] LABS: Troponin I 0.031 ng/mL (< 0.028)
[2020-11-26] MEDS ORDERED: Lorazepam 2 MG/ML VIAL ONE ×2 (09:07→18:07)
[2020-11-26 09:26] LABS: Anion Gap 24 mmol/L (10-20); BUN (Urea Nitrogen) 131 mg/dL (8.4-25.7); Calc. Creatinine Clearance 0 mL/min (70-130); Calcium 8.1 mg/dL (7.8-10.44); Carbon Dioxide 16 mmol/L (22-29); Chloride 102 mmol/L (98-107); Glucose 193 mg/dL (70-105); Potassium 6.1 mmol/L (3.5-5.1); Sodium 136 mmol/L (136-145)
[2020-11-26 09:27] LABS: Phosphorus 10.1 mg/dL (2.3-4.7)
[2020-11-26] MEDS ORDERED: Sodium Bicarb 50 MEQ/50 ML Abboject 8.4% SYRINGE IVP SCH (09:45)
[2020-11-26 09:52] LABS: #Eosinphils 0.1 thou/uL (0.0-0.7); #Lymphocytes 0.8 thou/uL (1.20-3.40); #Monocytes 0.4 thou/uL (0.11-0.59); #Neutrophils 4.3 thou/uL (1.40-6.50); %Basophils 0.2 % (0.0-1.0); %Eosinophils 1.8 % (0.0-10.0); %Lymphocytes 14.5 % (21.0-51.0); %Monocytes 7.6 % (0.0-10.0); %Neutrophils 75.9 % (42.0-75.0); Hemoglobin 10.4 g/dL (14.0-18.0); Mean Corpuscular HGB CONC 32.6 g/dL (32.0-36.0); Mean Platelet Volume 12.6 fL (7.4-10.4); Platelet Count 85 thou/uL (130-400); RBC Distribution Width 14.1 % (11.5-14.5); Red Blood Cell (RBC) Count 3.17 mill/uL (4.70-6.10); White Blood Cell (WBC) Count 5.7 thou/uL (4.8-10.8)
[2020-11-26 09:57] LABS: MDiff Complete? YES; Platelet Morphology Comment Appears Decreased; Polychromasia SLIGHT = 2-3 cells (100X) (0-2/hpf)
--- NOTE | 2020-11-26 10:16 | PDOC.FPRHP ---
- History of Present Illness Chief Complaint: Weakness History of Present Illness: Pt is a 55 yo M with ESRD, IDDMII, HTN, HFpEF, CAD, BPH, Hypothyroidism, HUAN who presents for weakness. Pt awoke this morning and could not get out of bed. They initially thought this was due to missing his dialysis on Tuesday. He was supposed to go for dialysis; however, he had a familial COVID exposure, so he went to get testing on Tuesday to make sure he was negative before receiving dialysis as 3 of his family members tested positive. Him and his state that he has been bradycardic in the past, but it was only when he was doing exercises at therapy. He says this morning that he felt like he was going to pass out. ED Course: Found to have a HR of 30 when EMS arrived. He was given 1.5 mg of Atropine and heart rate improved to 52. When he arrived at the ED, HR was still in the 30- 40s. He was given 0.5 mg push of atropine.They gave him some Zofran and morphine for symptomatic relief. He was given an amp of bicarb, D50W, and insulin. He was was given Ativan as well. - Allergies/Adverse Reactions Allergies Allergy/AdvReac Type Severity Reaction Status Date / Time insulin lispro Allergy Severe Anaphylaxis Verified 04/14/20 12:34 [From Humalog U-100 Insulin] - Home Medications Medication Instructions Recorded Confirmed Type Atorvastatin Calcium [Lipitor] 40 mg PO HS 02/25/18 04/14/20 History Tamsulosin HCl [Flomax] 0.4 mg PO HS #30 cap 03/01/18 04/14/20 Rx traMADol HCl [Tramadol HCl] 1 - 2 tab PO Q6HR 11/07/19 04/14/20 History Famotidine [Pepcid] 20 mg PO DAILY tab 11/08/19 04/14/20 Rx Levothyroxine Sodium [Synthroid] 125 mcg PO 0600 #30 tab 11/08/19 04/14/20 Rx hydrALAZINE [Apresoline] 100 mg PO TID #90 tab 11/08/19 04/14/20 Rx Docusate [Colace] 100 mg PO BID PRN 12/26/19 04/14/20 History Ferrous Sulfate [Iron] 325 mg PO BID 12/26/19 04/14/20 History Krill/Biscoe-3/Dha/Epa/Lipids 300 mg PO DAILY 12/26/19 04/14/20 History [Krill Oil 300 mg Softgel] Metoclopramide HCl 5 mg PO TID 12/26/19 04/14/20 History Carvedilol [Coreg] 12.5 mg PO BID-WM 04/14/20 04/14/20 History Isosorbide Mononitrate [Isosorbide 30 mg PO DAILY 04/14/20 04/14/20 History Mononitrate ER] Sertraline HCl 50 mg PO DAILY 04/14/20 04/14/20 History Amlodipine [Norvasc] 5 mg PO DAILY #30 tab 04/18/20 Rx Aspirin [Ecotrin Low Strength] 81 mg PO DAILY #30 tab 04/18/20 Rx Furosemide [Lasix] 80 mg PO DAILY-AC #30 tab 04/18/20 Rx Insulin Glargine [Lantus Vial] 23 units SC QAM vial 04/18/20 Rx NIFEdipine [Procardia XL] 30 mg PO DAILY #30 tab 04/18/20 Rx - History PMHx: CAD, HFpEF, ESRD, IDDMII, HLD, Gastroparesis, GERD, BPH, HUAN, Hypothyroidi sm PSHx: CABG 3v- 6 years ago, L eye enucleation FHx: Mother and father with CAD. Mother had HF and required a pacemaker. Social: Previous 20py smoking history, current nonsmoker, denies EtOH or illicits. - Review of Systems General: denies: fever/chills Eyes: denies: eye pain, vision changes ENT: denies: nasal congestion, rhinorrhea Respiratory: reports: shortness of breath Cardiovascular: denies: chest pain Gastrointestinal: reports: nausea. denies: vomiting, diarrhea Genitourinary: reports: other (anuric) Skin: reports: other (over left side of chest) Musculoskeletal: reports: pain (bilateral shoulders) Neurological: reports: weakness - Vital signs BP: 179/54 HR: 40 RR: 18 Tmax: 97.6 Pox: 98% on 2L Wt: 133.58 kg - Physical Exam Constitutional: NAD HEENT: normocephalic and atraumatic, normal nasal mucosa -HEENT: Dry mucous membranes Neck: supple, no LAD Chest: no-tender to palpation -Heart: Bradycardiac Lungs: CTAB Abdomen: soft -Abdomen: Tender to palpitation in the LUQ Musculoskeletal: normal structure, normal tone Neurological: no focal deficit, normal sensation -Skin: folliculitis like rash over his left upper chest Heme/Lymphatic: no unusual bruising or bleeding -Psychiatric: Anxious affect FMR H&P: Results - Labs Result Diagrams: 11/26/20 06:10 11/26/20 06:10 Lab results: WBC 5.7 thou/uL (4.8-10.8) 11/26/20 06:10 Hgb 10.4 g/dL (14.0-18.0) L 11/26/20 06:10 Hct 32.0 % (42.0-52.0) L 11/26/20 06:10 MCV 101.0 fL (78.0-98.0) H 11/26/20 06:10 Plt Count 85 thou/uL (130-400) L 11/26/20 06:10 Neutrophils % 75.9 % (42.0-75.0) H 11/26/20 06:10 Sodium 136 mmol/L (136-145) 11/26/20 06:10 Sodium 136 mmol/L (136-145) 11/26/20 06:10 Potassium 6.1 mmol/L (3.5-5.1) H 11/26/20 06:10 Potassium 6.2 mmol/L (3.5-5.1) H 11/26/20 06:10 Chloride 102 mmol/L (98-107) 11/26/20 06:10 Chloride 102 mmol/L (98-107) 11/26/20 06:10 Carbon Dioxide 16 mmol/L (22-29) L 11/26/20 06:10 Carbon Dioxide 18 mmol/L (22-29) L 11/26/20 06:10 BUN 126 mg/dL (8.4-25.7) H 11/26/20 06:10 BUN 131 mg/dL (8.4-25.7) H 11/26/20 06:10 Creatinine 12.93 mg/dL (0.7-1.3) H 11/26/20 06:10 Creatinine 13.41 mg/dL (0.7-1.3) H 11/26/20 06:10 Glucose 193 mg/dL (70-105) H 11/26/20 06:10 Glucose 201 mg/dL (70-105) H 11/26/20 06:10 Calcium 8.1 mg/dL (7.8-10.44) 11/26/20 06:10 Calcium 8.2 mg/dL (7.8-10.44) 11/26/20 06:10 Total Bilirubin 0.6 mg/dL (0.2-1.2) 11/26/20 06:10 AST 37 U/L (5-34) H 11/26/20 06:10 ALT 111 U/L (8-55) H 11/26/20 06:10 Alkaline Phosphatase 183 U/L (40-110) H 11/26/20 06:10 B-Natriuretic Peptide 3935.3 pg/mL (0-100) H 11/26/20 06:10 Serum Total Protein 6.3 g/dL (6.0-8.3) 11/26/20 06:10 Albumin 3.7 g/dL (3.5-5.0) 11/26/20 06:10 - EKG Interpretation EKG: Bradycardia with low voltage, left axis deviation, No ST changes - Radiology Interpretation Chest x-ray Status: image reviewed by me (looks like hilar lymphadenopathy. Report indicates possible RLL pna.), report reviewed by me FMR H&P: A/P - Problem List (1) Symptomatic bradycardia Current Visit: Yes Status: Acute Code(s): R00.1 - BRADYCARDIA, UNSPECIFIED FMR H&P: Upper Level - Pertinent history Pt is a 55 yo M with ESRD, IDDMII, HTN, HFpEF, CAD, BPH, Hypothyroidism, HUAN who presents for weakness. 1.Symptomatic Bradycardia EKG: Bradycardia with low voltage and Left axis deviation -Received Atropine by EMS and ED -Epi bolus given and now on drip -Consulted Cardiology 2. 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 Olea -Currently receiving dialysis, missed dialysis on Tuesday -K: 6.1, BUN/Cr 131/12.93 -Currently receiving dialysis 3. IDDMII, 27+ year history -Lantus 20u qDaily -Hyperglycemic protocol with ACHS accuchecks -Holding home glipizide 4. HUAN - will bring home CPAP 5. Resistant HTN -Will cont home meds, after dialysis 6. Chronic HFpEF -Will review home meds -BNP: 3935, pt does not produce urine -Will monitor volume status closely 7. CAD s/p 3v CABG -Cont home meds 8. Hypothyroidism -Continue home med: Synthroid 9. Anemia of chronic kidney disease -Hb 10.4, appears at baseline -Cont home iron -Will likely benefit from EPO in future 10. Thrombocytopenia -Plt 85 -Hold pharm VTE at this time -SCDs in Place 11. Concern for PNA CXR: radiology read possible LL PNA -Will get a procal Diet: Renal- high protein, CC VTE: SCDs IVF: SL PCP: Dino Code Status: Full Disposition/LOS: IMCU inpt, LOS >48hrs. Will consult cardiology for bradycardia since pt has pacemaker. - Plan Date/Time: 11/26/20 1014
[2020-11-26] MEDS ORDERED: Dextrose 5% in Water 1,000 ML IV PRN (11:29)
[2020-11-26] MEDS ORDERED: Bisacodyl 5 MG TAB PO PRN (11:29)
[2020-11-26] MEDS ORDERED: Insulin Regular 300 UNITS/3 ML VIAL SC PRN (11:29)
[2020-11-26] MEDS ORDERED: Dextrose 50% Abboject 50 ML SYRINGE SLOW IVP PRN (11:29)
[2020-11-26] MEDS ORDERED: EPINEPHrine 1 MG/10 ML Abboject SYRINGE IVP SCH (12:15)
[2020-11-26] MEDS ORDERED: EPINEPHrine 1 MG/10 ML Abboject SYRINGE ONE (12:37)
[2020-11-26] MEDS ORDERED: DOBUTamine 500 mg/250 ml 250 ML ONE (12:58)
[2020-11-26] MEDS ORDERED: DOPamine 400 MG/D5W 250 ML 250 ML ONE (12:58)
[2020-11-26] MEDS ORDERED: EPINEPHrine 4 MG in Dextrose 5% in Water 250 ML IVPB SCH (13:00)
[2020-11-26] MEDS: DOBUTamine 500 mg/250 ml 500 MG in Premix Bag 1 BAG IVPB SCH (16:34)
[2020-11-26] MEDS: DOPamine 400 MG/D5W 250 ML 250 ML IVPB SCH (16:44)
[2020-11-26] MEDS ORDERED: hydrOXYzine 25 MG TAB ONE (16:51)
[2020-11-26 17:00] LABS: Anion Gap 23 mmol/L (10-20); BUN (Urea Nitrogen) 85 mg/dL (8.4-25.7); Calc. Creatinine Clearance 0 mL/min (70-130); Calcium 8.9 mg/dL (7.8-10.44); Carbon Dioxide 19 mmol/L (22-29); Chloride 99 mmol/L (98-107); Glucose 124 mg/dL (70-105); Potassium 4.3 mmol/L (3.5-5.1); Sodium 137 mmol/L (136-145)
--- NOTE | 2020-11-26 17:51 | RAD ---
PORTABLE CHEST: 11/26/20 HISTORY: Central line placement. COMPARISON: Earlier exam the same day. Heart size is enlarged. A right sided central line is in place. Catheter tip overlies the proximal peterson perior vena cava. No signs of pneumonia. IMPRESSION: Placement of right sided central line. No signs of pneumothorax. POS: SUKH
[2020-11-26] MEDS ORDERED: Melatonin 3 MG TAB PO PRN (23:42)
[2020-11-27 06:57] LABS: #Lymphocytes 0.7 thou/uL (1.20-3.40); #Monocytes 0.6 thou/uL (0.11-0.59); %Basophils 0.3 % (0.0-1.0); %Eosinophils 0.5 % (0.0-10.0); %Lymphocytes 10.8 % (21.0-51.0); %Monocytes 9.9 % (0.0-10.0); %Neutrophils 78.5 % (42.0-75.0); Hemoglobin 9.6 g/dL (14.0-18.0); Mean Corpuscular HGB CONC 33.3 g/dL (32.0-36.0); Mean Corpuscular Hemoglobin 33.2 pg (27.0-31.0); Mean Corpuscular Volume 99.9 fL (78.0-98.0); Mean Platelet Volume 10.7 fL (7.4-10.4); Platelet Count 76 thou/uL (130-400); RBC Distribution Width 13.8 % (11.5-14.5); Red Blood Cell (RBC) Count 2.88 mill/uL (4.70-6.10); White Blood Cell (WBC) Count 6.4 thou/uL (4.8-10.8)
[2020-11-27] MEDS: Insulin Regular 300 UNITS/3 ML VIAL SC PRN (07:36)
--- NOTE | 2020-11-27 07:48 | PDOC.FM ---
- Subjective Subjective: Mr. Sierra was drifting in and out of sleep while wearing his home CPAP. His only complaint was being extremely tired. - Objective Vital Signs & Weight: Vital Signs (12 hours) Temp 11/27/20 04:16 98.2 F 11/27/20 03:31 98.4 F 11/27/20 02:00 98.7 F 11/27/20 00:00 98.4 F 11/26/20 21:45 98.0 F 11/26/20 20:30 98.0 F 11/26/20 20:13 97.9 F Most Recent Monitor Data Heart Rate from ECG 61 NIBP 138/96 NIBP BP-Mean 110 Respiration from ECG 25 SpO2 95 Result Diagrams: 11/27/20 06:47 11/27/20 06:47 Phys Exam - Physical Examination Constitutional: NAD HEENT: sclera anicteric Neck: no nodes Respiratory: no wheezing, no rales, no rhonchi, clear to auscultation bilateral Cardiovascular: RRR, no significant murmur Gastrointestinal: soft, non-tender Musculoskeletal: pulses present, edema present Neurological: non-focal Skin: no rash Dx/Plan - Plan Plan: Pt is a 55 yo M with ESRD, IDDMII, HTN, HFpEF, CAD, BPH, Hypothyroidism, HUAN who presents for weakness. Symptomatic Bradycardia EKG: Bradycardia with low voltage and Left axis deviation -HR maintaining in 60s -Continue dobutamine and dopamine drip -Cardiology consult (Jonny): appreciate recs ESRD 2/2 DMII, HTN- anuric Limb Driver: Dr. Olea -K 6.1, 4.4 s/p dialysis yesterday -Cr 9.33, 10.38 s/p dialysis yesterday -Nephro consult: appreciate recs -Will likely have dialysis again today IDDMII, 27+ year history -Lantus 20u qDaily -Hyperglycemic protocol with ACHS accuchecks -Holding home glipizide HUAN -Using home CPAP Resistant HTN -Improved today following dialysis yesterday -Restart home medications Chronic HFpEF -Continue home meds -BNP: 3935, pt does not produce urine -Will monitor volume status closely CAD s/p 3v CABG -Cont home meds Hypothyroidism -Continue home med: Synthroid Anemia of chronic kidney disease -Hb 10.4, appears at baseline -Cont home iron -Will likely benefit from EPO in future Thrombocytopenia -Plt 85 -Hold pharm VTE at this time -SCDs in Place Concern for PNA, resolved CXR: radiology read possible LL PNA -Procal 0.045 -Suspicion low for bacterial infection Diet: Renal- high protein, CC VTE: SCDs IVF: SL PCP: Dino Code Status: Full Disposition/LOS: Likely being transferred to [place] due to lack of beds here. Patient has been in ER hold since yesterday morning. Transfer has been initiated. May require repeat dialysis today, appreciate cardiology and nephrology recs.
[2020-11-27 08:04] LABS: ALT (SGPT) 84 U/L (8-55); AST (SGOT) 25 U/L (5-34); Albumin 3.7 g/dL (3.5-5.0); Alkaline Phosphatase 148 U/L (40-110); Anion Gap 20 mmol/L (10-20); BUN (Urea Nitrogen) 93 mg/dL (8.4-25.7); Bilirubin, Total 0.7 mg/dL (0.2-1.2); Calc. Creatinine Clearance 0 mL/min (70-130); Calcium 7.9 mg/dL (7.8-10.44); Carbon Dioxide 20 mmol/L (22-29); Chloride 97 mmol/L (98-107); Globulin 2.6 g/dL (2.4-3.5); Glucose 222 mg/dL (70-105); Potassium 4.4 mmol/L (3.5-5.1); Protein, Total 6.3 g/dL (6.0-8.3); Sodium 133 mmol/L (136-145)
[2020-11-27] MEDS ORDERED: glipiZIDE 10 MG TAB PO SCH (09:00)
[2020-11-27] MEDS ORDERED: Non-Formulary Item 1 EACH (Ferrous Sulfate [Iron] 325 MG Tablet) PO SCH (09:00)
[2020-11-27] MEDS ORDERED: Non-Formulary Item 1 EACH (Albuterol Sulfate [Albuterol Sulfate Hfa] 8.5 GM Hfa.Aer.Ad) IH SCH (09:00)
[2020-11-27] MEDS ORDERED: Non-Formulary Item 1 EACH (Sertraline Hcl [Sertraline Hcl] 50 MG Tablet) PO SCH (09:00)
[2020-11-27] MEDS ORDERED: Non-Formulary Item 1 EACH (Metoclopramide Hcl [Metoclopramide Hcl] 5 MG Tablet) PO SCH (09:00)
[2020-11-27 09:39] LABS: SARS-CoV-2 NAA Rapid Test Not Detected (NotDetected)
--- NOTE | 2020-11-27 10:36 | CON ---
DATE OF CONSULTATION: REASON FOR CONSULTATION: Bradycardia. PRIMARY MERCHANDISE DELIVERER: José Graf MD HISTORY OF PRESENT ILLNESS: Mr. Sierra is a 55-year-old gentleman with history of end-stage liver disease. He was last seen with telemedicine visit in the office by Dr. José Graf for bradycardia. He recently presented with continued heart rate in the 30s and 40s. His main complaint is fatigue. No chest pain, pressure, shortness of breath, syncope, or presyncope noted. He also has significant issues with restless legs syndrome. PAST MEDICAL HISTORY: CAD, status post bypass surgery, diastolic dysfunction, PAD, end-stage renal disease, hypertension, obstructive sleep apnea. MEDICATIONS: 1. Lasix. 2. Isosorbide. 3. Tramadol. 4. Tamsulosin. 5. Metolazone. 6. . 7. Krill oil. 8. Insulin. 9. . 10. Glipizide. 11. Atorvastatin. 12. Aspirin. 13. Famotidine. 14. Metoclopramide. 15. . 16. Calcium. 17. Lantus. 18. Coreg 12.5 mg b.i.d. SOCIAL HISTORY: No current tobacco or alcohol use. REVIEW OF SYSTEMS: Ten-point review of systems is reviewed and as above, otherwise negative. PHYSICAL EXAMINATION: GENERAL: Patient is a pleasant gentleman, who is in no acute distress. He does appear older than his stated age. VITAL SIGNS: Blood pressure 140/90, heart rate 30s to 40s, respirations 20. NEUROLOGIC: The patient is alert and oriented x3 with no focal neurologic deficits. HEENT: Sclerae without icterus. Mouth has moist mucous membranes with normal pallor. NECK: No JVD. Carotid upstroke brisk. No bruits bilaterally. LUNGS: Clear to auscultation with unlabored respirations. BACK: No scoliosis or kyphosis. CARDIAC: Regular rate and rhythm with normal S1 and S2. No S3 or S4 noted. No significant rubs, murmurs, thrills, or gallops noted throughout the precordium. PMI is not displaced. There is no parasternal heave. ABDOMEN: Soft, nontender, nondistended. No peritoneal signs present. No hepatosplenomegaly. No abnormal striae. EXTREMITIES: 2+ femoral and 2+ dorsalis pedis pulses. No cyanosis, clubbing, or edema. SKIN: No gross abnormalities. PERTINENT LABORATORY DATA: Initial potassium 6.2, creatinine 13.4, AST and ALT 37/111. BNP 3935. Hemoglobin 10.4, hematocrit 32. ER COURSE: The patient was given atropine IV with no response. It was decided at that point given that the states he is on Coreg, although not listed on his home medications in the office, I recommended Dobutrex. I then returned in several hours to review Mr. Sierra's progress. Mr. Sierra's heart rate increased to the 50s to 60s on Dobutrex. IMPRESSION: 1. Bradycardia. 2. End-stage renal disease. 3. Coronary artery disease. 4. Status post bypass surgery. RECOMMENDATIONS: Mr. Sierra although not noted in the office chart appears to be on Coreg 12.5 mg one p.o. b.i.d. His last dose was yesterday morning. We will recommend to continue Dobutrex. We will try and titrate off Dobutrex overnight. The residents have started the central line. The patient also recently missed his dialysis due to possible COVID. He is tested negative. We will continue to monitor closely. I did spend greater than 50 minutes of critical care time in the emergency room. Job ID: [id number]
[2020-11-27] MEDS ORDERED: Aspirin Chewable 81 MG TAB ONE (11:28)
[2020-11-27] MEDS ORDERED: Metoclopramide HCl 10 MG TAB ONE (11:28)
[2020-11-27] MEDS ORDERED: hydrALAZINE 25 MG TAB ONE (11:28)
[2020-11-27] MEDS ORDERED: Famotidine 20 MG TAB ONE (11:28)
[2020-11-27] MEDS ORDERED: Albuterol 200 PUFF (6.7GM INHALER) ONE (11:38)
[2020-11-27] MEDS ORDERED: DOPamine 400 MG/D5W 250 ML 250 ML ONE (11:39)
[2020-11-27] MEDS: Aspirin 81 mg Enteric Coated Tablet PO SCH (11:41)
[2020-11-27] MEDS: Calcium Carbonate 500 MG TAB PO SCH (11:41)
[2020-11-27] MEDS: Famotidine 20 MG TAB PO SCH (11:42)
[2020-11-27] MEDS: Gabapentin 300 MG CAP PO SCH (11:43)
[2020-11-27] MEDS: Fish Oil 1,000 MG CAP PO SCH (11:43)
[2020-11-27] MEDS: Albuterol 200 PUFF (6.7GM INHALER) INH SCH (11:43)
[2020-11-27] MEDS: hydrALAZINE 25 MG TAB PO SCH ×3 (11:44→20:44)
[2020-11-27] MEDS: Metoclopramide HCl 10 MG TAB PO SCH ×3 (11:45→20:45)
[2020-11-27] MEDS ORDERED: traMADol HCl 50 MG TAB PO SCH (12:00)
[2020-11-27] MEDS: Insulin Glargine 15 UNITS in Pre-Filled Syringe 1 EACH SC SCH (12:11)
[2020-11-27 15:41] VITALS: BMI 43.5
[2020-11-27] MEDS: traMADol HCl 50 MG TAB PO SCH ×5 (16:48→23:38)
--- NOTE | 2020-11-27 16:55 | PDOC.CPN ---
- Subjective Date: 11/27/20 Time: 16:55 Interval history: He is somnolent but easily arousable. - Review of Systems ROS unobtainable: due to mental status - Objective Allergies/Adverse Reactions: Allergies Allergy/AdvReac Type Severity Reaction Status Date / Time insulin lispro Allergy Severe Anaphylaxis Verified 04/14/20 12:34 [From Humalog U-100 Insulin] Visit Medications: Current Medications Albuterol Sulfate (Albuterol 200 Puff (6.7gm Inhaler)) 1 puff INH DAILY ON LICENSE OF [facility] Last Admin: 11/27/20 11:43 Dose: 1 puff Documented by: Aspirin (Aspirin 81 Mg Enteric Coated Tablet) 81 mg PO DAILY ON LICENSE OF [facility] Last Admin: 11/27/20 11:41 Dose: 81 mg Documented by: Atorvastatin Calcium (Atorvastatin Calcium 40 Mg Tab) 80 mg PO HS ON LICENSE OF [facility] Bisacodyl (Bisacodyl 5 Mg Tab) 10 mg PO DAILYPRN PRN PRN Reason: Constipation Calcium Carbonate (Calcium Carbonate 500 Mg Tab) 500 mg PO DAILY ON LICENSE OF [facility] Last Admin: 11/27/20 11:41 Dose: 500 mg Documented by: Carvedilol (Carvedilol 6.25 Mg Tab) 12.5 mg PO BID-[facility] Dextrose/Water (Dextrose 50% Abboject 50 Ml Syringe) 25 gm SLOW IVP PRN PRN PRN Reason: Hypoglycemia Famotidine (Famotidine 20 Mg Tab) 20 mg PO DAILY ON LICENSE OF [facility] Last Admin: 11/27/20 11:42 Dose: 20 mg Documented by: Ferrous Sulfate (Ferrous Sulfate 325 Mg Tab) 325 mg PO BID ON LICENSE OF [facility] Fish Oil (Fish Oil 1,000 Mg Cap) 1,000 mg PO DAILY ON LICENSE OF [facility] Last Admin: 11/27/20 11:43 Dose: 1,000 mg Documented by: Gabapentin (Gabapentin 300 Mg Cap) 300 mg PO DAILY ON LICENSE OF [facility] Last Admin: 11/27/20 11:43 Dose: 300 mg Documented by: Glipizide (Glipizide 10 Mg Tab) 10 mg PO BID ON LICENSE OF [facility] Glucagon (Glucagon 1 Mg/Ml Vial) 1 mg IM PRN PRN PRN Reason: Hypoglycemia Hydralazine HCl (Hydralazine 25 Mg Tab) 100 mg PO TID ON LICENSE OF [facility] Last Admin: 11/27/20 16:52 Dose: Not Given Documented by: Dextrose/Water (D5w) 1,000 mls @ 0 mls/hr IV .Q0M PRN PRN Reason: Hypoglycemia Dobutamine HCl/Dextrose 500 mg (/ Device) 250 mls @ 0 mls/hr IVPB INF ON LICENSE OF [facility]; Protocol Last Admin: 11/26/20 16:34 Dose: 250 mls Documented by: Dopamine HCl/Dextrose (Dopamine 400 Mg/D5w 250 Ml) 250 mls @ 0 mls/hr IVPB INF ON LICENSE OF [facility]; Protocol Last Admin: 11/26/20 16:44 Dose: 250 mls Documented by: Insulin Glargine 15 units/ (Miscellaneous Medication) 0.15 mls @ 0 mls/hr SC QAM ON LICENSE OF [facility] Last Admin: 11/27/20 12:11 Dose: 0.15 mls Documented by: Insulin Human Regular (Insulin Regular 300 Units/3 Ml Vial) 0 units SC .MILD SLIDING SCALE PRN PRN Reason: Mild Correctional Scale Last Admin: 11/27/20 07:36 Dose: 3 unit Documented by: Insulin Human Regular (Insulin Regular 300 Units/3 Ml Vial) 0 units SC .BEDTIME SLIDING SC PRN PRN Reason: Bedtime Correctional Scale Isosorbide Mononitrate (Isosorbide Mononitrate Er 30 Mg Tab) 30 mg PO DAILY ON LICENSE OF [facility] Last Admin: 11/27/20 11:45 Dose: 30 mg Documented by: Levothyroxine Sodium (Levothyroxine Sodium 125 Mcg Tab) 125 mcg PO 0600 ON LICENSE OF [facility] Melatonin (Melatonin 3 Mg Tab) 3 mg PO HS PRN PRN Reason: Insomnia Last Admin: 11/27/20 00:17 Dose: 3 mg Documented by: Metoclopramide HCl (Metoclopramide Hcl 10 Mg Tab) 5 mg PO TID ON LICENSE OF [facility] Last Admin: 11/27/20 16:52 Dose: Not Given Documented by: Krill Oil 300 Mg (Softgel) 0 each PO DAILY ON LICENSE OF [facility] Sertraline HCl (Sertraline Hcl 25 Mg Tab) 50 mg PO DAILY ON LICENSE OF [facility] Sodium Chloride (Flush - Normal Saline 10 Ml Syringe) 10 ml IVF Q12HR PRN PRN Reason: Saline Flush Sodium Chloride (Flush - Normal Saline 10 Ml Syringe) 10 ml IVF PRN PRN PRN Reason: Saline Flush Tamsulosin HCl (Tamsulosin Hcl 0.4 Mg Cap) 0.4 mg PO HS ON LICENSE OF [facility] Tramadol HCl (Tramadol Hcl 50 Mg Tab) 50 mg PO Q6HR ON LICENSE OF [facility] Last Admin: 11/27/20 16:48 Dose: Not Given Documented by: Triamcinolone Acetonide (Triamcinolone 0.1% Cream 15 Gm Tube) 0 gm TOP BID ON LICENSE OF [facility] Vital Signs & Weight: Vital Signs Temp Pulse Resp BP BP Pulse Ox 11/27/20 16:52 60 11/27/20 13:49 60 22 H 111/38 L 94 L 11/27/20 11:44 60 161/59 H 11/27/20 09:52 60 20 135/53 L 96 11/27/20 08:27 95 11/27/20 07:29 98.4 F 62 88 L Weight 295 lb - Physical Exam General: no apparent distress HEENT: mucus membranes moist Neck: supple neck Cardiac: regular rate and rhythm Lungs: clear to auscultation Neuro: no lateralizing findings Abdomen: active bowel sounds, ascites Extremities: 1+ LE edema Skin: clear Musculoskeletal: normal range of motion - Labs Result Diagrams: 11/27/20 06:47 11/27/20 06:47 Troponin/CKMB Troponin I 0.031 ng/mL (< 0.028) H 11/26/20 06:10 - Telemetry Sinus rhythms and dysrhythmias: sinus rhythm - Assessment/Plan Assessment/Plan: 1. Symptomatic bradycardia 2. ESRD on HD 3. CAD s/p CABG 4. Blindness 5. Hyperkalemia 6. Indeterminate troponine, likely from ESRD PLAN: - Hold BB indefinitely - K improved after HD. - Currently HR at 60 still on dopamine. - Will likely need a PPM once his fluid level improves. - No BB for two and a half days now. - Try to wean dopamine.
[2020-11-27] MEDS ORDERED: Carvedilol 6.25 MG TAB PO SCH (17:00)
[2020-11-27] MEDS: DOBUTamine 500 mg/250 ml 500 MG in Premix Bag 1 BAG IVPB SCH (17:14)
[2020-11-27] MEDS: Ferrous Sulfate 325 MG TAB PO SCH (20:43)
[2020-11-27] MEDS: Atorvastatin Calcium 40 MG TAB PO SCH (20:44)
[2020-11-27] MEDS: Triamcinolone 0.1% Cream 15 GM TUBE TOP SCH (20:45)
[2020-11-27] MEDS: Tamsulosin HCl 0.4 MG CAP PO SCH (20:45)
[2020-11-27] MEDS: Ondansetron HCl/PF 4 MG in Sodium Chloride 0.9% 50 ML IVPB SCH (21:02)
[2020-11-27] MEDS: DOPamine 400 MG/D5W 250 ML 250 ML IVPB SCH (22:24)
[2020-11-28] MEDS: Ondansetron HCl/PF 4 MG in Sodium Chloride 0.9% 50 ML IVPB SCH ×6 (00:53→20:28)
[2020-11-28] MEDS: traMADol HCl 50 MG TAB PO SCH ×4 (06:09→23:36)
[2020-11-28] MEDS: Levothyroxine Sodium 125 MCG TAB PO SCH (06:09)
--- NOTE | 2020-11-28 06:50 | PDOC.FM ---
- Subjective Subjective: Mr. Sierra says she feels much better this morning than he did yesterday. He reports he is still hallucinating, seeing a small girl and some relatives. - Objective Vital Signs & Weight: Vital Signs (12 hours) Temp Pulse Resp BP Pulse Ox 11/28/20 04:23 97.9 F 62 18 136/64 98 11/27/20 23:40 59 L 22 H 134/72 94 L 11/27/20 20:44 62 11/27/20 19:47 99.5 F 59 L 22 H 128/82 100 Weight Weight 131.587 kg Most Recent Monitor Data Heart Rate from ECG 61 NIBP 138/96 NIBP BP-Mean 110 Respiration from ECG 25 SpO2 95 I&O: 11/26/20 11/27/20 11/28/20 06:59 06:59 06:59 Intake Total 250 Balance 250 Result Diagrams: 11/28/20 06:55 11/28/20 06:55 EKG Reviewed by me: Yes (tele: SR 60s) Phys Exam - Physical Examination Constitutional: NAD HEENT: moist MMs, sclera anicteric Neck: full ROM expiratory wheezing bilaterally Cardiovascular: RRR systolic murmur Gastrointestinal: soft, non-tender Musculoskeletal: pulses present, edema present Neurological: non-focal Psychiatric: A&O x 3 Skin: no rash Dx/Plan - Plan Plan: Pt is a 55 yo M with ESRD, IDDMII, HTN, HFpEF, CAD, BPH, Hypothyroidism, HUAN who presents for weakness. Symptomatic Bradycardia EKG: Bradycardia with low voltage and Left axis deviation -HR maintaining in 60s -s/p dobutamine. Dopamine at 5mcg -Cardiology consult (Jonny): appreciate recs -ECHO pending Visual Hallucinations -Reports seeing a small girl and relatives -Will reassess following dialysis today ESRD 2/2 DMII, HTN- anuric Metal Model Maker: Dr. Olea -K 6.1, 4.4 s/p dialysis yesterday -Cr 9.33, 10.38 s/p dialysis yesterday -Nephro consult: appreciate recs IDDMII, 27+ year history -Lantus 20u qDaily -Hyperglycemic protocol with ACHS accuchecks -Holding home glipizide HUAN -Using home CPAP HTN -Continue home medications Chronic HFpEF -Continue home meds -BNP: 3935, pt does not produce urine -Will monitor volume status closely CAD s/p 3v CABG -Cont home meds Hypothyroidism -Continue home med: Synthroid Anemia of chronic kidney disease -Hb 10.4, appears at baseline -Cont home iron -Will likely benefit from EPO in future Thrombocytopenia -Plt 85 -Hold pharm VTE at this time -SCDs in Place Concern for PNA, resolved CXR: radiology read possible LL PNA -Procal 0.045 -Suspicion low for bacterial infection Diet: Renal- high protein, CC VTE: SCDs IVF: SL PCP: Dino Code Status: Full Disposition/LOS: Appreciate cardiology recs regarding bradycardia. Will continue M/W/F dialysis schedule while admitted.
[2020-11-28 07:03] LABS: #Lymphocytes 0.6 thou/uL (1.20-3.40); #Monocytes 0.8 thou/uL (0.11-0.59); #Neutrophils 6.2 thou/uL (1.40-6.50); %Basophils 0.2 % (0.0-1.0); %Eosinophils 0.5 % (0.0-10.0); %Lymphocytes 7.9 % (21.0-51.0); %Monocytes 10.2 % (0.0-10.0); %Neutrophils 81.2 % (42.0-75.0); Hemoglobin 9.1 g/dL (14.0-18.0); Mean Corpuscular HGB CONC 33.1 g/dL (32.0-36.0); Mean Corpuscular Hemoglobin 33.1 pg (27.0-31.0); Mean Platelet Volume 10.3 fL (7.4-10.4); Platelet Count 79 thou/uL (130-400); RBC Distribution Width 13.7 % (11.5-14.5); Red Blood Cell (RBC) Count 2.74 mill/uL (4.70-6.10); White Blood Cell (WBC) Count 7.6 thou/uL (4.8-10.8)
[2020-11-28] MEDS: Albuterol 200 PUFF (6.7GM INHALER) INH SCH (07:23)
[2020-11-28 07:25] LABS: ALT (SGPT) 60 U/L (8-55); AST (SGOT) 17 U/L (5-34); Albumin 3.5 g/dL (3.5-5.0); Alkaline Phosphatase 121 U/L (40-110); Anion Gap 19 mmol/L (10-20); BUN (Urea Nitrogen) 99 mg/dL (8.4-25.7); Bilirubin, Total 0.8 mg/dL (0.2-1.2); Calc. Creatinine Clearance 15 mL/min (70-130); Calcium 7.8 mg/dL (7.8-10.44); Carbon Dioxide 20 mmol/L (22-29); Chloride 97 mmol/L (98-107); Globulin 2.7 g/dL (2.4-3.5); Glucose 190 mg/dL (70-105); Potassium 4.3 mmol/L (3.5-5.1); Protein, Total 6.2 g/dL (6.0-8.3); Sodium 132 mmol/L (136-145)
[2020-11-28] MEDS ORDERED: KRILL OIL 300 MG PO SCH (09:00)
[2020-11-28] MEDS: Aspirin 81 mg Enteric Coated Tablet PO SCH (12:53)
[2020-11-28] MEDS: Famotidine 20 MG TAB PO SCH (12:56)
[2020-11-28] MEDS: Calcium Carbonate 500 MG TAB PO SCH (12:57)
[2020-11-28] MEDS: Fish Oil 1,000 MG CAP PO SCH (12:57)
[2020-11-28] MEDS: Insulin Glargine 15 UNITS in Pre-Filled Syringe 1 EACH SC SCH (13:00)
--- NOTE | 2020-11-28 13:32 | PDOC.CPN ---
- Subjective Date: 11/28/20 Time: 13:29 Interval history: He is doing a lot better. He is more awake. Just came back from HD this morning. - Review of Systems General: denies: fever/chills, weight/appetite/sleep changes, night sweats, fatigue Respiratory: denies: cough, congestion, shortness of breath, exercise intolerance Cardiovascular: denies: chest pain, palpitation, edema, paroxysmal nocturnal dyspnea, orthopnea Gastrointestinal: denies: nausea, vomiting, diarrhea, constipation, abd pain, GI bleeding Musculoskeletal: denies: pain, tenderness, stiffness, swelling, arthritis/arthralgias Neurological: denies: numbness, syncope, seizure, weakness - Objective Allergies/Adverse Reactions: Allergies Allergy/AdvReac Type Severity Reaction Status Date / Time insulin lispro Allergy Severe Anaphylaxis Verified 04/14/20 12:34 [From Humalog U-100 Insulin] Visit Medications: Current Medications Albuterol Sulfate (Albuterol 200 Puff (6.7gm Inhaler)) 1 puff INH DAILY [facility] Last Admin: 11/28/20 07:23 Dose: 1 puff Documented by: Aspirin (Aspirin 81 Mg Enteric Coated Tablet) 81 mg PO DAILY [facility] Last Admin: 11/28/20 12:53 Dose: 81 mg Documented by: Atorvastatin Calcium (Atorvastatin Calcium 40 Mg Tab) 80 mg PO HS [facility] Last Admin: 11/27/20 20:44 Dose: 80 mg Documented by: Bisacodyl (Bisacodyl 5 Mg Tab) 10 mg PO DAILYPRN PRN PRN Reason: Constipation Calcium Carbonate (Calcium Carbonate 500 Mg Tab) 500 mg PO DAILY [facility] Last Admin: 11/28/20 12:57 Dose: 500 mg Documented by: Dextrose/Water (Dextrose 50% Abboject 50 Ml Syringe) 25 gm SLOW IVP PRN PRN PRN Reason: Hypoglycemia Famotidine (Famotidine 20 Mg Tab) 20 mg PO DAILY [facility] Last Admin: 11/28/20 12:56 Dose: 20 mg Documented by: Ferrous Sulfate (Ferrous Sulfate 325 Mg Tab) 325 mg PO BID [facility] Last Admin: 11/27/20 20:43 Dose: 325 mg Documented by: Fish Oil (Fish Oil 1,000 Mg Cap) 1,000 mg PO DAILY [facility] Last Admin: 11/28/20 12:57 Dose: 1,000 mg Documented by: Gabapentin (Gabapentin 300 Mg Cap) 300 mg PO DAILY [facility] Last Admin: 11/27/20 11:43 Dose: 300 mg Documented by: Glipizide (Glipizide 10 Mg Tab) 10 mg PO BID [facility] Glucagon (Glucagon 1 Mg/Ml Vial) 1 mg IM PRN PRN PRN Reason: Hypoglycemia Hydralazine HCl (Hydralazine 25 Mg Tab) 100 mg PO TID [facility] Last Admin: 11/27/20 20:44 Dose: 100 mg Documented by: Dextrose/Water (D5w) 1,000 mls @ 0 mls/hr IV .Q0M PRN PRN Reason: Hypoglycemia Dopamine HCl/Dextrose (Dopamine 400 Mg/D5w 250 Ml) 250 mls @ 0 mls/hr IVPB INF [facility]; Protocol Last Admin: 11/27/20 22:24 Dose: 250 mls Documented by: Insulin Glargine 15 units/ (Miscellaneous Medication) 0.15 mls @ 0 mls/hr SC QAM [facility] Last Admin: 11/28/20 13:00 Dose: 0.15 mls Documented by: Ondansetron HCl 4 mg/ Sodium (Chloride) 52 mls @ 200 mls/hr IVPB Q4HR [facility] Last Admin: 11/28/20 12:59 Dose: 52 mls Documented by: Insulin Human Regular (Insulin Regular 300 Units/3 Ml Vial) 0 units SC .MILD SLIDING SCALE PRN PRN Reason: Mild Correctional Scale Last Admin: 11/27/20 07:36 Dose: 3 unit Documented by: Insulin Human Regular (Insulin Regular 300 Units/3 Ml Vial) 0 units SC .BEDTIME SLIDING SC PRN PRN Reason: Bedtime Correctional Scale Isosorbide Mononitrate (Isosorbide Mononitrate Er 30 Mg Tab) 30 mg PO DAILY [facility] Last Admin: 11/28/20 12:53 Dose: 30 mg Documented by: Levothyroxine Sodium (Levothyroxine Sodium 125 Mcg Tab) 125 mcg PO 0600 [facility] Last Admin: 11/28/20 06:09 Dose: 125 mcg Documented by: Melatonin (Melatonin 3 Mg Tab) 3 mg PO HS PRN PRN Reason: Insomnia Last Admin: 11/27/20 00:17 Dose: 3 mg Documented by: Metoclopramide HCl (Metoclopramide Hcl 10 Mg Tab) 5 mg PO TID [facility] Last Admin: 11/27/20 20:45 Dose: 5 mg Documented by: Sertraline HCl (Sertraline Hcl 25 Mg Tab) 50 mg PO DAILY [facility] Last Admin: 11/28/20 12:56 Dose: 50 mg Documented by: Sodium Chloride (Flush - Normal Saline 10 Ml Syringe) 10 ml IVF Q12HR PRN PRN Reason: Saline Flush Sodium Chloride (Flush - Normal Saline 10 Ml Syringe) 10 ml IVF PRN PRN PRN Reason: Saline Flush Tamsulosin HCl (Tamsulosin Hcl 0.4 Mg Cap) 0.4 mg PO HS [facility] Last Admin: 11/27/20 20:45 Dose: 0.4 mg Documented by: Tramadol HCl (Tramadol Hcl 50 Mg Tab) 50 mg PO Q6HR [facility] Last Admin: 11/28/20 06:09 Dose: 50 mg Documented by: Triamcinolone Acetonide (Triamcinolone 0.1% Cream 15 Gm Tube) 0 gm TOP BID [facility] Last Admin: 11/27/20 20:45 Dose: 1 gm Documented by: Vital Signs & Weight: Vital Signs Temp Pulse Resp BP BP Pulse Ox 11/28/20 12:10 59 L 18 140/63 93 L 11/28/20 09:00 98.3 F 65 19 129/60 95 11/28/20 04:23 97.9 F 62 18 136/64 98 Weight 290 lb 1.6 oz - Physical Exam General: alert & oriented x3 HEENT: mucus membranes moist Neck: supple neck Cardiac: regular rate and rhythm Lungs: normal breath sounds Neuro: other (Blindness.) Abdomen: active bowel sounds Extremities: 1+ LE edema Skin: clear Musculoskeletal: no pain - Labs Result Diagrams: 11/28/20 06:55 11/28/20 06:55 Troponin/CKMB Troponin I 0.031 ng/mL (< 0.028) H 11/26/20 06:10 - Telemetry Sinus rhythms and dysrhythmias: sinus rhythm - Assessment/Plan Assessment/Plan: 1. Symptomatic bradycardia, improved. 2. ESRD on HD 3. CAD s/p CABG 4. Blindness 5. Hyperkalemia, resolved. 6. Indeterminate troponin, likely from ESRD PLAN: - Hold BB indefinitely - K improved after HD. - Currently HR at 70's will stop dopamine. - Will likely need a PPM next week. Will get an echo to evaluate LV function again. EF normal last year at 55-60%
[2020-11-28] MEDS: Ferrous Sulfate 325 MG TAB PO SCH ×2 (14:47→20:32)
[2020-11-28] MEDS: Gabapentin 300 MG CAP PO SCH (14:47)
[2020-11-28] MEDS: hydrALAZINE 25 MG TAB PO SCH ×3 (14:48→20:30)
[2020-11-28] MEDS: Metoclopramide HCl 10 MG TAB PO SCH ×3 (14:48→20:30)
[2020-11-28] MEDS: Triamcinolone 0.1% Cream 15 GM TUBE TOP SCH ×2 (14:48→20:29)
[2020-11-28] MEDS: Insulin Regular 300 UNITS/3 ML VIAL SC PRN (17:47)
[2020-11-28] MEDS: Atorvastatin Calcium 40 MG TAB PO SCH (20:32)
[2020-11-28] MEDS: Tamsulosin HCl 0.4 MG CAP PO SCH (20:32)
[2020-11-29] MEDS: Ondansetron HCl/PF 4 MG in Sodium Chloride 0.9% 50 ML IVPB SCH ×6 (01:03→20:42)
[2020-11-29 04:56] LABS: #Eosinphils 0.2 thou/uL (0.0-0.7); #Lymphocytes 0.9 thou/uL (1.20-3.40); #Monocytes 0.7 thou/uL (0.11-0.59); #Neutrophils 3.2 thou/uL (1.40-6.50); %Basophils 0.2 % (0.0-1.0); %Eosinophils 4.1 % (0.0-10.0); %Lymphocytes 17.8 % (21.0-51.0); %Monocytes 14.2 % (0.0-10.0); %Neutrophils 63.7 % (42.0-75.0); Hemoglobin 8.2 g/dL (14.0-18.0); Mean Corpuscular HGB CONC 32.8 g/dL (32.0-36.0); Mean Corpuscular Hemoglobin 33.2 pg (27.0-31.0); Mean Platelet Volume 10.1 fL (7.4-10.4); Platelet Count 74 thou/uL (130-400); RBC Distribution Width 13.7 % (11.5-14.5); Red Blood Cell (RBC) Count 2.48 mill/uL (4.70-6.10)
[2020-11-29 05:02] LABS: ALT (SGPT) 46 U/L (8-55); AST (SGOT) 18 U/L (5-34); Albumin 3.1 g/dL (3.5-5.0); Alkaline Phosphatase 97 U/L (40-110); Anion Gap 14 mmol/L (10-20); BUN (Urea Nitrogen) 67 mg/dL (8.4-25.7); Bilirubin, Total 0.7 mg/dL (0.2-1.2); Calc. Creatinine Clearance 19 mL/min (70-130); Calcium 7.4 mg/dL (7.8-10.44); Carbon Dioxide 27 mmol/L (22-29); Chloride 102 mmol/L (98-107); Globulin 2.4 g/dL (2.4-3.5); Glucose 160 mg/dL (70-105); Potassium 3.8 mmol/L (3.5-5.1); Protein, Total 5.5 g/dL (6.0-8.3); Sodium 139 mmol/L (136-145)
[2020-11-29] MEDS: Levothyroxine Sodium 125 MCG TAB PO SCH (05:35)
[2020-11-29] MEDS: traMADol HCl 50 MG TAB PO SCH ×4 (05:35→18:53)
--- NOTE | 2020-11-29 05:45 | PDOC.FM ---
- Subjective Subjective: Patient overall reports that he is doing well. He is feeling weak and fatigued. We discussed moving around in bed and sitting up as much as possible. ROS: denies CP, palpitations, dizziness, lightheadedness - Objective MAR Reviewed: Yes Vital Signs & Weight: Vital Signs (12 hours) Temp Pulse Resp BP BP BP Pulse Ox 11/29/20 03:08 99.0 F 52 L 20 104/54 L 93 L 11/28/20 23:35 97.6 F 80 20 130/66 94 L 11/28/20 20:30 56 L 135/63 11/28/20 20:25 135/63 11/28/20 19:30 98.5 F 58 L 16 110/53 L 97 Weight Weight 127 kg Most Recent Monitor Data Heart Rate from ECG 61 NIBP 138/96 NIBP BP-Mean 110 Respiration from ECG 25 SpO2 95 I&O: 11/27/20 11/28/20 11/29/20 06:59 06:59 06:59 Intake Total 250 1250 Output Total 400 Balance 250 850 Result Diagrams: 11/29/20 04:28 11/29/20 04:28 Phys Exam - Physical Examination Constitutional: NAD on CPAP Respiratory: no wheezing, no rales, no rhonchi, clear to auscultation bilateral Cardiovascular: RRR, no significant murmur, no rub Gastrointestinal: soft, non-tender, no distention, positive bowel sounds Musculoskeletal: no edema, pulses present Neurological: non-focal Dx/Plan - Plan Plan: Pt is a 55 yo M with ESRD, IDDMII, HTN, HFpEF, CAD, BPH, Hypothyroidism, HUAN who presents for weakness. Symptomatic Bradycardia EKG: Bradycardia with low voltage and Left axis deviation -HR maintaining in 50-70s NSR per tele monitoring -s/p dobutamine and dopamine -Cardiology consult (Jonny): appreciate recs -ECHO showing EF of 60-65% Visual Hallucinations -Reports seeing a small girl and relatives -Will reassess following dialysis today ESRD 2/2 DMII, HTN- anuric Disability Case Manager: Dr. Lefty Alfaro 6.1, 4.4 s/p dialysis yesterday -Cr 9.33, 10.38 s/p dialysis yesterday -Nephro consult: appreciate recs IDDMII, 27+ year history -Lantus 20u qDaily -Hyperglycemic protocol with ACHS accuchecks -Holding home glipizide HUAN -Using home CPAP HTN -Continue home medications Chronic HFpEF -Continue home meds -BNP: 3935, pt does not produce urine -Will monitor volume status closely CAD s/p 3v CABG -Cont home meds Hypothyroidism -Continue home med: Synthroid Anemia of chronic kidney disease -Hb 10.4, appears at baseline -Cont home iron -Will likely benefit from EPO in future Thrombocytopenia -Plt 85 -Hold pharm VTE at this time -SCDs in Place -Will get peripheral smear in AM Concern for PNA, resolved CXR: radiology read possible LL PNA -Procal 0.045 -Suspicion low for bacterial infection Diet: Renal- high protein, CC VTE: SCDs IVF: SL PCP: Dino Code Status: Full Disposition/LOS: Appreciate cardiology recs regarding bradycardia. Will continue M/W/F dialysis schedule while admitted. Pending PPM placement per Dr. Graf which should happen Tuesday per patient. Addendum - Attending - Attending Attestation Date/Time: 11/29/20 [id number] I personally evaluated the patient and discussed the management with the team. I agree with the History, Examination, Assessment and Plan documented above with any addition or exceptions noted below. PM on Tuesday per cards.
[2020-11-29] MEDS: Insulin Regular 300 UNITS/3 ML VIAL SC PRN ×2 (06:00→18:11)
[2020-11-29] MEDS ORDERED: Heparin 10,000 UNITS/ 10 ML VIAL ONE (09:47)
[2020-11-29] MEDS: hydrALAZINE 25 MG TAB PO SCH ×3 (09:53→20:42)
[2020-11-29] MEDS: Metoclopramide HCl 10 MG TAB PO SCH ×3 (09:53→20:44)
[2020-11-29] MEDS: Aspirin 81 mg Enteric Coated Tablet PO SCH (12:12)
[2020-11-29] MEDS: Famotidine 20 MG TAB PO SCH (12:13)
[2020-11-29] MEDS: Fish Oil 1,000 MG CAP PO SCH (12:13)
[2020-11-29] MEDS: Calcium Carbonate 500 MG TAB PO SCH (12:13)
[2020-11-29] MEDS: Gabapentin 300 MG CAP PO SCH (12:13)
[2020-11-29] MEDS: Ferrous Sulfate 325 MG TAB PO SCH ×2 (12:14→20:42)
[2020-11-29] MEDS: Insulin Glargine 15 UNITS in Pre-Filled Syringe 1 EACH SC SCH (12:14)
[2020-11-29] MEDS: Triamcinolone 0.1% Cream 15 GM TUBE TOP SCH ×2 (12:15→20:45)
[2020-11-29] MEDS: Albuterol 200 PUFF (6.7GM INHALER) INH SCH (13:39)
[2020-11-29] MEDS ORDERED: traMADol HCl 50 MG TAB PO SCH (18:00)
[2020-11-29] MEDS: Atorvastatin Calcium 40 MG TAB PO SCH (20:42)
[2020-11-29] MEDS: Tamsulosin HCl 0.4 MG CAP PO SCH (20:44)
--- NOTE | 2020-11-29 21:19 | EKG ---
Test Reason : Blood Pressure : / mmHG Vent. Rate : 037 BPM Atrial Rate : 576 BPM P-R Int : 000 ms QRS Dur : 102 ms QT Int : 580 ms P-R-T Axes : 000 -11 041 degrees QTc Int : 455 ms Atrial fibrillation with slow ventricular response with a competing junctional pacemaker Nonspecific ST abnormality , probably digitalis effect Abnormal ECG Confirmed by TONIO RAYMUNDO ([id number]), manager editorial CYNDY EVANGELISTA ([id number]) on 11/29/2020 9:18:55 PM Referred By: Confirmed By:TONIO RAYMUNDO
[2020-11-30] MEDS: Ondansetron HCl/PF 4 MG in Sodium Chloride 0.9% 50 ML IVPB SCH ×6 (01:41→20:30)
[2020-11-30] MEDS: traMADol HCl 50 MG TAB PO SCH ×4 (01:41→17:37)
[2020-11-30 05:06] LABS: Anion Gap 14 mmol/L (10-20); BUN (Urea Nitrogen) 56 mg/dL (8.4-25.7); Calc. Creatinine Clearance 23 mL/min (70-130); Calcium 7.2 mg/dL (7.8-10.44); Carbon Dioxide 26 mmol/L (22-29); Chloride 103 mmol/L (98-107); Glucose 147 mg/dL (70-105); Potassium 4.1 mmol/L (3.5-5.1); Sodium 139 mmol/L (136-145)
[2020-11-30 05:12] LABS: Eosinophils 7 % (0-10); Hemoglobin 8.5 g/dL (14.0-18.0); Lymphocytes 16 % (21-51); MDiff Complete? YES; Mean Corpuscular HGB CONC 31.9 g/dL (32.0-36.0); Mean Corpuscular Hemoglobin 32.5 pg (27.0-31.0); Monocytes 13 % (0-10); Myelocyte 1 % (0-0); Neutrophil 63 % (42-75); Platelet Count 89 thou/uL (130-400); Platelet Morphology Comment Appears Decreased; RBC Distribution Width 13.7 % (11.5-14.5); Red Blood Cell (RBC) Count 2.62 mill/uL (4.70-6.10); White Blood Cell (WBC) Count 5.2 thou/uL (4.8-10.8)
--- NOTE | 2020-11-30 05:50 | PDOC.FM ---
- Subjective Subjective: Patient with no acute concerns this am, denies CP, SOB, N/V. Eager to have PPM placed. - Objective MAR Reviewed: Yes Vital Signs & Weight: Vital Signs (12 hours) Temp Pulse Resp BP BP Pulse Ox 11/30/20 04:00 98.2 F 61 22 H 147/69 H 97 11/29/20 20:42 61 150/76 H 11/29/20 20:00 99 11/29/20 19:05 98.6 F 61 20 150/76 H 99 Weight Weight 127 kg Most Recent Monitor Data Heart Rate from ECG 61 NIBP 138/96 NIBP BP-Mean 110 Respiration from ECG 25 SpO2 95 I&O: 11/28/20 11/29/20 11/30/20 06:59 06:59 06:59 Intake Total 250 1760 Output Total 400 Balance 250 1360 Result Diagrams: 11/30/20 04:04 11/30/20 04:04 Phys Exam - Physical Examination Constitutional: NAD L eye socket well appearing, no erythema or drainage Respiratory: no wheezing, no rales, no rhonchi, clear to auscultation bilateral Cardiovascular: no significant murmur, no rub bradycardic Gastrointestinal: soft, non-tender, no distention, positive bowel sounds Musculoskeletal: no edema Psychiatric: normal affect, A&O x 3 Dx/Plan - Plan Plan: Pt is a 55 yo M with ESRD, IDDMII, HTN, HFpEF, CAD, BPH, Hypothyroidism, HUAN who presents for weakness. Symptomatic Bradycardia EKG: Bradycardia with low voltage and Left axis deviation -HR maintaining in 50-70s NSR per tele monitoring -s/p dobutamine and dopamine -Cardiology consult (Jonny): appreciate recs -ECHO showing EF of 60-65% Visual Hallucinations -Reports seeing a small girl and relatives -Will reassess following dialysis today ESRD 2/2 DMII, HTN- anuric Collection Coordinator: Dr. Olea -K 6.1, 4.4 s/p dialysis yesterday -Cr 9.33, 10.38 s/p dialysis yesterday -Nephro consult: appreciate recs IDDMII, 27+ year history -Lantus 20u qDaily -Hyperglycemic protocol with ACHS accuchecks -Holding home glipizide HUAN -Using home CPAP HTN -Continue home medications Chronic HFpEF -Continue home meds -BNP: 3935, pt does not produce urine -Will monitor volume status closely CAD s/p 3v CABG -Cont home meds Hypothyroidism -Continue home med: Synthroid Anemia of chronic kidney disease -Hb 10.4, appears at baseline -Cont home iron -Will likely benefit from EPO in future Thrombocytopenia -Plt 85 -Hold pharm VTE at this time -SCDs in Place -Will get peripheral smear in AM Concern for PNA, resolved CXR: radiology read possible LL PNA -Procal 0.045 -Suspicion low for bacterial infection Diet: Renal- high protein, CC VTE: SCDs IVF: SL PCP: Dino Code Status: Full Disposition/LOS: Appreciate cardiology recs regarding bradycardia. Will continue M/W/F dialysis schedule while admitted. Pending PPM placement per Dr. Graf which should happen Tuesday per patient. Addendum - Attending - Attending Attestation Date/Time: 11/30/20 1102 I personally evaluated the patient and discussed the management with Dr. Garza. I agree with the History, Examination, Assessment and Plan documented above with any addition or exceptions noted below.
[2020-11-30] MEDS: Levothyroxine Sodium 125 MCG TAB PO SCH (06:22)
[2020-11-30] MEDS: Albuterol 200 PUFF (6.7GM INHALER) INH SCH (06:27)
[2020-11-30] MEDS: hydrALAZINE 25 MG TAB PO SCH ×3 (10:25→20:31)
[2020-11-30] MEDS: Metoclopramide HCl 10 MG TAB PO SCH ×3 (10:26→20:31)
[2020-11-30] MEDS: Fish Oil 1,000 MG CAP PO SCH (14:04)
[2020-11-30] MEDS: Ferrous Sulfate 325 MG TAB PO SCH ×2 (14:05→20:30)
[2020-11-30] MEDS: Aspirin 81 mg Enteric Coated Tablet PO SCH (14:05)
[2020-11-30] MEDS: Famotidine 20 MG TAB PO SCH (14:05)
[2020-11-30] MEDS: Calcium Carbonate 500 MG TAB PO SCH (14:06)
[2020-11-30] MEDS: Gabapentin 300 MG CAP PO SCH (14:06)
[2020-11-30] MEDS: Insulin Glargine 15 UNITS in Pre-Filled Syringe 1 EACH SC SCH (14:06)
[2020-11-30] MEDS: Triamcinolone 0.1% Cream 15 GM TUBE TOP SCH ×2 (14:06→20:32)
[2020-11-30] MEDS: Atorvastatin Calcium 40 MG TAB PO SCH (20:30)
[2020-11-30] MEDS: Tamsulosin HCl 0.4 MG CAP PO SCH (20:31)
[2020-12-01] MEDS: traMADol HCl 50 MG TAB PO SCH ×3 (00:54→12:17)
[2020-12-01] MEDS: Ondansetron HCl/PF 4 MG in Sodium Chloride 0.9% 50 ML IVPB SCH ×4 (00:55→12:18)
[2020-12-01] MEDS: Levothyroxine Sodium 125 MCG TAB PO SCH (04:52)
[2020-12-01 05:31] LABS: #Eosinphils 0.5 thou/uL (0.0-0.7); #Lymphocytes 0.9 thou/uL (1.20-3.40); #Monocytes 0.6 thou/uL (0.11-0.59); #Neutrophils 3.2 thou/uL (1.40-6.50); %Basophils 0.8 % (0.0-1.0); %Eosinophils 8.9 % (0.0-10.0); %Monocytes 10.7 % (0.0-10.0); %Neutrophils 61.6 % (42.0-75.0); Mean Corpuscular HGB CONC 32.8 g/dL (32.0-36.0); Mean Corpuscular Hemoglobin 33.3 pg (27.0-31.0); Mean Platelet Volume 9.7 fL (7.4-10.4); Platelet Count 91 thou/uL (130-400); RBC Distribution Width 13.4 % (11.5-14.5); White Blood Cell (WBC) Count 5.2 thou/uL (4.8-10.8)
--- NOTE | 2020-12-01 05:41 | PDOC.FM ---
- Subjective Subjective: Pt complains this morning about his prolonged hospital stay. He states he is ready to go home. He is currently NPO pending possible pacemaker placement today. No acute event overnight. Denies CP, SOB, N/V. - Objective Vital Signs & Weight: Vital Signs (12 hours) Temp Pulse Resp BP BP Pulse Ox 12/01/20 04:21 95 12/01/20 04:00 98.5 F 69 20 166/79 H 11/30/20 20:31 79 179/76 H 11/30/20 20:00 98.6 F 79 20 179/76 H Weight Weight 127 kg Most Recent Monitor Data Heart Rate from ECG 61 NIBP 138/96 NIBP BP-Mean 110 Respiration from ECG 25 SpO2 95 I&O: 11/29/20 11/30/20 12/01/20 06:59 06:59 06:59 Intake Total 1760 Output Total 400 Balance 1360 Result Diagrams: 12/01/20 04:00 12/01/20 04:00 Phys Exam - Physical Examination Constitutional: NAD L eye enucleation Neck: supple, full ROM Respiratory: no wheezing, clear to auscultation bilateral Cardiovascular: RRR, no significant murmur Gastrointestinal: soft, non-tender Musculoskeletal: no edema Neurological: non-focal Psychiatric: normal affect, A&O x 3 Dx/Plan - Plan Plan: Pt is a 55 yo M with ESRD, IDDMII, HTN, HFpEF, CAD, BPH, Hypothyroidism, HUAN who presents for weakness. Symptomatic Bradycardia -resolved, HR: 60s-70s overnight per tele monitor -on admission: EKG: Bradycardia with low voltage and Left axis deviation -s/p dobutamine and dopamine -Cardiology consult (Jonny): appreciate recs -ECHO showing EF of 60-65% -possible PPM placement today ESRD 2/2 DMII, HTN- anuric -Quality Control Clerk, Dr. Olea: dialysis done over the weekend in preparation for possible placement of pacemaker today -normal HD schedule M/W/F: on hold today pending PPM placement -Nephro consulted: appreciate recs IDDMII, 27+ year history -Lantus 20u qDaily -Hyperglycemic protocol with ACHS accuchecks -Holding home glipizide HUAN -Using home CPAP HTN -Continue home medications Chronic HFpEF -Continue home meds -BNP: 3935, pt does not produce urine -Will monitor volume status closely CAD s/p 3v CABG -Cont home meds Hypothyroidism -Continue home med: Synthroid Anemia of chronic kidney disease -Hb 10.4, appears at baseline -Cont home iron Thrombocytopenia -Plt 91 -Hold pharm VTE at this time -SCDs in Place -pending peripheral smear Concern for PNA, resolved -CXR: radiology read possible LL PNA -Procal 0.045 -Suspicion low for bacterial infection Diet:NPO VTE: SCDs IVF: SL PCP: Dino Code Status: Full Disposition/LOS: Cardiology consulted, appreciate recs, pending PPM placement today per patient, waiting to hear back from Dr Graf. Dialysis on hold today pending PPM, per Dr Olea Addendum - Attending - Attending Attestation Date/Time: 12/01/20 1601 I personally evaluated the patient and discussed the management with Dr. Shine. I agree with the History, Examination, Assessment and Plan documented above with any addition or exceptions noted below.
[2020-12-01 05:45] LABS: Anion Gap 14 mmol/L (10-20); BUN (Urea Nitrogen) 36 mg/dL (8.4-25.7); Calc. Creatinine Clearance 28 mL/min (70-130); Calcium 7.7 mg/dL (7.8-10.44); Carbon Dioxide 27 mmol/L (22-29); Chloride 102 mmol/L (98-107); Glucose 157 mg/dL (70-105); Potassium 4.2 mmol/L (3.5-5.1); Sodium 139 mmol/L (136-145)
[2020-12-01 08:19] VITALS: TEMP 99.2
[2020-12-01] MEDS: Insulin Glargine 15 UNITS in Pre-Filled Syringe 1 EACH SC SCH (09:36)
[2020-12-01] MEDS: Aspirin 81 mg Enteric Coated Tablet PO SCH (09:39)
[2020-12-01] MEDS: Fish Oil 1,000 MG CAP PO SCH (09:40)
[2020-12-01] MEDS: Calcium Carbonate 500 MG TAB PO SCH (09:40)
[2020-12-01] MEDS: Famotidine 20 MG TAB PO SCH (09:40)
[2020-12-01] MEDS: Ferrous Sulfate 325 MG TAB PO SCH (09:40)
[2020-12-01] MEDS: Gabapentin 300 MG CAP PO SCH (09:40)
[2020-12-01] MEDS: hydrALAZINE 25 MG TAB PO SCH (09:41)
[2020-12-01] MEDS: Metoclopramide HCl 10 MG TAB PO SCH (09:42)
[2020-12-01] MEDS: Triamcinolone 0.1% Cream 15 GM TUBE TOP SCH (09:45)
[2020-12-01 09:48] VITALS: BP 176/85
--- NOTE | 2020-12-01 18:24 | PDOC.CPN ---
- Subjective Date: 12/01/20 Time: 18:21 Interval history: He sebastian snot had any lightheadedness or any other issues. He is upset about being NPO. - Review of Systems General: denies: fever/chills, weight/appetite/sleep changes, night sweats, fatigue Respiratory: denies: cough, congestion, shortness of breath, exercise intolerance Cardiovascular: reports: edema. denies: chest pain, palpitation, paroxysmal nocturnal dyspnea, orthopnea Gastrointestinal: denies: nausea, vomiting, diarrhea, constipation, abd pain, GI bleeding Musculoskeletal: denies: pain, tenderness, stiffness, swelling, arthritis/arthralgias Neurological: denies: numbness, syncope, seizure, weakness - Objective Allergies/Adverse Reactions: Allergies Allergy/AdvReac Type Severity Reaction Status Date / Time insulin lispro Allergy Severe Anaphylaxis Verified 04/14/20 12:34 [From Humalog U-100 Insulin] Vital Signs & Weight: Vital Signs Temp Pulse Resp BP BP Pulse Ox 12/01/20 09:41 69 176/85 H 12/01/20 07:15 99.2 F 72 18 155/69 H 100 Weight 279 lb 15.793 oz - Physical Exam General: alert & oriented x3 HEENT: mucus membranes moist Neck: supple neck Cardiac: regular rate and rhythm Lungs: normal breath sounds Neuro: no lateralizing findings Abdomen: active bowel sounds Extremities: 1+ LE edema Skin: clear Musculoskeletal: no pain - Labs Result Diagrams: 12/01/20 04:00 12/01/20 04:00 Troponin/CKMB Troponin I 0.031 ng/mL (< 0.028) H 11/26/20 06:10 - Telemetry Sinus rhythms and dysrhythmias: sinus rhythm - Assessment/Plan Assessment/Plan: 1. Symptomatic sinus bradycardia 2. Hyperkalemia, resolved. 3. ESRD PLAN: - His HR has remained in the 70's. - Stop coreg. Cannot be on AV stefanie blocking agents. - May discharge home with a 30 day monitor which will be arranged through my office. - Will follow up in 1 month with his 30 day monitor. - Will do outpatient referral for cardiac rehab.
[2020-12-02] MEDS ORDERED: Albuterol 200 PUFF (6.7GM INHALER) INH SCH (07:00)
--- NOTE | 2020-12-02 20:00 | DIS ---
DATE OF ADMISSION: 11/26/2020 DATE OF DISCHARGE: 12/01/2020 ADMITTING ATTENDING: Dr. Kay. DISCHARGE ATTENDING: Dr. Kay. RESIDENT: Radha Miner, PGY-1. CONSULTS: 1. Nephrology, Dr. Olea. 2. Cardiology, Dr. Graf. PROCEDURES: Echocardiogram on 11/26/2020 showed ejection fraction of 60% to 65%, diastolic function indeterminate due to fused E/A waves, moderately dilated left atrium, mild mitral regurgitation, moderate tricuspid regurgitation. PRIMARY DIAGNOSIS: Symptomatic bradycardia. SECONDARY DIAGNOSES: 1. End-stage renal disease, on hemodialysis. 2. Hypertension. 3. Insulin-dependent diabetes mellitus type 2. 4. Obstructive sleep apnea. 5. Heart failure preserved ejection fraction. 6. Coronary artery disease, status post CABG. 7. Hypothyroidism. 8. Anemia of chronic disease. 9. Thrombocytopenia. DISCHARGE MEDICATIONS: 1. Albuterol inhaler. 2. Aspirin 81 mg daily. 3. Atorvastatin 80 mg daily. 4. Calcium carbonate 500 mg daily. 5. Docusate 100 mg q.i.d. 6. Famotidine 20 mg daily. 7. ferrous sulfate 325 b.i.d. 8. Fish oil 1000 mg daily. 9. Lasix 80 mg daily. 10. Gabapentin 300 mg daily. 11. Glipizide 10 mg b.i.d. 12. Hydralazine 100 mg t.i.d. 13. Lantus 15 units q.a.m. 14. Isosorbide mononitrate 30 mg daily. 15. Krill oil 300 mg daily. 16. Synthroid 125 mcg daily. 17. Metoclopramide 5 mg t.i.d. 18. Metolazone 5 mg daily. 19. Flomax 0.4 mg daily. 20. Tramadol 50 mg q.6 hours. 21. Triamcinolone topical b.i.d. DISCONTINUED MEDICATIONS: Coreg. HISTORY OF PRESENT ILLNESS: The patient is a 55-year-old male with end-stage renal disease, diabetes 2, hypertension, HFpEF, CAD, HUAN, who presents with weakness. He had missed dialysis on Tuesday due to possible COVID exposure. Said he felt presyncopal. With EMS, was found to be bradycardic with heart rate of 30. He was given atropine in route and heart rate improved to 52. When he arrived to the ED, his heart rate was still in the 30s to 40s and was given atropine again. His EKG showed bradycardia with no ST changes. Cardiology and Nephrology were consulted from the ED. Labs were white count 5.7, hemoglobin 10.4, platelets of 85. Potassium 6.1, BUN 126, creatinine 13, AST 37, ALT 111, BNP at 3935, troponin 0.031. The patient was originally given an epi bolus and placed on a drip and sent to the IMCU. Cardiology was consulted and started the patient on dobutamine and dopamine drip. The patient was also given emergent dialysis. Throughout hospital stay, the patient was seen by Cardiology and Nephrology as well as primary team. We were able to wean the dobutamine and dopamine drip. The patient's symptomatic bradycardia resolved. It was discussed as whether to have a permanent pacemaker implanted while during hospital stay, but Cardiology decided to send the patient home on pvc monitor. The patient is to follow up as outpatient with Dr. Graf in 1 month for evaluation of event monitor. His Coreg was discontinued during hospital stay and should not be continued nor any other AV stefanie blocking agents at this time. DISPOSITION: Stable. DISCHARGE INSTRUCTIONS: 1. Location: Home. 2. Diet: Heart healthy, renal. 3. Activity: As tolerated. 4. Followup: Follow up with PCP and Cardiology, Dr. Graf in 1 month. Job ID: [id number] [id number]
== END 2020-12-01 12:40 | disposition home or self-care (01) | DRG 640 ==
LOC: ERS 05:29 → ERHOLD 09:55 → 2NO 11-27 15:11
PROVIDERS: ADMIT Student in an Organized Health Care Education/Training Program; ATTEND Family Medicine
PROC: 02HV33Z Insertion of Infusion Device into Superior Vena Cava, Percutaneous Approach (ICD-10-PCS; 2020-11-26)
PROC: 5A1D70Z Performance of Urinary Filtration, Intermittent, Less than 6 Hours Per Day (ICD-10-PCS; principal; 2020-11-28)
PROC: 5A1D70Z Performance of Urinary Filtration, Intermittent, Less than 6 Hours Per Day (ICD-10-PCS; 2020-11-29)
PROC: 5A1D70Z Performance of Urinary Filtration, Intermittent, Less than 6 Hours Per Day (ICD-10-PCS; 2020-11-30)
DX: E87.5 Hyperkalemia (principal); N18.6 End stage renal disease; I13.2 Hypertensive heart and chronic kidney disease with heart failure and with stage 5 chronic kidney disease, or end stage renal disease; I50.32 Chronic diastolic (congestive) heart failure; R00.1 Bradycardia, unspecified; E11.22 Type 2 diabetes mellitus with diabetic chronic kidney disease; E03.9 Hypothyroidism, unspecified; G47.33 Obstructive sleep apnea (adult) (pediatric); N40.0 Benign prostatic hyperplasia without lower urinary tract symptoms; I25.10 Atherosclerotic heart disease of native coronary artery without angina pectoris; K21.9 Gastro-esophageal reflux disease without esophagitis; E78.5 Hyperlipidemia, unspecified; D63.1 Anemia in chronic kidney disease; D69.6 Thrombocytopenia, unspecified; I73.9 Peripheral vascular disease, unspecified; H54.7 Unspecified visual loss; Z20.822 Contact with and (suspected) exposure to COVID-19; R44.1 Visual hallucinations; Z88.8 Allergy status to other drugs, medicaments and biological substances; Z99.2 Dependence on renal dialysis; Z79.899 Other long term (current) drug therapy; Z79.890 Hormone replacement therapy; Z79.82 Long term (current) use of aspirin; Z95.1 Presence of aortocoronary bypass graft; Z82.49 Family history of ischemic heart disease and other diseases of the circulatory system
CPT/HCPCS: 0240U; 36415; 36416; 36556; 71045; 80048; 80053; 83880; 84100; 84145; 84484; 85025; 85060; 87040; 90935; 93005; 93306; 96365; 96366; 96374; 96375; 96376; G0257; J0171; J0461; J1250; J1265; J1644; J1815; J2060; J2270; J2405

== ENCOUNTER 2021-05-29 08:51 | Emergency (ER) | payer MEDICARE ==
[2021-05-29 09:40] LABS: Mean Corpuscular HGB CONC 32.8 g/dL (32.0-36.0); Mean Corpuscular Hemoglobin 34.1 pg (27.0-31.0); RBC Distribution Width 13.6 % (11.5-14.5); Red Blood Cell (RBC) Count 3.23 mill/uL (4.70-6.10); White Blood Cell (WBC) Count 5.7 thou/uL (4.8-10.8)
[2021-05-29 09:56] LABS: ALT (SGPT) 16 U/L (8-55); AST (SGOT) 19 U/L (5-34); Albumin 3.7 g/dL (3.5-5.0); Alkaline Phosphatase 91 U/L (40-110); Anion Gap 12 mmol/L (10-20); BUN (Urea Nitrogen) 44 mg/dL (8.4-25.7); Bilirubin, Total 0.5 mg/dL (0.2-1.2); Calc. Creatinine Clearance 0 mL/min (70-130); Calcium 8.6 mg/dL (7.8-10.44); Carbon Dioxide 24 mmol/L (22-29); Chloride 104 mmol/L (98-107); Globulin 2.7 g/dL (2.4-3.5); Glucose 152 mg/dL (70-105); Potassium 3.9 mmol/L (3.5-5.1); Protein, Total 6.4 g/dL (6.0-8.3); Sodium 136 mmol/L (136-145)
[2021-05-29 10:19] LABS: #Eosinphils 0.2 thou/uL (0.0-0.7); #Monocytes 0.6 thou/uL (0.11-0.59); %Basophils 0.3 % (0.0-1.0); %Eosinophils 2.7 % (0.0-10.0); %Lymphocytes 17.1 % (21.0-51.0); %Monocytes 9.7 % (0.0-10.0); %Neutrophils 70.2 % (42.0-75.0); MDiff Complete? YES; Macrocytosis SLIGHT = 6-15 cells (100X) (0-5/hpf); Mean Platelet Volume 9.9 fL (7.4-10.4); Platelet Count 86 thou/uL (130-400); Platelet Morphology Comment Appears Decreased
== END 2021-05-29 13:29 | disposition home or self-care (01) ==
LOC: ERS 08:51
DX: T82.590A Other mechanical complication of surgically created arteriovenous fistula, initial encounter (principal); I12.0 Hypertensive chronic kidney disease with stage 5 chronic kidney disease or end stage renal disease; E11.9 Type 2 diabetes mellitus without complications; N18.6 End stage renal disease
CPT/HCPCS: 36415; 80053; 85025; 93005; 93931

== ENCOUNTER 2022-12-03 16:54 | Inpatient (IN) | payer OTHER ==
[~2022-12-03 16:54] MED LIST: Iopamidol-370 76% 500 ML 1 ML ONE
[2022-12-03 20:24] VITALS: BMI 34.7
[2022-12-03] MEDS ORDERED: HumaLOG 300 UNITS/3 ML VIAL SC PRN ×2 (21:23)
[2022-12-03] MEDS ORDERED: Dextrose 5% in Water 1,000 ML IV PRN (21:23)
[2022-12-03] MEDS ORDERED: Dextrose 50% Abboject 50 ML SYRINGE SLOW IVP PRN (21:23)
[2022-12-03] MEDS ORDERED: Ipratropium/Albuterol 3 ML NEB NEB PRN (21:26)
[2022-12-03] MEDS: Ipratropium/Albuterol 3 ML NEB NEB SCH (22:00)
[2022-12-04] MEDS: Ipratropium/Albuterol 3 ML NEB NEB SCH ×6 (01:32→21:43)
[2022-12-04 04:41] LABS: Hemoglobin 7.1 g/dL (14.0-18.0); Mean Corpuscular HGB CONC 33.3 g/dL (32.0-36.0); Mean Corpuscular Hemoglobin 35.4 pg (27.0-31.0); RBC Distribution Width 14.2 % (11.5-14.5); Red Blood Cell (RBC) Count 2.01 mill/uL (4.70-6.10); White Blood Cell (WBC) Count 5.8 10x3/uL (4.8-10.8)
[2022-12-04 04:57] LABS: Anion Gap 15 mmol/L (10-20); BUN (Urea Nitrogen) 31 mg/dL (8.4-25.7); Calc. Creatinine Clearance 29 mL/min (70-130); Calcium 8.4 mg/dL (7.8-10.44); Carbon Dioxide 29 mmol/L (22-29); Chloride 97 mmol/L (98-107); Estimated GFR 15; Glucose 378 mg/dL (70-105); Potassium 3.8 mmol/L (3.5-5.1); Sodium 137 mmol/L (136-145)
[2022-12-04 05:07] LABS: #Lymphocytes 0.3 thou/uL (1.20-3.40); #Monocytes 0.4 thou/uL (0.11-0.59); #Neutrophils 5.1 thou/uL (1.40-6.50); %Eosinophils 0.2 % (0.0-10.0); %Lymphocytes 5.1 % (21.0-51.0); %Neutrophils 87.7 % (42.0-75.0); MDiff Complete? YES; Macrocytosis SLIGHT = 6-15 cells (100X) (0-5/hpf); Mean Platelet Volume 11.2 fL (7.4-10.4); Platelet Count 73 10x3/uL (130-400); Platelet Morphology Comment Appears Decreased; Tear Drops SLIGHT = 2-5 cells (100X) (0-1/hpf)
[2022-12-04] MEDS ORDERED: HYDROcodone/Acetaminophen 5/325 mg Tablet PO PRN (06:48)
[2022-12-04] MEDS ORDERED: Lidocaine-Prilocaine 2.5% Cream 5 GM TUBE TOP PRN (06:48)
[2022-12-04] MEDS ORDERED: traMADol HCl 50 MG TAB PO PRN (06:48)
[2022-12-04] MEDS: hydrALAZINE 25 MG TAB PO SCH ×4 (08:34→20:48)
[2022-12-04] MEDS: Heparin 5,000 UNITS/ML VIAL SC SCH (08:34)
[2022-12-04] MEDS: Metolazone 5 MG TAB PO SCH (08:34)
[2022-12-04] MEDS: Calcium Carbonate 500 MG TAB PO SCH (08:34)
[2022-12-04] MEDS: Tamsulosin HCl 0.4 MG CAP PO SCH (08:34)
[2022-12-04] MEDS: Metoclopramide HCl 10 MG TAB PO SCH ×3 (08:34→20:48)
[2022-12-04] MEDS: Aspirin 81 mg Enteric Coated Tablet PO SCH (08:35)
[2022-12-04] MEDS ORDERED: PHOSPHO PO SCH (09:00)
[2022-12-04] MEDS ORDERED: [UNRECOGNIZED DRUG - OTHER] PO SCH (09:00)
[2022-12-04] MEDS ORDERED: EPA PO SCH (09:00)
[2022-12-04] MEDS ORDERED: AST PO SCH (09:00)
[2022-12-04] MEDS ORDERED: KRILL PO SCH (09:00)
[2022-12-04] MEDS ORDERED: DHA PO SCH (09:00)
[2022-12-04] MEDS ORDERED: Insulin Glargine 30 UNITS/0.3 ML VIAL SC SCH ×2 (09:00→16:45)
[2022-12-04] MEDS ORDERED: Dexamethasone 10 MG in Sodium Chloride 0.9% 50 ML IVPB SCH (10:07)
[2022-12-04] MEDS ORDERED: Dexamethasone 10 MG/ML VIAL SLOW IVP SCH (10:15)
[2022-12-04] MEDS ORDERED: ALPRAZolam 0.25 MG TAB PO SCH (10:15)
[2022-12-04] MEDS: ALPRAZolam 0.25 MG TAB PO PRN (10:31)
[2022-12-04] MEDS: Benzonatate 100 MG CAP PO PRN ×2 (10:31→15:27)
[2022-12-04 10:46] LABS: Troponin I 0.068 ng/mL (< 0.028)
[2022-12-04 11:30] LABS: HBSAg Index 0.21 S/CO (0-0.99); Hep B Core Total Ab Non-Reactive (NonReactive); Hep B Core Total Index 0.07 S/CO (0-0.79); Hep B Surf Ag Non-Reactive S/CO (NonReactive)
[2022-12-04 11:31] LABS: Hep C IgG Ab Non-Reactive (NonReactive); Hep C Index 0.16 S/CO (0-0.79)
[2022-12-04 11:34] LABS: HBSAB Concentration 579.04 mIU/mL; Hep B Surf AB Reactive (NonReactive)
[2022-12-04] MEDS ORDERED: Heparin 10,000 UNITS/ 10 ML VIAL ONE (13:44)
[2022-12-04 14:01] LABS: Hemoglobin 7.2 g/dL (14.0-18.0)
[2022-12-04 16:30] LABS: Hemoglobin A1c 6.6 % (4.0-6.0)
[2022-12-04 19:11] LABS: Actual Bicarbonate (HCO3a) 30.6 mEq/L (22-28); Base Excess (BEa) 6.6 mEq/L (-2.0 to +3.0); CO2 Tension 41.9 mmHg (35.0-45.0); Carboxyhemoglobin (COHb) 1.1 gm% (0.0-3.0); Hemoglobin (Hb) 9.5 g/dL (14.0-18.0); O2 Tension (PaO2), arterial 78.8 mmHg (80.0-100.0); pH, Arterial 7.48 (7.35-7.45)
[2022-12-04 19:16] LABS: ALV-art Gradient 96.985 mmHg (0-20); Puncture Site RRA
[2022-12-04] MEDS ORDERED: Dexmedetomidine In 0.9 % NaCl 100 ML IVPB SCH (19:45)
[2022-12-04] MEDS: Atorvastatin Calcium 40 MG TAB PO SCH (20:48)
[2022-12-04] MEDS: methylPREDNISolone Sod Succ 40 MG VIAL IVP SCH (20:49)
[2022-12-04] MEDS: rOPINIRole HCl 0.25 MG TAB PO SCH (20:49)
[2022-12-04] MEDS ORDERED: methylPREDNISolone Sod Succ 40 MG VIAL IVP SCH (22:00)
[2022-12-05] MEDS: Ipratropium/Albuterol 3 ML NEB NEB SCH ×6 (01:54→22:19)
[2022-12-05 04:05] LABS: #Basophils 0.1 thou/uL (0.0-0.2); #Lymphocytes 0.2 thou/uL (1.20-3.40); #Monocytes 0.2 thou/uL (0.11-0.59); #Neutrophils 4.3 thou/uL (1.40-6.50); %Basophils 1.9 % (0.0-1.0); %Eosinophils 0.2 % (0.0-10.0); %Lymphocytes 3.6 % (21.0-51.0); %Monocytes 4.9 % (0.0-10.0); %Neutrophils 89.4 % (42.0-75.0); Hemoglobin 7.2 g/dL (14.0-18.0); Mean Corpuscular HGB CONC 32.4 g/dL (32.0-36.0); Mean Corpuscular Hemoglobin 34.6 pg (27.0-31.0); Mean Platelet Volume 10.7 fL (7.4-10.4); Platelet Count 63 10x3/uL (130-400); RBC Distribution Width 14.3 % (11.5-14.5); Red Blood Cell (RBC) Count 2.09 mill/uL (4.70-6.10); White Blood Cell (WBC) Count 4.8 10x3/uL (4.8-10.8)
[2022-12-05 04:22] LABS: Anion Gap 13 mmol/L (10-20); BUN (Urea Nitrogen) 29 mg/dL (8.4-25.7); Calc. Creatinine Clearance 32 mL/min (70-130); Calcium 8.5 mg/dL (7.8-10.44); Carbon Dioxide 30 mmol/L (22-29); Chloride 99 mmol/L (98-107); Estimated GFR 17; Glucose 343 mg/dL (70-105); Phosphorus 4.4 mg/dL (2.3-4.7); Potassium 4.1 mmol/L (3.5-5.1); Sodium 138 mmol/L (136-145)
[2022-12-05] MEDS: methylPREDNISolone Sod Succ 40 MG VIAL IVP SCH ×3 (05:15→21:23)
[2022-12-05] MEDS: Benzonatate 100 MG CAP PO PRN ×2 (05:15→08:45)
[2022-12-05] MEDS: Levothyroxine Sodium 125 MCG TAB PO SCH (05:15)
[2022-12-05] MEDS: hydrALAZINE 25 MG TAB PO SCH ×3 (08:44→21:23)
[2022-12-05] MEDS: Calcium Carbonate 500 MG TAB PO SCH (08:44)
[2022-12-05] MEDS: ALPRAZolam 0.25 MG TAB PO PRN (08:44)
[2022-12-05] MEDS: Aspirin 81 mg Enteric Coated Tablet PO SCH (08:45)
[2022-12-05] MEDS: Tamsulosin HCl 0.4 MG CAP PO SCH (08:45)
[2022-12-05] MEDS: Azithromycin 250 MG TAB PO SCH (08:45)
[2022-12-05] MEDS: Metolazone 5 MG TAB PO SCH (08:45)
[2022-12-05] MEDS: Insulin Glargine 30 UNITS/0.3 ML VIAL SC SCH (08:46)
[2022-12-05] MEDS: Metoclopramide HCl 10 MG TAB PO SCH ×3 (08:46→21:22)
[2022-12-05] MEDS ORDERED: Dexamethasone 10 MG in Sodium Chloride 0.9% 50 ML IVPB SCH (09:00)
[2022-12-05] MEDS ORDERED: Dexamethasone 10 MG/ML VIAL SLOW IVP SCH (09:00)
[2022-12-05] MEDS: HumaLOG 300 UNITS/3 ML VIAL SC PRN ×3 (12:29→21:25)
[2022-12-05] MEDS: Docusate 100 MG CAP PO PRN (12:36)
[2022-12-05] MEDS: rOPINIRole HCl 0.25 MG TAB PO SCH (21:22)
[2022-12-05] MEDS: Atorvastatin Calcium 40 MG TAB PO SCH (21:22)
[2022-12-05] MEDS ORDERED: Epoetin (ESRD) 10,000 UNITS/ML VIAL SC SCH (22:00)
[2022-12-05] MEDS ORDERED: EPOETIN ALFA-EPBX (ESRD) 10,000 UNIT/ML VIAL SC SCH (22:15)
[2022-12-06] MEDS: Ipratropium/Albuterol 3 ML NEB NEB SCH ×6 (03:24→22:04)
[2022-12-06] MEDS: methylPREDNISolone Sod Succ 40 MG VIAL IVP SCH ×3 (05:36→21:18)
[2022-12-06] MEDS: Levothyroxine Sodium 125 MCG TAB PO SCH (05:36)
[2022-12-06] MEDS: HumaLOG 300 UNITS/3 ML VIAL SC PRN ×4 (05:56→21:19)
[2022-12-06 06:02] LABS: #Lymphocytes 0.5 thou/uL (1.20-3.40); #Monocytes 0.2 thou/uL (0.11-0.59); %Eosinophils 0.3 % (0.0-10.0); %Lymphocytes 8.6 % (21.0-51.0); %Monocytes 4.1 % (0.0-10.0); %Neutrophils 86.9 % (42.0-75.0); Hemoglobin 7.6 g/dL (14.0-18.0); Mean Corpuscular HGB CONC 32.8 g/dL (32.0-36.0); Mean Corpuscular Hemoglobin 34.9 pg (27.0-31.0); Mean Platelet Volume 11.2 fL (7.4-10.4); Platelet Count 61 10x3/uL (130-400); RBC Distribution Width 14.6 % (11.5-14.5); Red Blood Cell (RBC) Count 2.19 mill/uL (4.70-6.10); White Blood Cell (WBC) Count 5.8 10x3/uL (4.8-10.8)
[2022-12-06 06:29] LABS: Anion Gap 13 mmol/L (10-20); BUN (Urea Nitrogen) 31 mg/dL (8.4-25.7); Calc. Creatinine Clearance 39 mL/min (70-130); Calcium 8.6 mg/dL (7.8-10.44); Carbon Dioxide 28 mmol/L (22-29); Chloride 98 mmol/L (98-107); Estimated GFR 22; Glucose 274 mg/dL (70-105); Potassium 3.8 mmol/L (3.5-5.1); Sodium 135 mmol/L (136-145)
[2022-12-06] MEDS ORDERED: Insulin Glargine 30 UNITS/0.3 ML VIAL SC SCH (09:15)
[2022-12-06] MEDS: Azithromycin 250 MG TAB PO SCH (09:28)
[2022-12-06] MEDS: Aspirin 81 mg Enteric Coated Tablet PO SCH (09:28)
[2022-12-06] MEDS: Metolazone 5 MG TAB PO SCH (09:28)
[2022-12-06] MEDS: hydrALAZINE 25 MG TAB PO SCH ×3 (09:29→21:17)
[2022-12-06] MEDS: Metoclopramide HCl 10 MG TAB PO SCH ×3 (09:29→21:18)
[2022-12-06] MEDS: ALPRAZolam 0.25 MG TAB PO PRN (09:30)
[2022-12-06] MEDS: Tamsulosin HCl 0.4 MG CAP PO SCH (09:30)
[2022-12-06] MEDS: Calcium Carbonate 500 MG TAB PO SCH (09:31)
[2022-12-06] MEDS: Insulin Glargine 30 UNITS/0.3 ML VIAL SC SCH (09:43)
[2022-12-06] MEDS ORDERED: Sertraline 25 MG TAB PO SCH ×2 (10:00)
[2022-12-06] MEDS: HumaLOG 300 UNITS/3 ML VIAL SC SCH ×2 (13:13→18:14)
[2022-12-06] MEDS: Heparin 5,000 UNITS/ML VIAL SC SCH (18:06)
[2022-12-06] MEDS: rOPINIRole HCl 0.25 MG TAB PO SCH (21:17)
[2022-12-06] MEDS: Atorvastatin Calcium 40 MG TAB PO SCH (21:18)
[2022-12-06] MEDS: guaiFENesin ER 600 MG TAB PO SCH (21:18)
[2022-12-07] MEDS: Ipratropium/Albuterol 3 ML NEB NEB SCH ×6 (01:53→22:11)
[2022-12-07 03:44] LABS: #Lymphocytes 0.6 thou/uL (1.20-3.40); #Monocytes 0.3 thou/uL (0.11-0.59); %Eosinophils 0.3 % (0.0-10.0); %Lymphocytes 8.6 % (21.0-51.0); %Monocytes 3.6 % (0.0-10.0); %Neutrophils 87.6 % (42.0-75.0); Hemoglobin 8.1 g/dL (14.0-18.0); Mean Corpuscular HGB CONC 32.7 g/dL (32.0-36.0); Mean Corpuscular Hemoglobin 34.6 pg (27.0-31.0); Mean Platelet Volume 11.1 fL (7.4-10.4); Platelet Count 69 10x3/uL (130-400); RBC Distribution Width 14.5 % (11.5-14.5); Red Blood Cell (RBC) Count 2.33 mill/uL (4.70-6.10); White Blood Cell (WBC) Count 6.9 10x3/uL (4.8-10.8)
[2022-12-07 04:08] LABS: Anion Gap 14 mmol/L (10-20); BUN (Urea Nitrogen) 59 mg/dL (8.4-25.7); Calc. Creatinine Clearance 26 mL/min (70-130); Calcium 8.5 mg/dL (7.8-10.44); Carbon Dioxide 26 mmol/L (22-29); Chloride 100 mmol/L (98-107); Estimated GFR 13; Glucose 100 mg/dL (70-105); Potassium 4.2 mmol/L (3.5-5.1); Sodium 136 mmol/L (136-145)
[2022-12-07] MEDS: Levothyroxine Sodium 125 MCG TAB PO SCH (06:18)
[2022-12-07] MEDS: methylPREDNISolone Sod Succ 40 MG VIAL IVP SCH (06:18)
[2022-12-07] MEDS: Metoclopramide HCl 10 MG TAB PO SCH ×3 (08:25→21:06)
[2022-12-07] MEDS: guaiFENesin ER 600 MG TAB PO SCH ×2 (08:25→21:06)
[2022-12-07] MEDS: Tamsulosin HCl 0.4 MG CAP PO SCH (08:25)
[2022-12-07] MEDS: Sevelamer Carbonate 800 MG TAB PO SCH ×3 (08:25→18:30)
[2022-12-07] MEDS: hydrALAZINE 25 MG TAB PO SCH ×3 (08:26→21:06)
[2022-12-07] MEDS: Docusate 100 MG CAP PO PRN (08:26)
[2022-12-07] MEDS: Azithromycin 250 MG TAB PO SCH (08:26)
[2022-12-07] MEDS: Metolazone 5 MG TAB PO SCH (08:26)
[2022-12-07] MEDS: Sertraline 25 MG TAB PO SCH (08:26)
[2022-12-07] MEDS: Insulin Glargine 30 UNITS/0.3 ML VIAL SC SCH (08:27)
[2022-12-07] MEDS: Calcium Carbonate 500 MG TAB PO SCH (08:27)
[2022-12-07] MEDS: Aspirin 81 mg Enteric Coated Tablet PO SCH (08:27)
[2022-12-07] MEDS: ALPRAZolam 0.25 MG TAB PO PRN (09:38)
[2022-12-07] MEDS: HumaLOG 300 UNITS/3 ML VIAL SC SCH ×4 (09:38→18:30)
[2022-12-07] MEDS ORDERED: Sertraline 25 MG TAB PO SCH (10:00)
[2022-12-07] MEDS: Atorvastatin Calcium 40 MG TAB PO SCH (21:06)
[2022-12-07] MEDS: rOPINIRole HCl 0.25 MG TAB PO SCH (21:07)
[2022-12-07] MEDS: Heparin 5,000 UNITS/ML VIAL SC SCH (21:08)
[2022-12-07] MEDS: Benzonatate 100 MG CAP PO PRN (23:13)
[2022-12-08] MEDS: Ipratropium/Albuterol 3 ML NEB NEB SCH ×5 (02:42→18:31)
[2022-12-08 04:35] LABS: #Lymphocytes 1.1 thou/uL (1.20-3.40); #Monocytes 0.5 thou/uL (0.11-0.59); #Neutrophils 5.5 thou/uL (1.40-6.50); %Basophils 0.1 % (0.0-1.0); %Eosinophils 0.7 % (0.0-10.0); %Lymphocytes 15.5 % (21.0-51.0); %Monocytes 7.3 % (0.0-10.0); %Neutrophils 76.4 % (42.0-75.0); Hemoglobin 8.1 g/dL (14.0-18.0); Mean Corpuscular Hemoglobin 34.6 pg (27.0-31.0); Mean Platelet Volume 10.4 fL (7.4-10.4); Platelet Count 91 10x3/uL (130-400); RBC Distribution Width 14.5 % (11.5-14.5); Red Blood Cell (RBC) Count 2.33 mill/uL (4.70-6.10); White Blood Cell (WBC) Count 7.2 10x3/uL (4.8-10.8)
[2022-12-08 04:44] LABS: Anion Gap 14 mmol/L (10-20); BUN (Urea Nitrogen) 82 mg/dL (8.4-25.7); Calc. Creatinine Clearance 20 mL/min (70-130); Calcium 8.2 mg/dL (7.8-10.44); Carbon Dioxide 24 mmol/L (22-29); Chloride 100 mmol/L (98-107); Estimated GFR 10; Glucose 113 mg/dL (70-105); Potassium 3.6 mmol/L (3.5-5.1); Sodium 134 mmol/L (136-145)
[2022-12-08] MEDS: Levothyroxine Sodium 125 MCG TAB PO SCH (06:13)
[2022-12-08] MEDS ORDERED: Heparin 10,000 UNITS/ 10 ML VIAL ONE (08:50)
[2022-12-08] MEDS ORDERED: Insulin Glargine 30 UNITS/0.3 ML VIAL SC SCH (09:00)
[2022-12-08] MEDS ORDERED: Sertraline 25 MG TAB PO SCH (09:00)
[2022-12-08] MEDS ORDERED: hydrOXYzine 25 MG TAB PO PRN (09:20)
[2022-12-08] MEDS: HumaLOG 300 UNITS/3 ML VIAL SC SCH (09:45)
[2022-12-08] MEDS: Sertraline 25 MG TAB PO SCH (09:46)
[2022-12-08] MEDS: Insulin Glargine 30 UNITS/0.3 ML VIAL SC SCH (09:46)
[2022-12-08] MEDS: Sevelamer Carbonate 800 MG TAB PO SCH ×3 (09:50→18:06)
[2022-12-08] MEDS: hydrALAZINE 25 MG TAB PO SCH ×3 (09:51→20:17)
[2022-12-08] MEDS: Azithromycin 250 MG TAB PO SCH (09:51)
[2022-12-08] MEDS: Calcium Carbonate 500 MG TAB PO SCH (09:51)
[2022-12-08] MEDS: Metolazone 5 MG TAB PO SCH (09:51)
[2022-12-08] MEDS: Aspirin 81 mg Enteric Coated Tablet PO SCH (09:51)
[2022-12-08] MEDS: guaiFENesin ER 600 MG TAB PO SCH ×2 (09:51→20:18)
[2022-12-08] MEDS: Heparin 5,000 UNITS/ML VIAL SC SCH ×3 (09:52→20:18)
[2022-12-08] MEDS: Tamsulosin HCl 0.4 MG CAP PO SCH (09:52)
[2022-12-08] MEDS: Metoclopramide HCl 10 MG TAB PO SCH ×3 (09:52→20:18)
[2022-12-08 19:32] VITALS: TEMP 97.6
[2022-12-08] MEDS: rOPINIRole HCl 0.25 MG TAB PO SCH (20:17)
[2022-12-08] MEDS: Atorvastatin Calcium 40 MG TAB PO SCH (20:17)
[2022-12-08 20:20] VITALS: BP 130/59
== END 2022-12-08 20:45 | disposition home or self-care (01) | DRG 189 ==
LOC: 2NO 18:19 → IMCU/EMU 12-04 19:11
PROVIDERS: ADMIT Family Medicine; ATTEND Family Medicine
PROC: 5A1D70Z Performance of Urinary Filtration, Intermittent, Less than 6 Hours Per Day (ICD-10-PCS; principal; 2022-12-03)
PROC: 5A09557 Assistance with Respiratory Ventilation, Greater than 96 Consecutive Hours, Continuous Positive Airway Pressure (ICD-10-PCS; 2022-12-03)
PROC: 4A133R1 Monitoring of Arterial Saturation, Peripheral, Percutaneous Approach (ICD-10-PCS; 2022-12-03)
DX: J96.01 Acute respiratory failure with hypoxia (principal); N18.6 End stage renal disease; J45.901 Unspecified asthma with (acute) exacerbation; J44.1 Chronic obstructive pulmonary disease with (acute) exacerbation; I12.0 Hypertensive chronic kidney disease with stage 5 chronic kidney disease or end stage renal disease; Z20.822 Contact with and (suspected) exposure to COVID-19; G47.33 Obstructive sleep apnea (adult) (pediatric); H54.8 Legal blindness, as defined in USA; E11.65 Type 2 diabetes mellitus with hyperglycemia; E03.9 Hypothyroidism, unspecified; I25.10 Atherosclerotic heart disease of native coronary artery without angina pectoris; D63.1 Anemia in chronic kidney disease; E11.22 Type 2 diabetes mellitus with diabetic chronic kidney disease; D69.6 Thrombocytopenia, unspecified; Z51.5 Encounter for palliative care; Z99.2 Dependence on renal dialysis; Z88.8 Allergy status to other drugs, medicaments and biological substances; Z79.82 Long term (current) use of aspirin; Z79.890 Hormone replacement therapy; Z79.4 Long term (current) use of insulin; Z79.84 Long term (current) use of oral hypoglycemic drugs; Z79.899 Other long term (current) drug therapy; Z95.0 Presence of cardiac pacemaker; Z95.1 Presence of aortocoronary bypass graft; Z90.49 Acquired absence of other specified parts of digestive tract; Z87.891 Personal history of nicotine dependence
CPT/HCPCS: 36415; 36416; 36600; 71275; 80048; 82805; 83036; 83735; 84100; 84484; 85025; 86704; 86850; 86900; 86901; 90935; 93306; 94640; 94660; G0257; J1100; J1644; J1815; J2920; J3490; J7620; Q5105; Q9967